=== PATIENT | female | born 1940 | race Caucasian/White ===

== ENCOUNTER → 2016-07-28 | Outpatient (CLI) | payer MEDICARE, OTHER ==
[~2016-07-28] MED LIST: ALPR.25T PO; ASP81TEC PO; ATOR10TA66 PO; CEFP500T4 PO; CEPH500C PO; CHOL500014 PO; CYCL5TAB11 PO; FLT05NA16 NSEACH; FURO20TA4 PO; GABA300T23 PO; GABAPENTIN PO; GBPN600T PO; HYDR-3720 PO; HYDR118S10 PO; IBUP-30 PO; MELO-195 PO; METO25TA2 PO; NEBI20TA2 PO; NFNEB10T PO; NIAC1CAP PO; NIAC250T17 PO; NIACIN; OMG1KC PO; ONDA8TAB2 PO; OXYC-309 PO; RLX60T PO; TRIA16.5 NS; VENTOLIN HFA AER; VITIMIN D; [UNRECOGNIZED DRUG - REMARK]
--- OUTSIDE RECORDS SUMMARY | 2016-07-28 16:01 | XMS REPORT | Continuity of Care Document ---
Author Author [facility] Organization [facility] Address Unknown Phone Unavailable Care Team Providers Care Senior Environmental Scientist Name Role Phone Janie Rodriguez PCP [phone] Source Comments Some departments are not documenting in the electronic medical record. If you do not see the information that you expected, contact Release of Information in the Health Information Management department at [phone] for further assistance in locating additional records.[facility] Active Allergies and Adverse Reactions Allergen Noted Date Severity Reactions Comments Adhesive 12/15/2015 Medium RASH, SEE COMMENTS, EDEMA ekg electrodes Crestor 10/16/2015 High SEE COMMENTS Pain Evista 2015 Low SEE COMMENTS PAIN Feldene 10/16/2015 High RASH Fosamax 10/16/2015 High RASH Lyrica 10/16/2015 High RASH Burst capillary vessels Current Medications Prescription Sig. Disp. Refills Start End Date Status Date carvedilol (COREG) 25 mg Take 25 mg by mouth twice Active tablet daily. oxybutynin (DITROPAN) 5 Take 5 mg by mouth twice Active mg tablet daily. spironolactone Take 50 mg by mouth at Active (ALDACTONE) 50 mg tablet bedtime daily. simvastatin (ZOCOR) 40 mg Take 40 mg by mouth at Active tablet bedtime daily. CYCLOSPORINE (RESTASIS Place 1 Drop into or Active OP) around eye(s) twice daily. aspirin 81 mg chewable Take 81 mg by mouth Active tablet daily. DOCOSAHEXANOIC ACID/EPA Take 3 Tabs by mouth Active (FISH OIL PO) daily. 1200mg each niacin 500 mg tablet Take 1,000 mg by mouth at Active bedtime daily. IBUPROFEN PO Take 800 mg by mouth Active daily. VIT Take 1 Tab by mouth twice Active C/E/ZN/COPPR/LUTEIN/ZEAXA daily. N (PRESERVISION AREDS 2 PO) Cholecalciferol (Vitamin Take 1 Cap by mouth at Active D3) 5,000 unit cap bedtime daily. losartan(+) (COZAAR) 100 Take 50 mg by mouth at Active mg tablet bedtime daily. gabapentin (NEURONTIN) Take 900 mg by mouth Active 600 mg tablet three times daily. calcium carbonate Take 1 Tab by mouth three 90 Tab 3 12/02/19 Active (OS-TAYLOR) 1250 mg tablet times daily. 16 oxyCODONE/acetaminophen Take 1 Tab by mouth every 90 Tab 0 12/02/19 Active (PERCOCET) 10/325 mg 4 hours as needed 16 tablet Active Problems Problem Noted Date Hypercalcemia 11/11/2015 Most Recent Encounters Date Type Specialty Providers Description 07/08/2016 Telephone Oncology Héctor Salomon MD Results 07/06/2016 Orders Only Oncology Héctor Salomon MD Hyperparathyroidism (HCC) (Primary Dx) 07/05/2016 Office Visit Oncology Héctor Salomon MD Hypercalcemia ( Primary Dx) 07/05/2016 Orders Only Oncology Héctor Salomon MD Hypercalcemia ( Primary Dx) 06/20/2016 Telephone Oncology Héctor Salomon MD Appointment Request Social History Tobacco Use Types Packs/Day Years Used Date Never Smoker Smokeless Tobacco: Never Used Alcohol Use Drinks/Week oz/Week Comments No 0 Standard 0.0 drinks or equivalent Last Filed Vital Signs Vital Sign Reading Time Taken Blood Pressure 174/83 07/05/2016 3:27 PM LEGAL TRANSCRIBER Pulse 58 07/05/2016 3:27 PM LEGAL TRANSCRIBER Temperature 36.5 C (97.7 F) 07/05/2016 3:27 PM LEGAL TRANSCRIBER Respiratory Rate 18 07/05/2016 3:27 PM LEGAL TRANSCRIBER Height 1.613 m (5' 3.5") 07/05/2016 3:27 PM LEGAL TRANSCRIBER Weight 98.884 kg (218 lb) 07/05/2016 3:27 PM LEGAL TRANSCRIBER Body Mass Index 38.01 07/05/2016 3:27 PM LEGAL TRANSCRIBER Oxygen Saturation 98% 07/05/2016 3:27 PM LEGAL TRANSCRIBER Plan of Care Health Maintenance Due Date Last Done Comments Physical (Comprehensive) 1945 Exam Pertussis Vaccine 1949 Tetanus Vaccine 10/28/1955 Shingles Vaccine 1998 Osteoporosis Screening 10/28/2003 Prevnar/Pneumovax (#1) 10/28/2003 Influenza Vaccine 01/28/2016 Results from Last 3 Months 25-OH VITAMIN D (D2 + D3) (07/05/2016 2:00 PM) Component Value Range Vitamin D(25-OH)Total 53.9 30-80 NG/ML Specimen Blood PARATHYROID HORMONE (07/05/2016 2:00 PM) Component Value Range PTH Hormone 59.6 10-65 PG/ML Specimen Blood CALCIUM (07/05/2016 2:00 PM) Component Value Range Calcium 9.4 8.5-10.6 MG/DL Specimen Blood
--- NOTE | 2016-07-28 18:46 | Diagnostic Imaging Report ---
EXAMINATION: PA and lateral chest at 421 hours. INDICATION: Shortness of breath, cough. FINDINGS: The heart size is at the upper limits of normal but stable when compared to 01/14/2015. The lungs are clear. There is still no sign of failure, pneumonia or a pleural effusion to suggest an acute abnormality. The mediastinum is not widened. The osseous structures are intact. The orthopedic hardware overlying the upper lumbar spine seen previously is partially visualized on this exam. IMPRESSION: There is no evidence for active disease. Dictated by: Dictated on workstation # [id number]
== END ==
LOC: RAD 15:58
PROVIDERS: ATTEND Nurse Practitioner Family
DX: R05 Cough (principal); R06.02 Shortness of breath
CPT/HCPCS: 71020

== ENCOUNTER → 2017-06-09 | Outpatient (CLI) | payer MEDICARE, OTHER ==
--- NOTE | 2017-06-09 09:44 | Diagnostic Imaging Report ---
Indication: Shortness of breath PA and lateral chest Heart size and pulmonary vascular normal. Lungs are clear. There are no effusions or pneumothoraces. Impression: Negative chest Dictated by: Dictated on workstation # [id number]
== END ==
LOC: RAD 09:05
PROVIDERS: ATTEND Nurse Practitioner Family
DX: R05 Cough (principal)
CPT/HCPCS: 71046

== ENCOUNTER → 2017-07-26 | Outpatient (CLI) | payer MEDICARE, OTHER | LOC: CARD 11:59 | PROVIDERS: ATTEND Physician Assistant | DX: Q21.1 Atrial septal defect (principal); R07.9 Chest pain, unspecified; I51.89 Other ill-defined heart diseases | CPT/HCPCS: 93306 ==

== ENCOUNTER 2017-09-30 21:18 | Emergency (ER) | payer MEDICARE, OTHER ==
[~2017-09-30] VITALS: Ht 160 cm; Wt 95.3 kg
--- NOTE | 2017-09-30 22:10 | ED Upper Extremity ---
General Chief Complaint: Upper Extremity Stated Complaint: L ARM PAIN Nursing Triage Note: PATIENT STATES THAT SHE STRAINED A MUSCLE IN HER UPPER ARM LAST NIGHT WHILE HOLDING ON TO THE RAILING ON THE STAIRS IN HER HOME. Nursing Sepsis Screen: No Definite Risk Source: patient Exam Limitations: no limitations History of Present Illness Date Seen by Provider: September 30, 2017 Time Seen by Provider: 21:50 Initial Comments C/O LEFT UPPER ARM AND SHOULDER PAIN STATES SHE INJURED HER ARM LAST NIGHT AROUND MIDNIGHT--STATES SHE WAS WALKING UP STEPS AND WAS HOLDING ONTO THE WALL AND TWISTED HER ARM C/O PAIN TO LEFT UPPER ARM WITH ANY MOVEMENTS. NO RADIATION OF PAIN NO NECK PAIN NO CHEST PAIN NO PARESTHESIAS OR MOTOR DEFICITS PT HAS HISTORY OF BILATERAL ROTATOR CUFF TEARS AFTER A FALL 8 YEARS AGO, BUT DID NOT HAVE SURGERY PT IS RIGHT HANDED TOOK IBUPROFEN 800 MG AN HOUR AGO AND IT HAS HELPED TOOK HYDROCODONE 7.5 MG LAST PM AND IT HELPED--PT TAKES DAILY FOR CHRONIC GENERALIZED PAIN PT STATES IT FEELS BEST WHEN SHE HOLDS HER LEFT FOREARM AGAINST HER CHEST, WITH HER RIGHT HAND. PCP: DR. BEGUM ORTHOPEDIC SURGEON: DR. PARIS Allergies and Home Medications Allergies Coded Allergies: loratadine (Unverified Allergy, Unknown, 11/07/12) aspirin (Unverified Adverse Reaction, Unknown, 01/22/16) NOSE BLEEDS, CAN TAKE BABY ASA piroxicam (Unverified Adverse Reaction, Unknown, 01/22/16) pregabalin (Unverified Adverse Reaction, Unknown, 01/22/16) MAKES LEGS "BLOOD RED" rosuvastatin calcium (Unverified Adverse Reaction, Unknown, 01/22/16) Home Medications Alprazolam 0.25 Mg Tab, 0.25 MG PO Q6H PRN, (Reported) PRN ANXIETY Aspirin 81 Mg Tabec, 81 MG PO DAILY, (Reported) Atorvastatin Calcium 10 Mg Tablet, 10 MG PO DAILY, (Reported) Cephalexin Monohydrate 500 Mg Capsule, 1 EACH PO QID, (Reported) TAKE ONE BY MOUTH EVERY 6 HRS. USE ALL OF THIS MEDICATION ORDERED ( ANTIBIOTIC) Cholecalciferol 5,000 Unit Capsule, 5,000 UNIT PO DAILY, (Reported) Cyclobenzaprine Hcl 5 Mg Tablet, 5 MG PO TID, (Reported) Furosemide 20 Mg Tablet, 20 MG PO DAILY, (Reported) Gabapentin 600 Mg Tab, 900 MG PO TID, (Reported) TAKE 1 AND 1/2 OF A 600 MG TABLET TID TOTAL OF 900 MG TID Meloxicam 15 Mg Tablet, 15 MG PO DAILY, (Reported) Nebivolol Hcl 20 Mg Tablet, 20 MG PO DAILY, (Reported) Nebivolol Hcl 10 Mg Tablet, 10 MG PO HS PRN, (Reported) PRN FOR BLOOD PRESSURE OVER 150 TOP NUMBER Niacin/Inositol Niacinate 1 Each Capsule, 1,000 MG PO DAILY, (Reported) TAKE 2 (500 MG) TABLETS DAILY [place] 3 Polyunsat Fatty Acids 1,000 Mg Cap, 3,000 MG PO DAILY, (Reported) Ondansetron Hcl 8 Mg Tablet, 8 MG PO Q6H PRN for NAUSEA/VOMITING Prescribed by: CHRISTINA HOLLEY on 05/12/14 1534 Oxycodone Hcl/Acetaminophen 1 Each Tablet, 5-325 MG PO Q4H PRN, (Reported) PRN SEVERE PAIN Prednisone 10 Mg Tab.ds.pk, 10 MG PO UD 6 PILLS A DAY X 3 DAYS, THEN 4 PILLS A DAY X 3 DAYS, THEN 2 PILLS A DAY X 3 DAYS, THEN 1 PILL A DAY X 3 DAYS Prescribed by: LUZ JOY on 09/30/17 2255 Raloxifene Hcl 60 Mg Tablet, 60 MG PO DAILY, (Reported) Patient Home Medication List Home Medication List Reviewed: Yes Constitutional: no symptoms reported Respiratory: no symptoms reported Cardiovascular: no symptoms reported Gastrointestinal: no symptoms reported Genitourinary: no symptoms reported Musculoskeletal: see HPI Skin: no symptoms reported Psychiatric/Neurological: No Symptoms Reported Past Hzwchav-Lmqird-Jfrzwp Hx Patient Social History Alcohol Use: Denies Use Recreational Drug Use: No Smoking Status: Never a Smoker 2nd Hand Smoke Exposure: Yes Recent Foreign Travel: No Contact w/Someone Who Travel: No Recent Infectious Disease Expo: No Physical Abuse: No Sexual Abuse: No Immunizations Up To Date Date of Pneumonia Vaccine: Feb 27, 2008 Seasonal Allergies Seasonal Allergies: Yes Past Medical History Surgeries: Yes (SPLENECTOMY, BACK SURGERY) Appendectomy, Orthopedic Respiratory: No Cardiac: Yes High Cholesterol, Hypertension Neurological: Yes Headaches /Migraines, Neuropathy 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: Menopausal Genitourinary: Yes UTI-Chronic Gastrointestinal: No Musculoskeletal: Yes (LEFT ANKLE FX, BACK SURGERY; CHRONIC GENERALIZED PAIN/ NARCOTIC DEPENDENT; BILATERAL ROTATOR CUFF TEARS--NO SURGERY) Degenerate Disk Disease, Osteoporosis, Arthritis, Chronic Back Pain Endocrine: Yes HEENT: Yes Chronic Ear Infection Cancer: No Psychosocial: Yes Anxiety Nursing Suicide Risk Score: 0 Integumentary: Yes (SHINGLES YRS AGO) Blood Disorders: No Physical Exam Vital Signs Vital Signs - First Documented 09/30/17 21:27 Temp 97.8 Pulse 66 Resp 18 B/P (MAP) 159/85 (109) Pulse Ox 95 Capillary Refill : Less Than 3 Seconds General Appearance: obese, other (PT AND DAUGHTER BOTH EXTREMELY ANXIOUS) Neck: non-tender, full range of motion, supple, normal inspection Cardiovascular: normal peripheral pulses, regular rate, rhythm, no murmur Respiratory: chest non-tender, normal breath sounds, no respiratory distress, no accessory muscle use Gastrointestinal: non tender, soft Back: normal inspection, no CVA tenderness, no vertebral tenderness Shoulder: no evidence of injury; No asymmetry, No bone tenderness, No deformity , No ecchymosis; limited ROM, pain (PAIN WITH ROM OF LEFT SHOULDER AND ARM-- PAIN IS TO UPPER HALF OF UPPER ARM--ANTERIOR, LATERAL AND POSTERIOR, AND APPEARS TO MUSCLE/SOFT TISSUE PAIN, NO BONY PAIN OR TENDERNESS . VERY LIMITED ROM IN ALL DIRECTIONS DUE TO PAIN, NO CREPITANCE/CLICKING/POPPING OR SUBLUXATION. ); No swelling Elbow/Forearm: normal inspection, non-tender, no evidence of injury, normal ROM Wrist: Yes normal inspection, Yes non-tender, Yes no evidence of injury, Yes normal ROM Hand: normal inspection, non-tender, no evidence of injury, normal ROM Neurologic/Tendon: normal sensation, normal motor functions, normal tendon functions Neurologic/Psychiatric: junior programmer analyst II-XII nml as tested, no motor/sensory deficits, alert, normal mood/affect, oriented x 3 Skin: normal color, warm/dry; No rash Procedures/Interventions Splinting and Joint Reduction : Immobilizers: XL Shoulder Progress/Results/Core Measures Results/Orders My Orders Orders - LUZ JOY DO Shoulder, Left, 3 Views (09/30/17 22:02) Humerus, Left, 2 Views (09/30/17 22:02) Shoulder Immoblizer (09/30/17 22:48) Ketorolac Injection (Toradol Injection) (09/30/17 22:48) Orphenadrine Injection (Norflex Injectio (09/30/17 23:00) Medications Given in ED Current Medications Medications Dose Ordered Sig/Micah Route Start Time Stop Time Status Last Admin Dose Admin Orphenadrine Citrate 60 mg ONCE ONCE IM 09/30/17 23:00 09/30/17 23:01 DC 09/30/17 23:05 60 MG Vital Signs/I&O 09/30/17 09/30/17 21:27 23:05 Temp 97.8 97.8 Pulse 66 66 Resp 18 18 B/P (MAP) 159/85 (109) 141/80 (109) Pulse Ox 95 95 Blood Pressure Mean: 109 Progress Progress Note : Progress Note LENGTHY DISCUSSION WITH PT AND DAUGHTER ABOUT POSSIBLE CAUSES, FURTHER TESTING, TREATMENTS AND FOLLOW UP Diagnostic Imaging Comments XRAYS LEFT SHOULDER AND HUMERUS--NO ACUTE PROCESS, CALCIFICATIONS AROUND SHOULDER JOINT--PENDING RADIOLOGIST REVIEW Reviewed: Reviewed by Me Departure Impression Primary Impression: Strain of left upper arm Disposition: HOME, SELF-CARE Condition: Stable Departure-Patient Inst. Referrals: ARJUN BEGUM MD (PCP) Primary Care Physician VIOLETTE PARIS MD Patient Instructions: How to Use a Shoulder Sling, Muscle Strain (DC), Shoulder Sprain (DC) Add. Discharge Instructions: WEAR SHOULDER IMMOBILIZER FOR COMFORT ICE TO AREA AT 20 MINUTE INTERVALS FOR THE FIRST 2 DAYS, THEN ALTERNATE ICE AND HEAT TO AREA AT 20 MINUTE INTERVALS CONTINUE YOUR HYDROCODONE NEEDED FOR PAIN--YOU MAY TAKE UP TO 1 PILL EVERY 4 HOURS IF NEEDED FOLLOW UP WITH DR. PARIS IN 7-10 DAYS FOR FURTHER CARE All discharge instructions reviewed with patient and/or family. Voiced understanding. Scripts Prednisone (Prednisone) 10 Mg Tab.ds.pk 10 MG PO UD, #39 PKG 6 PILLS A DAY X 3 DAYS, THEN 4 PILLS A DAY X 3 DAYS, THEN 2 PILLS A DAY X 3 DAYS, THEN 1 PILL A DAY X 3 DAYS Prov: LUZ JOY DO 09/30/17 Work/School Note: Work Release Form Date Seen in the Emergency Department: September 30, 2017 Restrictions: Need Release from Doctor LUZ JOY DO September 30, 2017 22:10
[2017-09-30] MEDS ORDERED: KETOROLAC 60 MG/2 ML VIAL IM STA (22:48)
[2017-09-30] MEDS ORDERED: PRED10TA22 PO (22:55)
[2017-09-30] MEDS ORDERED: ORPHENADRINE 60 MG/2 ML (NORFLEX) AMP IM ONE (23:00)
[2017-09-30 23:05] VITALS: BP 141/80
--- NOTE | 2017-10-02 10:10 | Diagnostic Imaging Report ---
PATIENT HISTORY: Left arm and shoulder pain, no known injury. TECHNIQUE: 3 views of the left shoulder. 2 views of the left humerus. COMPARISON: None FINDINGS: No acute fracture or dislocation is seen in the left shoulder or left humerus. There are moderate degenerative changes in the left glenohumeral joint with a prominent inferior osteophyte at the humeral head. Numerous calcified joint bodies are seen in the left shoulder joint, the largest measuring a centimeter in diameter. There is mild diffuse osteopenia. There is mild cardiomegaly with central vascular congestion and interstitial opacities. IMPRESSION: 1. Degenerative changes in the left glenohumeral joint with numerous calcified joint bodies. No acute fracture seen in the left shoulder or left humerus. 2. Mild cardiomegaly with central vascular congestion and mild interstitial edema. Dictated by: Dictated on workstation # [id number]
== END 2017-09-30 23:06 | disposition home or self-care (01) ==
LOC: EDUNIT# 21:18 → ER 21:20
DX: S46.912A Strain of unspecified muscle, fascia and tendon at shoulder and upper arm level, left arm, initial encounter (principal); F41.9 Anxiety disorder, unspecified; G43.909 Migraine, unspecified, not intractable, without status migrainosus; E78.00 Pure hypercholesterolemia, unspecified; I10 Essential (primary) hypertension; Z90.49 Acquired absence of other specified parts of digestive tract; Z87.81 Personal history of (healed) traumatic fracture; Z98.890 Other specified postprocedural states; Z77.22 Contact with and (suspected) exposure to environmental tobacco smoke (acute) (chronic); Z79.52 Long term (current) use of systemic steroids; Z79.82 Long term (current) use of aspirin; Z88.8 Allergy status to other drugs, medicaments and biological substances; Z88.6 Allergy status to analgesic agent
CPT/HCPCS: 73030; 73060; 96372

== ENCOUNTER → 2017-10-05 | Outpatient (CLI) | payer MEDICARE, OTHER ==
[~2017-10-05] MED LIST changes: +PRED10TA22 PO
--- NOTE | 2017-10-05 16:06 | Diagnostic Imaging Report ---
PROCEDURE: MRI left upper extremity without contrast. TECHNIQUE: Multiplanar, multisequence non contrast-enhanced MRI of the left upper extremity was accomplished. INDICATION: Arm pain. FINDINGS: There are no previous MRI examinations available for comparison. The plain film examinations of the left shoulder and humerus performed on 09/30/2017 noted degenerative changes involving the shoulder joint as well as numerous calcified loose bodies about the shoulder joint. On the T2 fat-saturated coronal series of this exam, there is evidence of a tear involving the anterior third of the insertion of the rotator cuff. The supraspinatus muscle in this area is somewhat bunched but not retracted. There also appears to be a partial tear of the musculotendinous portion of the supraspinatus muscle. There is hypertrophy of the acromioclavicular joint and this does result in narrowing of the outlet for the supraspinatus muscle. There is also some fluid in the subacromial subdeltoid bursa. This does suggest that there is an element of tendinitis present as well. The labrum is thinned posteriorly and torn on a degenerative basis. There is no abnormal signal arising from the osseous structures to suggest bone edema or fracture. There is a joint effusion present and there is some fluid in the bursa anterior to the shoulder joint. There are also numerous calcific loose bodies within the joint fluid and the fluid in the bursa anterior to the shoulder joint. IMPRESSION: 1. The rotator cuff is torn and there is a partial tear of the musculotendinous portion of the supraspinatus muscle; however, the supraspinatus muscle is not fully retracted. 2. There is hypertrophy of the acromioclavicular joint and this does result in narrowing of the outlet for the supraspinatus muscle. 3. The labrum is torn posteriorly. 4. There is no acute bony abnormality evident. 5. There is a joint effusion and fluid in the bursa anterior to the shoulder joint. There are also numerous calcific bodies amidst the fluid. Dictated by: Dictated on workstation # [id number]
== END ==
LOC: RAD 06:54
PROVIDERS: ATTEND Nurse Practitioner Family
DX: M75.102 Unspecified rotator cuff tear or rupture of left shoulder, not specified as traumatic (principal); M75.112 Incomplete rotator cuff tear or rupture of left shoulder, not specified as traumatic; M89.312 Hypertrophy of bone, left shoulder
CPT/HCPCS: 73221

== ENCOUNTER → 2018-01-10 | Outpatient (CLI) | payer MEDICARE, OTHER ==
--- NOTE | 2018-01-10 16:24 | Diagnostic Imaging Report ---
PATIENT HISTORY: LEFT LEG SWELLING, LEFT ANKLE PAIN. TECHNIQUE: Three views of the left ankle. COMPARISON: 10/31/2012 and 11/07/2012. FINDINGS: Redemonstrated is internal fixation of the remote lateral malleolus fracture with a lateral plate and multiple screws. No evidence of hardware loosening or fracture is seen. No migration of the hardware is seen. No new fracture is seen in the left ankle. There is severe osteoarthritis in the left tibiotalar joint which is new since 2012. Moderate soft tissue edema is seen about the left ankle. There is mild articular surface remodeling at the tibial plafond and talar dome. Plantar calcaneal and Achilles tendon enthesophytes are seen. There is moderate degenerative change in the midfoot. IMPRESSION: 1. 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 2. Stable internal fixation of the distal left fibula with no hardware complication seen. Dictated by: Dictated on workstation # [id number]
--- NOTE | 2018-01-10 16:30 | Diagnostic Imaging Report ---
CLINICAL INDICATION: Patient with left lower extremity swelling. COMPARISON: None. PROCEDURE: Real-time left lower extremity venous Doppler duplex evaluation is performed from the inguinal region through the popliteal fossa. The calf venous structures are also evaluated. FINDINGS: The deep venous system is well visualized and is easily compressible. There is no evidence of deep venous thrombosis, valvular incompetence, or significant collateral circulation. IMPRESSION: There is no ultrasound Doppler evidence of deep venous thrombosis in the left lower extremity. Dictated by: Dictated on workstation # [id number]
== END ==
LOC: RAD 15:25
PROVIDERS: ATTEND Nurse Practitioner Family
DX: M19.072 Primary osteoarthritis, left ankle and foot (principal); R22.42 Localized swelling, mass and lump, left lower limb
CPT/HCPCS: 73610

== ENCOUNTER → 2018-05-11 | Outpatient (CLI) | payer MEDICARE, OTHER ==
--- NOTE | 2018-05-11 11:20 | Diagnostic Imaging Report ---
Indication: Screening. The current study was also evaluated with a Computer Aided Detection (CAD) system. Comparison made with prior examination of 01/05/2016 back through 09/12/2011. Findings: There are scattered fibroglandular densities bilaterally. There are benign-appearing nodular densities in the upper-outer aspect of both breasts which are unchanged. There are a few benign type calcifications. There is no new dominant mass, spiculated lesion or suspicious calcification identified. Impression: Category 2 benign ACR BI-RADS Category 2: Benign findings. Result letter will be mailed to the patient. Note: At least 10% of breast cancer is not imaged by mammography. Dictated by: Dictated on workstation # [id number]
--- NOTE | 2018-05-14 11:53 | HISTORY AND PHYSICAL ---
DATE OF SERVICE: This will be for outpatient surgery on 05/23/2018 for left ankle hardware removal. HISTORY OF PRESENT ILLNESS: The patient is a 77-year-old female who previously underwent open reduction internal fixation of her lateral malleolus fracture several years ago. She reports a hardware prominence which is painful and activity limiting. She denies recent injuries. Due to functional impairment, the patient desired to proceed with surgical intervention. REVIEW OF SYSTEMS: No chest pain, no shortness of breath, no dysuria. PRIMARY CARE PROVIDER: Dr. Lopes. MEDICATIONS: Anacin, carvedilol gabapentin, hydrocodone, niacin, Cozaar, simvastatin, Restasis and meloxicam. ALLERGIES: FELDENE, LYRICA, CRESTOR, FOSAMAX, LIPITOR. SOCIAL HISTORY: She denies alcohol and tobacco use. RADIOGRAPHS: Reveal a well-healed lateral malleolus fracture with no evidence of widening of the mortise or syndesmosis. There are some moderate degenerative changes noted. PAST MEDICAL HISTORY: Significant for hypertension, hypercholesterolemia, arthritis. PHYSICAL EXAMINATION: GENERAL: The patient is well developed, well nourished, no acute distress. HEENT: Normocephalic, atraumatic. Pupils are equal, round and reactive to light. Oropharynx is clear. NECK: Supple. No lymphadenopathy. LUNGS: Clear to auscultation bilaterally. HEART: Regular rate and rhythm. ABDOMEN: Soft, nontender, nondistended. EXTREMITIES: Left ankle demonstrates a well healed incision. There is no erythema or warmth. There is a callus at distal aspect of her plate, which is prominent. Her screw heads are prominent as well, but there is no skin breakdown. IMPRESSION: Symptomatic prominent left lateral malleolus hardware. PLAN: Hardware removal of the left lateral malleolus. The risks, benefits, options, ramifications and recovery were discussed at length with the patient. She understands and wishes to proceed. Job ID: [id number] DocumentID: [id number] Dictated Date: 05/14/2018 11:34:48 Repairer [employer] Date: 05/14/2018 11:53:06 Dictated By: VIOLETTE PARIS MD
== END ==
LOC: RAD 08:18
PROVIDERS: ATTEND Nurse Practitioner Family
DX: Z12.31 Encounter for screening mammogram for malignant neoplasm of breast (principal)
CPT/HCPCS: 77067

== ENCOUNTER 2018-05-17 05:42 | Outpatient (CLI) | payer MEDICARE, OTHER ==
[~2018-05-17] VITALS: Ht 160 cm; Wt 95.3 kg
[2018-05-17] MEDS ORDERED: MELO15TA39 PO (14:02)
[2018-05-17] MEDS ORDERED: OMG1KC PO (14:02)
[2018-05-17] MEDS ORDERED: CARV25TA PO (14:02)
[2018-05-17] MEDS ORDERED: ATOR40TA70 PO (14:02)
[2018-05-17] MEDS ORDERED: OXYC-464 PO (14:02)
[2018-05-17] MEDS ORDERED: MELO7.5T46 PO (14:02)
[2018-05-17] MEDS ORDERED: NIAC500T24 PO (14:02)
[2018-05-17] MEDS ORDERED: ASPI-999 PO (14:02)
[2018-05-17] MEDS ORDERED: VIT1CAPS44 PO (14:02)
[2018-05-17] MEDS ORDERED: GABA600T2 PO (14:02)
[2018-05-17] MEDS ORDERED: CHOL5000 PO (14:02)
[2018-05-17] MEDS ORDERED: SPIR25TA5 PO (14:02)
[2018-05-17] MEDS ORDERED: CYCL1DRO OP (14:02)
[2018-05-17] MEDS ORDERED: LOSA50TA7 PO (14:02)
== END 2018-05-17 15:23 | disposition home or self-care (01) ==
LOC: PREOP 05:42
PROVIDERS: ATTEND Orthopaedic Surgery
DX: Z01.818 Encounter for other preprocedural examination (principal)

== ENCOUNTER 2018-05-21 15:14 | Emergency (ER) | payer MEDICARE, OTHER ==
[~2018-05-21] VITALS: Ht 160 cm; Wt 95.3 kg
[~2018-05-21 15:14] MED LIST changes: +ASPI-999 PO; +ATOR40TA70 PO; +CARV25TA PO; +CHOL5000 PO; +CYCL1DRO OP; +GABA600T2 PO; +LOSA50TA7 PO; +MELO15TA39 PO; +MELO7.5T46 PO; +NIAC500T24 PO; +OXYC-464 PO; +SPIR25TA5 PO; +VIT1CAPS44 PO
--- OUTSIDE RECORDS SUMMARY | 2018-05-21 15:18 | XMS REPORT | Clinical Summary ---
Author Author [facility] Organization [facility] Address Unknown Phone Unavailable Care Team Providers [employer] Name Role Phone Héctor Salomon MD Unavailable Janie Rodriguez MD PCP Samira Ogden CRNA Unavailable Source Comments Some departments are not documenting in the electronic medical record. If you do not see the information that you expected, contact Release of Information in the Health Information Management department at [phone] for further assistance in locating additional records.[facility] Allergies Comments Active Allergy Reactions Severity Noted Date ekg electrodes Adhesive RASH, SEE Medium 12/15/2015 COMMENTS, EDEMA Pain Rosuvastatin SEE COMMENTS High 10/16/2015 PAIN Raloxifene SEE COMMENTS Low 2015 Piroxicam RASH High 10/16/2015 Alendronate RASH High 10/16/2015 Burst capillary vessels Pregabalin RASH High 10/16/2015 Medications End Date Status Medication Sig Dispensed Refills Start Date Active carvedilol (COREG) 25 mg Take 25 mg by 0 tablet mouth twice daily. Active oxybutynin (DITROPAN) 5 Take 5 mg by 0 mg tablet mouth twice daily. Active spironolactone Take 50 mg by 0 (ALDACTONE) 50 mg tablet mouth at bedtime daily. Active simvastatin (ZOCOR) 40 mg Take 40 mg by 0 tablet mouth at bedtime daily. Active CYCLOSPORINE (RESTASIS Place 1 Drop 0 OP) into or around eye(s) twice daily. Active aspirin 81 mg chewable Take 81 mg by 0 tablet mouth daily. Active DOCOSAHEXANOIC ACID/EPA Take 3 Tabs 0 (FISH OIL PO) by mouth daily. 1200mg each Active niacin 500 mg tablet Take 1,000 mg 0 by mouth at bedtime daily. Active IBUPROFEN PO Take 800 mg 0 by mouth daily. Active VIT Take 1 Tab by 0 C/E/ZN/COPPR/LUTEIN/ZEAXA mouth twice N (PRESERVISION AREDS 2 daily. PO) Active Cholecalciferol (Vitamin Take 1 Cap by 0 D3) 5,000 unit cap mouth at bedtime daily. Active losartan(+) (COZAAR) 100 Take 50 mg by 0 mg tablet mouth at bedtime daily. Active gabapentin (NEURONTIN) Take 900 mg 0 600 mg tablet by mouth three times daily. Active calcium carbonate Take 1 Tab by 90 Tab 3 (OS-TAYLOR) 1250 mg tablet mouth three 6 times daily. Active oxyCODONE/acetaminophen Take 1 Tab by 90 Tab 0 (PERCOCET) 10/325 mg mouth every 4 6 tablet hours as needed Active Problems Problem Noted Date Hypercalcemia 11/11/2015 Social History Date Tobacco Use Types Packs/Day Years Used Never Smoker Smokeless Tobacco: Never Used Alcohol Use Drinks/Week oz/Week Comments No 0 Standard 0.0 drinks or equivalent Sex Assigned at Date Recorded Not on file Industry Job Start Date Occupation Not on file Not on file Not on file Travel End Travel History Travel Start No recent travel history available. Last Filed Vital Signs Time Taken Vital Sign Reading 07/05/2016 3:27 PM [employer] Blood Pressure 174/83 07/05/2016 3:27 PM [employer] Pulse 58 07/05/2016 3:27 PM [employer] Temperature 36.5 C (97.7 F) 07/05/2016 3:27 PM [employer] Respiratory Rate 18 07/05/2016 3:27 PM [employer] Oxygen Saturation 98% - Inhaled Oxygen - Concentration 07/05/2016 3:27 PM [employer] Weight 98.9 kg (218 lb) 07/05/2016 3:27 PM [employer] Height 161.3 cm (5' 3.5") 07/05/2016 3:27 PM [employer] Body Mass Index 38.01 Plan of Treatment Health Maintenance Due Date Last Done Comments PHYSICAL (COMPREHENSIVE) 1945 EXAM DTAP/TDAP VACCINES (1 - 1956 Tdap) SHINGLES RECOMBINANT 1988 VACCINE (1 of 2) OSTEOPOROSIS 10/28/2003 SCREENING/MONITORING PNEUMONIA (PCV13/PPSV23) 10/28/2003 VACCINES (1 of 2 - PCV13) INFLUENZA VACCINE 12/27/2017 Results Not on filefrom Last 3 Months Insurance Payer Benefit Subscriber ID Type Phone Address Plan / Group MEDICARE MEDICARE xxxxxxxxxx Medicare PART A AND B CIGNA CIGNA xxxxxxxxxx Medicare MEDICARE SUPPLEMENT Rain Taylor Third Self 1940 [address] (Home) [place] [address] Liability Advance Directives Patient has advance care planning documents on file. For more information, please contact: [facility] [phone] [place] [address]
--- OUTSIDE RECORDS SUMMARY | 2018-05-21 15:20 | XMS REPORT | CCD ---
Author Author Lise Bruce MD, 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 Perl Software Engineer Name Role Phone PP Unavailable CCM Unavailable Summary Purpose Interface Exchange Insurance Providers Payer name Policy type / Coverage type Covered green party ID Effective Begin Date Effective End Date WPS Medicare Part B Medicare Part B [id number] Unknown Lebanese [employer] Life Insurance Medicare Part B [id number] Unknown Family history Mother Diagnosis Age At Onset Hypertension Unknown Anemia Unknown Arthritis Unknown Coronary Artery Disease Unknown Sister Diagnosis Age At Onset bladder cancer Unknown Hypertension Unknown Cancer Unknown Brother Diagnosis Age At Onset Prostate Cancer Unknown Depression Unknown Cancer Unknown Hypertension Unknown Social History Social History Element Codes Description Effective Dates Marital status Unknown 01/12/[address]: 144992725 Never smoker 01/12/[address]: 891774673 Never drinks alcohol 01/12/2016 Allergies, Adverse Reactions, Alerts Substance Reaction Codes Entered Date Inactivated Date Status * OTHER REACTION - SEE ANSWER BOX [employer] Unknown 2015 No Inactive Date Active Past Medical History Illness Codes Condition Status Onset Date Resolved Date Encounter for screening mammogram for malignant neoplasm of breast ICD-9: V76.10 ICD-10: Z12.31 Active 05/11/2018 Unknown Encounter for general adult medical examination with abnormal findings ICD-9: V70.0 ICD-10: Z00.01 Active 05/03/2018 Unknown Other chronic pain ICD -9: 338.29 ICD-10: G89.29 Active 07/18/2016 Unknown Primary generalized (osteo)arthritis ICD-9: 715.09 ICD-10: M15.0 Active 04/02/2018 Unknown Elevated white blood cell count, unspecified ICD-9: 288.60 ICD-10: D72.829 Active 03/05/2018 Unknown Dysuria ICD-9: 788.1 ICD-10: R30.0 Active 07/18/2016 Unknown Hypertension Unknown Active 01/31/2018 Unknown Essential (primary) hypertension ICD-9: 401.9 ICD-10: I10 Active 01/11/2016 Unknown Mixed hyperlipidemia ICD-9: 272.2 ICD-10: E78.2 Active 01/11/2016 Unknown Localized edema ICD-9 : 782.3 ICD-10: R60.0 Active 01/10/2018 Unknown Pain in left leg ICD-9 : 729.5 ICD-10: M79.605 Active 01/10/2018 Unknown Urinary tract infection, site not specified ICD-9: 599.0 ICD-10: N39.0 Active 10/20/2017 Unknown Pain in left arm ICD-9 : 729.5 ICD-10: M79.602 Active 10/04/2017 Unknown Pain in left elbow ICD -9: 719.42 ICD-10: M25.522 Active 10/04/2017 Unknown Cough ICD-9: 786.2 ICD-10: R05 Active 07/27/2016 Unknown Shortness of breath ICD-9: 786.05 ICD-10: R06.02 Active 07/27/2016 Unknown Acute laryngopharyngitis ICD-9: 465.0 ICD-10: J06.0 Active 06/05/2017 Unknown Other acute sinusitis ICD-9: 461.8 ICD-10: J01.80 Active 06/05/2017 Unknown Diverticulitis of large intestine without perforation or abscess without bleeding ICD-9: 562.11 ICD-10: K57.32 Active 01/19/2017 Unknown Left lower quadrant pain ICD-9: 789.04 ICD-10: R10.32 Active 01/19/2017 Unknown Allergic contact dermatitis due to plants, except food ICD-9: 692.6 ICD-10: L23.7 Active 10/05/2016 Unknown Low back pain ICD-9: 724.2 ICD-10: M54.5 Active 01/11/2016 Unknown Cellulitis of right toe ICD-9: 681.10 ICD-10: L03.031 Active 07/27/2016 Unknown Other obesity due to excess calories ICD-9: 278.00 ICD-10: E66.09 Active 07/27/2016 Unknown 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 Active 05/08/2016 Unknown Encounter for screening for malignant neoplasm of colon ICD-9: V76.51 ICD-10: Z12.11 Active 01/17/2016 Unknown Diverticular disease Unknown Active 01/12/2016 Unknown Melena ICD-9: 578.1 ICD-10: K92.1 Active 01/11/2016 Unknown Problems Condition Codes Effective Dates Condition Status Encounter for screening mammogram for malignant neoplasm of breast ICD-9: V76.10 ICD-10: Z12.31 05/11/2018 Active Encounter for general adult medical examination with abnormal findings ICD-9: V70.0 ICD-10: Z00.01 05/03/2018 Active Other chronic pain ICD -9: 338.29 ICD-10: G89.29 07/18/2016 Active Primary generalized (osteo)arthritis ICD-9: 715.09 ICD-10: M15.0 04/02/2018 Active Elevated white blood cell count, unspecified ICD-9: 288.60 ICD-10: D72.829 03/05/2018 Active Dysuria ICD-9: 788.1 ICD-10: R30.0 07/18/2016 Active Hypertension Unknown 01/31/2018 Active Essential (primary) hypertension ICD-9: 401.9 ICD-10: I10 01/11/2016 Active Mixed hyperlipidemia ICD-9: 272.2 ICD-10: E78.2 01/11/2016 Active Localized edema ICD-9 : 782.3 ICD-10: R60.0 01/10/2018 Active Pain in left leg ICD-9 : 729.5 ICD-10: M79.605 01/10/2018 Active Urinary tract infection, site not specified ICD-9: 599.0 ICD-10: N39.0 10/20/2017 Active Pain in left arm ICD-9 : 729.5 ICD-10: M79.602 10/04/2017 Active Pain in left elbow ICD -9: 719.42 ICD-10: M25.522 10/04/2017 Active Cough ICD-9: 786.2 ICD-10: R05 07/27/2016 Active Shortness of breath ICD-9: 786.05 ICD-10: R06.02 07/27/2016 Active Acute laryngopharyngitis ICD-9: 465.0 ICD-10: J06.0 06/05/2017 Active Other acute sinusitis ICD-9: 461.8 ICD-10: J01.80 06/05/2017 Active Diverticulitis of large intestine without perforation or abscess without bleeding ICD-9: 562.11 ICD-10: K57.32 01/19/2017 Active Left lower quadrant pain ICD-9: 789.04 ICD-10: R10.32 01/19/2017 Active Allergic contact dermatitis due to plants, except food ICD-9: 692.6 ICD-10: L23.7 10/05/2016 Active Low back pain ICD-9: 724.2 ICD-10: M54.5 01/11/2016 Active Cellulitis of right toe ICD-9: 681.10 ICD-10: L03.031 07/27/2016 Active Other obesity due to excess calories ICD-9: 278.00 ICD-10: E66.09 07/27/2016 Active 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 05/08/2016 Active Encounter for screening for malignant neoplasm of colon ICD-9: V76.51 ICD-10: Z12.11 01/17/2016 Active Diverticular disease Unknown 01/12/2016 Active Melena ICD-9: 578.1 ICD-10: K92.1 01/11/2016 Active Medications Medication Codes Instructions Start Date Stop Date Status Fill Instructions gabapentin 600 mg tablet RxNorm: 251776 TAKE 1 & 1/2 (ONE & ONE-HALF) TABLETS BY MOUTH THREE TIMES DAILY 04/25/2018 No Stop Date Active Voltaren 1 % topical gel RxNorm: 301636 1 Application TOP BID 04/02/2018 No Stop Date Active prednisone 20 mg tablet RxNorm: 129951 2 Tablet(s) PO daily 09/201704/06/2018 Inactive Coreg 25 mg tablet RxNorm: 622214 TAKE 1 TABLET BY MOUTH TWICE DAILY 03/19/2018 No Stop Date Active meloxicam 7.5 mg tablet RxNorm: 685181 1 Tablet(s) PO daily 08/201705/29/2018 Active Keflex 500 mg capsule RxNorm: 968070 1 Capsule(s) PO TID 201702/18/2018 Inactive Keflex 500 mg capsule RxNorm: 781541 1 Capsule(s) PO TID 201702/25/2018 Inactive Cipro 500 mg tablet RxNorm: 084566 1 Tablet(s) PO BID 201702/12/2018 Inactive Cipro 500 mg tablet RxNorm: 249600 1 Tablet(s) PO BID 201702/16/2018 Inactive gabapentin 600 mg tablet RxNorm: 281783 TAKE 1 & 1/2 (ONE & ONE-HALF) TABLETS BY MOUTH THREE TIMES DAILY 02/05/20182017 Inactive meloxicam 7.5 mg tablet RxNorm: 252616 1 Tablet(s) PO daily 09/201701/30/2018 Inactive meloxicam 7.5 mg tablet RxNorm: 044313 1 Tablet(s) PO daily 09/201702/28/2018 Inactive spironolactone 50 mg tablet RxNorm: 076787 TAKE 1 TABLET BY MOUTH ONCE DAILY 01/22/2018 No Stop Date Active potassium chloride ER 10 mEq tablet,extended release RxNorm: 030308 1 Tablet(s) PO daily 01/10/2018 No Stop Date Active Lasix 20 mg tablet RxNorm: 045408 1 Tablet(s) PO daily 2017 No Stop Date Active spironolactone 50 mg tablet RxNorm: 315217 TAKE ONE TABLET BY MOUTH ONCE DAILY 10/30/2017 01/21/2018 Inactive Bactrim DS 800 mg-160 mg tablet RxNorm: 985871 1 Tablet(s) PO BID 10/20/2017 10/19/2017 Inactive Bactrim DS 800 mg-160 mg tablet RxNorm: 412555 1 Tablet(s) PO BID 10/20/2017 10/19/2017 Inactive Bactrim DS 800 mg-160 mg tablet RxNorm: 681657 1 Tablet(s) PO BID 10/20/2017 10/26/2017 Inactive hydrocodone 7.5 mg-acetaminophen 325 mg tablet RxNorm: 290218 1 Tablet(s) PO Q4- 6H as needed 10/11/2017 No Stop Date Active Coreg 25 mg tablet RxNorm: 458385 TAKE ONE TABLET BY MOUTH TWICE DAILY 09/27/2017 03/18/2018 Inactive gabapentin 300 mg capsule RxNorm: 448411 TAKE ONE & ONE-HALF TABLETS BY MOUTH THREE TIMES DAILY 07/31/2017 No Stop Date Active gabapentin 600 mg tablet RxNorm: 723152 1.5 Tablet(s) PO TID 01/26/2018 Inactive Keflex 500 mg capsule RxNorm: 678959 1 Capsule(s) PO TID 201706/16/2017 Inactive albuterol sulfate 2.5 mg/3 mL (0.083 %) solution for nebulization RxNorm: 512578 3 Milliliter(s) INH QID as needed 06/09/2017 No Stop Date Active prednisone 10 mg tablet RxNorm: 154972 Tablet(s) PO 06/08/2017 No Stop Date Active 6, 5,4,3,2,1 Keflex 500 mg capsule RxNorm: 231470 1 Capsule(s) PO TID 201706/13/2017 Inactive Zithromax Z-Duran 250 mg tablet RxNorm: 650842 1 Tablet(s) PO UD 06/05/2017 11/08/2017 Inactive Tessalon Perles 100 mg capsule RxNorm: 836419 1-2 Capsule(s) PO TID as needed cough 06/05/2017 06/09/2017 Inactive Please check mast before filling for pt, if too expensive pt does not want it Kenalog 40 mg/mL suspension for injection RxNorm: 4233609 1 Milliliter(s) Inj 06/05/2017 06/05/2017 Inactive Coreg 25 mg tablet RxNorm: 513134 TAKE ONE TABLET BY MOUTH TWICE DAILY 05/30/2017 09/26/2017 Inactive gabapentin 300 mg capsule RxNorm: 491989 TAKE ONE & ONE-HALF TABLETS BY MOUTH THREE TIMES DAILY 05/30/2017 07/30/2017 Inactive gabapentin 300 mg capsule RxNorm: 830080 TAKE ONE & ONE-HALF TABLETS BY MOUTH THREE TIMES DAILY 02/01/2017 05/29/2017 Inactive Coreg 25 mg tablet RxNorm: 796349 TAKE ONE TABLET BY MOUTH TWICE DAILY 02/01/2017 05/29/2017 Inactive Cipro 500 mg tablet RxNorm: 702907 1 Tablet(s) PO BID 201601/28/2017 Inactive Flagyl 500 mg tablet RxNorm: 823288 1 Tablet(s) PO TID 201601/28/2017 Inactive Coreg 25 mg tablet RxNorm: 762126 TAKE ONE TABLET BY MOUTH TWICE DAILY 01/02/2017 01/31/2017 Inactive hydrocodone 7.5 mg-acetaminophen 325 mg tablet RxNorm: 509716 1 Tablet(s) PO Q4- 6H as needed 12/08/2016 10/10/2017 Inactive Keflex 500 mg capsule RxNorm: 180784 1 Capsule(s) PO TID 201612/14/2016 Inactive spironolactone 50 mg tablet RxNorm: 969132 TAKE ONE TABLET BY MOUTH ONCE DAILY 11/25/2016 03/24/2017 Inactive gabapentin 300 mg capsule RxNorm: 505703 TAKE ONE & ONE-HALF TABLETS BY MOUTH THREE TIMES DAILY 10/07/2016 01/31/2017 Inactive prednisone 10 mg tablet RxNorm: 683420 Tablet(s) PO 10/05/2016 06/07/2017 Inactive 6, 5,4,3,2,1 hydrocodone 7.5 mg-acetaminophen 325 mg tablet RxNorm: 510594 1 Tablet(s) PO Q4- 6H 09/23/2016 12/07/2016 Inactive Coreg 25 mg tablet RxNorm: 390792 TAKE ONE TABLET BY MOUTH TWICE DAILY 09/08/2016 01/01/2017 Inactive Ventolin HFA 90 mcg/actuation aerosol inhaler RxNorm: 519171 1 Puff(s) INH Q4-6H as needed dyspnea 07/29/2016 No Stop Date Active hydrocodone 10 mg-acetaminophen 325 mg tablet RxNorm: 937962 1/2 Tablet(s) PO TID 07/18/2016 08/16/2016 Inactive Pyridium 100 mg tablet RxNorm: 2563275 1-2 Tablet(s) PO TID as needed 07/18/2016 07/19/2016 Inactive Bactrim DS 800 mg-160 mg tablet RxNorm: 813864 1 Tablet(s) PO BID 07/18/2016 07/27/2016 Inactive Coreg 25 mg tablet RxNorm: 747490 TAKE ONE TABLET BY MOUTH TWICE DAILY 07/07/2016 09/04/2016 Inactive gabapentin 300 mg capsule RxNorm: 486693 TAKE ONE & ONE-HALF TABLETS BY MOUTH THREE TIMES DAILY 06/09/2016 10/06/2016 Inactive hydrocodone 7.5 mg-acetaminophen 325 mg tablet RxNorm: 071596 1 Tablet(s) PO BID 05/17/2016 10/08/2016 Inactive hydrocodone 7.5 mg-acetaminophen 325 mg tablet RxNorm: 659924 1 Tablet(s) PO BID 03/31/2016 05/16/2016 Inactive spironolactone 50 mg tablet RxNorm: 989928 1 Tablet(s) PO daily 03/09/2016 09/04/2016 Inactive Coreg 25 mg tablet RxNorm: 687657 1 Tablet(s) PO BID 201506/20/2016 Inactive gabapentin 600 mg tablet RxNorm: 224955 1.5 Tablet(s) PO TID 06/09/2016 Inactive gabapentin 300 mg capsule RxNorm: 548494 3 Capsule(s) PO TID 02/10/2016 Inactive hydrocodone 7.5 mg-acetaminophen 325 mg tablet RxNorm: 163209 1 Tablet(s) PO BID 01/12/2016 03/30/2016 Inactive prednisone 10 mg tablet RxNorm: 277754 Tablet(s) PO No Start Date Active 6,5,4,3,2 ,1 Fish Oil 360 mg-1,200 mg capsule RxNorm: 713719 3 Capsule(s) PO daily No Start Date Active niacin 500 mg capsule RxNorm: 898770 2 Capsule(s) PO daily No Start Date Active simvastatin 40 mg tablet RxNorm: 536278 1 Tablet(s) PO daily No Start Date Active losartan 50 mg tablet RxNorm: 614675 1 Tablet(s) PO daily No Start Date Active oxybutynin chloride 5 mg tablet RxNorm: 121151 1 Tablet(s) PO BID No Start Date Active PreserVision Lutein oral RxNorm: 948259 oral No Start Date Active aspirin 81 mg tablet RxNorm: 752041 1 Tablet(s) PO daily No Start Date Active spironolactone 50 mg tablet RxNorm: 009036 1 Tablet(s) PO daily No Start Date 03/08/2016 Inactive Coreg 25 mg tablet RxNorm: 303440 1 Tablet(s) PO BID No Start Date 02/21/2016 Inactive Ventolin HFA 90 mcg/actuation aerosol inhaler RxNorm: 756745 1 Puff(s) INH Q4-6H as needed dyspnea No Start Date 2016 Inactive hydrocodone 7.5 mg-acetaminophen 325 mg tablet RxNorm: 714674 1 Tablet(s) PO BID No Start Date 01/11/2016 Inactive albuterol sulfate 2.5 mg/3 mL (0.083 %) solution for nebulization RxNorm: 441465 3 Milliliter(s) INH QID as needed No Start Date 06/08/2017 Inactive gabapentin 300 mg capsule RxNorm: 944241 3 Capsule(s) PO TID No Start Date 02/09/2016 Inactive Vitamin D3 5,000 unit tablet RxNorm: 069753 1 Tablet(s) PO daily No Start Date 08/13/2017 Inactive ibuprofen 200 mg capsule RxNorm: 710104 1 Capsule(s) PO TID No Start Date 01/29/2018 Inactive Medication Administered Medication Codes Instructions Start Date Status Kenalog 40 mg/mL suspension for injection RxNorm: 6544537 1Milliliter 06/05/2017 No longer Active Immunizations No Immunization data Assessments Condition Codes Effective Dates Encounter for screening mammogram for malignant neoplasm of breast ICD-10: Z12.31 ICD-9: V76.10 05/11/2018 Encounter for general adult medical examination with abnormal findings ICD-10: Z00.01 ICD-9: V70.0 05/03/2018 Primary generalized (osteo)arthritis ICD-10: M15.0 ICD-9: 715.09 04/02/2018 Other chronic pain ICD-10: G89.29 ICD-9: 338.29 04/02/2018 Elevated white blood cell count, unspecified ICD-10: D72.829 ICD-9: 288.60 03/05/2018 Dysuria ICD-10: R30.0 ICD-9: 788.1 02/13/2018 Essential (primary) hypertension ICD-10: I10 ICD-9: 401.9 01/31/2018 Mixed hyperlipidemia ICD-10: E78.2 ICD-9: 272.2 01/31/2018 Pain in left leg ICD-10: M79.605 ICD-9: 729.5 01/10/2018 Localized edema ICD-10: R60.0 ICD-9: 782.3 01/10/2018 Urinary tract infection, site not specified ICD-10: N39.0 ICD-9: 599.0 10/20/2017 Pain in left arm ICD-10: M79.602 ICD-9: 729.5 10/04/2017 Pain in left elbow ICD-10: M25.522 ICD-9: 719.42 10/04/2017 Shortness of breath ICD-10: R06.02 ICD-9: 786.05 06/08/2017 Cough ICD-10: R05 ICD-9: 786.2 06/08/2017 Other acute sinusitis ICD-10: J01.80 ICD-9: 461.8 06/05/2017 Acute laryngopharyngitis ICD-10: J06.0 ICD-9: 465.0 06/05/2017 Diverticulitis of large intestine without perforation or abscess without bleeding ICD-10: K57.32 ICD-9: 562.11 01/19/2017 Left lower quadrant pain ICD-10: R10.32 ICD-9: 789.04 01/19/2017 Allergic contact dermatitis due to plants, except food ICD- 10: L23.7 ICD-9: 692.6 10/05/2016 Low back pain ICD-10: M54.5 ICD-9: 724.2 09/23/2016 Cellulitis of right toe ICD-10: L03.031 ICD-9: 681.10 07/27/2016 Other obesity due to excess calories ICD-10: E66.09 ICD-9: 278.00 07/27/2016 Other specified disorders of parathyroid gland ICD-10: 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.4 ICD-9: 252.8 05/09/2016 Encounter for screening for malignant neoplasm of colon ICD- 10: Z12.11 ICD-9: V76.51 01/18/2016 Melena ICD-10: K92.1 ICD-9: 578.1 01/12/2016 Reason For Visit Reason For Visit Effective Dates Notes Annual Medicare Wellness Exam 05/03/2018 shoulder pain 04/02/2018 edema 01/10/2018 Hospital Follow Up 10/04/2017 ER follow up sinus congestion 06/05/2017 abdominal pain 01/19/2017 rash 10/05/2016 low back and leg pain 09/23/2016 foot pain 07/27/2016 urinary urgency 07/18/2016 hypertension 05/09/2016 melena 01/12/2016 Results Observation Observation Code Item Item Code Result Date Cbc With Differential Ord2 WBC 8.73 K/ul 03/08/2018 Cbc With Differential Ord2 RBC 4.27 M/ul 03/08/2018 Cbc With Differential Ord2 HGB 12.9 g/dl 03/08/2018 Cbc With Differential Ord2 Neut% 63.8 % 03/08/2018 Cbc With Differential Ord2 HCT 40.6 % 03/08/2018 Cbc With Differential Ord2 Lymph% 18.8 % 03/08/2018 Cbc With Differential Ord2 MCV 95.1 fl 03/08/2018 Cbc With Differential Ord2 MCH 30.2 pg 03/08/2018 Cbc With Differential Ord2 Harlan% 11.9 % 03/08/2018 Cbc With Differential Ord2 Eos% 4.7 % 03/08/2018 Cbc With Differential Ord2 MCHC 31.8 pg 03/08/2018 Cbc With Differential Ord2 PLT 379 K/ul 03/08/2018 Cbc With Differential Ord2 Baso% 0.8 % 03/08/2018 Cbc With Differential Ord2 RDW 13.9 % 03/08/2018 Cbc With Differential Ord2 Neut ABS# 5.57 K/ul 03/08/2018 Cbc With Differential Ord2 Lymph ABS# 1.64 K/ul 03/08/2018 Cbc With Differential Ord2 Harlan ABS# 1.0 K/ul 03/08/2018 Cbc With Differential Ord2 Eos ABS# 0.4 K/ul 03/08/2018 Cbc With Differential Ord2 Baso ABS# 0.1 K/ul 03/08/2018 Urine Culture Ucult Complete >100,000 col/ml aerobic growth sent to ref lab 02/15/2018 Tsh Ord6 TSH (3rd IS) 0.52 uIU/mL 02/02/2018 Lipid Ord30 CHOL 127 mg/dL 02/02/2018 Lipid Ord30 HDL 46.0 mg/dl 02/02/2018 Lipid Ord30 TRIG 83 mg/dL 02/02/2018 Lipid Ord30 LDL 64 mg/dL 02/02/2018 Lipid Ord30 C/HDL 2.8 Ratio 02/02/2018 Parathyroid Hormone Stk172 PTH 47.40 pg/ml 02/02/2018 Cbc With Differential Ord2 WBC 12.23 K/ul 02/02/2018 Cbc With Differential Ord2 RBC 4.36 M/ul 02/02/2018 Cbc With Differential Ord2 HGB 13.2 g/dl 02/02/2018 Cbc With Differential Ord2 HCT 40.9 % 02/02/2018 Cbc With Differential Ord2 Neut% 71.8 % 02/02/2018 Cbc With Differential Ord2 MCV 93.8 fl 02/02/2018 Cbc With Differential Ord2 Lymph% 14.1 % 02/02/2018 Cbc With Differential Ord2 MCH 30.3 pg 02/02/2018 Cbc With Differential Ord2 Harlan% 10.3 % 02/02/2018 Cbc With Differential Ord2 MCHC 32.3 pg 02/02/2018 Cbc With Differential Ord2 Eos% 3.4 % 02/02/2018 Cbc With Differential Ord2 PLT 344 K/ul 02/02/2018 Cbc With Differential Ord2 Baso% 0.4 % 02/02/2018 Cbc With Differential Ord2 RDW 14.4 % 02/02/2018 Cbc With Differential Ord2 Neut ABS# 8.78 K/ul 02/02/2018 Cbc With Differential Ord2 Lymph ABS# 1.72 K/ul 02/02/2018 Cbc With Differential Ord2 Harlan ABS# 1.3 K/ul 02/02/2018 Cbc With Differential Ord2 Eos ABS# 0.4 K/ul 02/02/2018 Cbc With Differential Ord2 Baso ABS# 0.1 K/ul 02/02/2018 Comp Metabolic Hyi416 NA 139 mEq/L 01/10/2018 Comp Metabolic Koa378 K 5.1 mEq/L 01/10/2018 Comp Metabolic Dve366 CL 106 mEq/L 01/10/2018 Comp Metabolic Nlw983 CO2 28.0 mEq/L 01/10/2018 Comp Metabolic Bqm088 ANION GAP 10 01/10/2018 Comp Metabolic Ghz057 GLUCOSE 101 mg/dL 01/10/2018 Comp Metabolic Saz753 Creat 0.9 mg/dL 01/10/2018 Comp Metabolic Kme808 eGFR 64 ml/min/1.73m2 01/10/2018 Comp Metabolic Wsw106 BUN 25 mg/dL 01/10/2018 Comp Metabolic Blw686 B/C Ratio 27.8 Ratio 01/10/2018 Comp Metabolic Lif300 CALCIUM 9.9 mg/dL 01/10/2018 Comp Metabolic Elg776 ALK PHOS 83 U/L 01/10/2018 Comp Metabolic Gta747 AST(SGOT) 17 U/L 01/10/2018 Comp Metabolic Xth582 ALT(SGPT) 18 U/L 01/10/2018 Comp Metabolic Krg709 BILI T 0.5 mg/dL 01/10/2018 Comp Metabolic Bvv910 ALBUMIN 3.9 g/dL 01/10/2018 Comp Metabolic Xzt282 TPRO 6.6 g/dL 01/10/2018 Comp Metabolic Qec418 GLOB 2.8 g/dL 01/10/2018 Comp Metabolic Dsn282 A/G Ratio 1.4 Ratio 01/10/2018 Comp Metabolic Efp956 Osmo 282 mOsmo 01/10/2018 Urine Culture Ucult Complete >100,000 col/ml aerobic growth sent to ref lab 10/21/2017 Urinalysis Ord28 U-Color Yellow 10/20/2017 Urinalysis Ord28 U-Clarity Cloudy 10/20/2017 Urinalysis Ord28 U-Gluc Negative 10/20/2017 Urinalysis Ord28 U-Bili Negative 10/20/2017 Urinalysis Ord28 U-Ketone Negative 10/20/2017 Urinalysis Ord28 U-SG 1.015 10/20/2017 Urinalysis Ord28 U-Blood Negative 10/20/2017 Urinalysis Ord28 U-pH 5.5 10/20/2017 Urinalysis Ord28 U-Protein Negative 10/20/2017 Urinalysis Ord28 U-Urobilin 2.0 E.U./dL E.U./dL 10/20/2017 Urinalysis Ord28 U-Nitrites Positive 10/20/2017 Urinalysis Ord28 U-Leuk Moderate 10/20/2017 Urinalysis Ord28 U-Bact 4+ 10/20/2017 Urinalysis Ord28 U-Squamous Epi 0-5 per/HPF 10/20/2017 Urinalysis Ord28 U-Crystal None per/HPF 10/20/2017 Urinalysis Ord28 U-Mucus None 10/20/2017 Urinalysis Ord28 U-Renal tubular epi None 10/20/2017 Urinalysis Ord28 U-RBC None per/HPF 10/20/2017 Urinalysis Ord28 U-Transitional epi RARE per/HPF 10/20/2017 Urinalysis Ord28 U-WBC 60-70 per/HPF 10/20/2017 Urinalysis Ord28 U-Cast None per/HPF 10/20/2017 Urinalysis Ord28 U-VOL VOLUME SUFFICIENT (10mL) 10/20/2017 Urinalysis Ord28 U-Com Culture to follow 10/20/2017 Urinalysis Ord28 U-Yeast NEGATIVE 10/20/2017 Comp Metabolic Jvr759 NA 141 mEq/L 07/21/2017 Comp Metabolic Ycd277 K 4.9 mEq/L 07/21/2017 Comp Metabolic Phr950 CL 107 mEq/L 07/21/2017 Comp Metabolic Guo460 CO2 30.0 mEq/L 07/21/2017 Comp Metabolic Nqj527 ANION GAP 9 07/21/2017 Comp Metabolic Zoo173 GLUCOSE 93 mg/dL 07/21/2017 Comp Metabolic Eib170 Creat 0.8 mg/dL 07/21/2017 Comp Metabolic Urq303 eGFR 72 ml/min/1.73m2 07/21/2017 Comp Metabolic Ikm094 BUN 22 mg/dL 07/21/2017 Comp Metabolic Rqk275 B/C Ratio 26.8 Ratio 07/21/2017 Comp Metabolic Xjm516 CALCIUM 10.2 mg/dL 07/21/2017 Comp Metabolic Vug498 ALK PHOS 73 U/L 07/21/2017 Comp Metabolic Xaj368 AST(SGOT) 17 U/L 07/21/2017 Comp Metabolic Twk123 ALT(SGPT) 21 U/L 07/21/2017 Comp Metabolic Mlv263 BILI T 0.7 mg/dL 07/21/2017 Comp Metabolic Kcu522 ALBUMIN 3.9 g/dL 07/21/2017 Comp Metabolic Ayv415 TPRO 7.0 g/dL 07/21/2017 Comp Metabolic Imx889 GLOB 3.1 g/dL 07/21/2017 Comp Metabolic Yjw957 A/G Ratio 1.3 Ratio 07/21/2017 Comp Metabolic Ksq662 Osmo 284 mOsmo 07/21/2017 Vitamin D 25 Oh Fvj1402 VITAMIN D, 25 HYDROXY 37.13 ng/mL Lipid Ord30 CHOL 173 mg/dL 07/21/2017 Lipid Ord30 HDL 69.0 mg/dl 07/21/2017 Lipid Ord30 TRIG 86 mg/dL 07/21/2017 Lipid Ord30 LDL 87 mg/dL 07/21/2017 Lipid Ord30 C/HDL 2.5 Ratio 07/21/2017 Culture Urine [id number] URINE CULTURE SEE NOTES 12/12/2016 Culture Urine [id number] Continued Results 12/12/2016 Urine Culture Ucult Complete >100,000 col/ml aerobic growth sent to ref lab 12/10/2016 Culture Urine [id number] URINE CULTURE SEE NOTES 07/22/2016 Culture Urine [id number] Continued Results 07/22/2016 Urine Culture Ucult Complete >100,000 col/ml aerobic growth sent to ref lab 07/20/2016 Cbc With Differential Ord2 WBC 9.18 K/ul 05/11/2016 Cbc With Differential Ord2 RBC 4.30 M/ul 05/11/2016 Cbc With Differential Ord2 HGB 13.0 g/dl 05/11/2016 Cbc With Differential Ord2 Neut% 66.3 % 05/11/2016 Cbc With Differential Ord2 HCT 40.4 % 05/11/2016 Cbc With Differential Ord2 Lymph% 16.2 % 05/11/2016 Cbc With Differential Ord2 MCV 94.0 fl 05/11/2016 Cbc With Differential Ord2 Harlan% 12.3 % 05/11/2016 Cbc With Differential Ord2 MCH 30.2 pg 05/11/2016 Cbc With Differential Ord2 Eos% 4.8 % 05/11/2016 Cbc With Differential Ord2 MCHC 32.2 pg 05/11/2016 Cbc With Differential Ord2 PLT 359 K/ul 05/11/2016 Cbc With Differential Ord2 Baso% 0.4 % 05/11/2016 Cbc With Differential Ord2 RDW 14.9 % 05/11/2016 Cbc With Differential Ord2 Neut ABS# 6.08 K/ul 05/11/2016 Cbc With Differential Ord2 Lymph ABS# 1.49 K/ul 05/11/2016 Cbc With Differential Ord2 Harlan ABS# 1.1 K/ul 05/11/2016 Cbc With Differential Ord2 Eos ABS# 0.4 K/ul 05/11/2016 Cbc With Differential Ord2 Baso ABS# 0.0 K/ul 05/11/2016 Parathyroid Hormone Dxt651 PTH 37.40 pg/ml 05/11/2016 Comp Metabolic Kwo652 NA 141 mEq/L 05/11/2016 Comp Metabolic Nnw035 K 4.4 mEq/L 05/11/2016 Comp Metabolic Lfb224 CL 110 mEq/L 05/11/2016 Comp Metabolic Exc697 CO2 26.0 mEq/L 05/11/2016 Comp Metabolic Zzw739 ANION GAP 9 05/11/2016 Comp Metabolic Xgl864 GLUCOSE 99 mg/dL 05/11/2016 Comp Metabolic Gsu940 Creat 0.9 mg/dL 05/11/2016 Comp Metabolic Vac368 eGFR 69 ml/min/1.73m2 05/11/2016 Comp Metabolic Mnp836 BUN 24 mg/dL 05/11/2016 Comp Metabolic Tke408 B/C Ratio 28.2 Ratio 05/11/2016 Comp Metabolic Dhh875 CALCIUM 10.2 mg/dL 05/11/2016 Comp Metabolic Ccf613 ALK PHOS 67 U/L 05/11/2016 Comp Metabolic Gmb674 AST(SGOT) 18 U/L 05/11/2016 Comp Metabolic Fqi328 ALT(SGPT) 19 U/L 05/11/2016 Comp Metabolic Qyk480 BILI T 0.8 mg/dL 05/11/2016 Comp Metabolic Hul651 ALBUMIN 4.0 g/dL 05/11/2016 Comp Metabolic Dqf149 TPRO 6.6 g/dL 05/11/2016 Comp Metabolic Njv000 GLOB 2.6 g/dL 05/11/2016 Comp Metabolic Uoz391 A/G Ratio 1.6 Ratio 05/11/2016 Comp Metabolic Sma083 Osmo 285 mOsmo 05/11/2016 Comp Metabolic Brn027 NA 136 mEq/L 01/13/2016 Comp Metabolic Yxa470 K 4.7 mEq/L 01/13/2016 Comp Metabolic Mkc463 CL 106 mEq/L 01/13/2016 Comp Metabolic Eep338 CO2 26.0 mEq/L 01/13/2016 Comp Metabolic Yii760 ANION GAP 9 01/13/2016 Comp Metabolic Tud757 GLUCOSE 95 mg/dL 01/13/2016 Comp Metabolic Yai174 Creat 1.0 mg/dL 01/13/2016 Comp Metabolic Ava618 eGFR 60 ml/min/1.73m2 01/13/2016 Comp Metabolic Wgn213 BUN 21 mg/dL 01/13/2016 Comp Metabolic Wlx518 B/C Ratio 21.9 Ratio 01/13/2016 Comp Metabolic Bcs789 CALCIUM 9.7 mg/dL 01/13/2016 Comp Metabolic Zkg853 ALK PHOS 69 U/L 01/13/2016 Comp Metabolic Wef305 AST(SGOT) 14 U/L 01/13/2016 Comp Metabolic Tem759 ALT(SGPT) 17 U/L 01/13/2016 Comp Metabolic Toy689 BILI T 0.6 mg/dL 01/13/2016 Comp Metabolic Inu566 ALBUMIN 3.6 g/dL 01/13/2016 Comp Metabolic Iab559 TPRO 6.3 g/dL 01/13/2016 Comp Metabolic Ipr763 GLOB 2.7 g/dL 01/13/2016 Comp Metabolic Neb532 A/G Ratio 1.4 Ratio 01/13/2016 Comp Metabolic Ggo243 Osmo 275 mOsmo 01/13/2016 Cbc With Differential Ord2 WBC 9.84 K/ul 01/13/2016 Cbc With Differential Ord2 RBC 4.14 M/ul 01/13/2016 Cbc With Differential Ord2 HGB 12.7 g/dl 01/13/2016 Cbc With Differential Ord2 Neut% 65.0 % 01/13/2016 Cbc With Differential Ord2 HCT 39.4 % 01/13/2016 Cbc With Differential Ord2 MCV 95.2 fl 01/13/2016 Cbc With Differential Ord2 Lymph% 18.5 % 01/13/2016 Cbc With Differential Ord2 MCH 30.7 pg 01/13/2016 Cbc With Differential Ord2 Harlan% 12.2 % 01/13/2016 Cbc With Differential Ord2 Eos% 3.8 % 01/13/2016 Cbc With Differential Ord2 MCHC 32.2 pg 01/13/2016 Cbc With Differential Ord2 Baso% 0.5 % 01/13/2016 Cbc With Differential Ord2 PLT 315 K/ul 01/13/2016 Cbc With Differential Ord2 RDW 14.9 % 01/13/2016 Cbc With Differential Ord2 Neut ABS# 6.40 K/ul 01/13/2016 Cbc With Differential Ord2 Lymph ABS# 1.82 K/ul 01/13/2016 Cbc With Differential Ord2 Harlan ABS# 1.2 K/ul 01/13/2016 Cbc With Differential Ord2 Eos ABS# 0.4 K/ul 01/13/2016 Cbc With Differential Ord2 Baso ABS# 0.1 K/ul 01/13/2016 Review of Systems System Result Effective Dates Constitutional No recent illness 2017 Constitutional No chills 05/03/2018 Constitutional No diaphoresis 05/03/2018 Constitutional No fever 05/03/2018 Eyes No eye erythema 05/03/2018 Ears/Nose/Throat/Neck No nasal discharge 05/03/2018 Cardiovascular No chest pain/pressure 10/2017 Cardiovascular No dyspnea 05/03/2018 Respiratory No cough 05/03/2018 Respiratory No dyspnea 05/03/2018 Neurologic No alteration of consciousness 05/03/2018 Neurologic No mental status change 2017 Constitutional No recent illness 2017 Constitutional No chills 04/02/2018 Constitutional No fever 04/02/2018 Eyes No eye erythema 04/02/2018 Ears/Nose/Throat/Neck No nasal discharge 04/02/2018 Cardiovascular No chest pain/pressure 09/2017 Cardiovascular No dyspnea 04/02/2018 Respiratory No cough 04/02/2018 Respiratory No dyspnea 04/02/2018 Neurologic No alteration of consciousness 04/02/2018 Neurologic No mental status change 2017 Musculoskeletal arthralgia(s) 04/02/2018 Musculoskeletal stiffness 04/02/2018 Constitutional No recent illness 2017 Constitutional No chills 01/10/2018 Constitutional No fever 01/10/2018 Eyes No eye erythema 01/10/2018 Ears/Nose/Throat/Neck No nasal discharge 01/10/2018 Cardiovascular No chest pain/pressure Cardiovascular No dyspnea 01/10/2018 Respiratory No cough 01/10/2018 Respiratory No dyspnea 01/10/2018 Musculoskeletal joint complaint 2017 Neurologic No alteration of consciousness 01/10/2018 Neurologic No mental status change 2017 Cardiovascular edema 01/10/2018 Constitutional No recent illness 2017 Constitutional No chills 10/04/2017 Constitutional No fever 10/04/2017 Eyes No eye erythema 10/04/2017 Ears/Nose/Throat/Neck No nasal discharge 10/04/2017 Cardiovascular No chest pain/pressure 01/2018 Cardiovascular No dyspnea 10/04/2017 Respiratory No cough 10/04/2017 Respiratory No dyspnea 10/04/2017 Musculoskeletal joint complaint 2017 Neurologic No alteration of consciousness 10/04/2017 Neurologic No mental status change 2017 Constitutional recent illness 06/05/2017 Constitutional chills 06/05/2017 Constitutional No diaphoresis 06/05/2017 Constitutional No fever 06/05/2017 Eyes No eye erythema 06/05/2017 Ears/Nose/Throat/Neck nasal allergies 12/2017 Ears/Nose/Throat/Neck nasal discharge 12/2017 Cardiovascular No chest pain/pressure 12/2017 Cardiovascular No dyspnea 06/05/2017 Respiratory No cough 06/05/2017 Respiratory No dyspnea 06/05/2017 Gastrointestinal No abdominal pain 2017 Musculoskeletal back pain 06/05/2017 Musculoskeletal joint complaint 2017 Neurologic No alteration of consciousness 06/05/2017 Neurologic No mental status change 2017 Ears/Nose/Throat/Neck sinus congestion Ears/Nose/Throat/Neck sore throat 2017 Ears/Nose/Throat/Neck postnasal drip 12/2017 Constitutional recent illness 01/19/2017 Constitutional No chills 01/19/2017 Constitutional No diaphoresis 01/19/2017 Constitutional No fever 01/19/2017 Eyes No eye erythema 01/19/2017 Ears/Nose/Throat/Neck No nasal allergies 01/19/2017 Ears/Nose/Throat/Neck No nasal discharge 01/19/2017 Cardiovascular No chest pain/pressure Cardiovascular No dyspnea 01/19/2017 Respiratory No cough 01/19/2017 Respiratory No dyspnea 01/19/2017 Gastrointestinal abdominal pain 2016 Gastrointestinal No diarrhea 01/19/2017 Gastrointestinal No constipation 2016 Gastrointestinal No melena 01/19/2017 Gastrointestinal No nausea 01/19/2017 Gastrointestinal No vomiting 01/19/2017 Genitourinary/Nephrology No dysuria 01/19 Neurologic No alteration of consciousness 01/19/2017 Neurologic No mental status change 2016 Constitutional No recent illness 2016 Constitutional No chills 10/05/2016 Constitutional No diaphoresis 10/05/2016 Constitutional No fever 10/05/2016 Eyes No eye erythema 10/05/2016 Ears/Nose/Throat/Neck No nasal allergies 10/05/2016 Ears/Nose/Throat/Neck No nasal discharge 10/05/2016 Cardiovascular No chest pain/pressure 02/2017 Respiratory No cough 10/05/2016 Respiratory No dyspnea 10/05/2016 Dermatologic rash 10/05/2016 Neurologic No alteration of consciousness 10/05/2016 Neurologic No mental status change 2016 Constitutional No chills 09/23/2016 Constitutional No diaphoresis 09/23/2016 Constitutional No fever 09/23/2016 Eyes No eye erythema 09/23/2016 Ears/Nose/Throat/Neck No nasal allergies 09/23/2016 Ears/Nose/Throat/Neck No nasal discharge 09/23/2016 Cardiovascular No chest pain/pressure Cardiovascular No dyspnea 09/23/2016 Respiratory No cough 09/23/2016 Gastrointestinal No abdominal pain 2016 Musculoskeletal back pain 09/23/2016 Musculoskeletal joint complaint 2016 Neurologic No alteration of consciousness 09/23/2016 Neurologic No mental status change 2016 Constitutional No recent illness 2016 Respiratory No dyspnea 09/23/2016 Constitutional recent illness 07/27/2016 Constitutional No fever 07/27/2016 Eyes No eye erythema 07/27/2016 Ears/Nose/Throat/Neck nasal allergies 05/2016 Ears/Nose/Throat/Neck nasal discharge 05/2016 Ears/Nose/Throat/Neck No sinus congestion 07/27/2016 Ears/Nose/Throat/Neck postnasal drip 05/2016 Cardiovascular No chest pain/pressure 05/2016 Cardiovascular No edema 07/27/2016 Respiratory cough 07/27/2016 Respiratory dyspnea on exertion 2016 Respiratory No dyspnea 07/27/2016 Dermatologic erythema 07/27/2016 Neurologic No alteration of consciousness 07/27/2016 Neurologic No mental status change 2016 Constitutional recent illness 07/18/2016 Constitutional No chills 07/18/2016 Constitutional No diaphoresis 07/18/2016 Constitutional No fever 07/18/2016 Eyes No eye erythema 07/18/2016 Ears/Nose/Throat/Neck No nasal discharge 07/18/2016 Ears/Nose/Throat/Neck No nasal allergies 07/18/2016 Cardiovascular No chest pain/pressure Cardiovascular No dyspnea 07/18/2016 Respiratory No cough 07/18/2016 Respiratory No chest congestion 2016 Gastrointestinal No abdominal pain 2016 Genitourinary/Nephrology dysuria 2016 Genitourinary/Nephrology urinary urgency 07/18/2016 Genitourinary/Nephrology urinary frequency 07/18/2016 Neurologic No alteration of consciousness 07/18/2016 Neurologic No mental status change 2016 Musculoskeletal joint complaint 2016 Musculoskeletal back pain 07/18/2016 Constitutional No recent illness 2015 Constitutional No chills 05/09/2016 Constitutional No diaphoresis 05/09/2016 Constitutional No fever 05/09/2016 Eyes No eye erythema 05/09/2016 Ears/Nose/Throat/Neck No nasal allergies 05/09/2016 Ears/Nose/Throat/Neck No nasal discharge 05/09/2016 Ears/Nose/Throat/Neck No postnasal drip 05/09/2016 Cardiovascular No chest pain/pressure 04/2016 Cardiovascular No dyspnea 05/09/2016 Respiratory No chest congestion 2015 Respiratory No cough 05/09/2016 Respiratory No dyspnea 05/09/2016 Musculoskeletal No joint complaint 2015 Dermatologic No rash 05/09/2016 Neurologic No alteration of consciousness 05/09/2016 Neurologic No mental status change 2015 Gastrointestinal No abdominal pain 2015 Constitutional No recent illness 2015 Constitutional No anorexia 01/12/2016 Constitutional No night sweats 2015 Constitutional No chills 01/12/2016 Constitutional No fatigue 01/12/2016 Constitutional No diaphoresis 01/12/2016 Constitutional No fever 01/12/2016 Constitutional No insomnia 01/12/2016 Constitutional No malaise 01/12/2016 Constitutional No weight loss 01/12/2016 Constitutional No weight gain 01/12/2016 Eyes No eye discharge 01/12/2016 Eyes No eye erythema 01/12/2016 Eyes vision change 01/12/2016 Ears/Nose/Throat/Neck dizziness 2015 Ears/Nose/Throat/Neck No headache 2015 Ears/Nose/Throat/Neck No nasal discharge 01/12/2016 Cardiovascular No chest pain/pressure Respiratory No productive sputum 2015 Respiratory No chest congestion 2015 Respiratory cough 01/12/2016 Gastrointestinal No abdominal pain 2015 Gastrointestinal hemorrhoids 01/12/2016 Gastrointestinal No constipation 2015 Gastrointestinal No diarrhea 01/12/2016 Genitourinary/Nephrology No dysuria 01/11 Musculoskeletal back pain 01/12/2016 Dermatologic No rash 01/12/2016 Neurologic No alteration of consciousness 01/12/2016 Psychiatric anxiety 01/12/2016 Psychiatric depression 01/12/2016 Endocrine No dry or coarse skin 2015 Hematologic/Lymphatic abnormal bleeding and bruising 01/12/2016 Physical Exam Exam Name System Name Item Name Status Result Effective Dates Notes Full Exam - General 1994 Constitutional general appearance Overall: well developed 05/03/2018 None Full Exam - General 1994 Constitutional general appearance Overall: in no acute distress 05/03/2018 None Full Exam - General 1994 Constitutional general appearance Overall: well nourished 05/03/2018 None Full Exam - General 1994 Eyes conjunctiva /eyelids Overall: conjunctiva clear 05/03/2018 None Full Exam - General 1994 Eyes conjunctiva /eyelids Overall: eyelids normal 05/03/2018 None Full Exam - General 1994 Ears/Nose/Throat lips/teeth/gingiva Overall: benign lips 05/03/2018 None Full Exam - General 1994 Respiratory respiratory effort/rhythm Overall: no retractions 05/03/2018 None Full Exam - General 1994 Respiratory respiratory effort/rhythm Overall: normal rate 05/03/2018 None Full Exam - General 1994 Musculoskeletal head and neck Overall: head atraumatic 05/03/2018 None Full Exam - General 1994 Neurologic cranial nerves Overall: crainial nerves 2 - 12 grossly intact 05/03/2018 None Full Exam - General 1994 Psychiatric orientation/consciousness Overall: oriented to person, place and time 05/03/2018 None Full Exam - General 1994 Psychiatric mood and affect Overall: normal mood and affect 05/03/2018 None Full Exam - General 1994 Psychiatric appearance Overall: well-groomed, good eye contact 05/03/2018 None Full Exam - Orthopedics Constitutional general appearance Overall: well nourished 04/02/2018 None Full Exam - Orthopedics Constitutional general appearance Overall: well developed 04/02/2018 None Full Exam - Orthopedics Constitutional general appearance Overall: in no acute distress 04/02/2018 None Full Exam - Orthopedics Eyes conjunctiva/ eyelids Overall: conjunctiva clear 04/02/2018 None Full Exam - Orthopedics Eyes conjunctiva/ eyelids Overall: eyelids normal 04/02/2018 None Full Exam - Orthopedics Ears/Nose/Throat lips/teeth/gingiva Overall: benign lips 04/02/2018 None Full Exam - Orthopedics Ears/Nose/Throat oral cavity/pharynx/larynx Overall: oral mucosa clear 04/02/2018 None Full Exam - Orthopedics Respiratory respiratory effort/rhythm Overall: no retractions 04/02/2018 None Full Exam - Orthopedics Respiratory respiratory effort/rhythm Overall: normal rate 04/02/2018 None Full Exam - Orthopedics Psychiatric orientation/consciousness Overall: oriented to person, place and time 04/02/2018 None Full Exam - Orthopedics Psychiatric mood and affect Overall: normal mood and affect 04/02/2018 None Full Exam - Orthopedics Psychiatric appearance Overall: well-groomed, good eye contact 04/02/2018 None Full Exam - Orthopedics MS: head/neck insp & palp - H/N Overall: head atraumatic 04/02/2018 None Full Exam - Orthopedics MS: left upper extremity range of motion - LUE Shoulder: pain with flexion 04/02/2018 None Full Exam - Orthopedics MS: right upper extremity range of motion - RUE Shoulder: pain with flexion 04/02/2018 None Full Exam - Orthopedics MS: left lower extremity range of motion - LLE Knee: pain with flexion 04/02/2018 None Full Exam - Orthopedics MS: left lower extremity range of motion - LLE Knee: pain with extension 04/02/2018 None Full Exam - Orthopedics MS: left lower extremity range of motion - LLE Ankle: pain with flexion 04/02/2018 None Full Exam - Orthopedics MS: left lower extremity range of motion - LLE Ankle: pain with extension 04/02/2018 None Full Exam - Orthopedics MS: right lower extremity range of motion - RLE Knee: pain with flexion 04/02/2018 None Full Exam - Orthopedics MS: right lower extremity range of motion - RLE Knee: pain with extension 04/02/2018 None Full Exam - Orthopedics MS: right lower extremity range of motion - RLE Ankle: pain with flexion 04/02/2018 None Full Exam - Orthopedics MS: right lower extremity range of motion - RLE Ankle: pain with extension 04/02/2018 None Full Exam - Orthopedics Constitutional general appearance Overall: well nourished 01/10/2018 None Full Exam - Orthopedics Constitutional general appearance Overall: well developed 01/10/2018 None Full Exam - Orthopedics Constitutional general appearance Overall: in no acute distress 01/10/2018 None Full Exam - Orthopedics Eyes conjunctiva/ eyelids Overall: conjunctiva clear 01/10/2018 None Full Exam - Orthopedics Eyes conjunctiva/ eyelids Overall: eyelids normal 01/10/2018 None Full Exam - Orthopedics Ears/Nose/Throat lips/teeth/gingiva Overall: benign lips 01/10/2018 None Full Exam - Orthopedics Ears/Nose/Throat oral cavity/pharynx/larynx Overall: oral mucosa clear 01/10/2018 None Full Exam - Orthopedics Respiratory respiratory effort/rhythm Overall: no retractions 01/10/2018 None Full Exam - Orthopedics Respiratory respiratory effort/rhythm Overall: normal rate 01/10/2018 None Full Exam - Orthopedics Psychiatric orientation/consciousness Overall: oriented to person, place and time 01/10/2018 None Full Exam - Orthopedics Psychiatric mood and affect Overall: normal mood and affect 01/10/2018 None Full Exam - Orthopedics Psychiatric appearance Overall: well-groomed, good eye contact 01/10/2018 None Full Exam - Orthopedics MS: head/neck insp & palp - H/N Overall: head atraumatic 01/10/2018 None Full Exam - Orthopedics MS: left lower extremity insp & palp - LLE Lower leg: swelling 01/10/2018 None Full Exam - Orthopedics MS: left lower extremity insp & palp - LLE Lower leg: tenderness 01/10/2018 None Full Exam - Orthopedics Constitutional general appearance Overall: well nourished 10/04/2017 None Full Exam - Orthopedics Constitutional general appearance Overall: well developed 10/04/2017 None Full Exam - Orthopedics Constitutional general appearance Overall: in no acute distress 10/04/2017 None Full Exam - Orthopedics Eyes conjunctiva/ eyelids Overall: conjunctiva clear 10/04/2017 None Full Exam - Orthopedics Eyes conjunctiva/ eyelids Overall: eyelids normal 10/04/2017 None Full Exam - Orthopedics Ears/Nose/Throat lips/teeth/gingiva Overall: benign lips 10/04/2017 None Full Exam - Orthopedics Ears/Nose/Throat oral cavity/pharynx/larynx Overall: oral mucosa clear 10/04/2017 None Full Exam - Orthopedics Respiratory respiratory effort/rhythm Overall: no retractions 10/04/2017 None Full Exam - Orthopedics Respiratory respiratory effort/rhythm Overall: normal rate 10/04/2017 None Full Exam - Orthopedics Psychiatric orientation/consciousness Overall: oriented to person, place and time 10/04/2017 None Full Exam - Orthopedics Psychiatric mood and affect Overall: normal mood and affect 10/04/2017 None Full Exam - Orthopedics Psychiatric appearance Overall: well-groomed, good eye contact 10/04/2017 None Full Exam - Orthopedics MS: left upper extremity insp & palp - LUE Shoulder: normal appearance 10/04/2017 None Full Exam - Orthopedics MS: left upper extremity insp & palp - LUE Upper arm: normal appearance 10/04/2017 None Full Exam - Orthopedics MS: left upper extremity insp & palp - LUE Upper arm: normal on palpation 10/04/2017 None Full Exam - Orthopedics MS: left upper extremity insp & palp - LUE Elbow: normal appearance 10/04/2017 None Full Exam - Orthopedics MS: left upper extremity insp & palp - LUE Elbow: normal on palpation 10/04/2017 None Full Exam - Orthopedics MS: left upper extremity range of motion - LUE Elbow: pain with flexion 10/04/2017 None Full Exam - Orthopedics MS: left upper extremity range of motion - LUE Elbow: pain with extension 10/04/2017 None Full Exam - Orthopedics MS: left upper extremity range of motion - LUE Shoulder: pain with abduction 10/04/2017 None Full Exam - Orthopedics MS: left upper extremity range of motion - LUE Shoulder: pain with adduction 10/04/2017 None Full Exam - Cardiology Respiratory auscultation Diffuse: diminished 06/08/2017 None Full Exam - Cardiology Respiratory auscultation Right lower lung field: expiratory wheezes 06/08/2017 faint Full Exam - Cardiology Respiratory respiratory effort/rhythm Overall: normal rate 06/08/2017 None Full Exam - Cardiology Respiratory respiratory effort/rhythm Overall: no retractions 06/08/2017 None Full Exam - General 1994 Constitutional general appearance Overall: well developed 06/05/2017 None Full Exam - General 1994 Constitutional general appearance Overall: in no acute distress 06/05/2017 None Full Exam - General 1994 Constitutional general appearance Overall: well nourished 06/05/2017 None Full Exam - General 1994 Eyes conjunctiva /eyelids Overall: conjunctiva clear 06/05/2017 None Full Exam - General 1994 Eyes conjunctiva /eyelids Overall: eyelids normal 06/05/2017 None Full Exam - General 1994 Ears/Nose/Throat lips/teeth/gingiva Overall: benign lips 06/05/2017 None Full Exam - General 1994 Ears/Nose/Throat oral cavity/pharynx/larynx Overall: oral mucosa clear 06/05/2017 None Full Exam - General 1994 Respiratory respiratory effort/rhythm Overall: no retractions 06/05/2017 None Full Exam - General 1994 Respiratory respiratory effort/rhythm Overall: normal rate 06/05/2017 None Full Exam - General 1994 Cardiovascular auscultation of heart Overall: regular rate 06/05/2017 None Full Exam - General 1994 Cardiovascular auscultation of heart Overall: normal heart sounds 06/05/2017 None Full Exam - General 1994 Musculoskeletal spine, ribs and pelvis Spine: tender @ lumbar spine 06/05/2017 None Full Exam - General 1994 Musculoskeletal head and neck Overall: head atraumatic 06/05/2017 None Full Exam - General 1994 Neurologic cranial nerves Overall: crainial nerves 2 - 12 grossly intact 06/05/2017 None Full Exam - General 1994 Psychiatric orientation/consciousness Overall: oriented to person, place and time 06/05/2017 None Full Exam - General 1994 Psychiatric mood and affect Overall: normal mood and affect 06/05/2017 None Full Exam - General 1994 Psychiatric appearance Overall: well-groomed, good eye contact 06/05/2017 None Full Exam - General 1994 Eyes conjunctiva /eyelids Overall: cornea clear 06/05/2017 None Full Exam - General 1994 Ears/Nose/Throat oral cavity/pharynx/larynx Posterior Pharynx: clear post nasal drainage 06/05/2017 None Full Exam - General 1994 Ears/Nose/Throat otoscopic exam Overall: external auditory canals clear 06/05/2017 None Full Exam - General 1994 Ears/Nose/Throat otoscopic exam Tympanic membrane: air- fluid level 06/05/2017 None Full Exam - General 1994 Respiratory auscultation Diffuse: diminished 06/05/2017 None Full Exam - General 1994 Respiratory auscultation Lower lung field: expiratory wheezes 06/05/2017 None Full Exam - General 1994 Lymphatic neck nodes Overall: posterior cervical chain benign 06/05/2017 None Full Exam - General 1994 Lymphatic neck nodes Overall: anterior cervical chain benign 06/05/2017 None Full Exam - General 1994 Constitutional general appearance Overall: well developed 01/19/2017 None Full Exam - General 1994 Constitutional general appearance Overall: in no acute distress 01/19/2017 None Full Exam - General 1994 Constitutional general appearance Overall: well nourished 01/19/2017 None Full Exam - General 1994 Eyes conjunctiva /eyelids Overall: conjunctiva clear 01/19/2017 None Full Exam - General 1994 Eyes conjunctiva /eyelids Overall: eyelids normal 01/19/2017 None Full Exam - General 1994 Ears/Nose/Throat lips/teeth/gingiva Overall: benign lips 01/19/2017 None Full Exam - General 1994 Ears/Nose/Throat oral cavity/pharynx/larynx Overall: oral mucosa clear 01/19/2017 None Full Exam - General 1994 Respiratory auscultation Overall: breath sounds clear bilaterally 01/19/2017 None Full Exam - General 1994 Respiratory respiratory effort/rhythm Overall: no retractions 01/19/2017 None Full Exam - General 1994 Respiratory respiratory effort/rhythm Overall: normal rate 01/19/2017 None Full Exam - General 1994 Cardiovascular auscultation of heart Overall: regular rate 01/19/2017 None Full Exam - General 1994 Cardiovascular auscultation of heart Overall: normal heart sounds 01/19/2017 None Full Exam - General 1994 Abdomen abdominal exam Lower quadrant: tender to palpation 01/19/2017 None Full Exam - General 1994 Abdomen abdominal exam Lower quadrant: sharp pain 01/19/2017 None Full Exam - General 1994 Abdomen abdominal exam Lower quadrant: voluntary guarding 01/19/2017 None Full Exam - General 1994 Abdomen abdominal exam Lower quadrant: no rebound tenderness 01/19/2017 None Full Exam - General 1994 Abdomen abdominal exam Lower quadrant: soft 01/19/2017 None Full Exam - General 1994 Abdomen abdominal exam Lower quadrant: non-tender to palpation 01/19/2017 None Full Exam - General 1994 Abdomen abdominal exam Lower quadrant: no guarding 01/19/2017 None Full Exam - General 1994 Abdomen abdominal exam Upper quadrant: non-tender to palpation 01/19/2017 None Full Exam - General 1994 Abdomen abdominal exam Upper quadrant: no guarding 01/19/2017 None Full Exam - General 1994 Abdomen abdominal exam Upper quadrant: no rebound tenderness 01/19/2017 None Full Exam - General 1994 Abdomen abdominal exam Upper quadrant: soft 01/19/2017 None Full Exam - General 1994 Abdomen abdominal exam Epigastric: non-tender to palpation 01/19/2017 None Full Exam - General 1994 Abdomen abdominal exam Epigastric: no guarding 01/19/2017 None Full Exam - General 1994 Abdomen abdominal exam Epigastric: no rebound tenderness 01/19/2017 None Full Exam - General 1994 Abdomen abdominal exam Epigastric: soft 01/19/2017 None Full Exam - General 1994 Abdomen abdominal exam Suprapubic: tender to palpation 01/19/2017 None Full Exam - General 1994 Abdomen abdominal exam Suprapubic: no guarding 01/19/2017 None Full Exam - General 1994 Abdomen abdominal exam Suprapubic: no rebound tenderness 01/19/2017 None Full Exam - General 1994 Abdomen abdominal exam Suprapubic: soft 01/19/2017 None Full Exam - General 1994 Musculoskeletal head and neck Overall: head atraumatic 01/19/2017 None Full Exam - General 1994 Neurologic cranial nerves Overall: crainial nerves 2 - 12 grossly intact 01/19/2017 None Full Exam - General 1994 Psychiatric orientation/consciousness Overall: oriented to person, place and time 01/19/2017 None Full Exam - General 1994 Psychiatric mood and affect Overall: normal mood and affect 01/19/2017 None Full Exam - General 1994 Psychiatric appearance Overall: well-groomed, good eye contact 01/19/2017 None Full Exam - Dermatology Constitutional general appearance Overall: well nourished 10/05/2016 None Full Exam - Dermatology Constitutional general appearance Overall: well developed 10/05/2016 None Full Exam - Dermatology Constitutional general appearance Overall: in no acute distress 10/05/2016 None Full Exam - Dermatology Eyes conjunctiva/ eyelids Overall: clear conjunctiva bilaterally 10/05/2016 None Full Exam - Dermatology Eyes conjunctiva/ eyelids Overall: normal eyelids 10/05/2016 None Full Exam - Dermatology Ears/Nose/Throat lips/teeth/gingiva Overall: benign lips 10/05/2016 None Full Exam - Dermatology Ears/Nose/Throat oropharynx Overall: clear oral mucosa 10/05/2016 None Full Exam - Dermatology Ears/Nose/Throat oropharynx Overall: oropharyngeal mucosa clear 10/05/2016 None Full Exam - Dermatology Respiratory auscultation Overall: breath sounds clear bilaterally 10/05/2016 None Full Exam - Dermatology Respiratory respiratory effort/rhythm Overall: no retractions 10/05/2016 None Full Exam - Dermatology Respiratory respiratory effort/rhythm Overall: normal rate 10/05/2016 None Full Exam - Dermatology Integument insp & palp - head/face Lesion: vesicle 10/05/2016 None Full Exam - Dermatology Integument insp & palp - head/face Color: erythematous 10/05/2016 None Full Exam - Dermatology Integument insp & palp - head/face Location: on the forehead 10/05/2016 None Full Exam - Dermatology Integument insp & palp - right upper extremity Location: on the hand 10/05/2016 None Full Exam - Dermatology Integument insp & palp - right upper extremity Lesion: vesicle 10/05/2016 None Full Exam - Dermatology Integument insp & palp - right upper extremity Color: erythematous 10/05/2016 None Full Exam - Dermatology Psychiatric orientation Overall: oriented to person, place and time 10/05/2016 None Full Exam - Dermatology Psychiatric mood and affect Overall: normal mood and affect 10/05/2016 None Full Exam - Dermatology Psychiatric mood and affect Mood: irritable 10/05/2016 None Full Exam - General 1994 Constitutional general appearance Overall: well developed 09/23/2016 None Full Exam - General 1994 Constitutional general appearance Overall: in no acute distress 09/23/2016 None Full Exam - General 1994 Constitutional general appearance Overall: well nourished 09/23/2016 None Full Exam - General 1994 Eyes conjunctiva /eyelids Overall: conjunctiva clear 09/23/2016 None Full Exam - General 1994 Eyes conjunctiva /eyelids Overall: eyelids normal 09/23/2016 None Full Exam - General 1994 Ears/Nose/Throat lips/teeth/gingiva Overall: benign lips 09/23/2016 None Full Exam - General 1994 Ears/Nose/Throat oral cavity/pharynx/larynx Overall: oral mucosa clear 09/23/2016 None Full Exam - General 1994 Respiratory auscultation Overall: breath sounds clear bilaterally 09/23/2016 None Full Exam - General 1994 Respiratory respiratory effort/rhythm Overall: no retractions 09/23/2016 None Full Exam - General 1994 Respiratory respiratory effort/rhythm Overall: normal rate 09/23/2016 None Full Exam - General 1994 Cardiovascular auscultation of heart Overall: regular rate 09/23/2016 None Full Exam - General 1994 Cardiovascular auscultation of heart Overall: normal heart sounds 09/23/2016 None Full Exam - General 1994 Neurologic cranial nerves Overall: crainial nerves 2 - 12 grossly intact 09/23/2016 None Full Exam - General 1994 Psychiatric orientation/consciousness Overall: oriented to person, place and time 09/23/2016 None Full Exam - General 1994 Psychiatric mood and affect Overall: normal mood and affect 09/23/2016 None Full Exam - General 1994 Psychiatric appearance Overall: well-groomed, good eye contact 09/23/2016 None Full Exam - General 1994 Musculoskeletal spine, ribs and pelvis Spine: tender @ lumbar spine 09/23/2016 None Full Exam - General 1994 Musculoskeletal head and neck Overall: head atraumatic 09/23/2016 None Full Exam - Dermatology Constitutional general appearance Overall: well nourished 07/27/2016 None Full Exam - Dermatology Constitutional general appearance Overall: well developed 07/27/2016 None Full Exam - Dermatology Constitutional general appearance Overall: in no acute distress 07/27/2016 None Full Exam - Dermatology Constitutional general appearance Overall: well groomed 07/27/2016 None Full Exam - Dermatology Eyes conjunctiva/ eyelids Overall: clear conjunctiva bilaterally 07/27/2016 None Full Exam - Dermatology Eyes conjunctiva/ eyelids Overall: normal eyelids 07/27/2016 None Full Exam - Dermatology Ears/Nose/Throat lips/teeth/gingiva Overall: benign lips 07/27/2016 None Full Exam - Dermatology Respiratory auscultation Overall: breath sounds clear bilaterally 07/27/2016 None Full Exam - Dermatology Respiratory auscultation Left lower lung field: expiratory wheezes 07/27/2016 very mild Full Exam - Dermatology Respiratory respiratory effort/rhythm Overall: no retractions 07/27/2016 None Full Exam - Dermatology Respiratory respiratory effort/rhythm Overall: normal rate 07/27/2016 None Full Exam - Dermatology Integument insp & palp - right lower extremity Location: on the foot 07/27/2016 None Full Exam - Dermatology Integument insp & palp - right lower extremity Color: erythematous 07/27/2016 very faint Full Exam - Dermatology Integument insp & palp - right lower extremity Lesion: patch 07/27/2016 None Full Exam - Dermatology Psychiatric orientation Overall: oriented to person, place and time 07/27/2016 None Full Exam - Dermatology Psychiatric mood and affect Overall: normal mood and affect 07/27/2016 None Full Exam - Dermatology Extremities inspection & palpation Right toenails: on the big toe 07/27/2016 Thickened Full Exam - Dermatology Extremities inspection & palpation Right toenails: on the middle toe 07/27/2016 mild ingrown toenail - pt seeing Dr. Jaramillo for this Full Exam - General 1994 Constitutional general appearance Overall: well developed 07/18/2016 None Full Exam - General 1994 Constitutional general appearance Overall: in no acute distress 07/18/2016 None Full Exam - General 1994 Constitutional general appearance Overall: well nourished 07/18/2016 None Full Exam - General 1994 Eyes conjunctiva /eyelids Overall: conjunctiva clear 07/18/2016 None Full Exam - General 1994 Eyes conjunctiva /eyelids Overall: eyelids normal 07/18/2016 None Full Exam - General 1994 Ears/Nose/Throat lips/teeth/gingiva Overall: benign lips 07/18/2016 None Full Exam - General 1994 Ears/Nose/Throat oral cavity/pharynx/larynx Overall: oral mucosa clear 07/18/2016 None Full Exam - General 1994 Respiratory auscultation Overall: breath sounds clear bilaterally 07/18/2016 None Full Exam - General 1994 Respiratory respiratory effort/rhythm Overall: no retractions 07/18/2016 None Full Exam - General 1994 Respiratory respiratory effort/rhythm Overall: normal rate 07/18/2016 None Full Exam - General 1994 Cardiovascular auscultation of heart Overall: regular rate 07/18/2016 None Full Exam - General 1994 Cardiovascular auscultation of heart Overall: normal heart sounds 07/18/2016 None Full Exam - General 1994 Abdomen abdominal exam Overall: no tenderness 07/18/2016 None Full Exam - General 1994 Abdomen abdominal exam Overall: normal bowel sounds 07/18/2016 None Full Exam - General 1994 Abdomen abdominal exam Suprapubic: tender to palpation 07/18/2016 None Full Exam - General 1994 Abdomen abdominal exam Suprapubic: dull pain 07/18/2016 None Full Exam - General 1994 Abdomen abdominal exam Suprapubic: no guarding 07/18/2016 None Full Exam - General 1994 Abdomen abdominal exam Suprapubic: no rebound tenderness 07/18/2016 None Full Exam - General 1994 Abdomen abdominal exam Suprapubic: no mass lesions 07/18/2016 None Full Exam - General 1994 Abdomen abdominal exam Suprapubic: soft 07/18/2016 None Full Exam - General 1994 Neurologic cranial nerves Overall: crainial nerves 2 - 12 grossly intact 07/18/2016 None Full Exam - General 1994 Psychiatric orientation/consciousness Overall: oriented to person, place and time 07/18/2016 None Full Exam - General 1994 Psychiatric mood and affect Overall: normal mood and affect 07/18/2016 None Full Exam - General 1994 Psychiatric appearance Overall: well-groomed, good eye contact 07/18/2016 None Full Exam - General 1994 Constitutional general appearance Overall: well developed 05/09/2016 None Full Exam - General 1994 Constitutional general appearance Overall: in no acute distress 05/09/2016 None Full Exam - General 1994 Constitutional general appearance Overall: well nourished 05/09/2016 None Full Exam - General 1994 Eyes conjunctiva /eyelids Overall: conjunctiva clear 05/09/2016 None Full Exam - General 1994 Eyes conjunctiva /eyelids Overall: eyelids normal 05/09/2016 None Full Exam - General 1994 Ears/Nose/Throat lips/teeth/gingiva Overall: benign lips 05/09/2016 None Full Exam - General 1994 Ears/Nose/Throat oral cavity/pharynx/larynx Overall: oral mucosa clear 05/09/2016 None Full Exam - General 1994 Respiratory auscultation Overall: breath sounds clear bilaterally 05/09/2016 None Full Exam - General 1994 Respiratory respiratory effort/rhythm Overall: no retractions 05/09/2016 None Full Exam - General 1994 Respiratory respiratory effort/rhythm Overall: normal rate 05/09/2016 None Full Exam - General 1994 Cardiovascular extremities Overall: no clubbing 05/09/2016 None Full Exam - General 1994 Cardiovascular auscultation of heart Overall: regular rate 05/09/2016 None Full Exam - General 1994 Cardiovascular auscultation of heart Overall: normal heart sounds 05/09/2016 None Full Exam - General 1994 Musculoskeletal head and neck Overall: head atraumatic 05/09/2016 None Full Exam - General 1994 Psychiatric orientation/consciousness Overall: oriented to person, place and time 05/09/2016 None Full Exam - General 1994 Psychiatric mood and affect Overall: normal mood and affect 05/09/2016 None Full Exam - General 1994 Psychiatric appearance Overall: well-groomed, good eye contact 05/09/2016 None Full Exam - General 1994 Constitutional general appearance Overall: well developed 01/12/2016 None Full Exam - General 1994 Constitutional general appearance Overall: in no acute distress 01/12/2016 None Full Exam - General 1994 Constitutional general appearance Overall: well nourished 01/12/2016 None Full Exam - General 1994 Psychiatric orientation/consciousness Overall: oriented to person, place and time 01/12/2016 None Full Exam - General 1994 Neurologic cranial nerves Overall: crainial nerves 2 - 12 grossly intact 01/12/2016 None Full Exam - General 1994 Integument inspection of skin Overall: few scattered moles, no gross abnormalities 01/12/2016 None Full Exam - General 1994 Musculoskeletal head and neck Overall: head atraumatic 01/12/2016 None Full Exam - General 1994 Abdomen abdominal exam Overall: no tenderness 01/12/2016 None Full Exam - General 1994 Abdomen abdominal exam Overall: normal bowel sounds 01/12/2016 None Full Exam - General 1994 Cardiovascular auscultation of heart Overall: regular rate 01/12/2016 None Full Exam - General 1994 Cardiovascular auscultation of heart Overall: normal heart sounds 01/12/2016 None Full Exam - General 1994 Respiratory auscultation Overall: breath sounds clear bilaterally 01/12/2016 None Full Exam - General 1994 Respiratory respiratory effort/rhythm Overall: no retractions 01/12/2016 None Full Exam - General 1994 Respiratory respiratory effort/rhythm Overall: normal rate 01/12/2016 None Full Exam - General 1994 Ears/Nose/Throat otoscopic exam Overall: tympanic membranes clear 01/12/2016 None Full Exam - General 1994 Ears/Nose/Throat otoscopic exam Overall: external auditory canals clear 01/12/2016 None Full Exam - General 1994 Ears/Nose/Throat oral cavity/pharynx/larynx Overall: oral mucosa clear 01/12/2016 None Full Exam - General 1994 Eyes conjunctiva /eyelids Overall: conjunctiva clear 01/12/2016 None Full Exam - General 1994 Eyes pupils and irises Overall: pupils equal, round, reactive to light and accomodation 01/12/2016 None Procedures Procedure Codes Date PPPS, SUBSEQ VISIT CPT -4: G0439 05/03/2018 THER/PROPH/DIAG INJ SC/IM CPT-4: 68479 06/05/2017 TRIAMCINOLONE ACET INJ NOS CPT-4: J3301 06/05/2017 URINALYSIS NONAUTO W/O SCOPE CPT-4: 84628 12/08/2016 Vital Signs Date Vital 05/03/2018 BMI: 37.5 Code: 07913-4 Height: 5'3" Weight: 215 lbs 04/02/2018 Blood Pressure 1: 140/76 Code : 8480-6 BMI: 37.5 Code : 31128-5 Heart Rate 1 : 80 bpm Height: 5'3" SpO2: 96% Weight: 215 lbs 01/10/2018 Blood Pressure 1: 144/82 Code : 8480-6 Heart Rate 1: 74 bpm Height: 5'3" SpO2: 94% 10/04/2017 Blood Pressure 1: 142/70 Code : 8480-6 Heart Rate 1: 73 bpm Height: SpO2: 97% Weight: 06/05/2017 Blood Pressure 1: 142/86 Code : 8480-6 BMI: 36.8 Code : 25186-8 Heart Rate 1 : 74 bpm Height: 5'3" SpO2: 96% Weight: 211 lbs 01/19/2017 Blood Pressure 1: 150/88 Code : 8480-6 BMI: 36.1 Code : 54863-3 Heart Rate 1 : 76 bpm Height: 5'3" Weight: 207 lbs 10/05/2016 Blood Pressure 1: 134/80 Code : 8480-6 Heart Rate 1: 60 bpm Height: 5'3" SpO2: 95% Weight: 09/23/2016 Blood Pressure 1: 148/76 Code : 8480-6 BMI: 36.3 Code : 89718-3 Heart Rate 1 : 62 bpm Height: 5'3" SpO2: 98% Weight: 208 lbs 07/27/2016 Blood Pressure 1: 130/66 Code : 8480-6 BMI: 37.8 Code : 72426-5 Heart Rate 1 : 64 bpm Height: 5'3" SpO2: 96% Weight: 217 lbs 07/18/2016 Blood Pressure 1: 134/64 Code : 8480-6 BMI: 37.8 Code : 68044-3 Heart Rate 1 : 66 bpm Height: 5'3" SpO2: 96% Weight: 217 lbs 05/09/2016 Blood Pressure 1: 142/72 Code : 8480-6 BMI: 37.3 Code : 41359-9 Heart Rate 1 : 59 bpm Height: 5'3" SpO2: 96% Weight: 214 lbs 01/12/2016 Blood Pressure 1: 122/64 Code : 8480-6 BMI: 37.3 Code : 75518-2 Heart Rate 1 : 68 bpm Height: 5'3" SpO2: 94% Weight: 214 lbs Functional Status No Functional Status data History of Present Illness Symptom Name Status Result Effective Date Notes Alcohol Use does not drink any alcohol 05/03/2018 None Depression (last 6 months) some of the time 05/03/2018 None Depression or Hopelessness some of the time 05/03/2018 None Describe Your Health good 05/03/2018 None Exercise Habits does not exercise 05/03/2018 None Handling Stress usually john effectively 05/03/2018 None Interaction with Friends yes 05/03/2018 None Interests & Pleasure most of the time 05/03/2018 None Motor Vehicle Safety always fastens seat belt: y 05/03/2018 None Smoking and Tobacco Use non smoker 05/03/2018 None Social & Emotional Support always 05/03/2018 None Stress some of the time 05/03/2018 None Aspirin Use yes 05/03 81mg Blood Glucose (self reported) don't know 05/03/2018 None Blood Pressure (self reported) borderline (120/80 - 139/89) 05/03/2018 None Cholesterol (self reported) borderline high (200-239) 05/03/2018 None Hemaglobin A-1C (self reported) don't know 05/03/2018 None Hours of Sleep 7 10/2017 None Life Satisfaction satisfied 05/03/2018 None Nutrition servings of vegetables / fruit per day: 2 05/03/2018 None Sun Exposure protects skin when outdoors : n 05/03/2018 None shoulder pain Quality chronic 04/02/2018 None shoulder pain Quality worsening 04/02/2018 None back pain Quality chronic 04/02/2018 None back pain Quality worsening 04/02/2018 None arthralgia(s) Quality chronic 04/02/2018 None arthralgia(s) Quality worsening 04/02/2018 None arthralgia(s) Location on both knees 04/02/2018 None arthralgia(s) Location on both shoulders 04/02/2018 None arthralgia(s) Location on both ankles 04/02/2018 None edema Onset and Resolution sudden in onset 01/10/2018 None edema Onset of Symptom 1 weeks ago 01/10/2018 None Hospital Follow Up _ pain 10/04/2017 None Hospital Follow Up Quality acute 10/04/2017 None Hospital Follow Up Location left upper arm 10/04/2017 None Hospital Follow Up Onset of Symptom 4 days ago 10/04/2017 None Hospital Follow Up Severity moderate 10/04/2017 None Hospital Follow Up Pertinent Findings pain 10/04/2017 None Hospital Follow Up Unchanged by these Factors rest 10/04/2017 None Hospital Follow Up Exacerbating Factors activity 10/04/2017 None Hospital Follow Up Exacerbating Factors exertion 10/04/2017 None Hospital Follow Up Mechanism of injury moderate energy 10/04/2017 None Hospital Follow Up Mechanism of injury pulling/twisting 10/04/2017 None arm pain Location right upper arm 10/04/2017 None arm pain Quality sharp pain 10/04/2017 None arm pain Quality throbbing 10/04/2017 None arm pain Quality chronic 10/04/2017 None arm pain Onset of Symptom 4 days ago 10/04/2017 None arm pain Pertinent Findings female 10/04/2017 None arm pain Pertinent Findings right hand dominant 10/04/2017 None arm pain Pertinent Findings Denies left hand dominant 10/04/2017 None arm pain Pertinent Findings Denies sleep disturbances 10/04/2017 None arm pain Pertinent Findings impaired work tolerance 10/04/2017 None arm pain Pertinent Findings pain with movement 10/04/2017 None arm pain Pertinent Findings Denies low back pain 10/04/2017 None arm pain Pertinent Findings Denies midback pain 10/04/2017 None arm pain Pertinent Findings Denies good fitness level 10/04/2017 None arm pain Pertinent Findings poor fitness level 10/04/2017 None arm pain Pertinent Findings Denies gait disturbance 10/04/2017 None arm pain Pertinent Findings Denies incoordination 10/04/2017 None arm pain Severity moderate 10/04/2017 None sinus congestion Location maxillary sinuses 06/05/2017 None sinus congestion Quality acute 06/05/2017 None sinus congestion Pertinent Findings cough 06/05/2017 None sore throat Quality acute 06/05/2017 None sore throat Onset and Resolution sudden in onset 06/05/2017 None sore throat Pertinent Findings cough 06/05/2017 None abdominal pain Location in the LLQ 01/19/2017 None abdominal pain Quality acute 01/19/2017 None abdominal pain Onset and Resolution sudden in onset 01/19/2017 None abdominal pain Onset of Symptom 1 weeks ago 01/19/2017 None abdominal pain Pertinent Findings diverticulosis 01/19/2017 None abdominal pain Pertinent Findings Denies fever 01/19/2017 None abdominal pain Pertinent Findings Denies nausea 01/19/2017 None rash Location-Major on the head 10/05/2016 None rash Location-Major on the fingers 10/05/2016 None rash Location-Major on the hands 10/05/2016 None rash Location-Head/Neck on the forehead 10/05/2016 None rash Location-Head/Neck on the left cheek 10/05/2016 None rash Location-Head/Neck in the periorbital area 10/05/2016 None rash Quality acute 02/2017 None rash Quality worsening 10/05/2016 None rash Quality erythematous 10/05/2016 None rash Quality pruritic 10/05/2016 None rash Color erythematous 10/05/2016 None rash Severity mild 02/2017 None rash Triggers outside 10/05/2016 None rash Pertinent Findings history of exposure 10/05/2016 poison [place] rash Pertinent Findings history of similar rash 10/05/2016 None rash Pertinent Findings itching 10/05/2016 None low back and leg pain Location lumbar spine 09/23/2016 None low back and leg pain Radiating the left groin 09/23/2016 None low back and leg pain Radiating the right groin 09/23/2016 None low back and leg pain Quality constant 09/23/2016 None low back and leg pain Onset and Resolution ongoing 09/23/2016 None foot pain Location on the right 07/27/2016 None foot pain Quality tenderness 07/27/2016 None foot pain Quality constant 07/27/2016 None foot pain Quality worsening 07/27/2016 None foot pain Quality dull pain 07/27/2016 None foot pain Onset and Resolution sudden in onset 07/27/2016 None foot pain Onset of Symptom 2 weeks ago 07/27/2016 None urinary urgency Quality constant 07/18/2016 None urinary urgency Onset and Resolution sudden in onset 07/18/2016 None urinary urgency Onset of Symptom 3 days ago 07/18/2016 None urinary urgency Pertinent Findings bladder pain 07/18/2016 None urinary urgency Pertinent Findings nocturia 07/18/2016 None urinary frequency Quality constant 07/18/2016 None urinary frequency Onset and Resolution sudden in onset 07/18/2016 None urinary frequency Onset of Symptom 3 days ago 07/18/2016 None urinary frequency Pertinent Findings bladder pain 07/18/2016 None urinary frequency Pertinent Findings pelvic pain 07/18/2016 None hypertension Quality chronic 05/09/2016 None hypertension Onset and Resolution ongoing 05/09/2016 None hypertension Quality stable 05/09/2016 None hypertension Pertinent Findings Denies dyspnea 05/09/2016 None melena Quality acute 01/12/2016 None melena Pertinent Findings Denies abdominal distension 01/12/2016 None melena Pertinent Findings Denies nausea 01/12/2016 None melena Pertinent Findings Denies dyspnea 01/12/2016 None melena Onset and Resolution ongoing 01/12/2016 None melena Onset of Symptom _ days ago 01/12/2016 None melena Severity mild 01/12/2016 None melena Frequency of Episodes unchanged 01/12/2016 None melena Triggers no known associated factors 01/12/2016 None Advance Directives No Advance Directive data Encounters Encounter Performer Location Codes Date EST. PATIENT, LEVEL III Diagnosis: Primary generalized (osteo)arthritis[ICD10: M15.0] Diagnosis: Other chronic pain[ICD10: G89.29] [facility] CPT -4: 32717 04/02/2018 [id number] EST. PATIENT, LEVEL III Diagnosis: Localized edema[ICD10: R60.0] Diagnosis: Pain in left leg[ICD10: M79.605] [facility] CPT- 4: 77473 01/10/2018 [id number] EST. PATIENT, LEVEL III Diagnosis: Pain in left arm[ICD10: M79.602] Diagnosis: Pain in left elbow[ICD10: M25.522] Azra Lopes MD, [facility] CPT-4: 99633 10/04/2017 ([id number]) Miscellaneous no charge Diagnosis: Cough[ICD10: R05] Diagnosis: Shortness of breath[ICD10: R06.02] Azra Lopes MD, [facility] CPT-4: 37298 06/08/2017 [id number] EST. PATIENT, LEVEL IV Diagnosis: Acute laryngopharyngitis[ICD10: J06.0] Diagnosis: Other acute sinusitis[ICD10: J01.80] Diagnosis: Cough[ICD10: R05] Diagnosis: Shortness of breath[ICD10: R06.02] Diagnosis: Other chronic pain[ICD10: G89.29] Azra Lopes MD, [facility] CPT -4: 38923 06/05/2017 [id number] EST. PATIENT, LEVEL IV Diagnosis: Diverticulitis of large intestine without perforation or abscess without bleeding[ICD10: K57.32] Diagnosis: Left lower quadrant pain[ICD10: R10.32] Azra Lopes MD, [facility] CPT-4: 07406 01/19/2017 [id number] EST. PATIENT, LEVEL III Diagnosis: Allergic contact dermatitis due to plants, except food[ICD10: L23.7] Azra Lopes MD, [facility] CPT-4: 69978 10/05/2016 [id number] EST. PATIENT, LEVEL III Diagnosis: Low back pain[ICD10: M54.5] Diagnosis: Other chronic pain[ICD10: G89.29] Azra Lopes MD, [facility] CPT -4: 45438 09/23/2016 [id number] EST. PATIENT, LEVEL III Diagnosis: Cough[ICD10: R05] Diagnosis: Shortness of breath[ICD10: R06.02] Diagnosis: Cellulitis of right toe[ICD10: L03.031] Diagnosis: Other obesity due to excess calories[ICD10: E66.09] Azra Lopes MD, [facility] CPT-4: 98802 07/27/2016 [id number] EST. PATIENT, LEVEL III Diagnosis: Dysuria[ICD10: R30.0] Diagnosis: Low back pain[ICD10: M54.5] Diagnosis: Other chronic pain[ICD10: G89.29] Azra Lopes MD, [facility] CPT -4: 28419 07/18/2016 [id number] EST. 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 CPT-4: 36636 01/12/2016 Plan of Care Planned Activity Notes Codes Status Date Referral: Umair Kwok Referral Initiated 05/14/2018 Patient Education: Patient Medication Summary Completed 05/11/2018 Care Plan: SCREENINGMAMMOGRAPHYDIGITAL LOINC : 89550-2 Pending 05/11/2018 Care Plan: Referral Order SNOMED-CT : [id number] Pending 05/08/2018 Visit Plan: Medicare Exam - today we discussed the patients past history, immunizations, preventative exams/evaluations - colonoscopy, fecal occult blood testing, routine labs for renal function, glucose, cholesterol, osteoporosis evaluations, cardiovascular testing and cancer screenings. We have also discussed mental health and the signs/symptoms of depression. The patient was advised of home safety evaluations and the need to make sure that as the aging process continues, we need to be aware of different ways to make the home a safer place to reside. The patient has also been counseled that exercise is necessary - and of utmost importance as we age to help decrease fall risk and to maintain independece in the home. Today we discussed the need for the patient to create paperwork for Advanced directives as well as for the patient to provide this office with a copy of her DOPA paperwork for health care surrogate. 05/03/2018 Visit Plan: Medicare Exam - today we discussed the patients past history, immunizations, preventative exams/evaluations - colonoscopy, fecal occult blood testing, routine labs for renal function, glucose, cholesterol, osteoporosis evaluations, cardiovascular testing and cancer screenings. We have also discussed mental health and the signs/symptoms of depression. The patient was advised of home safety evaluations and the need to make sure that as the aging process continues, we need to be aware of different ways to make the home a safer place to reside. The patient has also been counseled that exercise is necessary - and of utmost importance as we age to help decrease fall risk and to maintain independece in the home. Today we discussed the need for the patient to create paperwork for Advanced directives as well as for the patient to provide this office with a copy of her DOPA paperwork for health care surrogate. 05/03/2018 Appointment: Azra Carter [facility]el[phone] [facility] [facility] - Annual Wellness Visit 05/03/2018 Patient Education: Patient Medication Summary Completed 05/03/2018 Visit Plan: Arthritis - worsening - will send RX - The pt is to use prn antiinflammatories to manage acute pain. The patient is to call the office if the pain is worsening or does not improve. Chronic Pain Syndrome - pt has chronic pain - has been maintained on current medications, has not sought out other medications, only uses PRN pain medications as directed, and understands the consequences of over-medication. Pain contract updated - see scanned document - discussed with pt the need to taper off pain medication or to refer to pain management. 04/02/2018 Visit Plan: Arthritis - worsening - will send RX - The pt is to use prn antiinflammatories to manage acute pain. The patient is to call the office if the pain is worsening or does not improve. Chronic Pain Syndrome - pt has chronic pain - has been maintained on current medications, has not sought out other medications, only uses PRN pain medications as directed, and understands the consequences of over-medication. Pain contract updated - see scanned document - discussed with pt the need to taper off pain medication or to refer to pain management. 04/02/2018 Visit Plan: Arthritis - worsening - will send RX - The pt is to use prn antiinflammatories to manage acute pain. The patient is to call the office if the pain is worsening or does not improve. Chronic Pain Syndrome - pt has chronic pain - has been maintained on current medications, has not sought out other medications, only uses PRN pain medications as directed, and understands the consequences of over-medication. Pain contract updated - see scanned document - discussed with pt the need to taper off pain medication or to refer to pain management. 04/02/2018 Appointment: Azra Carter [facility]el[phone] [facility] (15 min) Moderate 04/02/2018 Patient Education: Patient Medication Summary Completed 04/02/2018 Patient Education: Patient Medication Summary Completed 03/05/2018 Patient Education: Patient Medication Summary Completed 02/13/2018 Patient Education: Patient Medication Summary Completed 01/31/2018 Care Plan: VASCULAR STUDY Pending 01/11/2018 Visit Plan: Leg pain - the patient was instructed in appropriate posture, need for weight loss to alleviate abdominal obesity that is worsening the patient's pain.. The pt is to use prn antiinflammatories to manage acute pain. The patient is to call the office if the pain is worsening or does not improve. Edema - pt has been advised to elevate legs to prevent dependent edema, compression has been recommended to help to naturally decrease peripheral edema. Diuretic use has been discussed and pt has been instructed in appropriate use of such medication as necessary to further attempt to reduce peripheral edema. 01/10/2018 Appointment: Azra Carter [facility]el[phone] [facility] (15 min) Moderate 01/10/2018 Patient Education: Patient Medication Summary Completed 01/10/2018 Patient Education: Patient Medication Summary Completed 10/20/2017 Care Plan: MRI JOINT UPR EXTREM W/O DYE LOINC : 49003-7 Pending 10/05/2017 Visit Plan: Left elbow/arm pain - pt was given prednisone in the ER - will order MRI and refer or treat as indicated. The pt is to use prn antiinflammatories to manage acute pain. The patient is to call the office if the pain is worsening or does not improve. 10/04/2017 Visit Plan: Left elbow/arm pain - pt was given prednisone in the ER - will order MRI and refer or treat as indicated. The pt is to use prn antiinflammatories to manage acute pain. The patient is to call the office if the pain is worsening or does not improve. 10/04/2017 Appointment: Azra Carter [facility]Ptel[phone] [facility] (15 min) Moderate 10/04/2017 Patient Education: Patient Medication Summary Completed 10/04/2017 Appointment: Nurse Visit 06/08/2017 Patient Education: Patient Medication Summary Completed 06/08/2017 Visit Plan: URI - Pt advised to increase fluids, vitamin C. Discussed natural and expected course of this diagnosis and need to alert me if symptoms do not follow expected course, or if any worse. RX sent to patient' s pharmacy. Sinusitis - Pt has acute infection - pain in face, maxillary region , Pt informed to use decongestant, RX given to patient, sinus rinses also recommended. Call if symptoms do not show improvement. Chronic Pain Syndrome - pt has chronic pain - has been maintained on current medications, has not sought out other medications, only uses PRN pain medications as directed, and understands the consequences of over-medication. 06/05/2017 Appointment: Azra Carter WPtel: [facility] (15 min) Moderate 06/05/2017 Patient Education: Patient Medication Summary Completed 06/05/2017 Visit Plan: Diverticulitis - rx for antibiotic sent to pt' s pharmacy - pt advised to avoid seeds, nuts, popcorn, or any other food which has been proven to upset the pt's stomach. 01/19/2017 Appointment: Azra Carter WPtel: [facility] (30 min) Complex 01/19/2017 Patient Education: Patient Medication Summary Completed 01/19/2017 Appointment: Lab Draw 12/08/2016 Patient Education: Patient Medication Summary Completed 12/08/2016 Care Plan: Referral Order SNOMED-CT : [id number] Pending 10/09/2016 Visit Plan: Poison Lorraine - pt is to use topical treatments as directed. Pt is cleanse clothing in hot water with soap, and call if symptoms do not improve or if they worsen. 10/05/2016 Appointment: Azra Carter WPtel: [facility] [place] (10 min) Simple 10/05/2016 Patient Education: Patient Medication Summary Completed 10/05/2016 Visit Plan: Low back pain- the patient was instructed in appropriate posture, need for weight loss to alleviate abdominal obesity that is worsening the patient's back pain.. The pt is to use prn antiinflammatories to manage acute pain. The patient is to call the office if the pain is worsening or does not improve. Chronic Pain Syndrome - pt has chronic pain - has been maintained on current medications, has not sought out other medications , only uses PRN pain medications as directed, and understands the consequences of over-medication. 09/23/2016 Appointment: Azra Carter WPtel: [address] [place], [place] [id number] (15 min) Moderate 09/23/2016 Patient Education: Patient Medication Summary Completed 09/23/2016 Visit Plan: Cellulitis - very mild - Finish Bactrim as previously directed, Follow up with Dr. Jaramillo as previously planned - return to clinic as previously directed, call for acute change in symptoms, worsening redness, warmth, discharge. Cough/shortness of breath - Follow up with Dr. Zeng as previously planned - will order CXR - notify clinic if symptoms of cough or shortness of breath do not improve, or with any concerns. Obesity - chronic issue with this patient. The pt has been counseled about diet changes, calorie restriction, and need to exercise. Pt will RTC for weight check. 07/27/2016 Visit Plan: Cellulitis - very mild - Finish Bactrim as previously directed, Follow up with Dr. Jaramillo as previously planned - return to clinic as previously directed, call for acute change in symptoms, worsening redness, warmth, discharge. Cough/shortness of breath - Follow up with Dr. Zeng as previously planned - will order CXR - notify clinic if symptoms of cough or shortness of breath do not improve, or with any concerns. Obesity - chronic issue with this patient. The pt has been counseled about diet changes, calorie restriction, and need to exercise. Pt will RTC for weight check. 07/27/2016 Appointment: Azra Carter WPtel: [facility] [place] (15 min) Moderate 07/27/2016 Patient Education: Patient Medication Summary Completed 07/27/2016 Patient Education: Obesity Completed 07/27/2016 Care Plan: BMI Above normal followup SELF-MGMT EDUC & TRAIN 1 PT Pending 2016 Care Plan: CHEST X-RAY 2VW FRONTAL&LATL LOINC : 77611-7 Pending 07/27/2016 Visit Plan: UTI - pt with positive urinalysis - culture sent if appropriate. Antibiotic electronically prescribed to pt's pharmacy of choice. Pt to call if symptoms do not improve. Chronic Pain Syndrome - pt has chronic pain - has been maintained on medications, has not sought out other medications, only uses PRN pain medications as directed, and understands the consequences of over-medication. 07/18/2016 Visit Plan: UTI - pt with positive urinalysis - culture sent if appropriate. Antibiotic electronically prescribed to pt's pharmacy of choice. Pt to call if symptoms do not improve. Chronic Pain Syndrome - pt has chronic pain - has been maintained on medications, has not sought out other medications, only uses PRN pain medications as directed, and understands the consequences of over-medication. 07/18/2016 Appointment: Azra Carter WPtel: [facility] (30 min) Complex 07/18/2016 Patient Education: Patient Medication Summary Completed 07/18/2016 Visit Plan: Well Adult - pt was counseled about diet, exercise, and encouraged to follow a heart healthy diet and increase activity level. The patient was instructed to RTC yearly for well adult exams and PRN for acute illnesses. The pt was also instructed to have yearly labs for check of cholesterol, thyroid, chem panel, CBC, and renal functioning. Pt states that she was seeing Dr. Rush and Dr. Salomon for her parathyroid issues - pt is to continue current treatment plan. 05/09/2016 Appointment: Azra Carter WPtel: [facility] (30 min) Complex 05/09/2016 Patient Education: Patient Medication Summary Completed 05/09/2016 Care Plan: Cbc With Differential Ordered 05/09/2016 Care Plan: Parathyroid Hormone Ordered 05/09/2016 Care Plan: Comp Metabolic Ordered 05/09/2016 Appointment: Lab Draw 01/18/2016 Patient Education: Patient Medication Summary Completed 01/18/2016 Visit Plan: Hypertension - well controlled - continue with current medications, continue with no added salt diet. Pt has been encouraged to exercise daily. The pt has been advised to call the office if there are any acute concerns about change in blood pressure readings at home. Hyperlipidemia - pt has been counseled about appropriate diet, exercise, and need for low fat food choices. I have discussed the need for the patient to take medications as prescribed. If the patient has negative side effects from the medication, they are to CALL the office and not abruptly discontinue the medication without discussion with a practitioner in the office. We will check labs in 3-6 months for follow up on the patient's chronic medical problem and to assure normal liver response to medications. Blood in stools-refer to Dr Pruitt if due for colonscopy-check labs, stools for occult blood Low back pain-refill hydrocodone 01/12/2016 Appointment: Lise Bruce WPtel: [address] [place], [place] [id number] New Patient 01/12/2016 Patient Education: Patient Medication Summary Completed 01/12/2016 Patient Education: Obesity Completed 01/12/2016 Care Plan: Referral Order SNOMED-CT : [id number] Pending 01/12/2016 Referral: Rell Pruitt Referral Appointment Requested Referral: External, Ordering Provider Referral Initiated Referral: [facility] WPtel: Referral Initiated Referral: Umair Kwok Referral Relationship Referral: [facility] WPtel: they willcall her with appt Initiated Instructions Comment . Medicare Exam - today we discussed the patients past history, immunizations, preventative exams/evaluations - colonoscopy, fecal occult blood testing, routine labs for renal function, glucose, cholesterol, osteoporosis evaluations, cardiovascular testing and cancer screenings. We have also discussed mental health and the signs/symptoms of depression. The patient was advised of home safety evaluations and the need to make sure that as the aging process continues, we need to be aware of different ways to make the home a safer place to reside. The patient has also been counseled that exercise is necessary - and of utmost importance as we age to help decrease fall risk and to maintain independece in the home. Today we discussed the need for the patient to create paperwork for Advanced directives as well as for the patient to provide this office with a copy of her DOPA paperwork for health care surrogate. . Poison Lorraine - pt is to use topical treatments as directed. Pt is cleanse clothing in hot water with soap, and call if symptoms do not improve or if they worsen. . Diverticulitis - rx for antibiotic sent to pt's pharmacy - pt advised to avoid seeds, nuts, popcorn, or any other food which has been proven to upset the pt's stomach. . Cellulitis - very mild - Finish Bactrim as previously directed, Follow up with Dr. Jaramillo as previously planned - return to clinic as previously directed, call for acute change in symptoms, worsening redness, warmth, discharge. Cough/shortness of breath - Follow up with Dr. Zeng as previously planned - will order CXR - notify clinic if symptoms of cough or shortness of breath do not improve, or with any concerns. Obesity - chronic issue with this patient. The pt has been counseled about diet changes, calorie restriction, and need to exercise. Pt will RTC for weight check. . Arthritis - worsening - will send RX - The pt is to use prn antiinflammatories to manage acute pain. The patient is to call the office if the pain is worsening or does not improve. Chronic Pain Syndrome - pt has chronic pain - has been maintained on current medications, has not sought out other medications, only uses PRN pain medications as directed, and understands the consequences of over-medication. Pain contract updated - see scanned document - discussed with pt the need to taper off pain medication or to refer to pain management. . Arthritis - worsening - will send RX - The pt is to use prn antiinflammatories to manage acute pain. The patient is to call the office if the pain is worsening or does not improve. Chronic Pain Syndrome - pt has chronic pain - has been maintained on current medications, has not sought out other medications, only uses PRN pain medications as directed, and understands the consequences of over-medication. Pain contract updated - see scanned document - discussed with pt the need to taper off pain medication or to refer to pain management. . Arthritis - worsening - will send RX - The pt is to use prn antiinflammatories to manage acute pain. The patient is to call the office if the pain is worsening or does not improve. Chronic Pain Syndrome - pt has chronic pain - has been maintained on current medications, has not sought out other medications, only uses PRN pain medications as directed, and understands the consequences of over-medication. Pain contract updated - see scanned document - discussed with pt the need to taper off pain medication or to refer to pain management. . Left elbow/arm pain - pt was given prednisone in the ER - will order MRI and refer or treat as indicated. The pt is to use prn antiinflammatories to manage acute pain. The patient is to call the office if the pain is worsening or does not improve. . Left elbow/arm pain - pt was given prednisone in the ER - will order MRI and refer or treat as indicated. The pt is to use prn antiinflammatories to manage acute pain. The patient is to call the office if the pain is worsening or does not improve. STOP YOUR SIMVASTATIN - IF IT IS NOT TOO EXPENSIVE THEN GET CO Q 10 (COENZYME Q10) AND TAKE IT DAILY. CALL ME AND LET ME KNOW HOW YOUR PAIN AFTER 2 WEEKS OF BEING OFF OF THE SIMVASTATIN. WE WILL REFER YOU TO [facility] GLUCOSAMINE AND CHONDROITIN FOR JOINT PAIN. Low back pain- the patient was instructed in appropriate posture, need for weight loss to alleviate abdominal obesity that is worsening the patient's back pain.. The pt is to use prn antiinflammatories to manage acute pain. The patient is to call the office if the pain is worsening or does not improve. Chronic Pain Syndrome - pt has chronic pain - has been maintained on current medications, has not sought out other medications, only uses PRN pain medications as directed, and understands the consequences of over-medication. . Well Adult - pt was counseled about diet, exercise, and encouraged to follow a heart healthy diet and increase activity level. The patient was instructed to RTC yearly for well adult exams and PRN for acute illnesses. The pt was also instructed to have yearly labs for check of cholesterol, thyroid, chem panel, CBC, and renal functioning. Pt states that she was seeing Dr. Rush and Dr. Salomon for her parathyroid issues - pt is to continue current treatment plan. . Hypertension - well controlled - continue with current medications, continue with no added salt diet. Pt has been encouraged to exercise daily. The pt has been advised to call the office if there are any acute concerns about change in blood pressure readings at home. Hyperlipidemia - pt has been counseled about appropriate diet, exercise, and need for low fat food choices. I have discussed the need for the patient to take medications as prescribed. If the patient has negative side effects from the medication, they are to CALL the office and not abruptly discontinue the medication without discussion with a practitioner in the office. We will check labs in 3-6 months for follow up on the patient's chronic medical problem and to assure normal liver response to medications. Blood in stools-refer to Dr Pruitt if due for colonscopy-check labs, stools for occult blood Low back pain-refill hydrocodone . Medicare Exam - today we discussed the patients past history, immunizations, preventative exams/evaluations - colonoscopy, fecal occult blood testing, routine labs for renal function, glucose, cholesterol, osteoporosis evaluations, cardiovascular testing and cancer screenings. We have also discussed mental health and the signs/symptoms of depression. The patient was advised of home safety evaluations and the need to make sure that as the aging process continues, we need to be aware of different ways to make the home a safer place to reside. The patient has also been counseled that exercise is necessary - and of utmost importance as we age to help decrease fall risk and to maintain independece in the home. Today we discussed the need for the patient to create paperwork for Advanced directives as well as for the patient to provide this office with a copy of her DOPA paperwork for health care surrogate. . Cellulitis - very mild - Finish Bactrim as previously directed, Follow up with Dr. Jaramillo as previously planned - return to clinic as previously directed, call for acute change in symptoms, worsening redness, warmth, discharge. Cough/shortness of breath - Follow up with Dr. Zeng as previously planned - will order CXR - notify clinic if symptoms of cough or shortness of breath do not improve, or with any concerns. Obesity - chronic issue with this patient. The pt has been counseled about diet changes, calorie restriction, and need to exercise. Pt will RTC for weight check. Will check potassium today Continue compression stockings lasix 20mg daily x 3 days and potassium 10meq daily x 3 days go get x-ray and ultrasound Hydrocodone twice a day x 3 days . Leg pain - the patient was instructed in appropriate posture, need for weight loss to alleviate abdominal obesity that is worsening the patient's pain.. The pt is to use prn antiinflammatories to manage acute pain. The patient is to call the office if the pain is worsening or does not improve. Edema - pt has been advised to elevate legs to prevent dependent edema, compression has been recommended to help to naturally decrease peripheral edema. Diuretic use has been discussed and pt has been instructed in appropriate use of such medication as necessary to further attempt to reduce peripheral edema. . URI - Pt advised to increase fluids, vitamin C. Discussed natural and expected course of this diagnosis and need to alert me if symptoms do not follow expected course, or if any worse. RX sent to patient's pharmacy. Sinusitis - Pt has acute infection - pain in face, maxillary region, Pt informed to use decongestant, RX given to patient, sinus rinses also recommended. Call if symptoms do not show improvement. Chronic Pain Syndrome - pt has chronic pain - has been maintained on current medications, has not sought out other medications, only uses PRN pain medications as directed, and understands the consequences of over-medication. . UTI - pt with positive urinalysis - culture sent if appropriate. Antibiotic electronically prescribed to pt's pharmacy of choice. Pt to call if symptoms do not improve. Chronic Pain Syndrome - pt has chronic pain - has been maintained on medications , has not sought out other medications, only uses PRN pain medications as directed, and understands the consequences of over-medication. . UTI - pt with positive urinalysis - culture sent if appropriate. Antibiotic electronically prescribed to pt's pharmacy of choice. Pt to call if symptoms do not improve. Chronic Pain Syndrome - pt has chronic pain - has been maintained on medications , has not sought out other medications, only uses PRN pain medications as directed, and understands the consequences of over-medication.
--- OUTSIDE RECORDS SUMMARY | 2018-05-21 15:22 | XMS REPORT | CCD ---
Author Author Lise Bruce MD, [facility] Address [address] [place] [address] Phone Care Team Providers Care Electromatic Typist Name Role Phone PP Unavailable CCM Unavailable Summary Purpose Interface Exchange Insurance Providers Payer name Policy type / Coverage type Covered republican ID Effective Begin Date Effective End Date WPS Medicare Part B Medicare Part B [id number] Unknown [place] [employer] Insurance Medicare Part B [id number] Unknown Family history Mother Diagnosis Age At Onset Hypertension Unknown Anemia Unknown Arthritis Unknown Coronary Artery Disease Unknown Sister Diagnosis Age At Onset bladder cancer Unknown Hypertension Unknown Cancer Unknown Brother Diagnosis Age At Onset Prostate Cancer Unknown Depression Unknown Cancer Unknown Hypertension Unknown Social History Social History Element Codes Description Effective Dates Marital status Unknown 01/12/[address]: 641020263 Never smoker 01/12/[address]: 365690052 Never drinks alcohol 01/12/2016 Allergies, Adverse Reactions, Alerts Substance Reaction Codes Entered Date Inactivated Date Status * OTHER REACTION - SEE ANSWER [facility]OX [facility] Unknown 2015 No Inactive Date Active Past Medical History Illness Codes Condition Status Onset Date Resolved Date Encounter for general adult medical examination with [...] Codes Effective Dates Condition Status Encounter for general adult medical examination with [...] Fill Instructions gabapentin 600 mg tablet RxNorm: 394748 TAKE 1 & 1/2 (ONE & ONE-HALF) TABLETS BY MOUTH THREE TIMES DAILY 04/25/2018 No Stop Date Active Voltaren 1 % topical gel RxNorm: 204282 1 Application TOP BID 04/02/2018 No Stop Date Active prednisone 20 mg tablet RxNorm: 168638 2 Tablet(s) PO daily 09/201704/06/2018 Inactive Coreg 25 mg tablet RxNorm: 727144 TAKE 1 TABLET BY MOUTH TWICE DAILY 03/19/2018 No Stop Date Active meloxicam 7.5 mg tablet RxNorm: 896524 1 Tablet(s) PO daily 08/201705/29/2018 Active Keflex 500 mg capsule RxNorm: 514159 1 Capsule(s) PO TID 201702/18/2018 Inactive Keflex 500 mg capsule RxNorm: 627395 1 Capsule(s) PO TID 201702/25/2018 Inactive Cipro 500 mg tablet RxNorm: 907707 1 Tablet(s) PO BID 201702/12/2018 Inactive Cipro 500 mg tablet RxNorm: 805085 1 Tablet(s) PO BID 201702/16/2018 Inactive gabapentin 600 mg tablet RxNorm: 202647 TAKE 1 & 1/2 (ONE & ONE-HALF) TABLETS BY MOUTH THREE TIMES DAILY 02/05/20182017 Inactive meloxicam 7.5 mg tablet RxNorm: 350725 1 Tablet(s) PO daily 09/201701/30/2018 Inactive meloxicam 7.5 mg tablet RxNorm: 426421 1 Tablet(s) PO daily 09/201702/28/2018 Inactive spironolactone 50 mg tablet RxNorm: 484569 TAKE 1 TABLET BY MOUTH ONCE DAILY 01/22/2018 No Stop Date Active potassium chloride ER 10 mEq tablet,extended release RxNorm: 880027 1 Tablet(s) PO daily 01/10/2018 No Stop Date Active Lasix 20 mg tablet RxNorm: 208762 1 Tablet(s) PO daily 2017 No Stop Date Active spironolactone 50 mg tablet RxNorm: 583125 TAKE ONE TABLET BY MOUTH ONCE DAILY 10/30/2017 01/21/2018 Inactive Bactrim DS 800 mg-160 mg tablet RxNorm: 417705 1 Tablet(s) PO BID 10/20/2017 10/19/2017 Inactive Bactrim DS 800 mg-160 mg tablet RxNorm: 349844 1 Tablet(s) PO BID 10/20/2017 10/19/2017 Inactive Bactrim DS 800 mg-160 mg tablet RxNorm: 640989 1 Tablet(s) PO BID 10/20/2017 10/26/2017 Inactive hydrocodone 7.5 mg-acetaminophen 325 mg tablet RxNorm: 137321 1 Tablet(s) PO Q4- 6H as needed 10/11/2017 No Stop Date Active Coreg 25 mg tablet RxNorm: 463164 TAKE ONE TABLET BY MOUTH TWICE DAILY 09/27/2017 03/18/2018 Inactive gabapentin 300 mg capsule RxNorm: 934230 TAKE ONE & ONE-HALF TABLETS BY MOUTH THREE TIMES DAILY 07/31/2017 No Stop Date Active gabapentin 600 mg tablet RxNorm: 262326 1.5 Tablet(s) PO TID 01/26/2018 Inactive Keflex 500 mg capsule RxNorm: 024018 1 Capsule(s) PO TID 201706/16/2017 Inactive albuterol sulfate 2.5 mg/3 mL (0.083 %) solution for nebulization RxNorm: 158442 3 Milliliter(s) INH QID as needed 06/09/2017 No Stop Date Active prednisone 10 mg tablet RxNorm: 211922 Tablet(s) PO 06/08/2017 No Stop Date Active 6, 5,4,3,2,1 Keflex 500 mg capsule RxNorm: 313279 1 Capsule(s) PO TID 201706/13/2017 Inactive Zithromax Z-Duran 250 mg tablet RxNorm: 499508 1 Tablet(s) PO UD 06/05/2017 11/08/2017 Inactive Tessalon Perles 100 mg capsule RxNorm: 688309 1-2 Capsule(s) PO TID as needed cough 06/05/2017 06/09/2017 Inactive Please check mast before filling for pt, if too expensive pt does not want it Kenalog 40 mg/mL suspension for injection RxNorm: 5734084 1 Milliliter(s) Inj 06/05/2017 06/05/2017 Inactive Coreg 25 mg tablet RxNorm: 461740 TAKE ONE TABLET BY MOUTH TWICE DAILY 05/30/2017 09/26/2017 Inactive gabapentin 300 mg capsule RxNorm: 636876 TAKE ONE & ONE-HALF TABLETS BY MOUTH THREE TIMES DAILY 05/30/2017 07/30/2017 Inactive gabapentin 300 mg capsule RxNorm: 984695 TAKE ONE & ONE-HALF TABLETS BY MOUTH THREE TIMES DAILY 02/01/2017 05/29/2017 Inactive Coreg 25 mg tablet RxNorm: 233805 TAKE ONE TABLET BY MOUTH TWICE DAILY 02/01/2017 05/29/2017 Inactive Cipro 500 mg tablet RxNorm: 081131 1 Tablet(s) PO BID 201601/28/2017 Inactive Flagyl 500 mg tablet RxNorm: 758233 1 Tablet(s) PO TID 201601/28/2017 Inactive Coreg 25 mg tablet RxNorm: 357357 TAKE ONE TABLET BY MOUTH TWICE DAILY 01/02/2017 01/31/2017 Inactive hydrocodone 7.5 mg-acetaminophen 325 mg tablet RxNorm: 687017 1 Tablet(s) PO Q4- 6H as needed 12/08/2016 10/10/2017 Inactive Keflex 500 mg capsule RxNorm: 548372 1 Capsule(s) PO TID 201612/14/2016 Inactive spironolactone 50 mg tablet RxNorm: 813670 TAKE ONE TABLET BY MOUTH ONCE DAILY 11/25/2016 03/24/2017 Inactive gabapentin 300 mg capsule RxNorm: 875949 TAKE ONE & ONE-HALF TABLETS BY MOUTH THREE TIMES DAILY 10/07/2016 01/31/2017 Inactive prednisone 10 mg tablet RxNorm: 228378 Tablet(s) PO 10/05/2016 06/07/2017 Inactive 6, 5,4,3,2,1 hydrocodone 7.5 mg-acetaminophen 325 mg tablet RxNorm: 135740 1 Tablet(s) PO Q4- 6H 09/23/2016 12/07/2016 Inactive Coreg 25 mg tablet RxNorm: 609289 TAKE ONE TABLET BY MOUTH TWICE DAILY 09/08/2016 01/01/2017 Inactive Ventolin HFA 90 mcg/actuation aerosol inhaler RxNorm: 693063 1 Puff(s) INH Q4-6H as needed dyspnea 07/29/2016 No Stop Date Active hydrocodone 10 mg-acetaminophen 325 mg tablet RxNorm: 788881 1/2 Tablet(s) PO TID 07/18/2016 08/16/2016 Inactive Pyridium 100 mg tablet RxNorm: 8989291 1-2 Tablet(s) PO TID as needed 07/18/2016 07/19/2016 Inactive Bactrim DS 800 mg-160 mg tablet RxNorm: 394855 1 Tablet(s) PO BID 07/18/2016 07/27/2016 Inactive Coreg 25 mg tablet RxNorm: 816371 TAKE ONE TABLET BY MOUTH TWICE DAILY 07/07/2016 09/04/2016 Inactive gabapentin 300 mg capsule RxNorm: 307098 TAKE ONE & ONE-HALF TABLETS BY MOUTH THREE TIMES DAILY 06/09/2016 10/06/2016 Inactive hydrocodone 7.5 mg-acetaminophen 325 mg tablet RxNorm: 774497 1 Tablet(s) PO BID 05/17/2016 10/08/2016 Inactive hydrocodone 7.5 mg-acetaminophen 325 mg tablet RxNorm: 749184 1 Tablet(s) PO BID 03/31/2016 05/16/2016 Inactive spironolactone 50 mg tablet RxNorm: 964275 1 Tablet(s) PO daily 03/09/2016 09/04/2016 Inactive Coreg 25 mg tablet RxNorm: 947721 1 Tablet(s) PO BID 201506/20/2016 Inactive gabapentin 600 mg tablet RxNorm: 750447 1.5 Tablet(s) PO TID 06/09/2016 Inactive gabapentin 300 mg capsule RxNorm: 122215 3 Capsule(s) PO TID 02/10/2016 Inactive hydrocodone 7.5 mg-acetaminophen 325 mg tablet RxNorm: 049056 1 Tablet(s) PO BID 01/12/2016 03/30/2016 Inactive prednisone 10 mg tablet RxNorm: 292084 Tablet(s) PO No Start Date Active 6,5,4,3,2 ,1 Fish Oil 360 mg-1,200 mg capsule RxNorm: 894831 3 Capsule(s) PO daily No Start Date Active niacin 500 mg capsule RxNorm: 013408 2 Capsule(s) PO daily No Start Date Active simvastatin 40 mg tablet RxNorm: 469603 1 Tablet(s) PO daily No Start Date Active losartan 50 mg tablet RxNorm: 181687 1 Tablet(s) PO daily No Start Date Active oxybutynin chloride 5 mg tablet RxNorm: 118309 1 Tablet(s) PO BID No Start Date Active PreserVision Lutein oral RxNorm: 169095 oral No Start Date Active aspirin 81 mg tablet RxNorm: 779501 1 Tablet(s) PO daily No Start Date Active spironolactone 50 mg tablet RxNorm: 660017 1 Tablet(s) PO daily No Start Date 03/08/2016 Inactive Coreg 25 mg tablet RxNorm: 517562 1 Tablet(s) PO BID No Start Date 02/21/2016 Inactive Ventolin HFA 90 mcg/actuation aerosol inhaler RxNorm: 499067 1 Puff(s) INH Q4-6H as needed dyspnea No Start Date 2016 Inactive hydrocodone 7.5 mg-acetaminophen 325 mg tablet RxNorm: 861583 1 Tablet(s) PO BID No Start Date 01/11/2016 Inactive albuterol sulfate 2.5 mg/3 mL (0.083 %) solution for nebulization RxNorm: 176527 3 Milliliter(s) INH QID as needed No Start Date 06/08/2017 Inactive gabapentin 300 mg capsule RxNorm: 149145 3 Capsule(s) PO TID No Start Date 02/09/2016 Inactive Vitamin D3 5,000 unit tablet RxNorm: 977334 1 Tablet(s) PO daily No Start Date 08/13/2017 Inactive ibuprofen 200 mg capsule RxNorm: 110424 1 Capsule(s) PO TID No Start Date 01/29/2018 Inactive Medication Administered Medication Codes Instructions Start Date Status Kenalog 40 mg/mL suspension for injection RxNorm: 6899832 1Milliliter 06/05/2017 No longer Active Immunizations No Immunization data Assessments Condition Codes Effective Dates Encounter for general adult medical examination with [...] 12.9 g/dl 03/08/2018 Cbc With Differential Ord2 HCT 40.6 % 03/08/2018 Cbc With Differential Ord2 Neut% 63.8 % 03/08/2018 Cbc With Differential Ord2 Lymph% 18.8 % 03/08/2018 Cbc With Differential Ord2 MCV 95.1 fl 03/08/2018 Cbc With Differential Ord2 MCH 30.2 pg 03/08/2018 Cbc With Differential Ord2 [place]% 11.9 % 03/08/2018 Cbc With Differential Ord2 MCHC 31.8 pg 03/08/2018 Cbc With Differential Ord2 Eos% 4.7 % 03/08/2018 Cbc With Differential Ord2 Baso% 0.8 % 03/08/2018 Cbc With Differential Ord2 PLT 379 K/ul 03/08/2018 Cbc With Differential Ord2 RDW 13.9 % 03/08/2018 Cbc With Differential Ord2 Neut ABS# 5.57 K/ul 03/08/2018 Cbc With Differential Ord2 Lymph ABS# 1.64 K/ul 03/08/2018 Cbc With Differential Ord2 [place] ABS# 1.0 K/ul 03/08/2018 Cbc With Differential Ord2 Eos ABS# 0.4 K/ul 03/08/2018 Cbc With Differential Ord2 Baso ABS# 0.1 K/ul 03/08/2018 Urine Culture Ucult Complete >100,000 col/ml aerobic growth sent to ref lab 02/15/2018 Tsh Ord6 TSH (3rd IS) 0.52 uIU/mL 02/02/2018 Cbc With Differential Ord2 WBC 12.23 K/ul 02/02/2018 Cbc With Differential Ord2 RBC 4.36 M/ul 02/02/2018 Cbc With Differential Ord2 HGB 13.2 g/dl 02/02/2018 Cbc With Differential Ord2 HCT 40.9 % 02/02/2018 Cbc With Differential Ord2 Neut% 71.8 % 02/02/2018 Cbc With Differential Ord2 Lymph% 14.1 % 02/02/2018 Cbc With Differential Ord2 MCV 93.8 fl 02/02/2018 Cbc With Differential Ord2 MCH 30.3 pg 02/02/2018 Cbc With Differential Ord2 [place]% 10.3 % 02/02/2018 Cbc With Differential Ord2 MCHC 32.3 pg 02/02/2018 Cbc With Differential Ord2 Eos% 3.4 % 02/02/2018 Cbc With Differential Ord2 Baso% 0.4 % 02/02/2018 Cbc With Differential Ord2 PLT 344 K/ul 02/02/2018 Cbc With Differential Ord2 RDW 14.4 % 02/02/2018 Cbc With Differential Ord2 Neut ABS# 8.78 K/ul 02/02/2018 Cbc With Differential Ord2 Lymph ABS# 1.72 K/ul 02/02/2018 Cbc With Differential Ord2 [place] ABS# 1.3 K/ul 02/02/2018 Cbc With Differential Ord2 Eos ABS# 0.4 K/ul 02/02/2018 Cbc With Differential Ord2 Baso ABS# 0.1 K/ul 02/02/2018 Parathyroid Hormone Fyj869 PTH 47.40 pg/ml 02/02/2018 Lipid Ord30 CHOL 127 mg/dL 02/02/2018 Lipid Ord30 HDL 46.0 mg/dl 02/02/2018 Lipid Ord30 TRIG 83 mg/dL 02/02/2018 Lipid Ord30 LDL 64 mg/dL 02/02/2018 Lipid Ord30 C/HDL 2.8 Ratio 02/02/2018 Comp Metabolic Bbq003 NA 139 mEq/L 01/10/2018 Comp Metabolic Pro582 K 5.1 mEq/L 01/10/2018 Comp Metabolic Avf751 CL 106 mEq/L 01/10/2018 Comp Metabolic Bfe186 CO2 28.0 mEq/L 01/10/2018 Comp Metabolic Zpw863 ANION GAP 10 01/10/2018 Comp Metabolic Rqv740 GLUCOSE 101 mg/dL 01/10/2018 Comp Metabolic Unf872 Creat 0.9 mg/dL 01/10/2018 Comp Metabolic Jre502 eGFR 64 ml/min/1.73m2 01/10/2018 Comp Metabolic Ukc448 BUN 25 mg/dL 01/10/2018 Comp Metabolic Oqi082 B/C Ratio 27.8 Ratio 01/10/2018 Comp Metabolic Gor391 CALCIUM 9.9 mg/dL 01/10/2018 Comp Metabolic Lri535 ALK PHOS 83 U/L 01/10/2018 Comp Metabolic Bmv895 AST(SGOT) 17 U/L 01/10/2018 Comp Metabolic Dvh709 ALT(SGPT) 18 U/L 01/10/2018 Comp Metabolic Abr564 BILI T 0.5 mg/dL 01/10/2018 Comp Metabolic Xsx068 ALBUMIN 3.9 g/dL 01/10/2018 Comp Metabolic Gzq550 TPRO 6.6 g/dL 01/10/2018 Comp Metabolic Ykd097 GLOB 2.8 g/dL 01/10/2018 Comp Metabolic Ktk841 A/G Ratio 1.4 Ratio 01/10/2018 Comp Metabolic Gul598 Osmo 282 mOsmo 01/10/2018 Urine Culture Ucult [...] follow 10/20/2017 Urinalysis Ord28 U-Yeast NEGATIVE 10/20/2017 Lipid Ord30 CHOL 173 mg/dL 07/21/2017 Lipid Ord30 HDL 69.0 mg/dl 07/21/2017 Lipid Ord30 TRIG 86 mg/dL 07/21/2017 Lipid Ord30 LDL 87 mg/dL 07/21/2017 Lipid Ord30 C/HDL 2.5 Ratio 07/21/2017 Vitamin D 25 Oh Fat8627 VITAMIN D, 25 HYDROXY 37.13 ng/mL Comp Metabolic Skn909 NA 141 mEq/L 07/21/2017 Comp Metabolic Akc627 K 4.9 mEq/L 07/21/2017 Comp Metabolic Jgp382 CL 107 mEq/L 07/21/2017 Comp Metabolic Dpn135 CO2 30.0 mEq/L 07/21/2017 Comp Metabolic Ezk177 ANION GAP 9 07/21/2017 Comp Metabolic Uqm143 GLUCOSE 93 mg/dL 07/21/2017 Comp Metabolic Vpl952 Creat 0.8 mg/dL 07/21/2017 Comp Metabolic Giu304 eGFR 72 ml/min/1.73m2 07/21/2017 Comp Metabolic Rig280 BUN 22 mg/dL 07/21/2017 Comp Metabolic Bci140 B/C Ratio 26.8 Ratio 07/21/2017 Comp Metabolic Yue414 CALCIUM 10.2 mg/dL 07/21/2017 Comp Metabolic Gta702 ALK PHOS 73 U/L 07/21/2017 Comp Metabolic Isp679 AST(SGOT) 17 U/L 07/21/2017 Comp Metabolic Gfb520 ALT(SGPT) 21 U/L 07/21/2017 Comp Metabolic Ooq740 BILI T 0.7 mg/dL 07/21/2017 Comp Metabolic Mqa915 ALBUMIN 3.9 g/dL 07/21/2017 Comp Metabolic Vqr321 TPRO 7.0 g/dL 07/21/2017 Comp Metabolic Xga776 GLOB 3.1 g/dL 07/21/2017 Comp Metabolic Elv409 A/G Ratio 1.3 Ratio 07/21/2017 Comp Metabolic Xvl123 Osmo 284 mOsmo 07/21/2017 Culture Urine [id number] URINE CULTURE SEE NOTES 12/12/2016 Culture Urine [id number] Continued Results 12/12/2016 Urine Culture Ucult Complete >100,000 col/ml aerobic growth sent to ref lab 12/10/2016 Culture Urine [id number] URINE CULTURE SEE NOTES 07/22/2016 Culture Urine [id number] Continued Results 07/22/2016 Urine Culture Ucult Complete >100,000 col/ml aerobic growth sent to ref lab 07/20/2016 Comp Metabolic Hnt242 NA 141 mEq/L 05/11/2016 Comp Metabolic Eqx102 K 4.4 mEq/L 05/11/2016 Comp Metabolic Nqy435 CL 110 mEq/L 05/11/2016 Comp Metabolic Bjh505 CO2 26.0 mEq/L 05/11/2016 Comp Metabolic Yrx602 ANION GAP 9 05/11/2016 Comp Metabolic Hrf574 GLUCOSE 99 mg/dL 05/11/2016 Comp Metabolic Egb161 Creat 0.9 mg/dL 05/11/2016 Comp Metabolic Nic126 eGFR 69 ml/min/1.73m2 05/11/2016 Comp Metabolic Khe608 BUN 24 mg/dL 05/11/2016 Comp Metabolic Mwg126 B/C Ratio 28.2 Ratio 05/11/2016 Comp Metabolic Ybg453 CALCIUM 10.2 mg/dL 05/11/2016 Comp Metabolic Xxk861 ALK PHOS 67 U/L 05/11/2016 Comp Metabolic Xic540 AST(SGOT) 18 U/L 05/11/2016 Comp Metabolic Rrp004 ALT(SGPT) 19 U/L 05/11/2016 Comp Metabolic Lec845 BILI T 0.8 mg/dL 05/11/2016 Comp Metabolic Xjn004 ALBUMIN 4.0 g/dL 05/11/2016 Comp Metabolic Dlm462 TPRO 6.6 g/dL 05/11/2016 Comp Metabolic Etc827 GLOB 2.6 g/dL 05/11/2016 Comp Metabolic Dos554 A/G Ratio 1.6 Ratio 05/11/2016 Comp Metabolic Imm963 Osmo 285 mOsmo 05/11/2016 Parathyroid Hormone Buh910 PTH 37.40 pg/ml 05/11/2016 Cbc With Differential Ord2 WBC 9.18 K/ul 05/11/2016 Cbc With Differential Ord2 RBC 4.30 M/ul 05/11/2016 Cbc With Differential Ord2 HGB 13.0 g/dl 05/11/2016 Cbc With Differential Ord2 HCT 40.4 % 05/11/2016 Cbc With Differential Ord2 Neut% 66.3 % 05/11/2016 Cbc With Differential Ord2 MCV 94.0 fl 05/11/2016 Cbc With Differential Ord2 Lymph% 16.2 % 05/11/2016 Cbc With Differential Ord2 MCH 30.2 pg 05/11/2016 Cbc With Differential Ord2 [place]% 12.3 % 05/11/2016 Cbc With Differential Ord2 MCHC 32.2 pg 05/11/2016 Cbc With Differential Ord2 Eos% 4.8 % 05/11/2016 Cbc With Differential Ord2 PLT 359 K/ul 05/11/2016 Cbc With Differential Ord2 Baso% 0.4 % 05/11/2016 Cbc With Differential Ord2 Neut ABS# 6.08 K/ul 05/11/2016 Cbc With Differential Ord2 RDW 14.9 % 05/11/2016 Cbc With Differential Ord2 Lymph ABS# 1.49 K/ul 05/11/2016 Cbc With Differential Ord2 [place] ABS# 1.1 K/ul 05/11/2016 Cbc With Differential Ord2 Eos ABS# 0.4 K/ul 05/11/2016 Cbc With Differential Ord2 Baso ABS# 0.0 K/ul 05/11/2016 Comp Metabolic Ihf101 NA 136 mEq/L 01/13/2016 Comp Metabolic Thh481 K 4.7 mEq/L 01/13/2016 Comp Metabolic Mor227 CL 106 mEq/L 01/13/2016 Comp Metabolic Wtg809 CO2 26.0 mEq/L 01/13/2016 Comp Metabolic Laa422 ANION GAP 9 01/13/2016 Comp Metabolic Skt730 GLUCOSE 95 mg/dL 01/13/2016 Comp Metabolic Uxn322 Creat 1.0 mg/dL 01/13/2016 Comp Metabolic Net754 eGFR 60 ml/min/1.73m2 01/13/2016 Comp Metabolic Qyq957 BUN 21 mg/dL 01/13/2016 Comp Metabolic Hmj213 B/C Ratio 21.9 Ratio 01/13/2016 Comp Metabolic Xwz452 CALCIUM 9.7 mg/dL 01/13/2016 Comp Metabolic Jzz380 ALK PHOS 69 U/L 01/13/2016 Comp Metabolic Cir606 AST(SGOT) 14 U/L 01/13/2016 Comp Metabolic Qgm625 ALT(SGPT) 17 U/L 01/13/2016 Comp Metabolic Pyl091 BILI T 0.6 mg/dL 01/13/2016 Comp Metabolic Uka096 ALBUMIN 3.6 g/dL 01/13/2016 Comp Metabolic Kmp327 TPRO 6.3 g/dL 01/13/2016 Comp Metabolic Sil973 GLOB 2.7 g/dL 01/13/2016 Comp Metabolic Lvk492 A/G Ratio 1.4 Ratio 01/13/2016 Comp Metabolic Djs218 Osmo 275 mOsmo 01/13/2016 Cbc With Differential Ord2 WBC 9.84 K/ul 01/13/2016 Cbc With Differential Ord2 RBC 4.14 M/ul 01/13/2016 Cbc With Differential Ord2 HGB 12.7 g/dl 01/13/2016 Cbc With Differential Ord2 Neut% 65.0 % 01/13/2016 Cbc With Differential Ord2 HCT 39.4 % 01/13/2016 Cbc With Differential Ord2 Lymph% 18.5 % 01/13/2016 Cbc With Differential Ord2 MCV 95.2 fl 01/13/2016 Cbc With Differential Ord2 MCH 30.7 pg 01/13/2016 Cbc With Differential Ord2 [place]% 12.2 % 01/13/2016 Cbc With Differential Ord2 MCHC 32.2 pg 01/13/2016 Cbc With Differential Ord2 Eos% 3.8 % 01/13/2016 Cbc With Differential Ord2 Baso% 0.5 % 01/13/2016 Cbc With Differential Ord2 PLT 315 K/ul 01/13/2016 Cbc With Differential Ord2 RDW 14.9 % 01/13/2016 Cbc With Differential Ord2 Neut ABS# 6.40 K/ul 01/13/2016 Cbc With Differential Ord2 Lymph ABS# 1.82 K/ul 01/13/2016 Cbc With Differential Ord2 [place] ABS# 1.2 K/ul 01/13/2016 Cbc With Differential [...] retractions 06/08/2017 None Full Exam - General 1995 Constitutional general appearance Overall: well developed 06/05/2017 None Full Exam - General 1995 Constitutional general appearance Overall: in no acute distress 06/05/2017 None Full Exam - General 1995 Constitutional general appearance Overall: well nourished 06/05/2017 [...] -4: G0439 05/03/2018 THER/PROPH/DIAG INJ SC/IM CPT-4: 37157 06/05/2017 TRIAMCINOLONE ACET INJ NOS CPT-4: J3301 06/05/2017 URINALYSIS NONAUTO W/O SCOPE CPT-4: 64496 12/08/2016 Vital Signs Date Vital 05/03/2018 BMI: 37.5 Code: 73590-4 Height: 5'3" Weight: 215 lbs 04/02/2018 Blood Pressure 1: 140/76 Code : 8480-6 BMI: 37.5 Code : 15365-8 Heart Rate 1 : 80 bpm Height: 5'3" SpO2: 96% Weight: 215 lbs 01/10/2018 Blood Pressure 1: 144/82 Code : 8480-6 Heart Rate 1: 74 bpm Height: 5'3" SpO2: 94% 10/04/2017 Blood Pressure 1: 142/70 Code : 8480-6 Heart Rate 1: 73 bpm Height: SpO2: 97% Weight: 06/05/2017 Blood Pressure 1: 142/86 Code : 8480-6 BMI: 36.8 Code : 32978-0 Heart Rate 1 : 74 bpm Height: 5'3" SpO2: 96% Weight: 211 lbs 01/19/2017 Blood Pressure 1: 150/88 Code : 8480-6 BMI: 36.1 Code : 14271-0 Heart Rate 1 : 76 bpm Height: 5'3" Weight: 207 lbs 10/05/2016 Blood Pressure 1: 134/80 Code : 8480-6 Heart Rate 1: 60 bpm Height: 5'3" SpO2: 95% Weight: 09/23/2016 Blood Pressure 1: 148/76 Code : 8480-6 BMI: 36.3 Code : 09747-6 Heart Rate 1 : 62 bpm Height: 5'3" SpO2: 98% Weight: 208 lbs 07/27/2016 Blood Pressure 1: 130/66 Code : 8480-6 BMI: 37.8 Code : 81824-4 Heart Rate 1 : 64 bpm Height: 5'3" SpO2: 96% Weight: 217 lbs 07/18/2016 Blood Pressure 1: 134/64 Code : 8480-6 BMI: 37.8 Code : 84443-3 Heart Rate 1 : 66 bpm Height: 5'3" SpO2: 96% Weight: 217 lbs 05/09/2016 Blood Pressure 1: 142/72 Code : 8480-6 BMI: 37.3 Code : 07447-4 Heart Rate 1 : 59 bpm Height: 5'3" SpO2: 96% Weight: 214 lbs 01/12/2016 Blood Pressure 1: 122/64 Code : 8480-6 BMI: 37.3 Code : 88255-6 Heart Rate 1 : 68 bpm Height: [...] Other chronic pain[ICD10: G89.29] Azra Lopes MD, [facility] CPT -4: 97574 04/02/2018 87015 EST. PATIENT, LEVEL III Diagnosis: Localized edema[ICD10: R60.0] Diagnosis: Pain in left leg[ICD10: M79.605] Azra Lopes MD, [facility] CPT- 4: 32094 01/10/2018 85855 EST. PATIENT, LEVEL III Diagnosis: Pain in left arm[ICD10: M79.602] Diagnosis: Pain in left elbow[ICD10: M25.522] [facility] CPT-4: 88277 10/04/2017 ([id number]) Miscellaneous no charge Diagnosis: Cough[ICD10: R05] Diagnosis: Shortness of breath[ICD10: R06.02] Azra Lopes MD, [facility] CPT-4: 47612 06/08/2017 07328 EST. PATIENT, LEVEL IV Diagnosis: Acute laryngopharyngitis[ICD10: J06.0] Diagnosis: Other acute sinusitis[ICD10: J01.80] Diagnosis: Cough[ICD10: R05] Diagnosis: Shortness of breath[ICD10: R06.02] Diagnosis: Other chronic pain[ICD10: G89.29] Azra Lopes MD, [facility] CPT -4: 28886 06/05/2017 61940 EST. PATIENT, LEVEL IV Diagnosis: Diverticulitis of large intestine without perforation or abscess without bleeding[ICD10: K57.32] Diagnosis: Left lower quadrant pain[ICD10: R10.32] Azra Lopes MD, [facility] CPT-4: 04022 01/19/2017 84167 EST. PATIENT, LEVEL III Diagnosis: Allergic contact dermatitis due to plants, except food[ICD10: L23.7] Azra Lopes MD, [facility] CPT-4: 70065 10/05/2016 84746 EST. PATIENT, LEVEL III Diagnosis: Low back pain[ICD10: M54.5] Diagnosis: Other chronic pain[ICD10: G89.29] Azra Lopes MD, [facility] CPT -4: 20918 09/23/2016 52585 EST. PATIENT, LEVEL III Diagnosis: Cough[ICD10: R05] Diagnosis: Shortness of breath[ICD10: R06.02] Diagnosis: Cellulitis of right toe[ICD10: L03.031] Diagnosis: Other obesity due to excess calories[ICD10: E66.09] Azra Lopes MD, [facility] CPT-4: 89709 07/27/2016 50614 EST. PATIENT, LEVEL III Diagnosis: Dysuria[ICD10: R30.0] Diagnosis: Low back pain[ICD10: M54.5] Diagnosis: Other chronic pain[ICD10: G89.29] Azra Lopes MD, [facility] CPT -4: 34057 07/18/2016 27631 EST. 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 05/03/2018 Appointment: Azra Carter WPtel: [phone] [id number] [facility] - Annual Wellness Visit 05/03/2018 Patient [...] pain management. 04/02/2018 Appointment: Azra Carter WPtel: [facility] [id number] (15 min) Moderate 04/02/2018 Patient Education: Patient [...] edema. 01/10/2018 Appointment: Azra Carter WPtel: [phone] [id number] (15 min) Moderate 01/10/2018 Patient Education: Patient Medication Summary Completed 01/10/2018 Patient Education: Patient Medication Summary Completed 10/20/2017 Care Plan: MRI JOINT UPR EXTREM W/O DYE LOINC : 61684-0 Pending 10/05/2017 Visit Plan: Left elbow/arm pain [...] not improve. 10/04/2017 Appointment: Azra Carter WPtel: [address] [place], [place] [id number] (15 min) Moderate 10/04/2017 Patient Education: Patient [...] of over-medication. 06/05/2017 Appointment: Azra Carter WPtel: [facility] [place] [id number] [place] (15 min) Moderate 06/05/2017 Patient Education: Patient Medication Summary Completed 06/05/2017 Visit Plan: Diverticulitis - rx for antibiotic sent to pt' s pharmacy - pt advised to avoid seeds, nuts, popcorn, or any other food which has been proven to upset the pt's stomach. 01/19/2017 Appointment: Azra Carter WPtel: [facility] [id number] [place] (30 min) Complex 01/19/2017 Patient Education: Patient Medication Summary Completed 01/19/2017 Appointment: Lab Draw 12/08/2016 Patient Education: Patient Medication Summary Completed 12/08/2016 Care Plan: Referral Order SNOMED-CT : [id number] Pending 10/09/2016 Visit Plan: Poison [place] - pt is to use topical treatments as directed. Pt is cleanse clothing in hot water with soap, and call if symptoms do not improve or if they worsen. 10/05/2016 Appointment: Azra Carter WPtel: [id number] [place] (10 min) Simple 10/05/2016 Patient Education: [...] of over-medication. 09/23/2016 Appointment: Azra Carter WPtel: [facility] [id number] [place] (15 min) Moderate 09/23/2016 Patient Education: Patient [...] weight check. 07/27/2016 Appointment: Azra Carter WPtel: [phone] [id number] (15 min) Moderate 07/27/2016 Patient Education: Patient Medication Summary Completed 07/27/2016 Patient Education: Obesity Completed 07/27/2016 Care Plan: BMI Above normal followup SELF-MGMT EDUC & TRAIN 1 PT Pending 2016 Care Plan: CHEST X-RAY 2VW FRONTAL&LATL LOINC : 54213-8 Pending 07/27/2016 Visit Plan: UTI - pt [...] of over-medication. 07/18/2016 Appointment: Azra Carter WPtel: [facility] [id number] (30 min) Complex 07/18/2016 Patient Education: Patient [...] treatment plan. 05/09/2016 Appointment: Azra Carter WPtel: [id number] (30 min) Complex 05/09/2016 Patient Education: Patient [...] pain-refill hydrocodone 01/12/2016 Appointment: Lise Bruce WPtel: [email or web address] New Patient 01/12/2016 Patient Education: Patient Medication Summary Completed 01/12/2016 Patient Education: Obesity Completed 01/12/2016 Care Plan: Referral Order SNOMED-CT : [id number] Pending 01/12/2016 Referral: Rell Pruitt Referral Appointment Requested Referral: External, Ordering Provider Referral Initiated Referral: [facility] W[facility]: Referral Initiated Referral: [facility] WPtel: they willcall her with appt Initiated Instructions Comment . Hypertension - well controlled - continue [...] occult blood Low back pain-refill hydrocodone . UTI - pt with positive urinalysis [...] and understands the consequences of over-medication. . URI - Pt advised to increase [...] pt is to continue current treatment plan. STOP YOUR SIMVASTATIN - IF IT IS NOT TOO EXPENSIVE THEN GET CO Q 10 (COENZYME Q10) AND TAKE IT DAILY. CALL ME AND LET ME KNOW HOW YOUR PAIN AFTER 2 WEEKS OF BEING OFF OF THE SIMVASTATIN. WE WILL REFER YOU TO [facility] GLUCOSAMINE AND CHONDROITIN FOR JOINT [...] and understands the consequences of over-medication. . Left elbow/arm pain - pt was [...] pain is worsening or does not improve. Will check potassium today Continue compression stockings [...] further attempt to reduce peripheral edema. . Arthritis - worsening - will send [...] or to refer to pain management. . Cellulitis - very mild - Finish [...] Pt will RTC for weight check. . Cellulitis - very mild - Finish [...] Pt will RTC for weight check. . Diverticulitis - rx for antibiotic sent to pt's pharmacy - pt advised to avoid seeds, nuts, popcorn, or any other food which has been proven to upset the pt's stomach. . Poison [place] - pt is to use topical treatments as directed. Pt is cleanse clothing in hot water with soap, and call if symptoms do not improve or if they worsen. . Medicare Exam - today we discussed [...]
--- OUTSIDE RECORDS SUMMARY | 2018-05-21 15:23 | XMS REPORT | CCD ---
Author Author Lise Bruce MD, [facility] Address [address] [place] [address] Phone Care Team Providers Care Rehabilitation Psychologist Name Role Phone PP Unavailable CCM Unavailable Summary Purpose Interface Exchange Insurance Providers Payer name Policy type / Coverage type Covered constitution party ID Effective Begin Date Effective End Date WPS Medicare Part B Medicare Part B [id number] Unknown [employer] Life Insurance Medicare Part B [id number] Unknown Family history Mother Diagnosis Age At Onset Hypertension Unknown Anemia Unknown Arthritis Unknown Coronary Artery Disease Unknown Sister Diagnosis Age At Onset bladder cancer Unknown Hypertension Unknown Cancer Unknown Brother Diagnosis Age At Onset Prostate Cancer Unknown Depression Unknown Cancer Unknown Hypertension Unknown Social History Social History Element Codes Description Effective Dates Marital status Unknown 01/12/[address]: 668749905 Never smoker 01/12/[address]: 977966698 Never drinks alcohol 01/12/2016 Allergies, Adverse Reactions, [...] Fill Instructions gabapentin 600 mg tablet RxNorm: 432127 TAKE 1 & 1/2 (ONE & ONE-HALF) TABLETS BY MOUTH THREE TIMES DAILY 04/25/2018 No Stop Date Active Voltaren 1 % topical gel RxNorm: 258822 1 Application TOP BID 04/02/2018 No Stop Date Active prednisone 20 mg tablet RxNorm: 844249 2 Tablet(s) PO daily 09/201704/06/2018 Inactive Coreg 25 mg tablet RxNorm: 447087 TAKE 1 TABLET BY MOUTH TWICE DAILY 03/19/2018 No Stop Date Active meloxicam 7.5 mg tablet RxNorm: 527364 1 Tablet(s) PO daily 08/201705/29/2018 Active Keflex 500 mg capsule RxNorm: 722041 1 Capsule(s) PO TID 201702/18/2018 Inactive Keflex 500 mg capsule RxNorm: 270817 1 Capsule(s) PO TID 201702/25/2018 Inactive Cipro 500 mg tablet RxNorm: 987930 1 Tablet(s) PO BID 201702/12/2018 Inactive Cipro 500 mg tablet RxNorm: 670973 1 Tablet(s) PO BID 201702/16/2018 Inactive gabapentin 600 mg tablet RxNorm: 895214 TAKE 1 & 1/2 (ONE & ONE-HALF) TABLETS BY MOUTH THREE TIMES DAILY 02/05/20182017 Inactive meloxicam 7.5 mg tablet RxNorm: 416205 1 Tablet(s) PO daily 09/201701/30/2018 Inactive meloxicam 7.5 mg tablet RxNorm: 905600 1 Tablet(s) PO daily 09/201702/28/2018 Inactive spironolactone 50 mg tablet RxNorm: 362280 TAKE 1 TABLET BY MOUTH ONCE DAILY 01/22/2018 No Stop Date Active potassium chloride ER 10 mEq tablet,extended release RxNorm: 017694 1 Tablet(s) PO daily 01/10/2018 No Stop Date Active Lasix 20 mg tablet RxNorm: 439318 1 Tablet(s) PO daily 2017 No Stop Date Active spironolactone 50 mg tablet RxNorm: 917021 TAKE ONE TABLET BY MOUTH ONCE DAILY 10/30/2017 01/21/2018 Inactive Bactrim DS 800 mg-160 mg tablet RxNorm: 236771 1 Tablet(s) PO BID 10/20/2017 10/19/2017 Inactive Bactrim DS 800 mg-160 mg tablet RxNorm: 842211 1 Tablet(s) PO BID 10/20/2017 10/19/2017 Inactive Bactrim DS 800 mg-160 mg tablet RxNorm: 762537 1 Tablet(s) PO BID 10/20/2017 10/26/2017 Inactive hydrocodone 7.5 mg-acetaminophen 325 mg tablet RxNorm: 841019 1 Tablet(s) PO Q4- 6H as needed 10/11/2017 No Stop Date Active Coreg 25 mg tablet RxNorm: 728085 TAKE ONE TABLET BY MOUTH TWICE DAILY 09/27/2017 03/18/2018 Inactive gabapentin 300 mg capsule RxNorm: 707172 TAKE ONE & ONE-HALF TABLETS BY MOUTH THREE TIMES DAILY 07/31/2017 No Stop Date Active gabapentin 600 mg tablet RxNorm: 138792 1.5 Tablet(s) PO TID 01/26/2018 Inactive Keflex 500 mg capsule RxNorm: 539814 1 Capsule(s) PO TID 201706/16/2017 Inactive albuterol sulfate 2.5 mg/3 mL (0.083 %) solution for nebulization RxNorm: 801228 3 Milliliter(s) INH QID as needed 06/09/2017 No Stop Date Active prednisone 10 mg tablet RxNorm: 811633 Tablet(s) PO 06/08/2017 No Stop Date Active 6, 5,4,3,2,1 Keflex 500 mg capsule RxNorm: 282742 1 Capsule(s) PO TID 201706/13/2017 Inactive Zithromax Z-Duran 250 mg tablet RxNorm: 713461 1 Tablet(s) PO UD 06/05/2017 11/08/2017 Inactive Tessalon Perles 100 mg capsule RxNorm: 735633 1-2 Capsule(s) PO TID as needed cough 06/05/2017 06/09/2017 Inactive Please check mast before filling for pt, if too expensive pt does not want it Kenalog 40 mg/mL suspension for injection RxNorm: 4518286 1 Milliliter(s) Inj 06/05/2017 06/05/2017 Inactive Coreg 25 mg tablet RxNorm: 604226 TAKE ONE TABLET BY MOUTH TWICE DAILY 05/30/2017 09/26/2017 Inactive gabapentin 300 mg capsule RxNorm: 728348 TAKE ONE & ONE-HALF TABLETS BY MOUTH THREE TIMES DAILY 05/30/2017 07/30/2017 Inactive gabapentin 300 mg capsule RxNorm: 480615 TAKE ONE & ONE-HALF TABLETS BY MOUTH THREE TIMES DAILY 02/01/2017 05/29/2017 Inactive Coreg 25 mg tablet RxNorm: 311211 TAKE ONE TABLET BY MOUTH TWICE DAILY 02/01/2017 05/29/2017 Inactive Cipro 500 mg tablet RxNorm: 831576 1 Tablet(s) PO BID 201601/28/2017 Inactive Flagyl 500 mg tablet RxNorm: 773429 1 Tablet(s) PO TID 201601/28/2017 Inactive Coreg 25 mg tablet RxNorm: 173366 TAKE ONE TABLET BY MOUTH TWICE DAILY 01/02/2017 01/31/2017 Inactive hydrocodone 7.5 mg-acetaminophen 325 mg tablet RxNorm: 336385 1 Tablet(s) PO Q4- 6H as needed 12/08/2016 10/10/2017 Inactive Keflex 500 mg capsule RxNorm: 749306 1 Capsule(s) PO TID 201612/14/2016 Inactive spironolactone 50 mg tablet RxNorm: 409009 TAKE ONE TABLET BY MOUTH ONCE DAILY 11/25/2016 03/24/2017 Inactive gabapentin 300 mg capsule RxNorm: 550286 TAKE ONE & ONE-HALF TABLETS BY MOUTH THREE TIMES DAILY 10/07/2016 01/31/2017 Inactive prednisone 10 mg tablet RxNorm: 691558 Tablet(s) PO 10/05/2016 06/07/2017 Inactive 6, 5,4,3,2,1 hydrocodone 7.5 mg-acetaminophen 325 mg tablet RxNorm: 561574 1 Tablet(s) PO Q4- 6H 09/23/2016 12/07/2016 Inactive Coreg 25 mg tablet RxNorm: 927146 TAKE ONE TABLET BY MOUTH TWICE DAILY 09/08/2016 01/01/2017 Inactive Ventolin HFA 90 mcg/actuation aerosol inhaler RxNorm: 035907 1 Puff(s) INH Q4-6H as needed dyspnea 07/29/2016 No Stop Date Active hydrocodone 10 mg-acetaminophen 325 mg tablet RxNorm: 886688 1/2 Tablet(s) PO TID 07/18/2016 08/16/2016 Inactive Pyridium 100 mg tablet RxNorm: 4771708 1-2 Tablet(s) PO TID as needed 07/18/2016 07/19/2016 Inactive Bactrim DS 800 mg-160 mg tablet RxNorm: 138304 1 Tablet(s) PO BID 07/18/2016 07/27/2016 Inactive Coreg 25 mg tablet RxNorm: 116287 TAKE ONE TABLET BY MOUTH TWICE DAILY 07/07/2016 09/04/2016 Inactive gabapentin 300 mg capsule RxNorm: 787671 TAKE ONE & ONE-HALF TABLETS BY MOUTH THREE TIMES DAILY 06/09/2016 10/06/2016 Inactive hydrocodone 7.5 mg-acetaminophen 325 mg tablet RxNorm: 542399 1 Tablet(s) PO BID 05/17/2016 10/08/2016 Inactive hydrocodone 7.5 mg-acetaminophen 325 mg tablet RxNorm: 219765 1 Tablet(s) PO BID 03/31/2016 05/16/2016 Inactive spironolactone 50 mg tablet RxNorm: 808803 1 Tablet(s) PO daily 03/09/2016 09/04/2016 Inactive Coreg 25 mg tablet RxNorm: 065989 1 Tablet(s) PO BID 201506/20/2016 Inactive gabapentin 600 mg tablet RxNorm: 226838 1.5 Tablet(s) PO TID 06/09/2016 Inactive gabapentin 300 mg capsule RxNorm: 960505 3 Capsule(s) PO TID 02/10/2016 Inactive hydrocodone 7.5 mg-acetaminophen 325 mg tablet RxNorm: 681326 1 Tablet(s) PO BID 01/12/2016 03/30/2016 Inactive prednisone 10 mg tablet RxNorm: 140269 Tablet(s) PO No Start Date Active 6,5,4,3,2 ,1 Fish Oil 360 mg-1,200 mg capsule RxNorm: 023750 3 Capsule(s) PO daily No Start Date Active niacin 500 mg capsule RxNorm: 585003 2 Capsule(s) PO daily No Start Date Active simvastatin 40 mg tablet RxNorm: 989858 1 Tablet(s) PO daily No Start Date Active losartan 50 mg tablet RxNorm: 707400 1 Tablet(s) PO daily No Start Date Active oxybutynin chloride 5 mg tablet RxNorm: 228946 1 Tablet(s) PO BID No Start Date Active PreserVision Lutein oral RxNorm: 720890 oral No Start Date Active aspirin 81 mg tablet RxNorm: 862398 1 Tablet(s) PO daily No Start Date Active spironolactone 50 mg tablet RxNorm: 852039 1 Tablet(s) PO daily No Start Date 03/08/2016 Inactive Coreg 25 mg tablet RxNorm: 718327 1 Tablet(s) PO BID No Start Date 02/21/2016 Inactive Ventolin HFA 90 mcg/actuation aerosol inhaler RxNorm: 744354 1 Puff(s) INH Q4-6H as needed dyspnea No Start Date 2016 Inactive hydrocodone 7.5 mg-acetaminophen 325 mg tablet RxNorm: 506803 1 Tablet(s) PO BID No Start Date 01/11/2016 Inactive albuterol sulfate 2.5 mg/3 mL (0.083 %) solution for nebulization RxNorm: 576138 3 Milliliter(s) INH QID as needed No Start Date 06/08/2017 Inactive gabapentin 300 mg capsule RxNorm: 460543 3 Capsule(s) PO TID No Start Date 02/09/2016 Inactive Vitamin D3 5,000 unit tablet RxNorm: 987546 1 Tablet(s) PO daily No Start Date 08/13/2017 Inactive ibuprofen 200 mg capsule RxNorm: 284937 1 Capsule(s) PO TID No Start Date 01/29/2018 Inactive Medication Administered Medication Codes Instructions Start Date Status Kenalog 40 mg/mL suspension for injection RxNorm: 6630301 1Milliliter 06/05/2017 No longer Active Immunizations No [...] 63.8 % 03/08/2018 Cbc With Differential Ord2 MCV 95.1 fl 03/08/2018 Cbc With Differential Ord2 Lymph% 18.8 % 03/08/2018 Cbc With Differential Ord2 MCH 30.2 pg 03/08/2018 Cbc With Differential Ord2 Angelina% 11.9 % 03/08/2018 Cbc With Differential Ord2 MCHC 31.8 pg 03/08/2018 Cbc With Differential Ord2 Eos% 4.7 % 03/08/2018 Cbc With Differential Ord2 PLT 379 K/ul 03/08/2018 Cbc With Differential Ord2 Baso% 0.8 % 03/08/2018 Cbc With Differential Ord2 RDW 13.9 % 03/08/2018 Cbc With Differential Ord2 Neut ABS# 5.57 K/ul 03/08/2018 Cbc With Differential Ord2 Lymph ABS# 1.64 K/ul 03/08/2018 Cbc With Differential Ord2 Angelina ABS# 1.0 K/ul 03/08/2018 Cbc With Differential [...] Ord30 C/HDL 2.8 Ratio 02/02/2018 Parathyroid Hormone Vri286 PTH 47.40 pg/ml 02/02/2018 Cbc With Differential [...] 30.3 pg 02/02/2018 Cbc With Differential Ord2 Angelina% 10.3 % 02/02/2018 Cbc With Differential Ord2 [...] 1.72 K/ul 02/02/2018 Cbc With Differential Ord2 Angelina ABS# 1.3 K/ul 02/02/2018 Cbc With Differential Ord2 Eos ABS# 0.4 K/ul 02/02/2018 Cbc With Differential Ord2 Baso ABS# 0.1 K/ul 02/02/2018 Comp Metabolic Jno766 NA 139 mEq/L 01/10/2018 Comp Metabolic Tkb362 K 5.1 mEq/L 01/10/2018 Comp Metabolic Vhd517 CL 106 mEq/L 01/10/2018 Comp Metabolic Nfd533 CO2 28.0 mEq/L 01/10/2018 Comp Metabolic Soa505 ANION GAP 10 01/10/2018 Comp Metabolic Qmb413 GLUCOSE 101 mg/dL 01/10/2018 Comp Metabolic Hko051 Creat 0.9 mg/dL 01/10/2018 Comp Metabolic Euy294 eGFR 64 ml/min/1.73m2 01/10/2018 Comp Metabolic Cep557 BUN 25 mg/dL 01/10/2018 Comp Metabolic Tpy709 B/C Ratio 27.8 Ratio 01/10/2018 Comp Metabolic Van160 CALCIUM 9.9 mg/dL 01/10/2018 Comp Metabolic Ash518 ALK PHOS 83 U/L 01/10/2018 Comp Metabolic Pii391 AST(SGOT) 17 U/L 01/10/2018 Comp Metabolic Qnk508 ALT(SGPT) 18 U/L 01/10/2018 Comp Metabolic Ima780 BILI T 0.5 mg/dL 01/10/2018 Comp Metabolic Ftw253 ALBUMIN 3.9 g/dL 01/10/2018 Comp Metabolic Ext535 TPRO 6.6 g/dL 01/10/2018 Comp Metabolic Cyh199 GLOB 2.8 g/dL 01/10/2018 Comp Metabolic Qlt475 A/G Ratio 1.4 Ratio 01/10/2018 Comp Metabolic Hky099 Osmo 282 mOsmo 01/10/2018 Urine Culture Ucult [...] U-VOL VOLUME SUFFICIENT (10mL) 10/20/2017 Urinalysis Ord28 U-Yeast NEGATIVE 10/20/2017 Urinalysis Ord28 U-Com Culture to follow 10/20/2017 Comp Metabolic Por446 NA 141 mEq/L 07/21/2017 Comp Metabolic Zro435 K 4.9 mEq/L 07/21/2017 Comp Metabolic Nbk797 CL 107 mEq/L 07/21/2017 Comp Metabolic Kgh074 CO2 30.0 mEq/L 07/21/2017 Comp Metabolic Iul890 ANION GAP 9 07/21/2017 Comp Metabolic Wcj487 GLUCOSE 93 mg/dL 07/21/2017 Comp Metabolic Nto159 Creat 0.8 mg/dL 07/21/2017 Comp Metabolic Obn960 eGFR 72 ml/min/1.73m2 07/21/2017 Comp Metabolic Lwy242 BUN 22 mg/dL 07/21/2017 Comp Metabolic Rhn952 B/C Ratio 26.8 Ratio 07/21/2017 Comp Metabolic Guu802 CALCIUM 10.2 mg/dL 07/21/2017 Comp Metabolic Lwd000 ALK PHOS 73 U/L 07/21/2017 Comp Metabolic Amm350 AST(SGOT) 17 U/L 07/21/2017 Comp Metabolic Eal827 ALT(SGPT) 21 U/L 07/21/2017 Comp Metabolic Ops839 BILI T 0.7 mg/dL 07/21/2017 Comp Metabolic Qzg173 ALBUMIN 3.9 g/dL 07/21/2017 Comp Metabolic Flv023 TPRO 7.0 g/dL 07/21/2017 Comp Metabolic Wxi370 GLOB 3.1 g/dL 07/21/2017 Comp Metabolic Uow630 A/G Ratio 1.3 Ratio 07/21/2017 Comp Metabolic Clr746 Osmo 284 mOsmo 07/21/2017 Vitamin D 25 Oh Krm4119 VITAMIN D, 25 HYDROXY 37.13 ng/mL Lipid Ord30 CHOL 173 mg/dL 07/21/2017 Lipid Ord30 HDL 69.0 mg/dl 07/21/2017 Lipid Ord30 TRIG 86 mg/dL 07/21/2017 Lipid Ord30 LDL 87 mg/dL 07/21/2017 Lipid Ord30 C/HDL 2.5 Ratio 07/21/2017 Culture Urine [id number] URINE CULTURE SEE NOTES 12/12/2016 Culture Urine [id number] Continued Results 12/12/2016 Urine Culture Ucult Complete >100,000 col/ml aerobic growth sent to ref lab 12/10/2016 Culture Urine [id number] URINE CULTURE SEE NOTES 07/22/2016 Culture Urine [id number] Continued Results 07/22/2016 Urine Culture Ucult Complete [...] 30.2 pg 05/11/2016 Cbc With Differential Ord2 Angelina% 12.3 % 05/11/2016 Cbc With Differential Ord2 [...] 1.49 K/ul 05/11/2016 Cbc With Differential Ord2 Angelina ABS# 1.1 K/ul 05/11/2016 Cbc With Differential Ord2 Eos ABS# 0.4 K/ul 05/11/2016 Cbc With Differential Ord2 Baso ABS# 0.0 K/ul 05/11/2016 Parathyroid Hormone Jhs085 PTH 37.40 pg/ml 05/11/2016 Comp Metabolic Fgy031 NA 141 mEq/L 05/11/2016 Comp Metabolic Rzt981 K 4.4 mEq/L 05/11/2016 Comp Metabolic Vjn322 CL 110 mEq/L 05/11/2016 Comp Metabolic Xgc331 CO2 26.0 mEq/L 05/11/2016 Comp Metabolic Ntr878 ANION GAP 9 05/11/2016 Comp Metabolic Lnn008 GLUCOSE 99 mg/dL 05/11/2016 Comp Metabolic Srm400 Creat 0.9 mg/dL 05/11/2016 Comp Metabolic Ekz580 eGFR 69 ml/min/1.73m2 05/11/2016 Comp Metabolic Kcs932 BUN 24 mg/dL 05/11/2016 Comp Metabolic Huh791 B/C Ratio 28.2 Ratio 05/11/2016 Comp Metabolic Xfj532 CALCIUM 10.2 mg/dL 05/11/2016 Comp Metabolic Bgx417 ALK PHOS 67 U/L 05/11/2016 Comp Metabolic Wpq997 AST(SGOT) 18 U/L 05/11/2016 Comp Metabolic Cyc079 ALT(SGPT) 19 U/L 05/11/2016 Comp Metabolic Svr391 BILI T 0.8 mg/dL 05/11/2016 Comp Metabolic Nrm840 ALBUMIN 4.0 g/dL 05/11/2016 Comp Metabolic Bng549 TPRO 6.6 g/dL 05/11/2016 Comp Metabolic Paa141 GLOB 2.6 g/dL 05/11/2016 Comp Metabolic Van621 A/G Ratio 1.6 Ratio 05/11/2016 Comp Metabolic Uif557 Osmo 285 mOsmo 05/11/2016 Comp Metabolic Eqv495 NA 136 mEq/L 01/13/2016 Comp Metabolic Qzn757 K 4.7 mEq/L 01/13/2016 Comp Metabolic Cgw707 CL 106 mEq/L 01/13/2016 Comp Metabolic Ezj599 CO2 26.0 mEq/L 01/13/2016 Comp Metabolic Btu604 ANION GAP 9 01/13/2016 Comp Metabolic Qrx616 GLUCOSE 95 mg/dL 01/13/2016 Comp Metabolic Kzj260 Creat 1.0 mg/dL 01/13/2016 Comp Metabolic Oml218 eGFR 60 ml/min/1.73m2 01/13/2016 Comp Metabolic Dzu981 BUN 21 mg/dL 01/13/2016 Comp Metabolic Ntp389 B/C Ratio 21.9 Ratio 01/13/2016 Comp Metabolic Vjf563 CALCIUM 9.7 mg/dL 01/13/2016 Comp Metabolic Nos346 ALK PHOS 69 U/L 01/13/2016 Comp Metabolic Gdj617 AST(SGOT) 14 U/L 01/13/2016 Comp Metabolic Srb604 ALT(SGPT) 17 U/L 01/13/2016 Comp Metabolic Khd457 BILI T 0.6 mg/dL 01/13/2016 Comp Metabolic Tnq917 ALBUMIN 3.6 g/dL 01/13/2016 Comp Metabolic Jhy110 TPRO 6.3 g/dL 01/13/2016 Comp Metabolic Omu147 GLOB 2.7 g/dL 01/13/2016 Comp Metabolic Leb823 A/G Ratio 1.4 Ratio 01/13/2016 Comp Metabolic Ver257 Osmo 275 mOsmo 01/13/2016 Cbc With Differential Ord2 WBC 9.84 K/ul 01/13/2016 Cbc With Differential Ord2 RBC 4.14 M/ul 01/13/2016 Cbc With Differential Ord2 HGB 12.7 g/dl 01/13/2016 Cbc With Differential Ord2 HCT 39.4 % 01/13/2016 Cbc With Differential Ord2 Neut% 65.0 % 01/13/2016 Cbc With Differential Ord2 MCV 95.2 fl 01/13/2016 Cbc With Differential Ord2 Lymph% 18.5 % 01/13/2016 Cbc With Differential Ord2 MCH 30.7 pg 01/13/2016 Cbc With Differential Ord2 Angelina% 12.2 % 01/13/2016 Cbc With Differential Ord2 MCHC 32.2 pg 01/13/2016 Cbc With Differential Ord2 Eos% 3.8 % 01/13/2016 Cbc With Differential Ord2 PLT 315 K/ul 01/13/2016 Cbc With Differential Ord2 Baso% 0.5 % 01/13/2016 Cbc With Differential Ord2 RDW 14.9 % 01/13/2016 Cbc With Differential Ord2 Neut ABS# 6.40 K/ul 01/13/2016 Cbc With Differential Ord2 Lymph ABS# 1.82 K/ul 01/13/2016 Cbc With Differential Ord2 Angelina ABS# 1.2 K/ul 01/13/2016 Cbc With Differential [...] -4: G0439 05/03/2018 THER/PROPH/DIAG INJ SC/IM CPT-4: 16841 06/05/2017 TRIAMCINOLONE ACET INJ NOS CPT-4: J3301 06/05/2017 URINALYSIS NONAUTO W/O SCOPE CPT-4: 25938 12/08/2016 Vital Signs Date Vital 05/03/2018 BMI: 37.5 Code: 15181-8 Height: 5'3" Weight: 215 lbs 04/02/2018 Blood Pressure 1: 140/76 Code : 8480-6 BMI: 37.5 Code : 43400-5 Heart Rate 1 : 80 bpm Height: 5'3" SpO2: 96% Weight: 215 lbs 01/10/2018 Blood Pressure 1: 144/82 Code : 8480-6 Heart Rate 1: 74 bpm Height: 5'3" SpO2: 94% 10/04/2017 Blood Pressure 1: 142/70 Code : 8480-6 Heart Rate 1: 73 bpm Height: SpO2: 97% Weight: 06/05/2017 Blood Pressure 1: 142/86 Code : 8480-6 BMI: 36.8 Code : 62736-0 Heart Rate 1 : 74 bpm Height: 5'3" SpO2: 96% Weight: 211 lbs 01/19/2017 Blood Pressure 1: 150/88 Code : 8480-6 BMI: 36.1 Code : 69088-1 Heart Rate 1 : 76 bpm Height: 5'3" Weight: 207 lbs 10/05/2016 Blood Pressure 1: 134/80 Code : 8480-6 Heart Rate 1: 60 bpm Height: 5'3" SpO2: 95% Weight: 09/23/2016 Blood Pressure 1: 148/76 Code : 8480-6 BMI: 36.3 Code : 59619-8 Heart Rate 1 : 62 bpm Height: 5'3" SpO2: 98% Weight: 208 lbs 07/27/2016 Blood Pressure 1: 130/66 Code : 8480-6 BMI: 37.8 Code : 44567-5 Heart Rate 1 : 64 bpm Height: 5'3" SpO2: 96% Weight: 217 lbs 07/18/2016 Blood Pressure 1: 134/64 Code : 8480-6 BMI: 37.8 Code : 88061-9 Heart Rate 1 : 66 bpm Height: 5'3" SpO2: 96% Weight: 217 lbs 05/09/2016 Blood Pressure 1: 142/72 Code : 8480-6 BMI: 37.3 Code : 42054-2 Heart Rate 1 : 59 bpm Height: 5'3" SpO2: 96% Weight: 214 lbs 01/12/2016 Blood Pressure 1: 122/64 Code : 8480-6 BMI: 37.3 Code : 73112-1 Heart Rate 1 : 68 bpm Height: [...] Other chronic pain[ICD10: G89.29] Azra Lopes MD, [facility] CPT -4: 34611 04/02/2018 [id number] EST. PATIENT, LEVEL III Diagnosis: Localized edema[ICD10: R60.0] Diagnosis: Pain in left leg[ICD10: M79.605] Azra Lopes MD, [facility] CPT- 4: 13764 01/10/2018 46576 EST. PATIENT, LEVEL III Diagnosis: Pain in left arm[ICD10: M79.602] Diagnosis: Pain in left elbow[ICD10: M25.522] [facility] CPT-4: 63595 10/04/2017 ([id number]) Miscellaneous no charge Diagnosis: Cough[ICD10: R05] Diagnosis: Shortness of breath[ICD10: R06.02] Azra Lopes MD, [facility] CPT-4: 00859 06/08/2017 61209 EST. PATIENT, LEVEL IV Diagnosis: Acute laryngopharyngitis[ICD10: J06.0] Diagnosis: Other acute sinusitis[ICD10: J01.80] Diagnosis: Cough[ICD10: R05] Diagnosis: Shortness of breath[ICD10: R06.02] Diagnosis: Other chronic pain[ICD10: G89.29] Azra Lopes MD, [facility] CPT -4: 14102 06/05/2017 10006 EST. PATIENT, LEVEL IV Diagnosis: Diverticulitis of large intestine without perforation or abscess without bleeding[ICD10: K57.32] Diagnosis: Left lower quadrant pain[ICD10: R10.32] Azra Lopes MD, [facility] CPT-4: 33600 01/19/2017 61195 EST. PATIENT, LEVEL III Diagnosis: Allergic contact dermatitis due to plants, except food[ICD10: L23.7] Azra Lopes MD, [facility] CPT-4: 82014 10/05/2016 59623 EST. PATIENT, LEVEL III Diagnosis: Low back pain[ICD10: M54.5] Diagnosis: Other chronic pain[ICD10: G89.29] Azra Lopes MD, [facility] CPT -4: 10839 09/23/2016 24461 EST. PATIENT, LEVEL III Diagnosis: Cough[ICD10: R05] Diagnosis: Shortness of breath[ICD10: R06.02] Diagnosis: Cellulitis of right toe[ICD10: L03.031] Diagnosis: Other obesity due to excess calories[ICD10: E66.09] Azra Lopes MD, [facility] CPT-4: 92085 07/27/2016 72009 EST. PATIENT, LEVEL III Diagnosis: Dysuria[ICD10: R30.0] Diagnosis: Low back pain[ICD10: M54.5] Diagnosis: Other chronic pain[ICD10: G89.29] Azra Lopes MD, [facility] CPT -4: 89702 07/18/2016 87251 EST. 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 05/03/2018 Patient Education: Patient Medication Summary Completed [...] pain management. 04/02/2018 Appointment: [facility] (15 min) Moderate 04/02/2018 Patient [...] peripheral edema. 01/10/2018 Appointment: Azra Carter WPtel: [facility] [place] (15 min) Moderate 01/10/2018 Patient Education: Patient Medication Summary Completed 01/10/2018 Patient Education: Patient Medication Summary Completed 10/20/2017 Care Plan: MRI JOINT UPR EXTREM W/O DYE LOINC : 12275-9 Pending 10/05/2017 Visit Plan: Left elbow/arm pain [...] not improve. 10/04/2017 Appointment: Azra Carter [facility] [phone] [facility] [place] (15 min) Moderate 10/04/2017 Patient Education: Patient [...] of over-medication. 06/05/2017 Appointment: Azra Carter [facility]Ptel[facility] [place] (15 min) Moderate 06/05/2017 Patient Education: Patient Medication Summary Completed 06/05/2017 Visit Plan: Diverticulitis - rx for antibiotic sent to pt' s pharmacy - pt advised to avoid seeds, nuts, popcorn, or any other food which has been proven to upset the pt's stomach. 01/19/2017 Appointment: Azra [facility] [phone] [facility] [place] (30 min) Complex 01/19/2017 Patient Education: Patient Medication Summary Completed 01/19/2017 Appointment: Lab Draw 12/08/2016 Patient Education: Patient Medication Summary Completed 12/08/2016 Care Plan: Referral Order SNOMED-CT : [id number] Pending 10/09/2016 Visit Plan: Poison [place] - pt is to use topical treatments as directed. Pt is cleanse clothing in hot water with soap, and call if symptoms do not improve or if they worsen. 10/05/2016 Appointment: Azra Carter [facility]Ptel: [facility] [place] (10 min) Simple 10/05/2016 [...] of over-medication. 09/23/2016 Appointment: [facility] [phone] [facility] [place] (15 min) Moderate 09/23/2016 Patient Education: [...] weight check. 07/27/2016 Appointment: Azra Carter WPtel: [phone] [facility] (15 min) Moderate 07/27/2016 Patient Education: Patient Medication Summary Completed 07/27/2016 Patient Education: Obesity Completed 07/27/2016 Care Plan: BMI Above normal followup SELF-MGMT EDUC & TRAIN 1 PT Pending 2016 Care Plan: CHEST X-RAY 2VW FRONTAL&LATL LOINC : 01379-2 Pending 07/27/2016 Visit Plan: UTI - pt [...] of over-medication. 07/18/2016 Appointment: Azra Carter WPtel: [phone] [facility] (30 min) Complex 07/18/2016 Patient Education: [...] to continue current treatment plan. 05/09/2016 Appointment: Raul Azra [facility] [phone] [facility] (30 min) Complex 05/09/2016 Patient Education: Patient [...] to medications. Blood in stools-refer to Dr rPuitt if due for colonscopy-check labs, stools for occult blood Low back pain-refill hydrocodone 01/12/2016 Appointment: Lise Bruce [facility] [phone] [phone] New Patient 01/12/2016 Patient Education: Patient Medication Summary Completed 01/12/2016 Patient Education: Obesity Completed 01/12/2016 Care Plan: Referral Order SNOMED-CT : [id number] Pending 01/12/2016 Referral: Rell Pruitt Referral Appointment [...] SIMVASTATIN. WE WILL REFER YOU TO [facility] PHYSICAL THERAPY GLUCOSAMINE AND CHONDROITIN FOR JOINT [...]
--- OUTSIDE RECORDS SUMMARY | 2018-05-21 15:25 | XMS REPORT | CCD ---
Author Author [facility] Address [address] [place] [address] Phone Care Team Providers Care Enrollment Services Dean Name Role Phone PP Unavailable CCM Unavailable Summary Purpose Interface Exchange Insurance Providers Payer name Policy type / Coverage type Covered republican ID Effective Begin Date Effective End Date WPS Medicare Part B Medicare Part B [id number] Unknown [facility] Life Insurance Medicare Part B [id number] Unknown Family history Mother Diagnosis Age At Onset Hypertension Unknown Anemia Unknown Arthritis Unknown Coronary Artery Disease Unknown Sister Diagnosis Age At Onset Hypertension Unknown Cancer Unknown Brother Diagnosis Age At Onset Depression Unknown Cancer Unknown Hypertension Unknown Social History Social History Element Codes Description Effective Dates Marital status Unknown 01/12/[address]: 428880214 Never smoker 01/12/[address]: 940300474 Never drinks alcohol 01/12/2016 Allergies, Adverse Reactions, Alerts Substance Reaction Codes Entered Date Inactivated Date Status * OTHER REACTION - SEE ANSWER [facility]OX [employer] Unknown 2015 No Inactive Date Active Past Medical History Illness Codes Condition Status Onset Date Resolved Date Other chronic pain ICD -9: 338.29 ICD-10: [...] Problems Condition Codes Effective Dates Condition Status Other chronic pain ICD -9: 338.29 ICD-10: [...] Fill Instructions gabapentin 600 mg tablet RxNorm: 743593 TAKE 1 & 1/2 (ONE & ONE-HALF) TABLETS BY MOUTH THREE TIMES DAILY 04/25/2018 No Stop Date Active Voltaren 1 % topical gel RxNorm: 252163 1 Application TOP BID 04/02/2018 No Stop Date Active prednisone 20 mg tablet RxNorm: 278069 2 Tablet(s) PO daily 09/201704/06/2018 Inactive Coreg 25 mg tablet RxNorm: 669702 TAKE 1 TABLET BY MOUTH TWICE DAILY 03/19/2018 No Stop Date Active meloxicam 7.5 mg tablet RxNorm: 479897 1 Tablet(s) PO daily 08/201705/29/2018 Active Keflex 500 mg capsule RxNorm: 348084 1 Capsule(s) PO TID 201702/18/2018 Inactive Keflex 500 mg capsule RxNorm: 412614 1 Capsule(s) PO TID 201702/25/2018 Inactive Cipro 500 mg tablet RxNorm: 018130 1 Tablet(s) PO BID 201702/12/2018 Inactive Cipro 500 mg tablet RxNorm: 779215 1 Tablet(s) PO BID 201702/16/2018 Inactive gabapentin 600 mg tablet RxNorm: 134238 TAKE 1 & 1/2 (ONE & ONE-HALF) TABLETS BY MOUTH THREE TIMES DAILY 02/05/20182017 Inactive meloxicam 7.5 mg tablet RxNorm: 697437 1 Tablet(s) PO daily 09/201701/30/2018 Inactive meloxicam 7.5 mg tablet RxNorm: 845099 1 Tablet(s) PO daily 09/201702/28/2018 Inactive spironolactone 50 mg tablet RxNorm: 849207 TAKE 1 TABLET BY MOUTH ONCE DAILY 01/22/2018 No Stop Date Active potassium chloride ER 10 mEq tablet,extended release RxNorm: 294449 1 Tablet(s) PO daily 01/10/2018 No Stop Date Active Lasix 20 mg tablet RxNorm: 169990 1 Tablet(s) PO daily 2017 No Stop Date Active spironolactone 50 mg tablet RxNorm: 594934 TAKE ONE TABLET BY MOUTH ONCE DAILY 10/30/2017 01/21/2018 Inactive Bactrim DS 800 mg-160 mg tablet RxNorm: 887974 1 Tablet(s) PO BID 10/20/2017 10/19/2017 Inactive Bactrim DS 800 mg-160 mg tablet RxNorm: 678421 1 Tablet(s) PO BID 10/20/2017 10/19/2017 Inactive Bactrim DS 800 mg-160 mg tablet RxNorm: 712167 1 Tablet(s) PO BID 10/20/2017 10/26/2017 Inactive hydrocodone 7.5 mg-acetaminophen 325 mg tablet RxNorm: 649953 1 Tablet(s) PO Q4- 6H as needed 10/11/2017 No Stop Date Active Coreg 25 mg tablet RxNorm: 420882 TAKE ONE TABLET BY MOUTH TWICE DAILY 09/27/2017 03/18/2018 Inactive gabapentin 300 mg capsule RxNorm: 778072 TAKE ONE & ONE-HALF TABLETS BY MOUTH THREE TIMES DAILY 07/31/2017 No Stop Date Active gabapentin 600 mg tablet RxNorm: 573437 1.5 Tablet(s) PO TID 01/26/2018 Inactive Keflex 500 mg capsule RxNorm: 762228 1 Capsule(s) PO TID 201706/16/2017 Inactive albuterol sulfate 2.5 mg/3 mL (0.083 %) solution for nebulization RxNorm: 886419 3 Milliliter(s) INH QID as needed 06/09/2017 No Stop Date Active prednisone 10 mg tablet RxNorm: 269797 Tablet(s) PO 06/08/2017 No Stop Date Active 6, 5,4,3,2,1 Keflex 500 mg capsule RxNorm: 783628 1 Capsule(s) PO TID 201706/13/2017 Inactive Zithromax Z-Duran 250 mg tablet RxNorm: 186142 1 Tablet(s) PO UD 06/05/2017 11/08/2017 Inactive Tessalon Perles 100 mg capsule RxNorm: 638430 1-2 Capsule(s) PO TID as needed cough 06/05/2017 06/09/2017 Inactive Please check mast before filling for pt, if too expensive pt does not want it Kenalog 40 mg/mL suspension for injection RxNorm: 4677711 1 Milliliter(s) Inj 06/05/2017 06/05/2017 Inactive Coreg 25 mg tablet RxNorm: 060911 TAKE ONE TABLET BY MOUTH TWICE DAILY 05/30/2017 09/26/2017 Inactive gabapentin 300 mg capsule RxNorm: 238574 TAKE ONE & ONE-HALF TABLETS BY MOUTH THREE TIMES DAILY 05/30/2017 07/30/2017 Inactive gabapentin 300 mg capsule RxNorm: 109557 TAKE ONE & ONE-HALF TABLETS BY MOUTH THREE TIMES DAILY 02/01/2017 05/29/2017 Inactive Coreg 25 mg tablet RxNorm: 478615 TAKE ONE TABLET BY MOUTH TWICE DAILY 02/01/2017 05/29/2017 Inactive Cipro 500 mg tablet RxNorm: 506648 1 Tablet(s) PO BID 201601/28/2017 Inactive Flagyl 500 mg tablet RxNorm: 549046 1 Tablet(s) PO TID 201601/28/2017 Inactive Coreg 25 mg tablet RxNorm: 037287 TAKE ONE TABLET BY MOUTH TWICE DAILY 01/02/2017 01/31/2017 Inactive hydrocodone 7.5 mg-acetaminophen 325 mg tablet RxNorm: 776154 1 Tablet(s) PO Q4- 6H as needed 12/08/2016 10/10/2017 Inactive Keflex 500 mg capsule RxNorm: 030114 1 Capsule(s) PO TID 201612/14/2016 Inactive spironolactone 50 mg tablet RxNorm: 225260 TAKE ONE TABLET BY MOUTH ONCE DAILY 11/25/2016 03/24/2017 Inactive gabapentin 300 mg capsule RxNorm: 497764 TAKE ONE & ONE-HALF TABLETS BY MOUTH THREE TIMES DAILY 10/07/2016 01/31/2017 Inactive prednisone 10 mg tablet RxNorm: 819914 Tablet(s) PO 10/05/2016 06/07/2017 Inactive 6, 5,4,3,2,1 hydrocodone 7.5 mg-acetaminophen 325 mg tablet RxNorm: 011256 1 Tablet(s) PO Q4- 6H 09/23/2016 12/07/2016 Inactive Coreg 25 mg tablet RxNorm: 988028 TAKE ONE TABLET BY MOUTH TWICE DAILY 09/08/2016 01/01/2017 Inactive Ventolin HFA 90 mcg/actuation aerosol inhaler RxNorm: 470946 1 Puff(s) INH Q4-6H as needed dyspnea 07/29/2016 No Stop Date Active hydrocodone 10 mg-acetaminophen 325 mg tablet RxNorm: 037451 1/2 Tablet(s) PO TID 07/18/2016 08/16/2016 Inactive Pyridium 100 mg tablet RxNorm: 9049531 1-2 Tablet(s) PO TID as needed 07/18/2016 07/19/2016 Inactive Bactrim DS 800 mg-160 mg tablet RxNorm: 306016 1 Tablet(s) PO BID 07/18/2016 07/27/2016 Inactive Coreg 25 mg tablet RxNorm: 578431 TAKE ONE TABLET BY MOUTH TWICE DAILY 07/07/2016 09/04/2016 Inactive gabapentin 300 mg capsule RxNorm: 738562 TAKE ONE & ONE-HALF TABLETS BY MOUTH THREE TIMES DAILY 06/09/2016 10/06/2016 Inactive hydrocodone 7.5 mg-acetaminophen 325 mg tablet RxNorm: 608132 1 Tablet(s) PO BID 05/17/2016 10/08/2016 Inactive hydrocodone 7.5 mg-acetaminophen 325 mg tablet RxNorm: 864909 1 Tablet(s) PO BID 03/31/2016 05/16/2016 Inactive spironolactone 50 mg tablet RxNorm: 789655 1 Tablet(s) PO daily 03/09/2016 09/04/2016 Inactive Coreg 25 mg tablet RxNorm: 938035 1 Tablet(s) PO BID 201506/20/2016 Inactive gabapentin 600 mg tablet RxNorm: 263539 1.5 Tablet(s) PO TID 06/09/2016 Inactive gabapentin 300 mg capsule RxNorm: 363106 3 Capsule(s) PO TID 02/10/2016 Inactive hydrocodone 7.5 mg-acetaminophen 325 mg tablet RxNorm: 525976 1 Tablet(s) PO BID 01/12/2016 03/30/2016 Inactive prednisone 10 mg tablet RxNorm: 247080 Tablet(s) PO No Start Date Active 6,5,4,3,2 ,1 Fish Oil 360 mg-1,200 mg capsule RxNorm: 152370 3 Capsule(s) PO daily No Start Date Active niacin 500 mg capsule RxNorm: 834448 2 Capsule(s) PO daily No Start Date Active simvastatin 40 mg tablet RxNorm: 077773 1 Tablet(s) PO daily No Start Date Active losartan 50 mg tablet RxNorm: 640211 1 Tablet(s) PO daily No Start Date Active oxybutynin chloride 5 mg tablet RxNorm: 256142 1 Tablet(s) PO BID No Start Date Active PreserVision Lutein oral RxNorm: 766529 oral No Start Date Active aspirin 81 mg tablet RxNorm: 847525 1 Tablet(s) PO daily No Start Date Active spironolactone 50 mg tablet RxNorm: 897307 1 Tablet(s) PO daily No Start Date 03/08/2016 Inactive Coreg 25 mg tablet RxNorm: 115387 1 Tablet(s) PO BID No Start Date 02/21/2016 Inactive Ventolin HFA 90 mcg/actuation aerosol inhaler RxNorm: 481068 1 Puff(s) INH Q4-6H as needed dyspnea No Start Date 2016 Inactive hydrocodone 7.5 mg-acetaminophen 325 mg tablet RxNorm: 127978 1 Tablet(s) PO BID No Start Date 01/11/2016 Inactive albuterol sulfate 2.5 mg/3 mL (0.083 %) solution for nebulization RxNorm: 044923 3 Milliliter(s) INH QID as needed No Start Date 06/08/2017 Inactive gabapentin 300 mg capsule RxNorm: 270135 3 Capsule(s) PO TID No Start Date 02/09/2016 Inactive Vitamin D3 5,000 unit tablet RxNorm: 404061 1 Tablet(s) PO daily No Start Date 08/13/2017 Inactive ibuprofen 200 mg capsule RxNorm: 012516 1 Capsule(s) PO TID No Start Date 01/29/2018 Inactive Medication Administered Medication Codes Instructions Start Date Status Kenalog 40 mg/mL suspension for injection RxNorm: 7207778 1Milliliter 06/05/2017 No longer Active Immunizations No Immunization data Assessments Condition Codes Effective Dates Other chronic pain ICD-10: G89.29 ICD-9: 338.29 04/02/2018 Primary generalized (osteo)arthritis ICD-10: M15.0 ICD-9: 715.09 04/02/2018 Elevated white blood cell count, unspecified ICD-10: D72.829 ICD-9: 288.60 03/05/2018 Dysuria ICD-10: R30.0 ICD-9: 788.1 02/13/2018 Mixed hyperlipidemia ICD-10: E78.2 ICD-9: 272.2 01/31/2018 Essential (primary) hypertension ICD-10: I10 ICD-9: 401.9 01/31/2018 Localized edema ICD-10: R60.0 ICD-9: 782.3 01/10/2018 Pain in left leg ICD-10: M79.605 ICD-9: 729.5 01/10/2018 Urinary tract infection, site not specified ICD-10: N39.0 ICD-9: 599.0 10/20/2017 Pain in left elbow ICD-10: M25.522 ICD-9: 719.42 10/04/2017 Pain in left arm ICD-10: M79.602 ICD-9: 729.5 10/04/2017 Cough ICD-10: R05 ICD-9: 786.2 06/08/2017 Shortness of breath ICD-10: R06.02 ICD-9: 786.05 06/08/2017 Acute laryngopharyngitis ICD-10: J06.0 ICD-9: 465.0 06/05/2017 Other acute sinusitis ICD-10: J01.80 ICD-9: 461.8 06/05/2017 Diverticulitis of large intestine without perforation [...] Visit Reason For Visit Effective Dates Notes shoulder pain 04/02/2018 edema 01/10/2018 Hospital Follow [...] 40.6 % 03/08/2018 Cbc With Differential Ord2 MCV 95.1 fl 03/08/2018 Cbc With Differential Ord2 Lymph% 18.8 % 03/08/2018 Cbc With Differential Ord2 MCH 30.2 pg 03/08/2018 Cbc With Differential Ord2 Darke% 11.9 % 03/08/2018 Cbc With Differential Ord2 [...] 1.64 K/ul 03/08/2018 Cbc With Differential Ord2 Darke ABS# 1.0 K/ul 03/08/2018 Cbc With Differential Ord2 Eos ABS# 0.4 K/ul 03/08/2018 Cbc With Differential Ord2 Baso ABS# 0.1 K/ul 03/08/2018 Urine Culture Ucult Complete >100,000 col/ml aerobic growth sent to ref lab 02/15/2018 Cbc With Differential Ord2 WBC 12.23 K/ul 02/02/2018 Cbc With Differential Ord2 RBC 4.36 M/ul 02/02/2018 Cbc With Differential Ord2 HGB 13.2 g/dl 02/02/2018 Cbc With Differential Ord2 Neut% 71.8 % 02/02/2018 Cbc With Differential Ord2 HCT 40.9 % 02/02/2018 Cbc With Differential Ord2 Lymph% 14.1 % 02/02/2018 Cbc With Differential Ord2 MCV 93.8 fl 02/02/2018 Cbc With Differential Ord2 Darke% 10.3 % 02/02/2018 Cbc With Differential Ord2 MCH 30.3 pg 02/02/2018 Cbc With Differential Ord2 Eos% 3.4 % 02/02/2018 Cbc With Differential Ord2 MCHC 32.3 pg 02/02/2018 Cbc With Differential Ord2 PLT 344 K/ul 02/02/2018 Cbc With Differential Ord2 Baso% 0.4 % 02/02/2018 Cbc With Differential Ord2 RDW 14.4 % 02/02/2018 Cbc With Differential Ord2 Neut ABS# 8.78 K/ul 02/02/2018 Cbc With Differential Ord2 Lymph ABS# 1.72 K/ul 02/02/2018 Cbc With Differential Ord2 Darke ABS# 1.3 K/ul 02/02/2018 Cbc With Differential Ord2 Eos ABS# 0.4 K/ul 02/02/2018 Cbc With Differential Ord2 Baso ABS# 0.1 K/ul 02/02/2018 Parathyroid Hormone Pqv567 PTH 47.40 pg/ml 02/02/2018 Lipid Ord30 CHOL 127 mg/dL 02/02/2018 Lipid Ord30 HDL 46.0 mg/dl 02/02/2018 Lipid Ord30 TRIG 83 mg/dL 02/02/2018 Lipid Ord30 LDL 64 mg/dL 02/02/2018 Lipid Ord30 C/HDL 2.8 Ratio 02/02/2018 Tsh Ord6 TSH (3rd IS) 0.52 uIU/mL 02/02/2018 Comp Metabolic Wjz160 NA 139 mEq/L 01/10/2018 Comp Metabolic Jel719 K 5.1 mEq/L 01/10/2018 Comp Metabolic Qum479 CL 106 mEq/L 01/10/2018 Comp Metabolic Kvh517 CO2 28.0 mEq/L 01/10/2018 Comp Metabolic Jjc725 ANION GAP 10 01/10/2018 Comp Metabolic Grb428 GLUCOSE 101 mg/dL 01/10/2018 Comp Metabolic Nkr616 Creat 0.9 mg/dL 01/10/2018 Comp Metabolic Cih288 eGFR 64 ml/min/1.73m2 01/10/2018 Comp Metabolic Avh831 BUN 25 mg/dL 01/10/2018 Comp Metabolic Mcl444 B/C Ratio 27.8 Ratio 01/10/2018 Comp Metabolic Dng339 CALCIUM 9.9 mg/dL 01/10/2018 Comp Metabolic Wvi444 ALK PHOS 83 U/L 01/10/2018 Comp Metabolic Dei048 AST(SGOT) 17 U/L 01/10/2018 Comp Metabolic Brd826 ALT(SGPT) 18 U/L 01/10/2018 Comp Metabolic Zpo451 BILI T 0.5 mg/dL 01/10/2018 Comp Metabolic Afl153 ALBUMIN 3.9 g/dL 01/10/2018 Comp Metabolic Gdi203 TPRO 6.6 g/dL 01/10/2018 Comp Metabolic Qzs659 GLOB 2.8 g/dL 01/10/2018 Comp Metabolic Yyt637 A/G Ratio 1.4 Ratio 01/10/2018 Comp Metabolic Nce465 Osmo 282 mOsmo 01/10/2018 Urine Culture Ucult [...] U-Com Culture to follow 10/20/2017 Comp Metabolic Lwq828 NA 141 mEq/L 07/21/2017 Comp Metabolic Blm803 K 4.9 mEq/L 07/21/2017 Comp Metabolic Qoj749 CL 107 mEq/L 07/21/2017 Comp Metabolic Uzt502 CO2 30.0 mEq/L 07/21/2017 Comp Metabolic Rhr779 ANION GAP 9 07/21/2017 Comp Metabolic Sje664 GLUCOSE 93 mg/dL 07/21/2017 Comp Metabolic Vzp714 Creat 0.8 mg/dL 07/21/2017 Comp Metabolic Yox029 eGFR 72 ml/min/1.73m2 07/21/2017 Comp Metabolic Chp885 BUN 22 mg/dL 07/21/2017 Comp Metabolic Bhm341 B/C Ratio 26.8 Ratio 07/21/2017 Comp Metabolic Fdm248 CALCIUM 10.2 mg/dL 07/21/2017 Comp Metabolic Zhl952 ALK PHOS 73 U/L 07/21/2017 Comp Metabolic Tay341 AST(SGOT) 17 U/L 07/21/2017 Comp Metabolic Sbo279 ALT(SGPT) 21 U/L 07/21/2017 Comp Metabolic Bjf484 BILI T 0.7 mg/dL 07/21/2017 Comp Metabolic Quc565 ALBUMIN 3.9 g/dL 07/21/2017 Comp Metabolic Mxj217 TPRO 7.0 g/dL 07/21/2017 Comp Metabolic Pnf096 GLOB 3.1 g/dL 07/21/2017 Comp Metabolic Cco717 A/G Ratio 1.3 Ratio 07/21/2017 Comp Metabolic Avk296 Osmo 284 mOsmo 07/21/2017 Vitamin D 25 Oh Igh6524 VITAMIN D, 25 HYDROXY 37.13 ng/mL Lipid Ord30 CHOL 173 mg/dL 07/21/2017 Lipid Ord30 HDL 69.0 mg/dl 07/21/2017 Lipid Ord30 TRIG 86 mg/dL 07/21/2017 Lipid Ord30 LDL 87 mg/dL 07/21/2017 Lipid Ord30 C/HDL 2.5 Ratio 07/21/2017 Culture Urine [id number] URINE CULTURE SEE NOTES 12/12/2016 Culture Urine [id number] Continued Results 12/12/2016 Urine Culture Ucult Complete >100,000 col/ml aerobic growth sent to ref lab 12/10/2016 Culture Urine [id number] URINE CULTURE SEE NOTES 07/22/2016 Culture Urine [id number] Continued Results 07/22/2016 Urine Culture Ucult Complete >100,000 col/ml aerobic growth sent to ref lab 07/20/2016 Comp Metabolic Htz521 NA 141 mEq/L 05/11/2016 Comp Metabolic Fem239 K 4.4 mEq/L 05/11/2016 Comp Metabolic Rhq373 CL 110 mEq/L 05/11/2016 Comp Metabolic Mtc636 CO2 26.0 mEq/L 05/11/2016 Comp Metabolic Fsx277 ANION GAP 9 05/11/2016 Comp Metabolic Yux110 GLUCOSE 99 mg/dL 05/11/2016 Comp Metabolic Tze825 Creat 0.9 mg/dL 05/11/2016 Comp Metabolic Uyy196 eGFR 69 ml/min/1.73m2 05/11/2016 Comp Metabolic Zmy356 BUN 24 mg/dL 05/11/2016 Comp Metabolic Qri337 B/C Ratio 28.2 Ratio 05/11/2016 Comp Metabolic Rwr364 CALCIUM 10.2 mg/dL 05/11/2016 Comp Metabolic Pzy100 ALK PHOS 67 U/L 05/11/2016 Comp Metabolic Sch416 AST(SGOT) 18 U/L 05/11/2016 Comp Metabolic Vdx651 ALT(SGPT) 19 U/L 05/11/2016 Comp Metabolic Bty609 BILI T 0.8 mg/dL 05/11/2016 Comp Metabolic Deu437 ALBUMIN 4.0 g/dL 05/11/2016 Comp Metabolic Zqz511 TPRO 6.6 g/dL 05/11/2016 Comp Metabolic Drv929 GLOB 2.6 g/dL 05/11/2016 Comp Metabolic Bsp372 A/G Ratio 1.6 Ratio 05/11/2016 Comp Metabolic Pbi934 Osmo 285 mOsmo 05/11/2016 Parathyroid Hormone Olh048 PTH 37.40 pg/ml 05/11/2016 Cbc With Differential Ord2 WBC 9.18 K/ul 05/11/2016 Cbc With Differential Ord2 RBC 4.30 M/ul 05/11/2016 Cbc With Differential Ord2 HGB 13.0 g/dl 05/11/2016 Cbc With Differential Ord2 HCT 40.4 % 05/11/2016 Cbc With Differential Ord2 Neut% 66.3 % 05/11/2016 Cbc With Differential Ord2 Lymph% 16.2 % 05/11/2016 Cbc With Differential Ord2 MCV 94.0 fl 05/11/2016 Cbc With Differential Ord2 MCH 30.2 pg 05/11/2016 Cbc With Differential Ord2 Darke% 12.3 % 05/11/2016 Cbc With Differential Ord2 Eos% 4.8 % 05/11/2016 Cbc With Differential Ord2 MCHC 32.2 pg 05/11/2016 Cbc With Differential Ord2 PLT 359 K/ul 05/11/2016 Cbc With Differential Ord2 Baso% 0.4 % 05/11/2016 Cbc With Differential Ord2 Neut ABS# 6.08 K/ul 05/11/2016 Cbc With Differential Ord2 RDW 14.9 % 05/11/2016 Cbc With Differential Ord2 Lymph ABS# 1.49 K/ul 05/11/2016 Cbc With Differential Ord2 Darke ABS# 1.1 K/ul 05/11/2016 Cbc With Differential Ord2 Eos ABS# 0.4 K/ul 05/11/2016 Cbc With Differential Ord2 Baso ABS# 0.0 K/ul 05/11/2016 Cbc With Differential Ord2 WBC 9.84 K/ul [...] 30.7 pg 01/13/2016 Cbc With Differential Ord2 Darke% 12.2 % 01/13/2016 Cbc With Differential Ord2 Eos% 3.8 % 01/13/2016 Cbc With Differential Ord2 MCHC 32.2 pg 01/13/2016 Cbc With Differential Ord2 PLT 315 K/ul 01/13/2016 Cbc With Differential Ord2 Baso% 0.5 % 01/13/2016 Cbc With Differential Ord2 RDW 14.9 % 01/13/2016 Cbc With Differential Ord2 Neut ABS# 6.40 K/ul 01/13/2016 Cbc With Differential Ord2 Lymph ABS# 1.82 K/ul 01/13/2016 Cbc With Differential Ord2 Darke ABS# 1.2 K/ul 01/13/2016 Cbc With Differential Ord2 Eos ABS# 0.4 K/ul 01/13/2016 Cbc With Differential Ord2 Baso ABS# 0.1 K/ul 01/13/2016 Comp Metabolic Stm183 NA 136 mEq/L 01/13/2016 Comp Metabolic Axn543 K 4.7 mEq/L 01/13/2016 Comp Metabolic Bpu961 CL 106 mEq/L 01/13/2016 Comp Metabolic Kvk393 CO2 26.0 mEq/L 01/13/2016 Comp Metabolic Wez402 ANION GAP 9 01/13/2016 Comp Metabolic Tiz194 GLUCOSE 95 mg/dL 01/13/2016 Comp Metabolic Kbf993 Creat 1.0 mg/dL 01/13/2016 Comp Metabolic Pxh026 eGFR 60 ml/min/1.73m2 01/13/2016 Comp Metabolic Tuo167 BUN 21 mg/dL 01/13/2016 Comp Metabolic Zjj178 B/C Ratio 21.9 Ratio 01/13/2016 Comp Metabolic Bmj180 CALCIUM 9.7 mg/dL 01/13/2016 Comp Metabolic Jld176 ALK PHOS 69 U/L 01/13/2016 Comp Metabolic Kmj050 AST(SGOT) 14 U/L 01/13/2016 Comp Metabolic Qts500 ALT(SGPT) 17 U/L 01/13/2016 Comp Metabolic Qsv364 BILI T 0.6 mg/dL 01/13/2016 Comp Metabolic Jkv467 ALBUMIN 3.6 g/dL 01/13/2016 Comp Metabolic Lbf352 TPRO 6.3 g/dL 01/13/2016 Comp Metabolic Rth438 GLOB 2.7 g/dL 01/13/2016 Comp Metabolic Zer841 A/G Ratio 1.4 Ratio 01/13/2016 Comp Metabolic Hmx566 Osmo 275 mOsmo 01/13/2016 Review of Systems System Result Effective [...] Result Effective Dates Notes Full Exam - Orthopedics Constitutional general appearance [...] accomodation 01/12/2016 None Procedures Procedure Codes Date THER/PROPH/DIAG INJ SC/IM CPT-4: 05653 06/05/2017 TRIAMCINOLONE ACET INJ NOS CPT-4: J3301 06/05/2017 URINALYSIS NONAUTO W/O SCOPE CPT-4: 22588 12/08/2016 Vital Signs Date Vital 04/02/2018 Blood Pressure 1: 140/76 Code : 8480-6 BMI: 37.5 Code : 72108-7 Heart Rate 1 : 80 bpm Height: 5'3" SpO2: 96% Weight: 215 lbs 01/10/2018 Blood Pressure 1: 144/82 Code : 8480-6 Heart Rate 1: 74 bpm Height: 5'3" SpO2: 94% 10/04/2017 Blood Pressure 1: 142/70 Code : 8480-6 Heart Rate 1: 73 bpm Height: SpO2: 97% Weight: 06/05/2017 Blood Pressure 1: 142/86 Code : 8480-6 BMI: 36.8 Code : 67416-4 Heart Rate 1 : 74 bpm Height: 5'3" SpO2: 96% Weight: 211 lbs 01/19/2017 Blood Pressure 1: 150/88 Code : 8480-6 BMI: 36.1 Code : 49578-8 Heart Rate 1 : 76 bpm Height: 5'3" Weight: 207 lbs 10/05/2016 Blood Pressure 1: 134/80 Code : 8480-6 Heart Rate 1: 60 bpm Height: 5'3" SpO2: 95% Weight: 09/23/2016 Blood Pressure 1: 148/76 Code : 8480-6 BMI: 36.3 Code : 56438-7 Heart Rate 1 : 62 bpm Height: 5'3" SpO2: 98% Weight: 208 lbs 07/27/2016 Blood Pressure 1: 130/66 Code : 8480-6 BMI: 37.8 Code : 56323-4 Heart Rate 1 : 64 bpm Height: 5'3" SpO2: 96% Weight: 217 lbs 07/18/2016 Blood Pressure 1: 134/64 Code : 8480-6 BMI: 37.8 Code : 39660-6 Heart Rate 1 : 66 bpm Height: 5'3" SpO2: 96% Weight: 217 lbs 05/09/2016 Blood Pressure 1: 142/72 Code : 8480-6 BMI: 37.3 Code : 50322-2 Heart Rate 1 : 59 bpm Height: 5'3" SpO2: 96% Weight: 214 lbs 01/12/2016 Blood Pressure 1: 122/64 Code : 8480-6 BMI: 37.3 Code : 56481-2 Heart Rate 1 : 68 bpm Height: 5'3" SpO2: 94% Weight: 214 lbs Functional Status No Functional Status data History of Present Illness Symptom Name Status Result Effective Date Notes shoulder pain Quality chronic 04/02/2018 None shoulder [...] Other chronic pain[ICD10: G89.29] Azra Lopes MD, [facility] CPT -4: 18129 04/02/2018 75515 EST. PATIENT, LEVEL III Diagnosis: Localized edema[ICD10: R60.0] Diagnosis: Pain in left leg[ICD10: M79.605] Azra Lopes MD, [facility] CPT- 4: 10710 01/10/2018 [id number] EST. PATIENT, LEVEL III Diagnosis: Pain in left arm[ICD10: M79.602] Diagnosis: Pain in left elbow[ICD10: M25.522] Azra Lopes MD, [facility] CPT-4: 40881 10/04/2017 ([id number]) Miscellaneous no charge Diagnosis: Cough[ICD10: R05] Diagnosis: Shortness of breath[ICD10: R06.02] Azra Lopes MD, [facility] CPT-4: 58230 06/08/2017 [id number] EST. PATIENT, LEVEL IV Diagnosis: Acute laryngopharyngitis[ICD10: J06.0] Diagnosis: Other acute sinusitis[ICD10: J01.80] Diagnosis: Cough[ICD10: R05] Diagnosis: Shortness of breath[ICD10: R06.02] Diagnosis: Other chronic pain[ICD10: G89.29] Azra Lopes MD, [facility] CPT -4: 70146 06/05/2017 [id number] EST. PATIENT, LEVEL IV Diagnosis: Diverticulitis of large intestine without perforation or abscess without bleeding[ICD10: K57.32] Diagnosis: Left lower quadrant pain[ICD10: R10.32] Azra Lopes MD, [facility] CPT-4: 54178 01/19/2017 48882 EST. PATIENT, LEVEL III Diagnosis: Allergic contact dermatitis due to plants, except food[ICD10: L23.7] Azra Lopes MD, [facility] CPT-4: 90340 10/05/2016 01626 EST. PATIENT, LEVEL III Diagnosis: Low back pain[ICD10: M54.5] Diagnosis: Other chronic pain[ICD10: G89.29] Azra Lopes MD, [facility] CPT -4: 72010 09/23/2016 [id number] EST. PATIENT, LEVEL III Diagnosis: Cough[ICD10: R05] Diagnosis: Shortness of breath[ICD10: R06.02] Diagnosis: Cellulitis of right toe[ICD10: L03.031] Diagnosis: Other obesity due to excess calories[ICD10: E66.09] Azra Lopes MD, [facility] CPT-4: 82893 07/27/2016 77044 EST. PATIENT, LEVEL III Diagnosis: Dysuria[ICD10: R30.0] Diagnosis: Low back pain[ICD10: M54.5] Diagnosis: Other chronic pain[ICD10: G89.29] [facility] CPT -4: 18859 07/18/2016 94062 EST. 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] Azra Lopes MD , [facility] CPT-4: 65626 05/09/2016 ([id number]) I Fecal Occult Blood Diagnosis: Encounter for screening for malignant neoplasm of colon[ICD10: Z12.11 ] Nicolle Lopes MD, [facility] CPT-4: [id number] 2015 ([id number]) OFFICE VISIT, NEW - LEVEL 4 Diagnosis: Essential (primary) hypertension[ICD10: I10] Diagnosis: Mixed hyperlipidemia[ICD10: E78.2] Diagnosis: Melena[ICD10: K92.1] Diagnosis: Low back pain[ICD10: M54.5] Lise Lopes MD, [facility] CPT-4: 01657 01/12/2016 Plan of Care Planned Activity Notes Codes Status Date Visit Plan: Arthritis - worsening - will [...] pain management. 04/02/2018 [id number] ([facility] min) Moderate 04/02/2018 Patient Education: [...] peripheral edema. 01/10/2018 [id number] [place] (15 min) Moderate 01/10/2018 Patient Education: Patient Medication Summary Completed 01/10/2018 Patient Education: Patient Medication Summary Completed 10/20/2017 Care Plan: MRI JOINT UPR EXTREM W/O DYE LOINC : [id number] Pending 10/05/2017 Visit Plan: Left elbow/arm pain [...] not improve. 10/04/2017 Appointment: Azra Carter WPtel: [id number] [place] (15 min) Moderate 10/04/2017 Patient Education: [...] of over-medication. 06/05/2017 App[facility]ment: [id number] ([facility] min) Moderate 06/05/2017 Patient Education: Patient Medication Summary Completed 06/05/2017 Visit Plan: Diverticulitis - rx for antibiotic sent to pt' s pharmacy - pt advised to avoid seeds, nuts, popcorn, or any other food which has been proven to upset the pt's stomach. 01/19/2017 Appointment: Azra Carter WPtel: [id number] [place] (30 min) Complex 01/19/2017 Patient Education: Patient Medication Summary Completed 01/19/2017 Appointment: Lab Draw 12/08/2016 Patient Education: Patient Medication Summary Completed 12/08/2016 Care Plan: Referral Order SNOMED-CT : [id number] Pending 10/09/2016 Visit Plan: Poison [place] - pt is to use topical treatments as directed. Pt is cleanse clothing in hot water with soap, and call if symptoms do not improve or if they worsen. 10/05/2016 Appointment: Azra Cartertel: [phone] [facility] (10 min) Simple 10/05/2016 Patient Education: Patient [...] the consequences of over-medication. 09/23/2016 Appointment: Azra Cartertel: [phone] [facility] (15 min) Moderate 09/23/2016 Patient Education: Patient [...] weight check. 07/27/2016 Appointment: Azra Carter WPtel: [id number] (15 min) Moderate 07/27/2016 Patient Education: Patient Medication Summary Completed 07/27/2016 Patient Education: Obesity Completed 07/27/2016 Care Plan: BMI Above normal followup SELF-MGMT EDUC & TRAIN 1 PT Pending 2016 Care Plan: CHEST X-RAY 2VW FRONTAL&LATL LOINC : 91863-7 Pending 07/27/2016 Visit Plan: UTI - pt [...] of over-medication. 07/18/2016 Appointment: Azra Carter WPtel: [facility] (30 min) Complex 07/18/2016 Patient Education: Patient [...] treatment plan. 05/09/2016 Appointment: Azra Carter WPtel: [facility] (30 min) Complex 05/09/2016 Patient Education: Patient Medication Summary Completed 05/09/2016 Care Plan: Comp Metabolic Ordered 05/09/2016 Care Plan: Cbc With Differential Ordered 05/09/2016 Care Plan: Parathyroid Hormone Ordered 05/09/2016 Appointment: Lab Draw 01/18/2016 Patient [...] pain-refill hydrocodone 01/12/2016 [phone] [facility] Patient 01/12/2016 Patient Education: Patient Medication Summary Completed 01/12/2016 Patient Education: Obesity Completed 01/12/2016 Care Plan: Referral Order SNOMED-CT : [id number] Pending 01/12/2016 Referral: Rell Pruitt Referral Appointment [...] SIMVASTATIN. WE WILL REFER YOU TO [facility] GLUCOSAMINE AND CHONDROITIN FOR JOINT [...]
[2018-05-21] MEDS ORDERED: PROM5SYR PO (15:26)
--- NOTE | 2018-05-21 15:26 | ED Cough/URI ---
General Stated Complaint: CHEST COLD Source: patient Exam Limitations: no limitations History of Present Illness Date Seen by Provider: May 21, 2018 Time Seen by Provider: 15:23 Initial Comments To ER with request to be seen "right away" because she has an appointment in [place] at 5 PM today. She complains of a chest cold that is not getting any better despite her amoxicillin that was prescribed at the onset of this illness on Monday05/16/18.. Some of her friends told her she might need a different antibiotic. No fevers. She does have some rhinorrhea. Timing/Duration: constant Severity/Quality: productive cough Associated Symptoms: cough Allergies and Home Medications Allergies Coded Allergies: loratadine (Unverified Allergy, Unknown, 05/17/18) piroxicam (Unverified Adverse Reaction, Unknown, 05/17/18) pregabalin (Unverified Adverse Reaction, Unknown, 05/17/18) MAKES LEGS "BLOOD RED" rosuvastatin calcium (Unverified Adverse Reaction, Unknown, 05/17/18) Home Medications Aspirin 81 Mg Tab.chew, 81 MG PO BIDPC, (Reported) Atorvastatin Calcium 40 Mg Tablet, 40 MG PO HS, (Reported) Carvedilol 25 Mg Tablet, 25 MG PO BID, (Reported) Cholecalciferol (Vitamin D3) 5,000 Unit Capsule, 5,000 UNIT PO DAILY, (Reported) Cyclosporine 1 Each Droperette, 1 EACH OP BID, (Reported) Gabapentin 600 Mg Tablet, 900 MG PO TID, (Reported) Losartan Potassium 50 Mg Tablet, 50 MG PO DAILY, (Reported) Meloxicam 15 Mg Tablet, 15 MG PO DAILY, (Reported) Meloxicam 7.5 Mg Tablet, 7.5 MG PO DAILY, (Reported) Niacinamide 500 Mg Tablet, 500 MG PO BID, (Reported) [place] 3 Polyunsat Fatty Acids 1,000 Mg Cap, 1,000 MG PO TID, (Reported) Oxycodone HCl/Acetaminophen 1 Each Tablet, 1 EACH PO BID, (Reported) Promethazine HCl/Codeine 5 Ml Syrup, 5 ML PO Q6H PRN for COUGH Prescribed by: LADI ROBERTO on 05/21/18 1526 Spironolactone 25 Mg Tablet, 25 MG PO DAILY PRN for SWELLING, (Reported) Vit C/E/Zn/Coppr/Lutein/Zeaxan 1 Each Capsule, 1 EACH PO BID, (Reported) Patient Home Medication List Home Medication List Reviewed: Yes Review of Systems Review of Systems Constitutional: see HPI EENTM: see HPI Respiratory: see HPI, cough Cardiovascular: no symptoms reported Genitourinary: no symptoms reported Musculoskeletal: no symptoms reported Skin: no symptoms reported Psychiatric/Neurological: No Symptoms Reported Past Dilcnnl-Ncdshu-Lvbcla Hx Patient Social History 2nd Hand Smoke Exposure: Yes Recent Foreign Travel: No Contact w/Someone Who Travel: No Recent Hopitalizations: No Immunizations Up To Date Date of Pneumonia Vaccine: Feb 27, 2008 Seasonal Allergies Seasonal Allergies: No Past Medical History Surgeries: Yes (SPLENECTOMY, BACK SURGERY) Appendectomy, Orthopedic Respiratory: No Cardiac: Yes High Cholesterol, Hypertension Neurological: Yes Headaches /Migraines, Neuropathy Reproductive Disorders: No 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 History: Menopausal Sexually Transmitted Disease: No HIV/AIDS: No Genitourinary: Yes UTI-Chronic Gastrointestinal: No Musculoskeletal: Yes Degenerate Disk Disease, Osteoporosis, Arthritis, Chronic Back Pain Endocrine: Yes HEENT: Yes Chronic Ear Infection Loss of Vision: Denies Hearing Impairment: Denies Cancer: No Psychosocial: Yes Anxiety Integumentary: Yes (SHINGLES YRS AGO) Blood Disorders: No Adverse Reaction/Blood Tranf: No (N/A) Physical Exam Vital Signs - First Documented 05/21/18 15:20 Temp 97.1 Pulse 62 Resp 12 B/P (MAP) 188/85 (119) Pulse Ox 94 Capillary Refill : Height: 5'3.00" Weight: 210lbs. 0.0oz. 95.519716ft; 37.2 BMI Method:Stated General Appearance: WD/WN, no apparent distress Eyes: Bilateral Eye Normal Inspection, Bilateral Eye PERRL, Bilateral Eye EOMI HEENT: PERRL/EOMI, normal ENT inspection Neck: non-tender, full range of motion Respiratory: normal breath sounds, no respiratory distress, no accessory muscle use Cardiovascular: regular rate, rhythm Gastrointestinal: normal bowel sounds, non tender, soft Neurologic/Psychiatric: alert, normal mood/affect, oriented x 3 Skin: normal color, warm/dry Progress/Results/Core Measures Suspected Sepsis SIRS Temperature: Pulse: Respiratory Rate: Blood Pressure / Mean: Results/Orders My Orders Orders - LADI ROBERTO APRN Dexamethasone Injection (Decadron Inject (05/21/18 15:30) Chest Pa/Lat (2 View) (05/21/18 15:22) Medications Given in ED Current Medications Medications Dose Ordered Sig/Micah Route Start Time Stop Time Status Last Admin Dose Admin Dexamethasone Sodium Phosphate 10 mg ONCE ONCE IM 05/21/18 15:30 05/21/18 15:31 DC 05/21/18 15:30 10 MG Vital Signs/I&O 05/21/18 05/21/18 15:20 15:46 Temp 97.1 97.1 Pulse 62 62 Resp 12 12 B/P (MAP) 188/85 (119) 188/85 (119) Pulse Ox 94 94 Capillary Refill : Departure Communication (Admissions) She would like a different antibiotic because the amoxicillin is not working and the sputum is colored. I discussed with her that there have been several studies that suggest that the color of sputum has no relevance on determining bacterial from viral etiology. She does not believe this to be true. Impression Primary Impression: Bronchitis Disposition: 01 HOME, SELF-CARE Condition: Stable Departure-Patient Inst. Decision time for Depature: 15:24 Referrals: ARJUN BEGUM MD (PCP/Family) Primary Care Physician Patient Instructions: Acute Bronchitis in Adults Add. Discharge Instructions: 1. upwards of 90% of cases of bronchitis are from viruses. Your case is due to a virus which is why the amoxicillin antibiotic is not helping. You may stop taking it. Take the cough medication as directed. Follow-up with your doctor next week. Symptoms will last for 7-10 days from onset Scripts Promethazine HCl/Codeine (Prometh-Codein 6.25-10 mg/5 ml) 5 Ml Syrup 5 ML PO Q6H PRN for COUGH, #60 ML Prov: LADI ROBERTO APRN 05/21/18 LADI ROBERTO APRN May 21, 2018 15:26
--- OUTSIDE RECORDS SUMMARY | 2018-05-21 15:27 | XMS REPORT | CCD ---
Author Author [facility] Address [address] [place] [address] Phone Care Team Providers Care Director Of Science Name Role Phone PP Unavailable CCM Unavailable Summary Purpose Interface Exchange Insurance Providers Payer name Policy type / Coverage type Covered constitution party ID Effective Begin Date Effective End Date WPS Medicare Part B Medicare Part B [id number] Unknown [place] [employer] Medicare Part B [id number] Unknown Family history Mother Diagnosis Age At Onset Hypertension Unknown Anemia Unknown Arthritis Unknown Coronary Artery Disease Unknown Sister Diagnosis Age At Onset Hypertension Unknown Cancer Unknown Brother Diagnosis Age At Onset Depression Unknown Cancer Unknown Hypertension Unknown Social History Social History Element Codes Description Effective Dates Marital status Unknown 01/12/[address]: 277457673 Never smoker 01/12/[address]: 829466840 Never drinks alcohol 01/12/2016 Allergies, Adverse Reactions, [...] Start Date Stop Date Status Fill Instructions Voltaren 1 % topical gel RxNorm: 402604 1 Application TOP BID 04/02/2018 No Stop Date Active prednisone 20 mg tablet RxNorm: 032248 2 Tablet(s) PO daily 09/201704/06/2018 Inactive Coreg 25 mg tablet RxNorm: 497531 TAKE 1 TABLET BY MOUTH TWICE DAILY 03/19/2018 No Stop Date Active meloxicam 7.5 mg tablet RxNorm: 983101 1 Tablet(s) PO daily 08/201705/29/2018 Active Keflex 500 mg capsule RxNorm: 459735 1 Capsule(s) PO TID 201702/18/2018 Inactive Keflex 500 mg capsule RxNorm: 978471 1 Capsule(s) PO TID 201702/25/2018 Inactive Cipro 500 mg tablet RxNorm: 266297 1 Tablet(s) PO BID 201702/12/2018 Inactive Cipro 500 mg tablet RxNorm: 807774 1 Tablet(s) PO BID 201702/16/2018 Inactive gabapentin 600 mg tablet RxNorm: 138543 TAKE 1 & 1/2 (ONE & ONE-HALF) TABLETS BY MOUTH THREE TIMES DAILY 02/05/2018 No Stop Date Active meloxicam 7.5 mg tablet RxNorm: 983181 1 Tablet(s) PO daily 09/201701/30/2018 Inactive meloxicam 7.5 mg tablet RxNorm: 414060 1 Tablet(s) PO daily 09/201702/28/2018 Inactive spironolactone 50 mg tablet RxNorm: 100028 TAKE 1 TABLET BY MOUTH ONCE DAILY 01/22/2018 No Stop Date Active potassium chloride ER 10 mEq tablet,extended release RxNorm: 738575 1 Tablet(s) PO daily 01/10/2018 No Stop Date Active Lasix 20 mg tablet RxNorm: 592811 1 Tablet(s) PO daily 2017 No Stop Date Active spironolactone 50 mg tablet RxNorm: 506518 TAKE ONE TABLET BY MOUTH ONCE DAILY 10/30/2017 01/21/2018 Inactive Bactrim DS 800 mg-160 mg tablet RxNorm: 125402 1 Tablet(s) PO BID 10/20/2017 10/19/2017 Inactive Bactrim DS 800 mg-160 mg tablet RxNorm: 218866 1 Tablet(s) PO BID 10/20/2017 10/19/2017 Inactive Bactrim DS 800 mg-160 mg tablet RxNorm: 832743 1 Tablet(s) PO BID 10/20/2017 10/26/2017 Inactive hydrocodone 7.5 mg-acetaminophen 325 mg tablet RxNorm: 925712 1 Tablet(s) PO Q4- 6H as needed 10/11/2017 No Stop Date Active Coreg 25 mg tablet RxNorm: 815490 TAKE ONE TABLET BY MOUTH TWICE DAILY 09/27/2017 03/18/2018 Inactive gabapentin 300 mg capsule RxNorm: 248407 TAKE ONE & ONE-HALF TABLETS BY MOUTH THREE TIMES DAILY 07/31/2017 No Stop Date Active gabapentin 600 mg tablet RxNorm: 785658 1.5 Tablet(s) PO TID 01/26/2018 Inactive Keflex 500 mg capsule RxNorm: 671255 1 Capsule(s) PO TID 201706/16/2017 Inactive albuterol sulfate 2.5 mg/3 mL (0.083 %) solution for nebulization RxNorm: 327574 3 Milliliter(s) INH QID as needed 06/09/2017 No Stop Date Active prednisone 10 mg tablet RxNorm: 298872 Tablet(s) PO 06/08/2017 No Stop Date Active 6, 5,4,3,2,1 Keflex 500 mg capsule RxNorm: 069767 1 Capsule(s) PO TID 201706/13/2017 Inactive Zithromax Z-Duran 250 mg tablet RxNorm: 060679 1 Tablet(s) PO UD 06/05/2017 11/08/2017 Inactive Tessalon Perles 100 mg capsule RxNorm: 968306 1-2 Capsule(s) PO TID as needed cough 06/05/2017 06/09/2017 Inactive Please check mast before filling for pt, if too expensive pt does not want it Kenalog 40 mg/mL suspension for injection RxNorm: 4759510 1 Milliliter(s) Inj 06/05/2017 06/05/2017 Inactive Coreg 25 mg tablet RxNorm: 803050 TAKE ONE TABLET BY MOUTH TWICE DAILY 05/30/2017 09/26/2017 Inactive gabapentin 300 mg capsule RxNorm: 904068 TAKE ONE & ONE-HALF TABLETS BY MOUTH THREE TIMES DAILY 05/30/2017 07/30/2017 Inactive gabapentin 300 mg capsule RxNorm: 329829 TAKE ONE & ONE-HALF TABLETS BY MOUTH THREE TIMES DAILY 02/01/2017 05/29/2017 Inactive Coreg 25 mg tablet RxNorm: 347285 TAKE ONE TABLET BY MOUTH TWICE DAILY 02/01/2017 05/29/2017 Inactive Cipro 500 mg tablet RxNorm: 663218 1 Tablet(s) PO BID 201601/28/2017 Inactive Flagyl 500 mg tablet RxNorm: 621076 1 Tablet(s) PO TID 201601/28/2017 Inactive Coreg 25 mg tablet RxNorm: 412410 TAKE ONE TABLET BY MOUTH TWICE DAILY 01/02/2017 01/31/2017 Inactive hydrocodone 7.5 mg-acetaminophen 325 mg tablet RxNorm: 361329 1 Tablet(s) PO Q4- 6H as needed 12/08/2016 10/10/2017 Inactive Keflex 500 mg capsule RxNorm: 698259 1 Capsule(s) PO TID 201612/14/2016 Inactive spironolactone 50 mg tablet RxNorm: 868450 TAKE ONE TABLET BY MOUTH ONCE DAILY 11/25/2016 03/24/2017 Inactive gabapentin 300 mg capsule RxNorm: 417204 TAKE ONE & ONE-HALF TABLETS BY MOUTH THREE TIMES DAILY 10/07/2016 01/31/2017 Inactive prednisone 10 mg tablet RxNorm: 022929 Tablet(s) PO 10/05/2016 06/07/2017 Inactive 6, 5,4,3,2,1 hydrocodone 7.5 mg-acetaminophen 325 mg tablet RxNorm: 135247 1 Tablet(s) PO Q4- 6H 09/23/2016 12/07/2016 Inactive Coreg 25 mg tablet RxNorm: 191977 TAKE ONE TABLET BY MOUTH TWICE DAILY 09/08/2016 01/01/2017 Inactive Ventolin HFA 90 mcg/actuation aerosol inhaler RxNorm: 852835 1 Puff(s) INH Q4-6H as needed dyspnea 07/29/2016 No Stop Date Active hydrocodone 10 mg-acetaminophen 325 mg tablet RxNorm: 912882 1/2 Tablet(s) PO TID 07/18/2016 08/16/2016 Inactive Pyridium 100 mg tablet RxNorm: 1845090 1-2 Tablet(s) PO TID as needed 07/18/2016 07/19/2016 Inactive Bactrim DS 800 mg-160 mg tablet RxNorm: 739037 1 Tablet(s) PO BID 07/18/2016 07/27/2016 Inactive Coreg 25 mg tablet RxNorm: 277028 TAKE ONE TABLET BY MOUTH TWICE DAILY 07/07/2016 09/04/2016 Inactive gabapentin 300 mg capsule RxNorm: 286347 TAKE ONE & ONE-HALF TABLETS BY MOUTH THREE TIMES DAILY 06/09/2016 10/06/2016 Inactive hydrocodone 7.5 mg-acetaminophen 325 mg tablet RxNorm: 396602 1 Tablet(s) PO BID 05/17/2016 10/08/2016 Inactive hydrocodone 7.5 mg-acetaminophen 325 mg tablet RxNorm: 899761 1 Tablet(s) PO BID 03/31/2016 05/16/2016 Inactive spironolactone 50 mg tablet RxNorm: 044535 1 Tablet(s) PO daily 03/09/2016 09/04/2016 Inactive Coreg 25 mg tablet RxNorm: 343702 1 Tablet(s) PO BID 201506/20/2016 Inactive gabapentin 600 mg tablet RxNorm: 915147 1.5 Tablet(s) PO TID 06/09/2016 Inactive gabapentin 300 mg capsule RxNorm: 235906 3 Capsule(s) PO TID 02/10/2016 Inactive hydrocodone 7.5 mg-acetaminophen 325 mg tablet RxNorm: 376657 1 Tablet(s) PO BID 01/12/2016 03/30/2016 Inactive prednisone 10 mg tablet RxNorm: 973018 Tablet(s) PO No Start Date Active 6,5,4,3,2 ,1 Fish Oil 360 mg-1,200 mg capsule RxNorm: 096543 3 Capsule(s) PO daily No Start Date Active niacin 500 mg capsule RxNorm: 064111 2 Capsule(s) PO daily No Start Date Active simvastatin 40 mg tablet RxNorm: 356852 1 Tablet(s) PO daily No Start Date Active losartan 50 mg tablet RxNorm: 369843 1 Tablet(s) PO daily No Start Date Active oxybutynin chloride 5 mg tablet RxNorm: 514070 1 Tablet(s) PO BID No Start Date Active PreserVision Lutein oral RxNorm: 954615 oral No Start Date Active aspirin 81 mg tablet RxNorm: 552678 1 Tablet(s) PO daily No Start Date Active spironolactone 50 mg tablet RxNorm: 020536 1 Tablet(s) PO daily No Start Date 03/08/2016 Inactive Coreg 25 mg tablet RxNorm: 072387 1 Tablet(s) PO BID No Start Date 02/21/2016 Inactive Ventolin HFA 90 mcg/actuation aerosol inhaler RxNorm: 740158 1 Puff(s) INH Q4-6H as needed dyspnea No Start Date 2016 Inactive hydrocodone 7.5 mg-acetaminophen 325 mg tablet RxNorm: 513705 1 Tablet(s) PO BID No Start Date 01/11/2016 Inactive albuterol sulfate 2.5 mg/3 mL (0.083 %) solution for nebulization RxNorm: 734034 3 Milliliter(s) INH QID as needed No Start Date 06/08/2017 Inactive gabapentin 300 mg capsule RxNorm: 751877 3 Capsule(s) PO TID No Start Date 02/09/2016 Inactive Vitamin D3 5,000 unit tablet RxNorm: 270492 1 Tablet(s) PO daily No Start Date 08/13/2017 Inactive ibuprofen 200 mg capsule RxNorm: 305118 1 Capsule(s) PO TID No Start Date 01/29/2018 Inactive Medication Administered Medication Codes Instructions Start Date Status Kenalog 40 mg/mL suspension for injection RxNorm: 3407272 1Milliliter 06/05/2017 No longer Active Immunizations No Immunization data Assessments Condition Codes Effective Dates Primary generalized (osteo)arthritis ICD-10: M15.0 ICD-9: 715.09 [...] 30.2 pg 03/08/2018 Cbc With Differential Ord2 Summers% 11.9 % 03/08/2018 Cbc With Differential Ord2 [...] 1.64 K/ul 03/08/2018 Cbc With Differential Ord2 Summers ABS# 1.0 K/ul 03/08/2018 Cbc With Differential [...] Ord30 C/HDL 2.8 Ratio 02/02/2018 Parathyroid Hormone Wmf925 PTH 47.40 pg/ml 02/02/2018 Cbc With Differential Ord2 WBC 12.23 K/ul 02/02/2018 Cbc With Differential Ord2 RBC 4.36 M/ul 02/02/2018 Cbc With Differential Ord2 HGB 13.2 g/dl 02/02/2018 Cbc With Differential Ord2 Neut% 71.8 % 02/02/2018 Cbc With Differential Ord2 HCT 40.9 % 02/02/2018 Cbc With Differential Ord2 MCV 93.8 fl 02/02/2018 Cbc With Differential Ord2 Lymph% 14.1 % 02/02/2018 Cbc With Differential Ord2 MCH 30.3 pg 02/02/2018 Cbc With Differential Ord2 Summers% 10.3 % 02/02/2018 Cbc With Differential Ord2 [...] 1.72 K/ul 02/02/2018 Cbc With Differential Ord2 Summers ABS# 1.3 K/ul 02/02/2018 Cbc With Differential Ord2 Eos ABS# 0.4 K/ul 02/02/2018 Cbc With Differential Ord2 Baso ABS# 0.1 K/ul 02/02/2018 Comp Metabolic Ngw584 NA 139 mEq/L 01/10/2018 Comp Metabolic Gmu686 K 5.1 mEq/L 01/10/2018 Comp Metabolic Vjj716 CL 106 mEq/L 01/10/2018 Comp Metabolic Ufc452 CO2 28.0 mEq/L 01/10/2018 Comp Metabolic Kgy848 ANION GAP 10 01/10/2018 Comp Metabolic Ruk282 GLUCOSE 101 mg/dL 01/10/2018 Comp Metabolic Xql091 Creat 0.9 mg/dL 01/10/2018 Comp Metabolic Nph629 eGFR 64 ml/min/1.73m2 01/10/2018 Comp Metabolic Fln752 BUN 25 mg/dL 01/10/2018 Comp Metabolic Uec307 B/C Ratio 27.8 Ratio 01/10/2018 Comp Metabolic Qki554 CALCIUM 9.9 mg/dL 01/10/2018 Comp Metabolic Ykd960 ALK PHOS 83 U/L 01/10/2018 Comp Metabolic Bny633 AST(SGOT) 17 U/L 01/10/2018 Comp Metabolic Apy000 ALT(SGPT) 18 U/L 01/10/2018 Comp Metabolic Vuz420 BILI T 0.5 mg/dL 01/10/2018 Comp Metabolic Seu442 ALBUMIN 3.9 g/dL 01/10/2018 Comp Metabolic Ein554 TPRO 6.6 g/dL 01/10/2018 Comp Metabolic Nel629 GLOB 2.8 g/dL 01/10/2018 Comp Metabolic Aoq849 A/G Ratio 1.4 Ratio 01/10/2018 Comp Metabolic Aht676 Osmo 282 mOsmo 01/10/2018 Urine Culture Ucult [...] Urinalysis Ord28 U-Yeast NEGATIVE 10/20/2017 Comp Metabolic Iac123 NA 141 mEq/L 07/21/2017 Comp Metabolic Sxq133 K 4.9 mEq/L 07/21/2017 Comp Metabolic Qki082 CL 107 mEq/L 07/21/2017 Comp Metabolic Nhk415 CO2 30.0 mEq/L 07/21/2017 Comp Metabolic Xzx382 ANION GAP 9 07/21/2017 Comp Metabolic Oiz473 GLUCOSE 93 mg/dL 07/21/2017 Comp Metabolic Mmi277 Creat 0.8 mg/dL 07/21/2017 Comp Metabolic Onb682 eGFR 72 ml/min/1.73m2 07/21/2017 Comp Metabolic Ynh915 BUN 22 mg/dL 07/21/2017 Comp Metabolic Vsv431 B/C Ratio 26.8 Ratio 07/21/2017 Comp Metabolic Apl321 CALCIUM 10.2 mg/dL 07/21/2017 Comp Metabolic Qkp929 ALK PHOS 73 U/L 07/21/2017 Comp Metabolic Gwz509 AST(SGOT) 17 U/L 07/21/2017 Comp Metabolic Ngh688 ALT(SGPT) 21 U/L 07/21/2017 Comp Metabolic Egy109 BILI T 0.7 mg/dL 07/21/2017 Comp Metabolic Qod883 ALBUMIN 3.9 g/dL 07/21/2017 Comp Metabolic Pll401 TPRO 7.0 g/dL 07/21/2017 Comp Metabolic Lbg936 GLOB 3.1 g/dL 07/21/2017 Comp Metabolic Oxa090 A/G Ratio 1.3 Ratio 07/21/2017 Comp Metabolic Nzq098 Osmo 284 mOsmo 07/21/2017 Vitamin D 25 Oh Fta6151 VITAMIN D, 25 HYDROXY 37.13 ng/mL Lipid Ord30 CHOL 173 mg/dL 07/21/2017 Lipid Ord30 HDL 69.0 mg/dl 07/21/2017 Lipid Ord30 TRIG 86 mg/dL 07/21/2017 Lipid Ord30 LDL 87 mg/dL 07/21/2017 Lipid Ord30 C/HDL 2.5 Ratio 07/21/2017 Culture Urine [id number] URINE CULTURE SEE NOTES 12/12/2016 Culture Urine [id number] Continued Results 12/12/2016 Urine Culture Ucult Complete >100,000 col/ml aerobic growth sent to ref lab 12/10/2016 Culture Urine [id number] URINE CULTURE SEE NOTES 07/22/2016 Culture Urine [id number] Continued Results 07/22/2016 Urine Culture Ucult Complete [...] 30.2 pg 05/11/2016 Cbc With Differential Ord2 Summers% 12.3 % 05/11/2016 Cbc With Differential Ord2 Eos% 4.8 % 05/11/2016 Cbc With Differential Ord2 MCHC 32.2 pg 05/11/2016 Cbc With Differential Ord2 Baso% 0.4 % 05/11/2016 Cbc With Differential Ord2 PLT 359 K/ul 05/11/2016 Cbc With Differential Ord2 Neut ABS# 6.08 K/ul 05/11/2016 Cbc With Differential Ord2 RDW 14.9 % 05/11/2016 Cbc With Differential Ord2 Lymph ABS# 1.49 K/ul 05/11/2016 Cbc With Differential Ord2 Summers ABS# 1.1 K/ul 05/11/2016 Cbc With Differential Ord2 Eos ABS# 0.4 K/ul 05/11/2016 Cbc With Differential Ord2 Baso ABS# 0.0 K/ul 05/11/2016 Parathyroid Hormone Ppa537 PTH 37.40 pg/ml 05/11/2016 Comp Metabolic Nzi123 NA 141 mEq/L 05/11/2016 Comp Metabolic Ous144 K 4.4 mEq/L 05/11/2016 Comp Metabolic Yru052 CL 110 mEq/L 05/11/2016 Comp Metabolic Hzm291 CO2 26.0 mEq/L 05/11/2016 Comp Metabolic Juz554 ANION GAP 9 05/11/2016 Comp Metabolic Esy529 GLUCOSE 99 mg/dL 05/11/2016 Comp Metabolic Rnz427 Creat 0.9 mg/dL 05/11/2016 Comp Metabolic Lap880 eGFR 69 ml/min/1.73m2 05/11/2016 Comp Metabolic Jbd538 BUN 24 mg/dL 05/11/2016 Comp Metabolic Bwn424 B/C Ratio 28.2 Ratio 05/11/2016 Comp Metabolic Jya020 CALCIUM 10.2 mg/dL 05/11/2016 Comp Metabolic Sdp831 ALK PHOS 67 U/L 05/11/2016 Comp Metabolic Too000 AST(SGOT) 18 U/L 05/11/2016 Comp Metabolic Gou587 ALT(SGPT) 19 U/L 05/11/2016 Comp Metabolic Soj759 BILI T 0.8 mg/dL 05/11/2016 Comp Metabolic Ecn833 ALBUMIN 4.0 g/dL 05/11/2016 Comp Metabolic Rqg903 TPRO 6.6 g/dL 05/11/2016 Comp Metabolic Yhi969 GLOB 2.6 g/dL 05/11/2016 Comp Metabolic Vxk273 A/G Ratio 1.6 Ratio 05/11/2016 Comp Metabolic Wks305 Osmo 285 mOsmo 05/11/2016 Comp Metabolic Qif847 NA 136 mEq/L 01/13/2016 Comp Metabolic Ghx982 K 4.7 mEq/L 01/13/2016 Comp Metabolic Jxe731 CL 106 mEq/L 01/13/2016 Comp Metabolic Pns785 CO2 26.0 mEq/L 01/13/2016 Comp Metabolic Mkg885 ANION GAP 9 01/13/2016 Comp Metabolic Ssn047 GLUCOSE 95 mg/dL 01/13/2016 Comp Metabolic Wwi318 Creat 1.0 mg/dL 01/13/2016 Comp Metabolic Trh107 eGFR 60 ml/min/1.73m2 01/13/2016 Comp Metabolic Juz234 BUN 21 mg/dL 01/13/2016 Comp Metabolic Mai334 B/C Ratio 21.9 Ratio 01/13/2016 Comp Metabolic Zuh510 CALCIUM 9.7 mg/dL 01/13/2016 Comp Metabolic Emn686 ALK PHOS 69 U/L 01/13/2016 Comp Metabolic Fmv445 AST(SGOT) 14 U/L 01/13/2016 Comp Metabolic Afk963 ALT(SGPT) 17 U/L 01/13/2016 Comp Metabolic Xaq616 BILI T 0.6 mg/dL 01/13/2016 Comp Metabolic Vsf352 ALBUMIN 3.6 g/dL 01/13/2016 Comp Metabolic Lyo163 TPRO 6.3 g/dL 01/13/2016 Comp Metabolic Ikj018 GLOB 2.7 g/dL 01/13/2016 Comp Metabolic Hzs956 A/G Ratio 1.4 Ratio 01/13/2016 Comp Metabolic Wbe670 Osmo 275 mOsmo 01/13/2016 Cbc With Differential [...] 95.2 fl 01/13/2016 Cbc With Differential Ord2 Summers% 12.2 % 01/13/2016 Cbc With Differential Ord2 MCH 30.7 pg 01/13/2016 Cbc With Differential Ord2 Eos% 3.8 % 01/13/2016 Cbc With Differential Ord2 MCHC 32.2 pg 01/13/2016 Cbc With Differential Ord2 PLT 315 K/ul 01/13/2016 Cbc With Differential Ord2 Baso% 0.5 % 01/13/2016 Cbc With Differential Ord2 Neut ABS# 6.40 K/ul 01/13/2016 Cbc With Differential Ord2 RDW 14.9 % 01/13/2016 Cbc With Differential Ord2 Lymph ABS# 1.82 K/ul 01/13/2016 Cbc With Differential Ord2 Summers ABS# 1.2 K/ul 01/13/2016 Cbc With Differential [...] Procedure Codes Date THER/PROPH/DIAG INJ SC/IM CPT-4: 06929 06/05/2017 TRIAMCINOLONE ACET INJ NOS CPT-4: J3301 06/05/2017 URINALYSIS NONAUTO W/O SCOPE CPT-4: 56948 12/08/2016 Vital Signs Date Vital 04/02/2018 Blood Pressure 1: 140/76 Code : 8480-6 BMI: 37.5 Code : 18747-5 Heart Rate 1 : 80 bpm Height: 5'3" SpO2: 96% Weight: 215 lbs 01/10/2018 Blood Pressure 1: 144/82 Code : 8480-6 Heart Rate 1: 74 bpm Height: 5'3" SpO2: 94% 10/04/2017 Blood Pressure 1: 142/70 Code : 8480-6 Heart Rate 1: 73 bpm Height: SpO2: 97% Weight: 06/05/2017 Blood Pressure 1: 142/86 Code : 8480-6 BMI: 36.8 Code : 29913-3 Heart Rate 1 : 74 bpm Height: 5'3" SpO2: 96% Weight: 211 lbs 01/19/2017 Blood Pressure 1: 150/88 Code : 8480-6 BMI: 36.1 Code : 29724-3 Heart Rate 1 : 76 bpm Height: 5'3" Weight: 207 lbs 10/05/2016 Blood Pressure 1: 134/80 Code : 8480-6 Heart Rate 1: 60 bpm Height: 5'3" SpO2: 95% Weight: 09/23/2016 Blood Pressure 1: 148/76 Code : 8480-6 BMI: 36.3 Code : 64130-5 Heart Rate 1 : 62 bpm Height: 5'3" SpO2: 98% Weight: 208 lbs 07/27/2016 Blood Pressure 1: 130/66 Code : 8480-6 BMI: 37.8 Code : 97362-7 Heart Rate 1 : 64 bpm Height: 5'3" SpO2: 96% Weight: 217 lbs 07/18/2016 Blood Pressure 1: 134/64 Code : 8480-6 BMI: 37.8 Code : 24790-2 Heart Rate 1 : 66 bpm Height: 5'3" SpO2: 96% Weight: 217 lbs 05/09/2016 Blood Pressure 1: 142/72 Code : 8480-6 BMI: 37.3 Code : 33105-2 Heart Rate 1 : 59 bpm Height: 5'3" SpO2: 96% Weight: 214 lbs 01/12/2016 Blood Pressure 1: 122/64 Code : 8480-6 BMI: 37.3 Code : 39244-4 Heart Rate 1 : 68 bpm Height: [...] data Encounters Encounter Performer Location Codes Date 14106 EST. PATIENT, LEVEL III Diagnosis: Primary generalized (osteo)arthritis[ICD10: M15.0] Diagnosis: Other chronic pain[ICD10: G89.29] [facility] CPT -4: 91626 04/02/2018 04442 EST. PATIENT, LEVEL III Diagnosis: Localized edema[ICD10: R60.0] Diagnosis: Pain in left leg[ICD10: M79.605] [facility] CPT- 4: 55059 01/10/2018 94746 EST. PATIENT, LEVEL III Diagnosis: Pain in left arm[ICD10: M79.602] Diagnosis: Pain in left elbow[ICD10: M25.522] Azra Lopes MD, [facility] CPT-4: 72083 10/04/2017 ([id number]) Miscellaneous no charge Diagnosis: Cough[ICD10: R05] Diagnosis: Shortness of breath[ICD10: R06.02] Azra Lopes MD, [facility] CPT-4: 92892 06/08/2017 35792 EST. PATIENT, LEVEL IV Diagnosis: Acute laryngopharyngitis[ICD10: J06.0] Diagnosis: Other acute sinusitis[ICD10: J01.80] Diagnosis: Cough[ICD10: R05] Diagnosis: Shortness of breath[ICD10: R06.02] Diagnosis: Other chronic pain[ICD10: G89.29] Azra Lopes MD, [facility] CPT -4: 10379 06/05/2017 56079 EST. PATIENT, LEVEL IV Diagnosis: Diverticulitis of large intestine without perforation or abscess without bleeding[ICD10: K57.32] Diagnosis: Left lower quadrant pain[ICD10: R10.32] Azra Lopes MD, [facility] CPT-4: 27199 01/19/2017 00807 EST. PATIENT, LEVEL III Diagnosis: Allergic contact dermatitis due to plants, except food[ICD10: L23.7] Azra Lopes MD, [facility] CPT-4: 45611 10/05/2016 50882 EST. PATIENT, LEVEL III Diagnosis: Low back pain[ICD10: M54.5] Diagnosis: Other chronic pain[ICD10: G89.29] Azra Lopes MD, [facility] CPT -4: 43458 09/23/2016 57361 EST. PATIENT, LEVEL III Diagnosis: Cough[ICD10: R05] Diagnosis: Shortness of breath[ICD10: R06.02] Diagnosis: Cellulitis of right toe[ICD10: L03.031] Diagnosis: Other obesity due to excess calories[ICD10: E66.09] Azra Lopes MD, [facility] CPT-4: 20644 07/27/2016 23682 EST. PATIENT, LEVEL III Diagnosis: Dysuria[ICD10: R30.0] Diagnosis: Low back pain[ICD10: M54.5] Diagnosis: Other chronic pain[ICD10: G89.29] [facility] CPT -4: 86620 07/18/2016 47168 EST. 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 04/02/2018 [phone] [id number] ([facility]) Moderate 04/02/2018 Patient Education: [...] edema. 01/10/2018 [phone] [facility] ([facility]) Moderate 01/10/2018 Patient Education: Patient Medication Summary Completed 01/10/2018 Patient Education: Patient Medication Summary Completed 10/20/2017 Care Plan: MRI JOINT UPR EXTREM W/O DYE LOINC : 24183-7 Pending 10/05/2017 Visit Plan: Left elbow/arm pain [...] improve. 10/04/2017 [phone] [facility] ([facility] min) Moderate 10/04/2017 Patient Education: [...] of over-medication. 06/05/2017 Appointment: [facility] [place] ([facility] min) Moderate 06/05/2017 Patient Education: Patient Medication Summary Completed 06/05/2017 Visit Plan: Diverticulitis - rx for antibiotic sent to pt' s pharmacy - pt advised to avoid seeds, nuts, popcorn, or any other food which has been proven to upset the pt's stomach. 01/19/2017 [facility] [phone] [facility] ([facility] min) Complex 01/19/2017 Patient Education: Patient Medication Summary Completed 01/19/2017 Appointment: Lab Draw 12/08/2016 Patient Education: Patient Medication Summary Completed 12/08/2016 Care Plan: Referral Order SNOMED-CT : [id number] Pending 10/09/2016 Visit Plan: Poison Lorraine - pt is to use topical treatments as directed. Pt is cleanse clothing in hot water with soap, and call if symptoms do not improve or if they worsen. 10/05/2016 [facility]ment: [facility] [phone] [id number] [place] (10 min) Simple 10/05/2016 Patient [...] of over-medication. 09/23/2016 [facility] [phone] [facility] ([facility] min) Moderate 09/23/2016 Patient Education: Patient [...] weight check. 07/27/2016 [facility] [phone] [facility] ([facility] min) Moderate 07/27/2016 Patient Education: Patient Medication Summary Completed 07/27/2016 Patient Education: Obesity Completed 07/27/2016 Care Plan: BMI Above normal followup SELF-MGMT EDUC & TRAIN 1 PT Pending 2016 Care Plan: CHEST X-RAY 2VW FRONTAL&LATL LOINC : 47590-1 Pending 07/27/2016 Visit Plan: UTI - pt [...] of over-medication. 07/18/2016 Appointment: Az[facility] Carter [facility]Ptel[facility] [place] ([facility] Complex 07/18/2016 Patient Education: Patient [...] treatment plan. 05/09/2016 App[facility]ment[facility] [phone] [facility] ([facility] min) Complex 05/09/2016 Patient Education: [...] pain-refill hydrocodone 01/12/2016 Appointment: Lise Bruce WPtel: [address] [place], [place] [phone] New Patient 01/12/2016 Patient Education: Patient Medication Summary Completed 01/12/2016 Patient Education: Obesity Completed 01/12/2016 Care Plan: Referral Order SNOMED-CT : [id number] Pending 01/12/2016 Referral: Rell Pruitt Referral Appointment [...] SIMVASTATIN. WE WILL REFER YOU TO VIA [facility] [place] [facility] GLUCOSAMINE AND CHONDROITIN FOR JOINT [...]
--- OUTSIDE RECORDS SUMMARY | 2018-05-21 15:29 | XMS REPORT | CCD ---
Author Author [facility] Address [address] [place] [address] Phone Care Team Providers Care Cellophane Wrapping Examiner Name Role Phone PP Unavailable CCM Unavailable Summary Purpose Interface Exchange Insurance Providers Payer name Policy type / Coverage type Covered constitution party ID Effective Begin Date Effective End Date WPS Medicare Part B Medicare Part B [id number] Unknown [employer] Medicare Part B [id number] Unknown Family history Mother Diagnosis Age At Onset Hypertension Unknown Anemia Unknown Arthritis Unknown Coronary Artery Disease Unknown Sister Diagnosis Age At Onset Hypertension Unknown Cancer Unknown Brother Diagnosis Age At Onset Depression Unknown Cancer Unknown Hypertension Unknown Social History Social History Element Codes Description Effective Dates Marital status Unknown 01/12/[address]: 909037445 Never smoker 01/12/[address]: 502634358 Never drinks alcohol 01/12/2016 Allergies, Adverse Reactions, [...] Instructions Voltaren 1 % topical gel RxNorm: 637700 1 Application TOP BID 04/02/2018 No Stop Date Active prednisone 20 mg tablet RxNorm: 857575 2 Tablet(s) PO daily 09/201704/06/2018 Active Coreg 25 mg tablet RxNorm: 388027 TAKE 1 TABLET BY MOUTH TWICE DAILY 03/19/2018 No Stop Date Active meloxicam 7.5 mg tablet RxNorm: 111720 1 Tablet(s) PO daily 08/201705/29/2018 Active Keflex 500 mg capsule RxNorm: 920482 1 Capsule(s) PO TID 201702/18/2018 Inactive Keflex 500 mg capsule RxNorm: 594880 1 Capsule(s) PO TID 201702/25/2018 Inactive Cipro 500 mg tablet RxNorm: 212140 1 Tablet(s) PO BID 201702/12/2018 Inactive Cipro 500 mg tablet RxNorm: 750317 1 Tablet(s) PO BID 201702/16/2018 Inactive gabapentin 600 mg tablet RxNorm: 253954 TAKE 1 & 1/2 (ONE & ONE-HALF) TABLETS BY MOUTH THREE TIMES DAILY 02/05/2018 No Stop Date Active meloxicam 7.5 mg tablet RxNorm: 644692 1 Tablet(s) PO daily 09/201701/30/2018 Inactive meloxicam 7.5 mg tablet RxNorm: 613211 1 Tablet(s) PO daily 09/201702/28/2018 Inactive spironolactone 50 mg tablet RxNorm: 282528 TAKE 1 TABLET BY MOUTH ONCE DAILY 01/22/2018 No Stop Date Active potassium chloride ER 10 mEq tablet,extended release RxNorm: 245973 1 Tablet(s) PO daily 01/10/2018 No Stop Date Active Lasix 20 mg tablet RxNorm: 013975 1 Tablet(s) PO daily 2017 No Stop Date Active spironolactone 50 mg tablet RxNorm: 834772 TAKE ONE TABLET BY MOUTH ONCE DAILY 10/30/2017 01/21/2018 Inactive Bactrim DS 800 mg-160 mg tablet RxNorm: 420769 1 Tablet(s) PO BID 10/20/2017 10/19/2017 Inactive Bactrim DS 800 mg-160 mg tablet RxNorm: 147790 1 Tablet(s) PO BID 10/20/2017 10/19/2017 Inactive Bactrim DS 800 mg-160 mg tablet RxNorm: 160964 1 Tablet(s) PO BID 10/20/2017 10/26/2017 Inactive hydrocodone 7.5 mg-acetaminophen 325 mg tablet RxNorm: 387709 1 Tablet(s) PO Q4- 6H as needed 10/11/2017 No Stop Date Active Coreg 25 mg tablet RxNorm: 356767 TAKE ONE TABLET BY MOUTH TWICE DAILY 09/27/2017 03/18/2018 Inactive gabapentin 300 mg capsule RxNorm: 750871 TAKE ONE & ONE-HALF TABLETS BY MOUTH THREE TIMES DAILY 07/31/2017 No Stop Date Active gabapentin 600 mg tablet RxNorm: 428332 1.5 Tablet(s) PO TID 01/26/2018 Inactive Keflex 500 mg capsule RxNorm: 831118 1 Capsule(s) PO TID 201706/16/2017 Inactive albuterol sulfate 2.5 mg/3 mL (0.083 %) solution for nebulization RxNorm: 277084 3 Milliliter(s) INH QID as needed 06/09/2017 No Stop Date Active prednisone 10 mg tablet RxNorm: 962971 Tablet(s) PO 06/08/2017 No Stop Date Active 6, 5,4,3,2,1 Keflex 500 mg capsule RxNorm: 822684 1 Capsule(s) PO TID 201706/13/2017 Inactive Zithromax Z-Duran 250 mg tablet RxNorm: 385909 1 Tablet(s) PO UD 06/05/2017 11/08/2017 Inactive Tessalon Perles 100 mg capsule RxNorm: 818975 1-2 Capsule(s) PO TID as needed cough 06/05/2017 06/09/2017 Inactive Please check mast before filling for pt, if too expensive pt does not want it Kenalog 40 mg/mL suspension for injection RxNorm: 4714282 1 Milliliter(s) Inj 06/05/2017 06/05/2017 Inactive Coreg 25 mg tablet RxNorm: 834418 TAKE ONE TABLET BY MOUTH TWICE DAILY 05/30/2017 09/26/2017 Inactive gabapentin 300 mg capsule RxNorm: 112565 TAKE ONE & ONE-HALF TABLETS BY MOUTH THREE TIMES DAILY 05/30/2017 07/30/2017 Inactive gabapentin 300 mg capsule RxNorm: 900486 TAKE ONE & ONE-HALF TABLETS BY MOUTH THREE TIMES DAILY 02/01/2017 05/29/2017 Inactive Coreg 25 mg tablet RxNorm: 999575 TAKE ONE TABLET BY MOUTH TWICE DAILY 02/01/2017 05/29/2017 Inactive Cipro 500 mg tablet RxNorm: 002469 1 Tablet(s) PO BID 201601/28/2017 Inactive Flagyl 500 mg tablet RxNorm: 964199 1 Tablet(s) PO TID 201601/28/2017 Inactive Coreg 25 mg tablet RxNorm: 523413 TAKE ONE TABLET BY MOUTH TWICE DAILY 01/02/2017 01/31/2017 Inactive hydrocodone 7.5 mg-acetaminophen 325 mg tablet RxNorm: 552857 1 Tablet(s) PO Q4- 6H as needed 12/08/2016 10/10/2017 Inactive Keflex 500 mg capsule RxNorm: 126506 1 Capsule(s) PO TID 201612/14/2016 Inactive spironolactone 50 mg tablet RxNorm: 054853 TAKE ONE TABLET BY MOUTH ONCE DAILY 11/25/2016 03/24/2017 Inactive gabapentin 300 mg capsule RxNorm: 990984 TAKE ONE & ONE-HALF TABLETS BY MOUTH THREE TIMES DAILY 10/07/2016 01/31/2017 Inactive prednisone 10 mg tablet RxNorm: 559319 Tablet(s) PO 10/05/2016 06/07/2017 Inactive 6, 5,4,3,2,1 hydrocodone 7.5 mg-acetaminophen 325 mg tablet RxNorm: 517963 1 Tablet(s) PO Q4- 6H 09/23/2016 12/07/2016 Inactive Coreg 25 mg tablet RxNorm: 233297 TAKE ONE TABLET BY MOUTH TWICE DAILY 09/08/2016 01/01/2017 Inactive Ventolin HFA 90 mcg/actuation aerosol inhaler RxNorm: 455165 1 Puff(s) INH Q4-6H as needed dyspnea 07/29/2016 No Stop Date Active hydrocodone 10 mg-acetaminophen 325 mg tablet RxNorm: 310015 1/2 Tablet(s) PO TID 07/18/2016 08/16/2016 Inactive Pyridium 100 mg tablet RxNorm: 4575601 1-2 Tablet(s) PO TID as needed 07/18/2016 07/19/2016 Inactive Bactrim DS 800 mg-160 mg tablet RxNorm: 713648 1 Tablet(s) PO BID 07/18/2016 07/27/2016 Inactive Coreg 25 mg tablet RxNorm: 684144 TAKE ONE TABLET BY MOUTH TWICE DAILY 07/07/2016 09/04/2016 Inactive gabapentin 300 mg capsule RxNorm: 370197 TAKE ONE & ONE-HALF TABLETS BY MOUTH THREE TIMES DAILY 06/09/2016 10/06/2016 Inactive hydrocodone 7.5 mg-acetaminophen 325 mg tablet RxNorm: 523894 1 Tablet(s) PO BID 05/17/2016 10/08/2016 Inactive hydrocodone 7.5 mg-acetaminophen 325 mg tablet RxNorm: 093422 1 Tablet(s) PO BID 03/31/2016 05/16/2016 Inactive spironolactone 50 mg tablet RxNorm: 995602 1 Tablet(s) PO daily 03/09/2016 09/04/2016 Inactive Coreg 25 mg tablet RxNorm: 909860 1 Tablet(s) PO BID 201506/20/2016 Inactive gabapentin 600 mg tablet RxNorm: 080839 1.5 Tablet(s) PO TID 06/09/2016 Inactive gabapentin 300 mg capsule RxNorm: 424698 3 Capsule(s) PO TID 02/10/2016 Inactive hydrocodone 7.5 mg-acetaminophen 325 mg tablet RxNorm: 906077 1 Tablet(s) PO BID 01/12/2016 03/30/2016 Inactive prednisone 10 mg tablet RxNorm: 380118 Tablet(s) PO No Start Date Active 6,5,4,3,2 ,1 Fish Oil 360 mg-1,200 mg capsule RxNorm: 369617 3 Capsule(s) PO daily No Start Date Active niacin 500 mg capsule RxNorm: 040432 2 Capsule(s) PO daily No Start Date Active simvastatin 40 mg tablet RxNorm: 978057 1 Tablet(s) PO daily No Start Date Active losartan 50 mg tablet RxNorm: 655089 1 Tablet(s) PO daily No Start Date Active oxybutynin chloride 5 mg tablet RxNorm: 299644 1 Tablet(s) PO BID No Start Date Active PreserVision Lutein oral RxNorm: 233510 oral No Start Date Active aspirin 81 mg tablet RxNorm: 359690 1 Tablet(s) PO daily No Start Date Active spironolactone 50 mg tablet RxNorm: 254243 1 Tablet(s) PO daily No Start Date 03/08/2016 Inactive Coreg 25 mg tablet RxNorm: 485676 1 Tablet(s) PO BID No Start Date 02/21/2016 Inactive Ventolin HFA 90 mcg/actuation aerosol inhaler RxNorm: 980665 1 Puff(s) INH Q4-6H as needed dyspnea No Start Date 2016 Inactive hydrocodone 7.5 mg-acetaminophen 325 mg tablet RxNorm: 599939 1 Tablet(s) PO BID No Start Date 01/11/2016 Inactive albuterol sulfate 2.5 mg/3 mL (0.083 %) solution for nebulization RxNorm: 569007 3 Milliliter(s) INH QID as needed No Start Date 06/08/2017 Inactive gabapentin 300 mg capsule RxNorm: 452334 3 Capsule(s) PO TID No Start Date 02/09/2016 Inactive Vitamin D3 5,000 unit tablet RxNorm: 092931 1 Tablet(s) PO daily No Start Date 08/13/2017 Inactive ibuprofen 200 mg capsule RxNorm: 363491 1 Capsule(s) PO TID No Start Date 01/29/2018 Inactive Medication Administered Medication Codes Instructions Start Date Status Kenalog 40 mg/mL suspension for injection RxNorm: 4484556 1Milliliter 06/05/2017 No longer Active Immunizations No [...] 30.2 pg 03/08/2018 Cbc With Differential Ord2 Anderson% 11.9 % 03/08/2018 Cbc With Differential Ord2 [...] 1.64 K/ul 03/08/2018 Cbc With Differential Ord2 Anderson ABS# 1.0 K/ul 03/08/2018 Cbc With Differential [...] Ord30 C/HDL 2.8 Ratio 02/02/2018 Parathyroid Hormone Vdq774 PTH 47.40 pg/ml 02/02/2018 Cbc With Differential [...] 30.3 pg 02/02/2018 Cbc With Differential Ord2 Anderson% 10.3 % 02/02/2018 Cbc With Differential Ord2 [...] 1.72 K/ul 02/02/2018 Cbc With Differential Ord2 Anderson ABS# 1.3 K/ul 02/02/2018 Cbc With Differential Ord2 Eos ABS# 0.4 K/ul 02/02/2018 Cbc With Differential Ord2 Baso ABS# 0.1 K/ul 02/02/2018 Comp Metabolic Jee537 NA 139 mEq/L 01/10/2018 Comp Metabolic Jql030 K 5.1 mEq/L 01/10/2018 Comp Metabolic Qjh485 CL 106 mEq/L 01/10/2018 Comp Metabolic Vgb846 CO2 28.0 mEq/L 01/10/2018 Comp Metabolic Sgr966 ANION GAP 10 01/10/2018 Comp Metabolic Txt712 GLUCOSE 101 mg/dL 01/10/2018 Comp Metabolic Vde381 Creat 0.9 mg/dL 01/10/2018 Comp Metabolic Wet803 eGFR 64 ml/min/1.73m2 01/10/2018 Comp Metabolic Gyz740 BUN 25 mg/dL 01/10/2018 Comp Metabolic Dee530 B/C Ratio 27.8 Ratio 01/10/2018 Comp Metabolic Nel869 CALCIUM 9.9 mg/dL 01/10/2018 Comp Metabolic Hte367 ALK PHOS 83 U/L 01/10/2018 Comp Metabolic Jhl550 AST(SGOT) 17 U/L 01/10/2018 Comp Metabolic Uuz380 ALT(SGPT) 18 U/L 01/10/2018 Comp Metabolic Cpi761 BILI T 0.5 mg/dL 01/10/2018 Comp Metabolic Uaf208 ALBUMIN 3.9 g/dL 01/10/2018 Comp Metabolic Ktl017 TPRO 6.6 g/dL 01/10/2018 Comp Metabolic Asu330 GLOB 2.8 g/dL 01/10/2018 Comp Metabolic Gid530 A/G Ratio 1.4 Ratio 01/10/2018 Comp Metabolic Pvr681 Osmo 282 mOsmo 01/10/2018 Urine Culture Ucult [...] Urinalysis Ord28 U-Yeast NEGATIVE 10/20/2017 Comp Metabolic Pzy462 NA 141 mEq/L 07/21/2017 Comp Metabolic Akc236 K 4.9 mEq/L 07/21/2017 Comp Metabolic Wia412 CL 107 mEq/L 07/21/2017 Comp Metabolic Fxt327 CO2 30.0 mEq/L 07/21/2017 Comp Metabolic Lht515 ANION GAP 9 07/21/2017 Comp Metabolic Gzw099 GLUCOSE 93 mg/dL 07/21/2017 Comp Metabolic Edz751 Creat 0.8 mg/dL 07/21/2017 Comp Metabolic Ryv369 eGFR 72 ml/min/1.73m2 07/21/2017 Comp Metabolic Jfb921 BUN 22 mg/dL 07/21/2017 Comp Metabolic Bes272 B/C Ratio 26.8 Ratio 07/21/2017 Comp Metabolic Tso589 CALCIUM 10.2 mg/dL 07/21/2017 Comp Metabolic Chj867 ALK PHOS 73 U/L 07/21/2017 Comp Metabolic Xzq969 AST(SGOT) 17 U/L 07/21/2017 Comp Metabolic Sfh252 ALT(SGPT) 21 U/L 07/21/2017 Comp Metabolic Xuo167 BILI T 0.7 mg/dL 07/21/2017 Comp Metabolic Xko874 ALBUMIN 3.9 g/dL 07/21/2017 Comp Metabolic Amn682 TPRO 7.0 g/dL 07/21/2017 Comp Metabolic Dkg593 GLOB 3.1 g/dL 07/21/2017 Comp Metabolic Kvl807 A/G Ratio 1.3 Ratio 07/21/2017 Comp Metabolic Ufu282 Osmo 284 mOsmo 07/21/2017 Vitamin D 25 Oh Bly0821 VITAMIN D, 25 HYDROXY 37.13 ng/mL Lipid Ord30 CHOL 173 mg/dL 07/21/2017 Lipid Ord30 HDL 69.0 mg/dl 07/21/2017 Lipid Ord30 TRIG 86 mg/dL 07/21/2017 Lipid Ord30 LDL 87 mg/dL 07/21/2017 Lipid Ord30 C/HDL 2.5 Ratio 07/21/2017 Culture Urine [id number] URINE CULTURE SEE NOTES 12/12/2016 Culture Urine [id number] Continued Results 12/12/2016 Urine Culture Ucult Complete >100,000 col/ml aerobic growth sent to ref lab 12/10/2016 Culture Urine [id number] URINE CULTURE SEE NOTES 07/22/2016 Culture Urine [id number] Continued Results 07/22/2016 Urine Culture Ucult Complete [...] 30.2 pg 05/11/2016 Cbc With Differential Ord2 Anderson% 12.3 % 05/11/2016 Cbc With Differential Ord2 [...] 1.49 K/ul 05/11/2016 Cbc With Differential Ord2 Anderson ABS# 1.1 K/ul 05/11/2016 Cbc With Differential Ord2 Eos ABS# 0.4 K/ul 05/11/2016 Cbc With Differential Ord2 Baso ABS# 0.0 K/ul 05/11/2016 Parathyroid Hormone Ulx165 PTH 37.40 pg/ml 05/11/2016 Comp Metabolic Mej759 NA 141 mEq/L 05/11/2016 Comp Metabolic Zkz628 K 4.4 mEq/L 05/11/2016 Comp Metabolic Mfn606 CL 110 mEq/L 05/11/2016 Comp Metabolic Nxr009 CO2 26.0 mEq/L 05/11/2016 Comp Metabolic Hin218 ANION GAP 9 05/11/2016 Comp Metabolic Pvs403 GLUCOSE 99 mg/dL 05/11/2016 Comp Metabolic Rog908 Creat 0.9 mg/dL 05/11/2016 Comp Metabolic Fsk387 eGFR 69 ml/min/1.73m2 05/11/2016 Comp Metabolic Egh054 BUN 24 mg/dL 05/11/2016 Comp Metabolic Sli800 B/C Ratio 28.2 Ratio 05/11/2016 Comp Metabolic Coy537 CALCIUM 10.2 mg/dL 05/11/2016 Comp Metabolic Wcf101 ALK PHOS 67 U/L 05/11/2016 Comp Metabolic Wos177 AST(SGOT) 18 U/L 05/11/2016 Comp Metabolic Rdr809 ALT(SGPT) 19 U/L 05/11/2016 Comp Metabolic Jar957 BILI T 0.8 mg/dL 05/11/2016 Comp Metabolic Nnc442 ALBUMIN 4.0 g/dL 05/11/2016 Comp Metabolic Vwg798 TPRO 6.6 g/dL 05/11/2016 Comp Metabolic Tal278 GLOB 2.6 g/dL 05/11/2016 Comp Metabolic Anw417 A/G Ratio 1.6 Ratio 05/11/2016 Comp Metabolic Ltq365 Osmo 285 mOsmo 05/11/2016 Comp Metabolic Vwt796 NA 136 mEq/L 01/13/2016 Comp Metabolic Frm255 K 4.7 mEq/L 01/13/2016 Comp Metabolic Eyb471 CL 106 mEq/L 01/13/2016 Comp Metabolic Gbj055 CO2 26.0 mEq/L 01/13/2016 Comp Metabolic Elc308 ANION GAP 9 01/13/2016 Comp Metabolic Dnx030 GLUCOSE 95 mg/dL 01/13/2016 Comp Metabolic Nph038 Creat 1.0 mg/dL 01/13/2016 Comp Metabolic Ujp661 eGFR 60 ml/min/1.73m2 01/13/2016 Comp Metabolic Ore157 BUN 21 mg/dL 01/13/2016 Comp Metabolic Egg275 B/C Ratio 21.9 Ratio 01/13/2016 Comp Metabolic Jjt445 CALCIUM 9.7 mg/dL 01/13/2016 Comp Metabolic Bdz553 ALK PHOS 69 U/L 01/13/2016 Comp Metabolic Llw178 AST(SGOT) 14 U/L 01/13/2016 Comp Metabolic Tdz685 ALT(SGPT) 17 U/L 01/13/2016 Comp Metabolic Kuk977 BILI T 0.6 mg/dL 01/13/2016 Comp Metabolic Ohb477 ALBUMIN 3.6 g/dL 01/13/2016 Comp Metabolic Ktq175 TPRO 6.3 g/dL 01/13/2016 Comp Metabolic Wtg048 GLOB 2.7 g/dL 01/13/2016 Comp Metabolic Fbl466 A/G Ratio 1.4 Ratio 01/13/2016 Comp Metabolic Vms568 Osmo 275 mOsmo 01/13/2016 Cbc With Differential [...] 95.2 fl 01/13/2016 Cbc With Differential Ord2 Anderson% 12.2 % 01/13/2016 Cbc With Differential Ord2 [...] 1.82 K/ul 01/13/2016 Cbc With Differential Ord2 Anderson ABS# 1.2 K/ul 01/13/2016 Cbc With Differential [...] Procedure Codes Date THER/PROPH/DIAG INJ SC/IM CPT-4: 57420 06/05/2017 TRIAMCINOLONE ACET INJ NOS CPT-4: J3301 06/05/2017 URINALYSIS NONAUTO W/O SCOPE CPT-4: 35006 12/08/2016 Vital Signs Date Vital 04/02/2018 Blood Pressure 1: 140/76 Code : 8480-6 BMI: 37.5 Code : 21923-7 Heart Rate 1 : 80 bpm Height: 5'3" SpO2: 96% Weight: 215 lbs 01/10/2018 Blood Pressure 1: 144/82 Code : 8480-6 Heart Rate 1: 74 bpm Height: 5'3" SpO2: 94% 10/04/2017 Blood Pressure 1: 142/70 Code : 8480-6 Heart Rate 1: 73 bpm Height: SpO2: 97% Weight: 06/05/2017 Blood Pressure 1: 142/86 Code : 8480-6 BMI: 36.8 Code : 24593-3 Heart Rate 1 : 74 bpm Height: 5'3" SpO2: 96% Weight: 211 lbs 01/19/2017 Blood Pressure 1: 150/88 Code : 8480-6 BMI: 36.1 Code : 76181-3 Heart Rate 1 : 76 bpm Height: 5'3" Weight: 207 lbs 10/05/2016 Blood Pressure 1: 134/80 Code : 8480-6 Heart Rate 1: 60 bpm Height: 5'3" SpO2: 95% Weight: 09/23/2016 Blood Pressure 1: 148/76 Code : 8480-6 BMI: 36.3 Code : 11015-1 Heart Rate 1 : 62 bpm Height: 5'3" SpO2: 98% Weight: 208 lbs 07/27/2016 Blood Pressure 1: 130/66 Code : 8480-6 BMI: 37.8 Code : 89459-0 Heart Rate 1 : 64 bpm Height: 5'3" SpO2: 96% Weight: 217 lbs 07/18/2016 Blood Pressure 1: 134/64 Code : 8480-6 BMI: 37.8 Code : 96250-2 Heart Rate 1 : 66 bpm Height: 5'3" SpO2: 96% Weight: 217 lbs 05/09/2016 Blood Pressure 1: 142/72 Code : 8480-6 BMI: 37.3 Code : 60619-7 Heart Rate 1 : 59 bpm Height: 5'3" SpO2: 96% Weight: 214 lbs 01/12/2016 Blood Pressure 1: 122/64 Code : 8480-6 BMI: 37.3 Code : 25504-8 Heart Rate 1 : 68 bpm Height: [...] data Encounters Encounter Performer Location Codes Date 01739 EST. PATIENT, LEVEL III Diagnosis: Primary generalized (osteo)arthritis[ICD10: M15.0] Diagnosis: Other chronic pain[ICD10: G89.29] [facility] CPT -4: 07774 04/02/2018 30280 EST. PATIENT, LEVEL III Diagnosis: Localized edema[ICD10: R60.0] Diagnosis: Pain in left leg[ICD10: M79.605] [facility] CPT- 4: 47705 01/10/2018 17709 EST. PATIENT, LEVEL III Diagnosis: Pain in left arm[ICD10: M79.602] Diagnosis: Pain in left elbow[ICD10: M25.522] Azra Lopse MD, [facility] CPT-4: 48925 10/04/2017 ([id number]) Miscellaneous no charge Diagnosis: Cough[ICD10: R05] Diagnosis: Shortness of breath[ICD10: R06.02] Azra Lopes MD, [facility] CPT-4: 21799 06/08/2017 86415 EST. PATIENT, LEVEL IV Diagnosis: Acute laryngopharyngitis[ICD10: J06.0] Diagnosis: Other acute sinusitis[ICD10: J01.80] Diagnosis: Cough[ICD10: R05] Diagnosis: Shortness of breath[ICD10: R06.02] Diagnosis: Other chronic pain[ICD10: G89.29] Azra Lopes MD, [facility] CPT -4: 94277 06/05/2017 84277 EST. PATIENT, LEVEL IV Diagnosis: Diverticulitis of large intestine without perforation or abscess without bleeding[ICD10: K57.32] Diagnosis: Left lower quadrant pain[ICD10: R10.32] Azra Lopes MD, [facility] CPT-4: 22885 01/19/2017 38232 EST. PATIENT, LEVEL III Diagnosis: Allergic contact dermatitis due to plants, except food[ICD10: L23.7] Azra Lopes MD, [facility] CPT-4: 79682 10/05/2016 22701 EST. PATIENT, LEVEL III Diagnosis: Low back pain[ICD10: M54.5] Diagnosis: Other chronic pain[ICD10: G89.29] Azra Lopes MD, [facility] CPT -4: 07410 09/23/2016 84803 EST. PATIENT, LEVEL III Diagnosis: Cough[ICD10: R05] Diagnosis: Shortness of breath[ICD10: R06.02] Diagnosis: Cellulitis of right toe[ICD10: L03.031] Diagnosis: Other obesity due to excess calories[ICD10: E66.09] Azra Lopes MD, [facility] CPT-4: 97202 07/27/2016 16350 EST. PATIENT, LEVEL III Diagnosis: Dysuria[ICD10: R30.0] Diagnosis: Low back pain[ICD10: M54.5] Diagnosis: Other chronic pain[ICD10: G89.29] [facility] CPT -4: 53086 07/18/2016 47383 EST. 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] [facility] CPT-4: 29544 05/09/2016 ([id number]) I Fecal Occult Blood Diagnosis: Encounter for screening for malignant neoplasm of colon[ICD10: Z12.11 ] [facility] CPT-4: [id number] 2015 ([id number]) OFFICE VISIT, NEW - LEVEL 4 Diagnosis: Essential (primary) hypertension[ICD10: I10] Diagnosis: Mixed hyperlipidemia[ICD10: E78.2] Diagnosis: Melena[ICD10: K92.1] Diagnosis: Low back pain[ICD10: M54.5] [facility] CPT-4: 72701 01/12/2016 Plan of Care Planned Activity Notes Codes Status Date Care Plan: Referral Order SNOMED-CT : 443997731 Pending 04/03/2018 Visit Plan: Arthritis - worsening - will [...] management. 04/02/2018 [facility]ment[phone] [facility] [place] (15 min) Moderate 04/02/2018 Patient Education: Patient [...] edema. 01/10/2018 Appointment: [phone] [facility] [place] (15 min) Moderate 01/10/2018 Patient Education: Patient Medication Summary Completed 01/10/2018 Patient Education: Patient Medication Summary Completed 10/20/2017 Care Plan: MRI JOINT UPR EXTREM W/O DYE LOINC : 47548-0 Pending 10/05/2017 Visit Plan: Left elbow/arm pain [...] not improve. 10/04/2017 Appointment: [phone] [facility] [place] (15 min) Moderate 10/04/2017 Patient [...] of over-medication. 06/05/2017 Appointment: [facility] [phone] [facility] (15 min) Moderate 06/05/2017 Patient Education: Patient Medication Summary Completed 06/05/2017 Visit Plan: Diverticulitis - rx for antibiotic sent to pt' s pharmacy - pt advised to avoid seeds, nuts, popcorn, or any other food which has been proven to upset the pt's stomach. 01/19/2017 Appointment: Azra Carter WPtel: [facility] (30 min) Complex 01/19/2017 Patient Education: Patient Medication Summary Completed 01/19/2017 Appointment: Lab Draw 12/08/2016 Patient Education: Patient Medication Summary Completed 12/08/2016 Care Plan: Referral Order SNOMED-CT : [id number] Pending 10/09/2016 Visit Plan: Poison Lorraine - pt is to use topical treatments as directed. Pt is cleanse clothing in hot water with soap, and call if symptoms do not improve or if they worsen. 10/05/2016 Appointment: [facility]el[facility] [phone] [facility] [place] (10 min) Simple 10/05/2016 Patient [...] of over-medication. 09/23/2016 Appointment: [facility] [phone] [facility] (15 min) Moderate 09/23/2016 Patient Education: [...] weight check. 07/27/2016 Appointment: [facility] [phone] [facility] (15 min) Moderate 07/27/2016 Patient Education: Patient Medication Summary Completed 07/27/2016 Patient Education: Obesity Completed 07/27/2016 Care Plan: BMI Above normal followup SELF-MGMT EDUC & TRAIN 1 PT Pending 2016 Care Plan: CHEST X-RAY 2VW FRONTAL&LATL LOINC : 38215-4 Pending 07/27/2016 Visit Plan: UTI - pt [...] of over-medication. 07/18/2016 Appointment: Azra Carter WPtel: [facility] (30 min) Complex 07/18/2016 Patient Education: Patient [...] treatment plan. 05/09/2016 Appointment: Azra Carter WPtel: [facility] (30 min) Complex 05/09/2016 Patient Education: [...] pain-refill hydrocodone 01/12/2016 Appointment: Lise Bruce WPtel[facility] New Patient 01/12/2016 Patient Education: Patient Medication Summary Completed 01/12/2016 Patient Education: Obesity Completed 01/12/2016 Care Plan: Referral Order SNOMED-CT : [id number] Pending 01/12/2016 Referral: Rell Pruitt Referral Appointment [...] SIMVASTATIN. WE WILL REFER YOU TO [facility] PHYSICAL THERAPY GLUCOSAMINE AND CHONDROITIN FOR JOINT [...]
[2018-05-21] MEDS ORDERED: DEXAMETHASONE 10 MG/ML (DECADRON) 1 ML VIAL IM ONE (15:30)
--- OUTSIDE RECORDS SUMMARY | 2018-05-21 15:31 | XMS REPORT | CCD ---
Author Author [facility] Address [address] [place] [address] Phone Care Team Providers Care Dressmaker Or Tailor Name Role Phone PP Unavailable CCM Unavailable Summary Purpose Interface Exchange Insurance Providers Payer name Policy type / Coverage type Covered constitution party ID Effective Begin Date Effective End Date WPS Medicare Part B Medicare Part B [id number] Unknown [place] [employer] Life Insurance Medicare Part B [id number] Unknown Family history Mother Diagnosis Age At Onset Hypertension Unknown Anemia Unknown Arthritis Unknown Coronary Artery Disease Unknown Sister Diagnosis Age At Onset Hypertension Unknown Cancer Unknown Brother Diagnosis Age At Onset Depression Unknown Cancer Unknown Hypertension Unknown Social History Social History Element Codes Description Effective Dates Marital status Unknown 01/12/[address]: 406610537 Never smoker 01/12/[address]: 635239991 Never drinks alcohol 01/12/2016 Allergies, Adverse Reactions, [...] Instructions Voltaren 1 % topical gel RxNorm: 125319 1 Application TOP BID 04/02/2018 No Stop Date Active prednisone 20 mg tablet RxNorm: 461795 2 Tablet(s) PO daily 09/201704/06/2018 Active Coreg 25 mg tablet RxNorm: 844262 TAKE 1 TABLET BY MOUTH TWICE DAILY 03/19/2018 No Stop Date Active meloxicam 7.5 mg tablet RxNorm: 690627 1 Tablet(s) PO daily 08/201705/29/2018 Active Keflex 500 mg capsule RxNorm: 584887 1 Capsule(s) PO TID 201702/18/2018 Inactive Keflex 500 mg capsule RxNorm: 506924 1 Capsule(s) PO TID 201702/25/2018 Inactive Cipro 500 mg tablet RxNorm: 920588 1 Tablet(s) PO BID 201702/12/2018 Inactive Cipro 500 mg tablet RxNorm: 802291 1 Tablet(s) PO BID 201702/16/2018 Inactive gabapentin 600 mg tablet RxNorm: 614377 TAKE 1 & 1/2 (ONE & ONE-HALF) TABLETS BY MOUTH THREE TIMES DAILY 02/05/2018 No Stop Date Active meloxicam 7.5 mg tablet RxNorm: 790141 1 Tablet(s) PO daily 09/201701/30/2018 Inactive meloxicam 7.5 mg tablet RxNorm: 313817 1 Tablet(s) PO daily 09/201702/28/2018 Inactive spironolactone 50 mg tablet RxNorm: 461824 TAKE 1 TABLET BY MOUTH ONCE DAILY 01/22/2018 No Stop Date Active potassium chloride ER 10 mEq tablet,extended release RxNorm: 755635 1 Tablet(s) PO daily 01/10/2018 No Stop Date Active Lasix 20 mg tablet RxNorm: 841727 1 Tablet(s) PO daily 2017 No Stop Date Active spironolactone 50 mg tablet RxNorm: 501783 TAKE ONE TABLET BY MOUTH ONCE DAILY 10/30/2017 01/21/2018 Inactive Bactrim DS 800 mg-160 mg tablet RxNorm: 741743 1 Tablet(s) PO BID 10/20/2017 10/19/2017 Inactive Bactrim DS 800 mg-160 mg tablet RxNorm: 481345 1 Tablet(s) PO BID 10/20/2017 10/19/2017 Inactive Bactrim DS 800 mg-160 mg tablet RxNorm: 573065 1 Tablet(s) PO BID 10/20/2017 10/26/2017 Inactive hydrocodone 7.5 mg-acetaminophen 325 mg tablet RxNorm: 446344 1 Tablet(s) PO Q4- 6H as needed 10/11/2017 No Stop Date Active Coreg 25 mg tablet RxNorm: 421370 TAKE ONE TABLET BY MOUTH TWICE DAILY 09/27/2017 03/18/2018 Inactive gabapentin 300 mg capsule RxNorm: 050727 TAKE ONE & ONE-HALF TABLETS BY MOUTH THREE TIMES DAILY 07/31/2017 No Stop Date Active gabapentin 600 mg tablet RxNorm: 017606 1.5 Tablet(s) PO TID 01/26/2018 Inactive Keflex 500 mg capsule RxNorm: 706405 1 Capsule(s) PO TID 201706/16/2017 Inactive albuterol sulfate 2.5 mg/3 mL (0.083 %) solution for nebulization RxNorm: 903656 3 Milliliter(s) INH QID as needed 06/09/2017 No Stop Date Active prednisone 10 mg tablet RxNorm: 095120 Tablet(s) PO 06/08/2017 No Stop Date Active 6, 5,4,3,2,1 Keflex 500 mg capsule RxNorm: 529427 1 Capsule(s) PO TID 201706/13/2017 Inactive Zithromax Z-Duran 250 mg tablet RxNorm: 861088 1 Tablet(s) PO UD 06/05/2017 11/08/2017 Inactive Tessalon Perles 100 mg capsule RxNorm: 018949 1-2 Capsule(s) PO TID as needed cough 06/05/2017 06/09/2017 Inactive Please check mast before filling for pt, if too expensive pt does not want it Kenalog 40 mg/mL suspension for injection RxNorm: 3425347 1 Milliliter(s) Inj 06/05/2017 06/05/2017 Inactive Coreg 25 mg tablet RxNorm: 060731 TAKE ONE TABLET BY MOUTH TWICE DAILY 05/30/2017 09/26/2017 Inactive gabapentin 300 mg capsule RxNorm: 277026 TAKE ONE & ONE-HALF TABLETS BY MOUTH THREE TIMES DAILY 05/30/2017 07/30/2017 Inactive gabapentin 300 mg capsule RxNorm: 355965 TAKE ONE & ONE-HALF TABLETS BY MOUTH THREE TIMES DAILY 02/01/2017 05/29/2017 Inactive Coreg 25 mg tablet RxNorm: 392144 TAKE ONE TABLET BY MOUTH TWICE DAILY 02/01/2017 05/29/2017 Inactive Cipro 500 mg tablet RxNorm: 864136 1 Tablet(s) PO BID 201601/28/2017 Inactive Flagyl 500 mg tablet RxNorm: 393427 1 Tablet(s) PO TID 201601/28/2017 Inactive Coreg 25 mg tablet RxNorm: 427911 TAKE ONE TABLET BY MOUTH TWICE DAILY 01/02/2017 01/31/2017 Inactive hydrocodone 7.5 mg-acetaminophen 325 mg tablet RxNorm: 129820 1 Tablet(s) PO Q4- 6H as needed 12/08/2016 10/10/2017 Inactive Keflex 500 mg capsule RxNorm: 421369 1 Capsule(s) PO TID 201612/14/2016 Inactive spironolactone 50 mg tablet RxNorm: 864037 TAKE ONE TABLET BY MOUTH ONCE DAILY 11/25/2016 03/24/2017 Inactive gabapentin 300 mg capsule RxNorm: 351890 TAKE ONE & ONE-HALF TABLETS BY MOUTH THREE TIMES DAILY 10/07/2016 01/31/2017 Inactive prednisone 10 mg tablet RxNorm: 062265 Tablet(s) PO 10/05/2016 06/07/2017 Inactive 6, 5,4,3,2,1 hydrocodone 7.5 mg-acetaminophen 325 mg tablet RxNorm: 602727 1 Tablet(s) PO Q4- 6H 09/23/2016 12/07/2016 Inactive Coreg 25 mg tablet RxNorm: 246552 TAKE ONE TABLET BY MOUTH TWICE DAILY 09/08/2016 01/01/2017 Inactive Ventolin HFA 90 mcg/actuation aerosol inhaler RxNorm: 060780 1 Puff(s) INH Q4-6H as needed dyspnea 07/29/2016 No Stop Date Active hydrocodone 10 mg-acetaminophen 325 mg tablet RxNorm: 700349 1/2 Tablet(s) PO TID 07/18/2016 08/16/2016 Inactive Pyridium 100 mg tablet RxNorm: 5554875 1-2 Tablet(s) PO TID as needed 07/18/2016 07/19/2016 Inactive Bactrim DS 800 mg-160 mg tablet RxNorm: 012753 1 Tablet(s) PO BID 07/18/2016 07/27/2016 Inactive Coreg 25 mg tablet RxNorm: 405895 TAKE ONE TABLET BY MOUTH TWICE DAILY 07/07/2016 09/04/2016 Inactive gabapentin 300 mg capsule RxNorm: 583829 TAKE ONE & ONE-HALF TABLETS BY MOUTH THREE TIMES DAILY 06/09/2016 10/06/2016 Inactive hydrocodone 7.5 mg-acetaminophen 325 mg tablet RxNorm: 540945 1 Tablet(s) PO BID 05/17/2016 10/08/2016 Inactive hydrocodone 7.5 mg-acetaminophen 325 mg tablet RxNorm: 345488 1 Tablet(s) PO BID 03/31/2016 05/16/2016 Inactive spironolactone 50 mg tablet RxNorm: 019280 1 Tablet(s) PO daily 03/09/2016 09/04/2016 Inactive Coreg 25 mg tablet RxNorm: 081713 1 Tablet(s) PO BID 201506/20/2016 Inactive gabapentin 600 mg tablet RxNorm: 357436 1.5 Tablet(s) PO TID 06/09/2016 Inactive gabapentin 300 mg capsule RxNorm: 281059 3 Capsule(s) PO TID 02/10/2016 Inactive hydrocodone 7.5 mg-acetaminophen 325 mg tablet RxNorm: 878950 1 Tablet(s) PO BID 01/12/2016 03/30/2016 Inactive prednisone 10 mg tablet RxNorm: 779064 Tablet(s) PO No Start Date Active 6,5,4,3,2 ,1 Fish Oil 360 mg-1,200 mg capsule RxNorm: 011746 3 Capsule(s) PO daily No Start Date Active niacin 500 mg capsule RxNorm: 814627 2 Capsule(s) PO daily No Start Date Active simvastatin 40 mg tablet RxNorm: 369862 1 Tablet(s) PO daily No Start Date Active losartan 50 mg tablet RxNorm: 454863 1 Tablet(s) PO daily No Start Date Active oxybutynin chloride 5 mg tablet RxNorm: 823866 1 Tablet(s) PO BID No Start Date Active PreserVision Lutein oral RxNorm: 489411 oral No Start Date Active aspirin 81 mg tablet RxNorm: 738151 1 Tablet(s) PO daily No Start Date Active spironolactone 50 mg tablet RxNorm: 932155 1 Tablet(s) PO daily No Start Date 03/08/2016 Inactive Coreg 25 mg tablet RxNorm: 195387 1 Tablet(s) PO BID No Start Date 02/21/2016 Inactive Ventolin HFA 90 mcg/actuation aerosol inhaler RxNorm: 890351 1 Puff(s) INH Q4-6H as needed dyspnea No Start Date 2016 Inactive hydrocodone 7.5 mg-acetaminophen 325 mg tablet RxNorm: 369295 1 Tablet(s) PO BID No Start Date 01/11/2016 Inactive albuterol sulfate 2.5 mg/3 mL (0.083 %) solution for nebulization RxNorm: 001817 3 Milliliter(s) INH QID as needed No Start Date 06/08/2017 Inactive gabapentin 300 mg capsule RxNorm: 162167 3 Capsule(s) PO TID No Start Date 02/09/2016 Inactive Vitamin D3 5,000 unit tablet RxNorm: 689523 1 Tablet(s) PO daily No Start Date 08/13/2017 Inactive ibuprofen 200 mg capsule RxNorm: 952188 1 Capsule(s) PO TID No Start Date 01/29/2018 Inactive Medication Administered Medication Codes Instructions Start Date Status Kenalog 40 mg/mL suspension for injection RxNorm: 9668489 1Milliliter 06/05/2017 No longer Active Immunizations No [...] 30.2 pg 03/08/2018 Cbc With Differential Ord2 [facility]% 11.9 % 03/08/2018 Cbc With Differential Ord2 [...] 1.64 K/ul 03/08/2018 Cbc With Differential Ord2 [facility] ABS# 1.0 K/ul 03/08/2018 Cbc With Differential [...] Ord30 C/HDL 2.8 Ratio 02/02/2018 Parathyroid Hormone Phd372 PTH 47.40 pg/ml 02/02/2018 Cbc With Differential [...] 14.1 % 02/02/2018 Cbc With Differential Ord2 [facility]% 10.3 % 02/02/2018 Cbc With Differential Ord2 MCH 30.3 pg 02/02/2018 Cbc With Differential Ord2 Eos% 3.4 % 02/02/2018 Cbc With Differential Ord2 MCHC 32.3 pg 02/02/2018 Cbc With Differential Ord2 Baso% 0.4 % 02/02/2018 Cbc With Differential Ord2 PLT 344 K/ul 02/02/2018 Cbc With Differential Ord2 Neut ABS# 8.78 K/ul 02/02/2018 Cbc With Differential Ord2 RDW 14.4 % 02/02/2018 Cbc With Differential Ord2 Lymph ABS# 1.72 K/ul 02/02/2018 Cbc With Differential Ord2 [facility] ABS# 1.3 K/ul 02/02/2018 Cbc With Differential Ord2 Eos ABS# 0.4 K/ul 02/02/2018 Cbc With Differential Ord2 Baso ABS# 0.1 K/ul 02/02/2018 Comp Metabolic Kqk236 NA 139 mEq/L 01/10/2018 Comp Metabolic Ruz327 K 5.1 mEq/L 01/10/2018 Comp Metabolic Eji764 CL 106 mEq/L 01/10/2018 Comp Metabolic Gab119 CO2 28.0 mEq/L 01/10/2018 Comp Metabolic Kji776 ANION GAP 10 01/10/2018 Comp Metabolic Jzm660 GLUCOSE 101 mg/dL 01/10/2018 Comp Metabolic Rza424 Creat 0.9 mg/dL 01/10/2018 Comp Metabolic Tdj868 eGFR 64 ml/min/1.73m2 01/10/2018 Comp Metabolic Sqx295 BUN 25 mg/dL 01/10/2018 Comp Metabolic Jov285 B/C Ratio 27.8 Ratio 01/10/2018 Comp Metabolic Gnv841 CALCIUM 9.9 mg/dL 01/10/2018 Comp Metabolic Mln854 ALK PHOS 83 U/L 01/10/2018 Comp Metabolic Gnm664 AST(SGOT) 17 U/L 01/10/2018 Comp Metabolic Une880 ALT(SGPT) 18 U/L 01/10/2018 Comp Metabolic Vzz614 BILI T 0.5 mg/dL 01/10/2018 Comp Metabolic Kth255 ALBUMIN 3.9 g/dL 01/10/2018 Comp Metabolic Pbj934 TPRO 6.6 g/dL 01/10/2018 Comp Metabolic Xpu800 GLOB 2.8 g/dL 01/10/2018 Comp Metabolic Bqa752 A/G Ratio 1.4 Ratio 01/10/2018 Comp Metabolic Lqe059 Osmo 282 mOsmo 01/10/2018 Urine Culture Ucult [...] Urinalysis Ord28 U-Yeast NEGATIVE 10/20/2017 Comp Metabolic Ego837 NA 141 mEq/L 07/21/2017 Comp Metabolic Vmb851 K 4.9 mEq/L 07/21/2017 Comp Metabolic Hou259 CL 107 mEq/L 07/21/2017 Comp Metabolic Kkp119 CO2 30.0 mEq/L 07/21/2017 Comp Metabolic Gmy936 ANION GAP 9 07/21/2017 Comp Metabolic Jgq067 GLUCOSE 93 mg/dL 07/21/2017 Comp Metabolic Xoe968 Creat 0.8 mg/dL 07/21/2017 Comp Metabolic Kaj379 eGFR 72 ml/min/1.73m2 07/21/2017 Comp Metabolic Gyn038 BUN 22 mg/dL 07/21/2017 Comp Metabolic Mlv536 B/C Ratio 26.8 Ratio 07/21/2017 Comp Metabolic Lpc434 CALCIUM 10.2 mg/dL 07/21/2017 Comp Metabolic Few882 ALK PHOS 73 U/L 07/21/2017 Comp Metabolic Djz589 AST(SGOT) 17 U/L 07/21/2017 Comp Metabolic Vsw343 ALT(SGPT) 21 U/L 07/21/2017 Comp Metabolic Deq577 BILI T 0.7 mg/dL 07/21/2017 Comp Metabolic Irh840 ALBUMIN 3.9 g/dL 07/21/2017 Comp Metabolic Rgr275 TPRO 7.0 g/dL 07/21/2017 Comp Metabolic Wez590 GLOB 3.1 g/dL 07/21/2017 Comp Metabolic Fdm827 A/G Ratio 1.3 Ratio 07/21/2017 Comp Metabolic Aqn032 Osmo 284 mOsmo 07/21/2017 Vitamin D 25 Oh Mkm1827 VITAMIN D, 25 HYDROXY 37.13 ng/mL Lipid Ord30 CHOL 173 mg/dL 07/21/2017 Lipid Ord30 HDL 69.0 mg/dl 07/21/2017 Lipid Ord30 TRIG 86 mg/dL 07/21/2017 Lipid Ord30 LDL 87 mg/dL 07/21/2017 Lipid Ord30 C/HDL 2.5 Ratio 07/21/2017 Culture Urine [id number] URINE CULTURE SEE NOTES 12/12/2016 Culture Urine [id number] Continued Results 12/12/2016 Urine Culture Ucult Complete >100,000 col/ml aerobic growth sent to ref lab 12/10/2016 Culture Urine [id number] URINE CULTURE SEE NOTES 07/22/2016 Culture Urine [id number] Continued Results 07/22/2016 Urine Culture Ucult Complete [...] 94.0 fl 05/11/2016 Cbc With Differential Ord2 [facility]% 12.3 % 05/11/2016 Cbc With Differential Ord2 MCH 30.2 pg 05/11/2016 Cbc With Differential Ord2 MCHC 32.2 pg 05/11/2016 Cbc With Differential Ord2 Eos% 4.8 % 05/11/2016 Cbc With Differential Ord2 Baso% 0.4 % 05/11/2016 Cbc With Differential Ord2 PLT 359 K/ul 05/11/2016 Cbc With Differential Ord2 RDW 14.9 % 05/11/2016 Cbc With Differential Ord2 Neut ABS# 6.08 K/ul 05/11/2016 Cbc With Differential Ord2 Lymph ABS# 1.49 K/ul 05/11/2016 Cbc With Differential Ord2 [facility] ABS# 1.1 K/ul 05/11/2016 Cbc With Differential Ord2 Eos ABS# 0.4 K/ul 05/11/2016 Cbc With Differential Ord2 Baso ABS# 0.0 K/ul 05/11/2016 Parathyroid Hormone Slt320 PTH 37.40 pg/ml 05/11/2016 Comp Metabolic Ouj937 NA 141 mEq/L 05/11/2016 Comp Metabolic Aox375 K 4.4 mEq/L 05/11/2016 Comp Metabolic Ams275 CL 110 mEq/L 05/11/2016 Comp Metabolic Ags367 CO2 26.0 mEq/L 05/11/2016 Comp Metabolic Enz862 ANION GAP 9 05/11/2016 Comp Metabolic Vfi871 GLUCOSE 99 mg/dL 05/11/2016 Comp Metabolic Sof694 Creat 0.9 mg/dL 05/11/2016 Comp Metabolic Qta781 eGFR 69 ml/min/1.73m2 05/11/2016 Comp Metabolic Ohd252 BUN 24 mg/dL 05/11/2016 Comp Metabolic Clo049 B/C Ratio 28.2 Ratio 05/11/2016 Comp Metabolic Ugg037 CALCIUM 10.2 mg/dL 05/11/2016 Comp Metabolic Jgs257 ALK PHOS 67 U/L 05/11/2016 Comp Metabolic Kxh163 AST(SGOT) 18 U/L 05/11/2016 Comp Metabolic Okl858 ALT(SGPT) 19 U/L 05/11/2016 Comp Metabolic Vij666 BILI T 0.8 mg/dL 05/11/2016 Comp Metabolic Avc956 ALBUMIN 4.0 g/dL 05/11/2016 Comp Metabolic Fek235 TPRO 6.6 g/dL 05/11/2016 Comp Metabolic Yri015 GLOB 2.6 g/dL 05/11/2016 Comp Metabolic Xki703 A/G Ratio 1.6 Ratio 05/11/2016 Comp Metabolic Uzd492 Osmo 285 mOsmo 05/11/2016 Comp Metabolic Ple003 NA 136 mEq/L 01/13/2016 Comp Metabolic Wff727 K 4.7 mEq/L 01/13/2016 Comp Metabolic Dpt989 CL 106 mEq/L 01/13/2016 Comp Metabolic Dhn555 CO2 26.0 mEq/L 01/13/2016 Comp Metabolic Frz239 ANION GAP 9 01/13/2016 Comp Metabolic Saj108 GLUCOSE 95 mg/dL 01/13/2016 Comp Metabolic Lal808 Creat 1.0 mg/dL 01/13/2016 Comp Metabolic Yzc910 eGFR 60 ml/min/1.73m2 01/13/2016 Comp Metabolic Aqv777 BUN 21 mg/dL 01/13/2016 Comp Metabolic Hed674 B/C Ratio 21.9 Ratio 01/13/2016 Comp Metabolic Dly079 CALCIUM 9.7 mg/dL 01/13/2016 Comp Metabolic Lnc080 ALK PHOS 69 U/L 01/13/2016 Comp Metabolic Lof780 AST(SGOT) 14 U/L 01/13/2016 Comp Metabolic Rov965 ALT(SGPT) 17 U/L 01/13/2016 Comp Metabolic Stv639 BILI T 0.6 mg/dL 01/13/2016 Comp Metabolic Zng277 ALBUMIN 3.6 g/dL 01/13/2016 Comp Metabolic Kyo544 TPRO 6.3 g/dL 01/13/2016 Comp Metabolic Avt122 GLOB 2.7 g/dL 01/13/2016 Comp Metabolic Txe917 A/G Ratio 1.4 Ratio 01/13/2016 Comp Metabolic Quz632 Osmo 275 mOsmo 01/13/2016 Cbc With Differential [...] 30.7 pg 01/13/2016 Cbc With Differential Ord2 [facility]% 12.2 % 01/13/2016 Cbc With Differential Ord2 [...] 1.82 K/ul 01/13/2016 Cbc With Differential Ord2 [facility] ABS# 1.2 K/ul 01/13/2016 Cbc With Differential [...] Procedure Codes Date THER/PROPH/DIAG INJ SC/IM CPT-4: 68124 06/05/2017 TRIAMCINOLONE ACET INJ NOS CPT-4: J3301 06/05/2017 URINALYSIS NONAUTO W/O SCOPE CPT-4: 69978 12/08/2016 Vital Signs Date Vital 04/02/2018 Blood Pressure 1: 140/76 Code : 8480-6 BMI: 37.5 Code : 24142-8 Heart Rate 1 : 80 bpm Height: 5'3" SpO2: 96% Weight: 215 lbs 01/10/2018 Blood Pressure 1: 144/82 Code : 8480-6 Heart Rate 1: 74 bpm Height: 5'3" SpO2: 94% 10/04/2017 Blood Pressure 1: 142/70 Code : 8480-6 Heart Rate 1: 73 bpm Height: SpO2: 97% Weight: 06/05/2017 Blood Pressure 1: 142/86 Code : 8480-6 BMI: 36.8 Code : 76772-2 Heart Rate 1 : 74 bpm Height: 5'3" SpO2: 96% Weight: 211 lbs 01/19/2017 Blood Pressure 1: 150/88 Code : 8480-6 BMI: 36.1 Code : 69157-4 Heart Rate 1 : 76 bpm Height: 5'3" Weight: 207 lbs 10/05/2016 Blood Pressure 1: 134/80 Code : 8480-6 Heart Rate 1: 60 bpm Height: 5'3" SpO2: 95% Weight: 09/23/2016 Blood Pressure 1: 148/76 Code : 8480-6 BMI: 36.3 Code : 22238-6 Heart Rate 1 : 62 bpm Height: 5'3" SpO2: 98% Weight: 208 lbs 07/27/2016 Blood Pressure 1: 130/66 Code : 8480-6 BMI: 37.8 Code : 50841-6 Heart Rate 1 : 64 bpm Height: 5'3" SpO2: 96% Weight: 217 lbs 07/18/2016 Blood Pressure 1: 134/64 Code : 8480-6 BMI: 37.8 Code : 90449-9 Heart Rate 1 : 66 bpm Height: 5'3" SpO2: 96% Weight: 217 lbs 05/09/2016 Blood Pressure 1: 142/72 Code : 8480-6 BMI: 37.3 Code : 11121-4 Heart Rate 1 : 59 bpm Height: 5'3" SpO2: 96% Weight: 214 lbs 01/12/2016 Blood Pressure 1: 122/64 Code : 8480-6 BMI: 37.3 Code : 66692-3 Heart Rate 1 : 68 bpm Height: [...] data Encounters Encounter Performer Location Codes Date 38537 EST. PATIENT, LEVEL III Diagnosis: Primary generalized (osteo)arthritis[ICD10: M15.0] Diagnosis: Other chronic pain[ICD10: G89.29] [facility] CPT -4: 05902 04/02/2018 40167 EST. PATIENT, LEVEL III Diagnosis: Localized edema[ICD10: R60.0] Diagnosis: Pain in left leg[ICD10: M79.605] [facility] CPT- 4: 62568 01/10/2018 45998 EST. PATIENT, LEVEL III Diagnosis: Pain in left arm[ICD10: M79.602] Diagnosis: Pain in left elbow[ICD10: M25.522] Azra Lopes MD, [facility] CPT-4: 51059 10/04/2017 ([id number]) Miscellaneous no charge Diagnosis: Cough[ICD10: R05] Diagnosis: Shortness of breath[ICD10: R06.02] Azra Lopes MD, [facility] CPT-4: 09250 06/08/2017 02413 EST. PATIENT, LEVEL IV Diagnosis: Acute laryngopharyngitis[ICD10: J06.0] Diagnosis: Other acute sinusitis[ICD10: J01.80] Diagnosis: Cough[ICD10: R05] Diagnosis: Shortness of breath[ICD10: R06.02] Diagnosis: Other chronic pain[ICD10: G89.29] Azra Lopes MD, [facility] CPT -4: 84715 06/05/2017 00604 EST. PATIENT, LEVEL IV Diagnosis: Diverticulitis of large intestine without perforation or abscess without bleeding[ICD10: K57.32] Diagnosis: Left lower quadrant pain[ICD10: R10.32] Azra Lopes MD, [facility] CPT-4: 67485 01/19/2017 59346 EST. PATIENT, LEVEL III Diagnosis: Allergic contact dermatitis due to plants, except food[ICD10: L23.7] Azra Lopes MD, [facility] CPT-4: 82734 10/05/2016 73158 EST. PATIENT, LEVEL III Diagnosis: Low back pain[ICD10: M54.5] Diagnosis: Other chronic pain[ICD10: G89.29] Azra Lopes MD, [facility] CPT -4: 30279 09/23/2016 33766 EST. PATIENT, LEVEL III Diagnosis: Cough[ICD10: R05] Diagnosis: Shortness of breath[ICD10: R06.02] Diagnosis: Cellulitis of right toe[ICD10: L03.031] Diagnosis: Other obesity due to excess calories[ICD10: E66.09] Azra Lopes MD, [facility] CPT-4: 60458 07/27/2016 55637 EST. PATIENT, LEVEL III Diagnosis: Dysuria[ICD10: R30.0] Diagnosis: Low back pain[ICD10: M54.5] Diagnosis: Other chronic pain[ICD10: G89.29] Azra Lopes MD, [facility] CPT -4: 01474 07/18/2016 30462 EST. 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 04/02/2018 Appointment: Azra Carter [place]Ptel[place] [facility] [place] [facility] [facility] (15 min) Moderate 04/02/2018 Patient Education: Patient [...] peripheral edema. 01/10/2018 Appointment: Azra Carter WPtel: [address] [place], [place] [id number] (15 min) Moderate 01/10/2018 Patient Education: Patient Medication Summary Completed 01/10/2018 Patient Education: Patient Medication Summary Completed 10/20/2017 Care Plan: [facility] Pending 10/05/2017 Visit Plan: Left elbow/arm pain [...] not improve. 10/04/2017 Appointment: Azra Carter WPtel: [facility] [place] [facility] [facility] (15 min) Moderate 10/04/2017 Patient Education: Patient [...] of over-medication. 06/05/2017 Appointment: Azra Carter WPtel: [facility] [place] [facility] [facility] (15 min) Moderate 06/05/2017 Patient Education: Patient Medication Summary Completed 06/05/2017 Visit Plan: Diverticulitis - rx for antibiotic sent to pt' s pharmacy - pt advised to avoid seeds, nuts, popcorn, or any other food which has been proven to upset the pt's stomach. 01/19/2017 Appointment: Azra Carter WPtel: [facility] [place] [facility] [facility] [place] (30 min) Complex 01/19/2017 Patient Education: Patient Medication Summary Completed 01/19/2017 Appointment: Lab Draw 12/08/2016 Patient Education: Patient Medication Summary Completed 12/08/2016 Care Plan: Referral Order SNOMED-CT : [id number] Pending 10/09/2016 Visit Plan: Poison [place] - pt is to use topical treatments as directed. Pt is cleanse clothing in hot water with soap, and call if symptoms do not improve or if they worsen. 10/05/2016 Appointment: Azra Carter WPtel: [facility] [place] [facility] [facility] [place] (10 min) Simple 10/05/2016 Patient Education: [...] over-medication. 09/23/2016 Appointment: Azra Carter WPtel: [phone] [facility] [place] (15 min) Moderate 09/23/2016 Patient Education: [...] weight check. 07/27/2016 Appointment: Azra Carter WPtel: [address] [place], [place] [phone] (15 min) Moderate 07/27/2016 Patient Education: Patient Medication Summary Completed 07/27/2016 Patient Education: Obesity Completed 07/27/2016 Care Plan: BMI Above normal followup SELF-MGMT EDUC & TRAIN 1 PT Pending 2016 Care Plan: CHEST X-RAY 2VW FRONTAL&LATL LOINC : 06229-1 Pending 07/27/2016 Visit Plan: UTI - pt [...] of over-medication. 07/18/2016 Appointment: Az[facility] Carter [facility]el: [phone] [facility] (30 min) Complex 07/18/2016 Patient Education: Patient [...] plan. 05/09/2016 Appointment: Az[facility] Carter [facility]Ptel: [phone] [facility] (30 min) Complex 05/09/2016 Patient Education: Patient [...] Low back pain-refill hydrocodone 01/12/2016 Appointment: Lise [facility]etel: [phone] [phone] New Patient 01/12/2016 Patient Education: Patient Medication Summary Completed 01/12/2016 Patient Education: Obesity Completed 01/12/2016 Care Plan: Referral Order SNOMED-CT : [id number] Pending 01/12/2016 Referral: Rell Pruitt Referral Appointment Requested Referral: [facility] WPtel: Referral [...]
--- OUTSIDE RECORDS SUMMARY | 2018-05-21 15:32 | XMS REPORT | CCD ---
Author Author Lise Bruce MD, [facility] Address [address] [place] [address] Phone Care Team Providers Care Skidder Name Role Phone PP Unavailable CCM Unavailable Summary Purpose Interface Exchange Insurance Providers Payer name Policy type / Coverage type Covered republican ID Effective Begin Date Effective End Date WPS Medicare Part B Medicare Part B [id number] Unknown [place] Detention Life Insurance Medicare Part B [id number] Unknown Family history Mother Diagnosis Age At Onset Hypertension Unknown Anemia Unknown Arthritis Unknown Coronary Artery Disease Unknown Sister Diagnosis Age At Onset Hypertension Unknown Cancer Unknown Brother Diagnosis Age At Onset Depression Unknown Cancer Unknown Hypertension Unknown Social History Social History Element Codes Description Effective Dates Marital status Unknown 01/12/[address]: 735105017 Never smoker 01/12/[address]: 773758256 Never drinks alcohol 01/12/2016 Allergies, Adverse Reactions, Alerts Substance Reaction Codes Entered Date Inactivated Date Status * OTHER REACTION - SEE ANSWER [facility] [employer] Unknown 2015 No Inactive Date Active Past Medical History Illness Codes Condition Status Onset Date Resolved Date Localized edema ICD-9 : 782.3 ICD-10: R60.0 [...] ICD-9: 461.8 ICD-10: J01.80 Active 06/05/2017 Unknown Other chronic pain ICD -9: 338.29 ICD-10: G89.29 Active 07/18/2016 Unknown Diverticulitis of large intestine without perforation or abscess without bleeding ICD-9: 562.11 ICD-10: K57.32 Active 01/19/2017 Unknown Left lower quadrant pain ICD-9: 789.04 ICD-10: R10.32 Active 01/19/2017 Unknown Dysuria ICD-9: 788.1 ICD-10: R30.0 Active 07/18/2016 Unknown Allergic contact dermatitis due to plants, [...] Unknown Diverticular disease Unknown Active 01/12/2016 Unknown Essential (primary) hypertension ICD-9: 401.9 ICD-10: I10 Active 01/11/2016 Unknown Melena ICD-9: 578.1 ICD-10: K92.1 Active 01/11/2016 Unknown Mixed hyperlipidemia ICD-9: 272.2 ICD-10: E78.2 Active 01/11/2016 Unknown Problems Condition Codes Effective Dates Condition Status Localized edema ICD-9 : 782.3 ICD-10: R60.0 [...] sinusitis ICD-9: 461.8 ICD-10: J01.80 06/05/2017 Active Other chronic pain ICD -9: 338.29 ICD-10: G89.29 07/18/2016 Active Diverticulitis of large intestine without perforation or abscess without bleeding ICD-9: 562.11 ICD-10: K57.32 01/19/2017 Active Left lower quadrant pain ICD-9: 789.04 ICD-10: R10.32 01/19/2017 Active Dysuria ICD-9: 788.1 ICD-10: R30.0 07/18/2016 Active Allergic contact dermatitis due to plants, [...] 01/17/2016 Active Diverticular disease Unknown 01/12/2016 Active Essential (primary) hypertension ICD-9: 401.9 ICD-10: I10 01/11/2016 Active Melena ICD-9: 578.1 ICD-10: K92.1 01/11/2016 Active Mixed hyperlipidemia ICD-9: 272.2 ICD-10: E78.2 01/11/2016 Active Medications Medication Codes Instructions Start Date Stop Date Status Fill Instructions potassium chloride ER 10 mEq tablet,extended release RxNorm: 113873 1 Tablet(s) PO daily 01/10/2018 No Stop Date Active Lasix 20 mg tablet RxNorm: 644125 1 Tablet(s) PO daily 2017 No Stop Date Active spironolactone 50 mg tablet RxNorm: 020616 TAKE ONE TABLET BY MOUTH ONCE DAILY 10/30/2017 No Stop Date Active Bactrim DS 800 mg-160 mg tablet RxNorm: 992158 1 Tablet(s) PO BID 10/20/2017 10/19/2017 Inactive Bactrim DS 800 mg-160 mg tablet RxNorm: 505768 1 Tablet(s) PO BID 10/20/2017 10/19/2017 Inactive Bactrim DS 800 mg-160 mg tablet RxNorm: 967248 1 Tablet(s) PO BID 10/20/2017 10/26/2017 Inactive hydrocodone 7.5 mg-acetaminophen 325 mg tablet RxNorm: 235975 1 Tablet(s) PO Q4- 6H as needed 10/11/2017 No Stop Date Active Coreg 25 mg tablet RxNorm: 930113 TAKE ONE TABLET BY MOUTH TWICE DAILY 09/27/2017 No Stop Date Active gabapentin 600 mg tablet RxNorm: 449366 1.5 Tablet(s) PO TID 01/26/2018 Active gabapentin 300 mg capsule RxNorm: 085962 TAKE ONE & ONE-HALF TABLETS BY MOUTH THREE TIMES DAILY 07/31/2017 No Stop Date Active Keflex 500 mg capsule RxNorm: 393016 1 Capsule(s) PO TID 201706/16/2017 Inactive albuterol sulfate 2.5 mg/3 mL (0.083 %) solution for nebulization RxNorm: 438107 3 Milliliter(s) INH QID as needed 06/09/2017 No Stop Date Active prednisone 10 mg tablet RxNorm: 310047 Tablet(s) PO 06/08/2017 No Stop Date Active 6, 5,4,3,2,1 Keflex 500 mg capsule RxNorm: 248641 1 Capsule(s) PO TID 201706/13/2017 Inactive Zithromax Z-Duran 250 mg tablet RxNorm: 298218 1 Tablet(s) PO UD 06/05/2017 11/08/2017 Inactive Tessalon Perles 100 mg capsule RxNorm: 895101 1-2 Capsule(s) PO TID as needed cough 06/05/2017 06/09/2017 Inactive Please check mast before filling for pt, if too expensive pt does not want it Kenalog 40 mg/mL suspension for injection RxNorm: 6832905 1 Milliliter(s) Inj 06/05/2017 06/05/2017 Inactive Coreg 25 mg tablet RxNorm: 888214 TAKE ONE TABLET BY MOUTH TWICE DAILY 05/30/2017 09/26/2017 Inactive gabapentin 300 mg capsule RxNorm: 683745 TAKE ONE & ONE-HALF TABLETS BY MOUTH THREE TIMES DAILY 05/30/2017 07/30/2017 Inactive gabapentin 300 mg capsule RxNorm: 978216 TAKE ONE & ONE-HALF TABLETS BY MOUTH THREE TIMES DAILY 02/01/2017 05/29/2017 Inactive Coreg 25 mg tablet RxNorm: 083956 TAKE ONE TABLET BY MOUTH TWICE DAILY 02/01/2017 05/29/2017 Inactive Cipro 500 mg tablet RxNorm: 816119 1 Tablet(s) PO BID 201601/28/2017 Inactive Flagyl 500 mg tablet RxNorm: 897364 1 Tablet(s) PO TID 201601/28/2017 Inactive Coreg 25 mg tablet RxNorm: 148392 TAKE ONE TABLET BY MOUTH TWICE DAILY 01/02/2017 01/31/2017 Inactive hydrocodone 7.5 mg-acetaminophen 325 mg tablet RxNorm: 824124 1 Tablet(s) PO Q4- 6H as needed 12/08/2016 10/10/2017 Inactive Keflex 500 mg capsule RxNorm: 155951 1 Capsule(s) PO TID 201612/14/2016 Inactive spironolactone 50 mg tablet RxNorm: 382561 TAKE ONE TABLET BY MOUTH ONCE DAILY 11/25/2016 03/24/2017 Inactive gabapentin 300 mg capsule RxNorm: 587746 TAKE ONE & ONE-HALF TABLETS BY MOUTH THREE TIMES DAILY 10/07/2016 01/31/2017 Inactive prednisone 10 mg tablet RxNorm: 235264 Tablet(s) PO 10/05/2016 06/07/2017 Inactive 6, 5,4,3,2,1 hydrocodone 7.5 mg-acetaminophen 325 mg tablet RxNorm: 805706 1 Tablet(s) PO Q4- 6H 09/23/2016 12/07/2016 Inactive Coreg 25 mg tablet RxNorm: 216231 TAKE ONE TABLET BY MOUTH TWICE DAILY 09/08/2016 01/01/2017 Inactive Ventolin HFA 90 mcg/actuation aerosol inhaler RxNorm: 855964 1 Puff(s) INH Q4-6H as needed dyspnea 07/29/2016 No Stop Date Active hydrocodone 10 mg-acetaminophen 325 mg tablet RxNorm: 272733 1/2 Tablet(s) PO TID 07/18/2016 08/16/2016 Inactive Pyridium 100 mg tablet RxNorm: 1221729 1-2 Tablet(s) PO TID as needed 07/18/2016 07/19/2016 Inactive Bactrim DS 800 mg-160 mg tablet RxNorm: 420053 1 Tablet(s) PO BID 07/18/2016 07/27/2016 Inactive Coreg 25 mg tablet RxNorm: 919814 TAKE ONE TABLET BY MOUTH TWICE DAILY 07/07/2016 09/04/2016 Inactive gabapentin 300 mg capsule RxNorm: 496044 TAKE ONE & ONE-HALF TABLETS BY MOUTH THREE TIMES DAILY 06/09/2016 10/06/2016 Inactive hydrocodone 7.5 mg-acetaminophen 325 mg tablet RxNorm: 032602 1 Tablet(s) PO BID 05/17/2016 10/08/2016 Inactive hydrocodone 7.5 mg-acetaminophen 325 mg tablet RxNorm: 479283 1 Tablet(s) PO BID 03/31/2016 05/16/2016 Inactive spironolactone 50 mg tablet RxNorm: 957062 1 Tablet(s) PO daily 03/09/2016 09/04/2016 Inactive Coreg 25 mg tablet RxNorm: 799341 1 Tablet(s) PO BID 201506/20/2016 Inactive gabapentin 600 mg tablet RxNorm: 993221 1.5 Tablet(s) PO TID 06/09/2016 Inactive gabapentin 300 mg capsule RxNorm: 526130 3 Capsule(s) PO TID 02/10/2016 Inactive hydrocodone 7.5 mg-acetaminophen 325 mg tablet RxNorm: 820485 1 Tablet(s) PO BID 01/12/2016 03/30/2016 Inactive prednisone 10 mg tablet RxNorm: 227681 Tablet(s) PO No Start Date Active 6,5,4,3,2 ,1 Fish Oil 360 mg-1,200 mg capsule RxNorm: 256279 3 Capsule(s) PO daily No Start Date Active niacin 500 mg capsule RxNorm: 838507 2 Capsule(s) PO daily No Start Date Active simvastatin 40 mg tablet RxNorm: 241649 1 Tablet(s) PO daily No Start Date Active losartan 50 mg tablet RxNorm: 115617 1 Tablet(s) PO daily No Start Date Active ibuprofen 200 mg capsule RxNorm: 477608 1 Capsule(s) PO TID No Start Date Active oxybutynin chloride 5 mg tablet RxNorm: 467386 1 Tablet(s) PO BID No Start Date Active PreserVision Lutein oral RxNorm: 611569 oral No Start Date Active aspirin 81 mg tablet RxNorm: 388694 1 Tablet(s) PO daily No Start Date Active spironolactone 50 mg tablet RxNorm: 138551 1 Tablet(s) PO daily No Start Date 03/08/2016 Inactive Coreg 25 mg tablet RxNorm: 708325 1 Tablet(s) PO BID No Start Date 02/21/2016 Inactive Ventolin HFA 90 mcg/actuation aerosol inhaler RxNorm: 370028 1 Puff(s) INH Q4-6H as needed dyspnea No Start Date 2016 Inactive hydrocodone 7.5 mg-acetaminophen 325 mg tablet RxNorm: 927689 1 Tablet(s) PO BID No Start Date 01/11/2016 Inactive albuterol sulfate 2.5 mg/3 mL (0.083 %) solution for nebulization RxNorm: 191077 3 Milliliter(s) INH QID as needed No Start Date 06/08/2017 Inactive gabapentin 300 mg capsule RxNorm: 267178 3 Capsule(s) PO TID No Start Date 02/09/2016 Inactive Vitamin D3 5,000 unit tablet RxNorm: 558488 1 Tablet(s) PO daily No Start Date 08/13/2017 Inactive Medication Administered Medication Codes Instructions Start Date Status Kenalog 40 mg/mL suspension for injection RxNorm: 3211423 1Milliliter 06/05/2017 No longer Active Immunizations No Immunization data Assessments Condition Codes Effective Dates Pain in left leg ICD-10: M79.605 ICD-9: 729.5 01/10/2018 Localized edema ICD-10: R60.0 ICD-9: 782.3 01/10/2018 Urinary tract infection, site not specified ICD-10: N39.0 ICD-9: 599.0 10/20/2017 Pain in left arm ICD-10: M79.602 ICD-9: 729.5 10/04/2017 Pain in left elbow ICD-10: M25.522 ICD-9: 719.42 10/04/2017 Shortness of breath ICD-10: R06.02 ICD-9: 786.05 06/08/2017 Cough ICD-10: R05 ICD-9: 786.2 06/08/2017 Other chronic pain ICD-10: G89.29 ICD-9: 338.29 06/05/2017 Other acute sinusitis ICD-10: J01.80 ICD-9: 461.8 06/05/2017 Acute laryngopharyngitis ICD-10: J06.0 ICD-9: 465.0 06/05/2017 Diverticulitis of large intestine without perforation or abscess without bleeding ICD-10: K57.32 ICD-9: 562.11 01/19/2017 Left lower quadrant pain ICD-10: R10.32 ICD-9: 789.04 01/19/2017 Dysuria ICD-10: R30.0 ICD-9: 788.1 12/08/2016 Allergic contact dermatitis due to plants, except [...] 01/18/2016 Melena ICD-10: K92.1 ICD-9: 578.1 01/12/2016 Essential (primary) hypertension ICD-10: I10 ICD-9: 401.9 01/12/2016 Mixed hyperlipidemia ICD-10: E78.2 ICD-9: 272.2 01/12/2016 Reason For Visit Reason For Visit Effective Dates Notes edema 01/10/2018 Hospital Follow Up 10/04/2017 ER follow up sinus congestion 06/05/2017 abdominal pain 01/19/2017 rash 10/05/2016 low back and leg pain 09/23/2016 foot pain 07/27/2016 urinary urgency 07/18/2016 hypertension 05/09/2016 melena 01/12/2016 Results Observation Observation Code Item Item Code Result Date Comp Metabolic Xit054 NA 139 mEq/L 01/10/2018 Comp Metabolic Aio749 K 5.1 mEq/L 01/10/2018 Comp Metabolic Ozw235 CL 106 mEq/L 01/10/2018 Comp Metabolic Mxh740 CO2 28.0 mEq/L 01/10/2018 Comp Metabolic Nso544 ANION GAP 10 01/10/2018 Comp Metabolic Age043 GLUCOSE 101 mg/dL 01/10/2018 Comp Metabolic Acq140 Creat 0.9 mg/dL 01/10/2018 Comp Metabolic Pas652 eGFR 64 ml/min/1.73m2 01/10/2018 Comp Metabolic Ucc246 BUN 25 mg/dL 01/10/2018 Comp Metabolic Rxx737 B/C Ratio 27.8 Ratio 01/10/2018 Comp Metabolic Mld517 CALCIUM 9.9 mg/dL 01/10/2018 Comp Metabolic Ruk108 ALK PHOS 83 U/L 01/10/2018 Comp Metabolic Pbl373 AST(SGOT) 17 U/L 01/10/2018 Comp Metabolic Plr388 ALT(SGPT) 18 U/L 01/10/2018 Comp Metabolic Dxk217 BILI T 0.5 mg/dL 01/10/2018 Comp Metabolic Ekq708 ALBUMIN 3.9 g/dL 01/10/2018 Comp Metabolic Vck399 TPRO 6.6 g/dL 01/10/2018 Comp Metabolic Bip766 GLOB 2.8 g/dL 01/10/2018 Comp Metabolic Pef206 A/G Ratio 1.4 Ratio 01/10/2018 Comp Metabolic Ltl490 Osmo 282 mOsmo 01/10/2018 Urine Culture Ucult [...] Urinalysis Ord28 U-Yeast NEGATIVE 10/20/2017 Comp Metabolic Ojt816 NA 141 mEq/L 07/21/2017 Comp Metabolic Jbr019 K 4.9 mEq/L 07/21/2017 Comp Metabolic Cnq161 CL 107 mEq/L 07/21/2017 Comp Metabolic Bxb525 CO2 30.0 mEq/L 07/21/2017 Comp Metabolic Snq554 ANION GAP 9 07/21/2017 Comp Metabolic Oof414 GLUCOSE 93 mg/dL 07/21/2017 Comp Metabolic Aaj073 Creat 0.8 mg/dL 07/21/2017 Comp Metabolic Ubd430 eGFR 72 ml/min/1.73m2 07/21/2017 Comp Metabolic Wjz595 BUN 22 mg/dL 07/21/2017 Comp Metabolic Dqv778 B/C Ratio 26.8 Ratio 07/21/2017 Comp Metabolic Klf446 CALCIUM 10.2 mg/dL 07/21/2017 Comp Metabolic Lfw565 ALK PHOS 73 U/L 07/21/2017 Comp Metabolic Oqq319 AST(SGOT) 17 U/L 07/21/2017 Comp Metabolic Blp536 ALT(SGPT) 21 U/L 07/21/2017 Comp Metabolic Hlm598 BILI T 0.7 mg/dL 07/21/2017 Comp Metabolic Dqs227 ALBUMIN 3.9 g/dL 07/21/2017 Comp Metabolic Zzi317 TPRO 7.0 g/dL 07/21/2017 Comp Metabolic Bgp636 GLOB 3.1 g/dL 07/21/2017 Comp Metabolic Qok126 A/G Ratio 1.3 Ratio 07/21/2017 Comp Metabolic Zpu871 Osmo 284 mOsmo 07/21/2017 Vitamin D 25 Oh Upw8220 VITAMIN D, 25 HYDROXY 37.13 ng/mL Lipid Ord30 CHOL 173 mg/dL 07/21/2017 Lipid Ord30 HDL 69.0 mg/dl 07/21/2017 Lipid Ord30 TRIG 86 mg/dL 07/21/2017 Lipid Ord30 LDL 87 mg/dL 07/21/2017 Lipid Ord30 C/HDL 2.5 Ratio 07/21/2017 Culture Urine [id number] URINE CULTURE SEE NOTES 12/12/2016 Culture Urine [id number] Continued Results 12/12/2016 Urine Culture Ucult Complete >100,000 col/ml aerobic growth sent to ref lab 12/10/2016 Culture Urine [id number] URINE CULTURE SEE NOTES 07/22/2016 Culture Urine [id number] Continued Results 07/22/2016 Urine Culture Ucult Complete [...] 30.2 pg 05/11/2016 Cbc With Differential Ord2 [place]% 12.3 % 05/11/2016 Cbc With Differential Ord2 [...] 1.49 K/ul 05/11/2016 Cbc With Differential Ord2 [place] ABS# 1.1 K/ul 05/11/2016 Cbc With Differential Ord2 Eos ABS# 0.4 K/ul 05/11/2016 Cbc With Differential Ord2 Baso ABS# 0.0 K/ul 05/11/2016 Parathyroid Hormone Vnj445 PTH 37.40 pg/ml 05/11/2016 Comp Metabolic Czx051 NA 141 mEq/L 05/11/2016 Comp Metabolic Hvg275 K 4.4 mEq/L 05/11/2016 Comp Metabolic Csn767 CL 110 mEq/L 05/11/2016 Comp Metabolic Eni515 CO2 26.0 mEq/L 05/11/2016 Comp Metabolic Okx532 ANION GAP 9 05/11/2016 Comp Metabolic Pcn020 GLUCOSE 99 mg/dL 05/11/2016 Comp Metabolic Qxe232 Creat 0.9 mg/dL 05/11/2016 Comp Metabolic Lre215 eGFR 69 ml/min/1.73m2 05/11/2016 Comp Metabolic Ztw291 BUN 24 mg/dL 05/11/2016 Comp Metabolic Tmt346 B/C Ratio 28.2 Ratio 05/11/2016 Comp Metabolic Qro969 CALCIUM 10.2 mg/dL 05/11/2016 Comp Metabolic Jze889 ALK PHOS 67 U/L 05/11/2016 Comp Metabolic Nyf682 AST(SGOT) 18 U/L 05/11/2016 Comp Metabolic Tvj672 ALT(SGPT) 19 U/L 05/11/2016 Comp Metabolic Bwm398 BILI T 0.8 mg/dL 05/11/2016 Comp Metabolic Bgv189 ALBUMIN 4.0 g/dL 05/11/2016 Comp Metabolic Llq969 TPRO 6.6 g/dL 05/11/2016 Comp Metabolic Mub278 GLOB 2.6 g/dL 05/11/2016 Comp Metabolic Duv310 A/G Ratio 1.6 Ratio 05/11/2016 Comp Metabolic Uht622 Osmo 285 mOsmo 05/11/2016 Comp Metabolic Wwg652 NA 136 mEq/L 01/13/2016 Comp Metabolic Nep929 K 4.7 mEq/L 01/13/2016 Comp Metabolic Iny636 CL 106 mEq/L 01/13/2016 Comp Metabolic Nbj249 CO2 26.0 mEq/L 01/13/2016 Comp Metabolic Afx016 ANION GAP 9 01/13/2016 Comp Metabolic Iwr895 GLUCOSE 95 mg/dL 01/13/2016 Comp Metabolic Tpi175 Creat 1.0 mg/dL 01/13/2016 Comp Metabolic Tnh722 eGFR 60 ml/min/1.73m2 01/13/2016 Comp Metabolic Rlv416 BUN 21 mg/dL 01/13/2016 Comp Metabolic Qjz614 B/C Ratio 21.9 Ratio 01/13/2016 Comp Metabolic Uxk405 CALCIUM 9.7 mg/dL 01/13/2016 Comp Metabolic Akg814 ALK PHOS 69 U/L 01/13/2016 Comp Metabolic Pob593 AST(SGOT) 14 U/L 01/13/2016 Comp Metabolic Xjr839 ALT(SGPT) 17 U/L 01/13/2016 Comp Metabolic Kda128 BILI T 0.6 mg/dL 01/13/2016 Comp Metabolic Whl838 ALBUMIN 3.6 g/dL 01/13/2016 Comp Metabolic Zwy040 TPRO 6.3 g/dL 01/13/2016 Comp Metabolic Gwu280 GLOB 2.7 g/dL 01/13/2016 Comp Metabolic Eao461 A/G Ratio 1.4 Ratio 01/13/2016 Comp Metabolic Vhs648 Osmo 275 mOsmo 01/13/2016 Cbc With Differential [...] 95.2 fl 01/13/2016 Cbc With Differential Ord2 [place]% 12.2 % 01/13/2016 Cbc With Differential Ord2 [...] 1.82 K/ul 01/13/2016 Cbc With Differential Ord2 [place] ABS# 1.2 K/ul 01/13/2016 Cbc With Differential [...] lips 06/05/2017 None Full Exam - General 1995 Ears/Nose/Throat oral cavity/pharynx/larynx Overall: oral mucosa clear [...] Procedure Codes Date THER/PROPH/DIAG INJ SC/IM CPT-4: 81689 06/05/2017 TRIAMCINOLONE ACET INJ NOS CPT-4: J3301 06/05/2017 URINALYSIS NONAUTO W/O SCOPE CPT-4: 54093 12/08/2016 Vital Signs Date Vital 01/10/2018 Blood Pressure 1: 144/82 Code : 8480-6 Heart Rate 1: 74 bpm Height: 5'3" SpO2: 94% 10/04/2017 Blood Pressure 1: 142/70 Code : 8480-6 Heart Rate 1: 73 bpm Height: SpO2: 97% Weight: 06/05/2017 Blood Pressure 1: 142/86 Code : 8480-6 BMI: 36.8 Code : 18763-9 Heart Rate 1 : 74 bpm Height: 5'3" SpO2: 96% Weight: 211 lbs 01/19/2017 Blood Pressure 1: 150/88 Code : 8480-6 BMI: 36.1 Code : 72524-9 Heart Rate 1 : 76 bpm Height: 5'3" Weight: 207 lbs 10/05/2016 Blood Pressure 1: 134/80 Code : 8480-6 Heart Rate 1: 60 bpm Height: 5'3" SpO2: 95% Weight: 09/23/2016 Blood Pressure 1: 148/76 Code : 8480-6 BMI: 36.3 Code : 84421-1 Heart Rate 1 : 62 bpm Height: 5'3" SpO2: 98% Weight: 208 lbs 07/27/2016 Blood Pressure 1: 130/66 Code : 8480-6 BMI: 37.8 Code : 95334-4 Heart Rate 1 : 64 bpm Height: 5'3" SpO2: 96% Weight: 217 lbs 07/18/2016 Blood Pressure 1: 134/64 Code : 8480-6 BMI: 37.8 Code : 22458-1 Heart Rate 1 : 66 bpm Height: 5'3" SpO2: 96% Weight: 217 lbs 05/09/2016 Blood Pressure 1: 142/72 Code : 8480-6 BMI: 37.3 Code : 27869-2 Heart Rate 1 : 59 bpm Height: 5'3" SpO2: 96% Weight: 214 lbs 01/12/2016 Blood Pressure 1: 122/64 Code : 8480-6 BMI: 37.3 Code : 11318-8 Heart Rate 1 : 68 bpm Height: 5'3" SpO2: 94% Weight: 214 lbs Functional Status No Functional Status data History of Present Illness Symptom Name Status Result Effective Date Notes edema Onset and Resolution sudden in onset [...] Codes Date EST. PATIENT, LEVEL III Diagnosis: Localized edema[ICD10: R60.0] Diagnosis: Pain in left leg[ICD10: M79.605] Azra Lopes MD, [facility] CPT- 4: 88179 01/10/2018 [id number] EST. PATIENT, LEVEL III Diagnosis: Pain in left arm[ICD10: M79.602] Diagnosis: Pain in left elbow[ICD10: M25.522] Azra Lopes MD, [facility] CPT-4: 85665 10/04/2017 ([id number]) Miscellaneous no charge Diagnosis: Cough[ICD10: R05] Diagnosis: Shortness of breath[ICD10: R06.02] Azra Lopes MD, [facility] CPT-4: 85687 06/08/2017 [id number] EST. PATIENT, LEVEL IV Diagnosis: Acute laryngopharyngitis[ICD10: J06.0] Diagnosis: Other acute sinusitis[ICD10: J01.80] Diagnosis: Cough[ICD10: R05] Diagnosis: Shortness of breath[ICD10: R06.02] Diagnosis: Other chronic pain[ICD10: G89.29] Azra Lopes MD, [facility] CPT -4: 45219 06/05/2017 [id number] EST. PATIENT, LEVEL IV Diagnosis: Diverticulitis of large intestine without perforation or abscess without bleeding[ICD10: K57.32] Diagnosis: Left lower quadrant pain[ICD10: R10.32] Azra Lopes MD, [facility] CPT-4: 09963 01/19/2017 [id number] EST. PATIENT, LEVEL III Diagnosis: Allergic contact dermatitis due to plants, except food[ICD10: L23.7] Azra Lopes MD, [facility] CPT-4: 28852 10/05/2016 79619 EST. PATIENT, LEVEL III Diagnosis: Low back pain[ICD10: M54.5] Diagnosis: Other chronic pain[ICD10: G89.29] Azra Lopes MD, [facility] CPT -4: 61828 09/23/2016 57201 EST. PATIENT, LEVEL III Diagnosis: Cough[ICD10: R05] Diagnosis: Shortness of breath[ICD10: R06.02] Diagnosis: Cellulitis of right toe[ICD10: L03.031] Diagnosis: Other obesity due to excess calories[ICD10: E66.09] Azra Lopes MD, [facility] CPT-4: 16768 07/27/2016 34061 EST. PATIENT, LEVEL III Diagnosis: Dysuria[ICD10: R30.0] Diagnosis: Low back pain[ICD10: M54.5] Diagnosis: Other chronic pain[ICD10: G89.29] Azra Lopes MD, [facility] CPT -4: 31689 07/18/2016 93865 EST. 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] Azra Lopes MD , [facility] CPT-4: 77289 05/09/2016 ([id number]) I Fecal Occult Blood Diagnosis: Encounter for screening for malignant neoplasm of colon[ICD10: Z12.11 ] Nicolle Lopes MD, [facility] CPT-4: Pph0837 2015 ([id number]) OFFICE VISIT, NEW - LEVEL 4 Diagnosis: Essential (primary) hypertension[ICD10: I10] Diagnosis: Mixed hyperlipidemia[ICD10: E78.2] Diagnosis: Melena[ICD10: K92.1] Diagnosis: Low back pain[ICD10: M54.5] Lise Lopes MD, [facility] CPT-4: 15591 01/12/2016 Plan of Care Planned Activity Notes Codes Status Date Care Plan: VASCULAR STUDY Pending 01/11/2018 Visit [...] edema. 01/10/2018 Appointment: Azra Carter WPtel: [phone] [facility] (15 min) Moderate 01/10/2018 Patient Education: Patient Medication Summary Completed 01/10/2018 Patient Education: Patient Medication Summary Completed 10/20/2017 Care Plan: MRI JOINT UPR EXTREM W/O DYE LOINC : 24339-9 Pending 10/05/2017 Visit Plan: Left elbow/arm pain [...] improve. 10/04/2017 Appointment: Azra Carter WPtel: [phone] [facility] (15 min) Moderate 10/04/2017 Patient Education: Patient [...] over-medication. 06/05/2017 [phone] ([facility] Moderate 06/05/2017 Patient Education: Patient Medication Summary Completed 06/05/2017 Visit Plan: Diverticulitis - rx for antibiotic sent to pt' s pharmacy - pt advised to avoid seeds, nuts, popcorn, or any other food which has been proven to upset the pt's stomach. 01/19/2017 Appointment: Azra Carter WPtel: [facility] (30 min) Complex 01/19/2017 Patient Education: Patient Medication Summary Completed 01/19/2017 Appointment: Lab Draw 12/08/2016 Patient Education: Patient Medication Summary Completed 12/08/2016 Care Plan: Referral Order SNOMED-CT : [id number] Pending 10/09/2016 Visit Plan: Poison [place] - pt is to use topical treatments as directed. Pt is cleanse clothing in hot water with soap, and call if symptoms do not improve or if they worsen. 10/05/2016 Appointment: Azra Carter [facility]Ptel[facility] (10 min) Simple 10/05/2016 Patient Education: Patient [...] of over-medication. 09/23/2016 Appointment: [phone] (15 min) Moderate 09/23/2016 Patient Education: Patient [...] weight check. 07/27/2016 Appointment: Azra Carter WPtel: [address] [place], [place] [phone] (15 min) Moderate 07/27/2016 Patient Education: Patient Medication Summary Completed 07/27/2016 Patient Education: Obesity Completed 07/27/2016 Care Plan: BMI Above normal followup SELF-MGMT EDUC & TRAIN 1 PT Pending 2016 Care Plan: CHEST X-RAY 2VW FRONTAL&LATL LOINC : 40999-8 Pending 07/27/2016 Visit Plan: UTI - pt [...] over-medication. 07/18/2016 [facility]ment: [phone] ([facility] min) Complex 07/18/2016 Patient Education: Patient [...] plan. 05/09/2016 App[facility]ment: [phone] ([facility] min) Complex 05/09/2016 Patient Education: Patient [...] hydrocodone 01/12/2016 App[facility]ment: [phone] New Patient 01/12/2016 Patient Education: Patient Medication Summary Completed 01/12/2016 Patient Education: Obesity Completed 01/12/2016 Care Plan: Referral Order SNOMED-CT : [id number] Pending 01/12/2016 Referral: Rell Pruitt Referral Appointment [...] SIMVASTATIN. WE WILL REFER YOU TO [facility] PHYSICAL THERAPY GLUCOSAMINE AND CHONDROITIN [...] further attempt to reduce peripheral edema. . Cellulitis - very mild - Finish [...]
--- OUTSIDE RECORDS SUMMARY | 2018-05-21 15:34 | XMS REPORT | CCD ---
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 Name Role Phone PP Unavailable CCM Unavailable Summary Purpose Interface Exchange Insurance Providers Payer name Policy type / Coverage type Covered constitution party ID Effective Begin Date Effective End Date WPS Medicare Part B Medicare Part B [id number] Unknown [place] [employer] Life Insurance Medicare Part B [id number] Unknown Family history Mother Diagnosis Age At Onset Hypertension Unknown Anemia Unknown Arthritis Unknown Coronary Artery Disease Unknown Sister Diagnosis Age At Onset Hypertension Unknown Cancer Unknown Brother Diagnosis Age At Onset Depression Unknown Cancer Unknown Hypertension Unknown Social History Social History Element Codes Description Effective Dates Marital status Unknown 01/12/[address]: 946445709 Never smoker 01/12/[address]: 292542143 Never drinks alcohol 01/12/2016 Allergies, Adverse Reactions, [...] chloride ER 10 mEq tablet,extended release RxNorm: 753640 1 Tablet(s) PO daily 01/10/2018 No Stop Date Active Lasix 20 mg tablet RxNorm: 218477 1 Tablet(s) PO daily 2017 No Stop Date Active spironolactone 50 mg tablet RxNorm: 264470 TAKE ONE TABLET BY MOUTH ONCE DAILY 10/30/2017 No Stop Date Active Bactrim DS 800 mg-160 mg tablet RxNorm: 202985 1 Tablet(s) PO BID 10/20/2017 10/19/2017 Inactive Bactrim DS 800 mg-160 mg tablet RxNorm: 708463 1 Tablet(s) PO BID 10/20/2017 10/19/2017 Inactive Bactrim DS 800 mg-160 mg tablet RxNorm: 133109 1 Tablet(s) PO BID 10/20/2017 10/26/2017 Inactive hydrocodone 7.5 mg-acetaminophen 325 mg tablet RxNorm: 024732 1 Tablet(s) PO Q4- 6H as needed 10/11/2017 No Stop Date Active Coreg 25 mg tablet RxNorm: 709893 TAKE ONE TABLET BY MOUTH TWICE DAILY 09/27/2017 No Stop Date Active gabapentin 600 mg tablet RxNorm: 901662 1.5 Tablet(s) PO TID 01/26/2018 Active gabapentin 300 mg capsule RxNorm: 045789 TAKE ONE & ONE-HALF TABLETS BY MOUTH THREE TIMES DAILY 07/31/2017 No Stop Date Active Keflex 500 mg capsule RxNorm: 097298 1 Capsule(s) PO TID 201706/16/2017 Inactive albuterol sulfate 2.5 mg/3 mL (0.083 %) solution for nebulization RxNorm: 097258 3 Milliliter(s) INH QID as needed 06/09/2017 No Stop Date Active prednisone 10 mg tablet RxNorm: 489513 Tablet(s) PO 06/08/2017 No Stop Date Active 6, 5,4,3,2,1 Keflex 500 mg capsule RxNorm: 322312 1 Capsule(s) PO TID 201706/13/2017 Inactive Zithromax Z-Duran 250 mg tablet RxNorm: 613438 1 Tablet(s) PO UD 06/05/2017 11/08/2017 Inactive Tessalon Perles 100 mg capsule RxNorm: 818558 1-2 Capsule(s) PO TID as needed cough 06/05/2017 06/09/2017 Inactive Please check mast before filling for pt, if too expensive pt does not want it Kenalog 40 mg/mL suspension for injection RxNorm: 6249576 1 Milliliter(s) Inj 06/05/2017 06/05/2017 Inactive Coreg 25 mg tablet RxNorm: 656457 TAKE ONE TABLET BY MOUTH TWICE DAILY 05/30/2017 09/26/2017 Inactive gabapentin 300 mg capsule RxNorm: 833161 TAKE ONE & ONE-HALF TABLETS BY MOUTH THREE TIMES DAILY 05/30/2017 07/30/2017 Inactive gabapentin 300 mg capsule RxNorm: 925594 TAKE ONE & ONE-HALF TABLETS BY MOUTH THREE TIMES DAILY 02/01/2017 05/29/2017 Inactive Coreg 25 mg tablet RxNorm: 350244 TAKE ONE TABLET BY MOUTH TWICE DAILY 02/01/2017 05/29/2017 Inactive Cipro 500 mg tablet RxNorm: 070770 1 Tablet(s) PO BID 201601/28/2017 Inactive Flagyl 500 mg tablet RxNorm: 127842 1 Tablet(s) PO TID 201601/28/2017 Inactive Coreg 25 mg tablet RxNorm: 048887 TAKE ONE TABLET BY MOUTH TWICE DAILY 01/02/2017 01/31/2017 Inactive hydrocodone 7.5 mg-acetaminophen 325 mg tablet RxNorm: 244588 1 Tablet(s) PO Q4- 6H as needed 12/08/2016 10/10/2017 Inactive Keflex 500 mg capsule RxNorm: 971082 1 Capsule(s) PO TID 201612/14/2016 Inactive spironolactone 50 mg tablet RxNorm: 722194 TAKE ONE TABLET BY MOUTH ONCE DAILY 11/25/2016 03/24/2017 Inactive gabapentin 300 mg capsule RxNorm: 087904 TAKE ONE & ONE-HALF TABLETS BY MOUTH THREE TIMES DAILY 10/07/2016 01/31/2017 Inactive prednisone 10 mg tablet RxNorm: 538997 Tablet(s) PO 10/05/2016 06/07/2017 Inactive 6, 5,4,3,2,1 hydrocodone 7.5 mg-acetaminophen 325 mg tablet RxNorm: 438110 1 Tablet(s) PO Q4- 6H 09/23/2016 12/07/2016 Inactive Coreg 25 mg tablet RxNorm: 137997 TAKE ONE TABLET BY MOUTH TWICE DAILY 09/08/2016 01/01/2017 Inactive Ventolin HFA 90 mcg/actuation aerosol inhaler RxNorm: 712515 1 Puff(s) INH Q4-6H as needed dyspnea 07/29/2016 No Stop Date Active hydrocodone 10 mg-acetaminophen 325 mg tablet RxNorm: 229108 1/2 Tablet(s) PO TID 07/18/2016 08/16/2016 Inactive Pyridium 100 mg tablet RxNorm: 0620192 1-2 Tablet(s) PO TID as needed 07/18/2016 07/19/2016 Inactive Bactrim DS 800 mg-160 mg tablet RxNorm: 566642 1 Tablet(s) PO BID 07/18/2016 07/27/2016 Inactive Coreg 25 mg tablet RxNorm: 333497 TAKE ONE TABLET BY MOUTH TWICE DAILY 07/07/2016 09/04/2016 Inactive gabapentin 300 mg capsule RxNorm: 470870 TAKE ONE & ONE-HALF TABLETS BY MOUTH THREE TIMES DAILY 06/09/2016 10/06/2016 Inactive hydrocodone 7.5 mg-acetaminophen 325 mg tablet RxNorm: 553217 1 Tablet(s) PO BID 05/17/2016 10/08/2016 Inactive hydrocodone 7.5 mg-acetaminophen 325 mg tablet RxNorm: 808076 1 Tablet(s) PO BID 03/31/2016 05/16/2016 Inactive spironolactone 50 mg tablet RxNorm: 108137 1 Tablet(s) PO daily 03/09/2016 09/04/2016 Inactive Coreg 25 mg tablet RxNorm: 298189 1 Tablet(s) PO BID 201506/20/2016 Inactive gabapentin 600 mg tablet RxNorm: 840701 1.5 Tablet(s) PO TID 06/09/2016 Inactive gabapentin 300 mg capsule RxNorm: 401356 3 Capsule(s) PO TID 02/10/2016 Inactive hydrocodone 7.5 mg-acetaminophen 325 mg tablet RxNorm: 804556 1 Tablet(s) PO BID 01/12/2016 03/30/2016 Inactive prednisone 10 mg tablet RxNorm: 783454 Tablet(s) PO No Start Date Active 6,5,4,3,2 ,1 Fish Oil 360 mg-1,200 mg capsule RxNorm: 913497 3 Capsule(s) PO daily No Start Date Active niacin 500 mg capsule RxNorm: 163161 2 Capsule(s) PO daily No Start Date Active simvastatin 40 mg tablet RxNorm: 047622 1 Tablet(s) PO daily No Start Date Active losartan 50 mg tablet RxNorm: 738988 1 Tablet(s) PO daily No Start Date Active ibuprofen 200 mg capsule RxNorm: 561677 1 Capsule(s) PO TID No Start Date Active oxybutynin chloride 5 mg tablet RxNorm: 752476 1 Tablet(s) PO BID No Start Date Active PreserVision Lutein oral RxNorm: 094455 oral No Start Date Active aspirin 81 mg tablet RxNorm: 110216 1 Tablet(s) PO daily No Start Date Active spironolactone 50 mg tablet RxNorm: 617295 1 Tablet(s) PO daily No Start Date 03/08/2016 Inactive Coreg 25 mg tablet RxNorm: 599005 1 Tablet(s) PO BID No Start Date 02/21/2016 Inactive Ventolin HFA 90 mcg/actuation aerosol inhaler RxNorm: 756886 1 Puff(s) INH Q4-6H as needed dyspnea No Start Date 2016 Inactive hydrocodone 7.5 mg-acetaminophen 325 mg tablet RxNorm: 026137 1 Tablet(s) PO BID No Start Date 01/11/2016 Inactive albuterol sulfate 2.5 mg/3 mL (0.083 %) solution for nebulization RxNorm: 771011 3 Milliliter(s) INH QID as needed No Start Date 06/08/2017 Inactive gabapentin 300 mg capsule RxNorm: 373546 3 Capsule(s) PO TID No Start Date 02/09/2016 Inactive Vitamin D3 5,000 unit tablet RxNorm: 793384 1 Tablet(s) PO daily No Start Date 08/13/2017 Inactive Medication Administered Medication Codes Instructions Start Date Status Kenalog 40 mg/mL suspension for injection RxNorm: 0172849 1Milliliter 06/05/2017 No longer Active Immunizations No [...] Item Item Code Result Date Comp Metabolic Imx874 NA 139 mEq/L 01/10/2018 Comp Metabolic Sti950 K 5.1 mEq/L 01/10/2018 Comp Metabolic Nft771 CL 106 mEq/L 01/10/2018 Comp Metabolic Ndq257 CO2 28.0 mEq/L 01/10/2018 Comp Metabolic Cze971 ANION GAP 10 01/10/2018 Comp Metabolic Xct883 GLUCOSE 101 mg/dL 01/10/2018 Comp Metabolic Yvh865 Creat 0.9 mg/dL 01/10/2018 Comp Metabolic Rsp414 eGFR 64 ml/min/1.73m2 01/10/2018 Comp Metabolic Lwi494 BUN 25 mg/dL 01/10/2018 Comp Metabolic Nks343 B/C Ratio 27.8 Ratio 01/10/2018 Comp Metabolic Jpl566 CALCIUM 9.9 mg/dL 01/10/2018 Comp Metabolic Ztc737 ALK PHOS 83 U/L 01/10/2018 Comp Metabolic Aoj553 AST(SGOT) 17 U/L 01/10/2018 Comp Metabolic Gfm127 ALT(SGPT) 18 U/L 01/10/2018 Comp Metabolic Dep650 BILI T 0.5 mg/dL 01/10/2018 Comp Metabolic Lay174 ALBUMIN 3.9 g/dL 01/10/2018 Comp Metabolic Fra283 TPRO 6.6 g/dL 01/10/2018 Comp Metabolic Dml084 GLOB 2.8 g/dL 01/10/2018 Comp Metabolic Tkn466 A/G Ratio 1.4 Ratio 01/10/2018 Comp Metabolic Byk133 Osmo 282 mOsmo 01/10/2018 Urine Culture Ucult [...] Urinalysis Ord28 U-Yeast NEGATIVE 10/20/2017 Comp Metabolic Jjm956 NA 141 mEq/L 07/21/2017 Comp Metabolic Pho997 K 4.9 mEq/L 07/21/2017 Comp Metabolic Vkp615 CL 107 mEq/L 07/21/2017 Comp Metabolic Eum141 CO2 30.0 mEq/L 07/21/2017 Comp Metabolic Tgq139 ANION GAP 9 07/21/2017 Comp Metabolic Dde845 GLUCOSE 93 mg/dL 07/21/2017 Comp Metabolic Jhu474 Creat 0.8 mg/dL 07/21/2017 Comp Metabolic Xad803 eGFR 72 ml/min/1.73m2 07/21/2017 Comp Metabolic Lbz148 BUN 22 mg/dL 07/21/2017 Comp Metabolic Wcv276 B/C Ratio 26.8 Ratio 07/21/2017 Comp Metabolic Hum192 CALCIUM 10.2 mg/dL 07/21/2017 Comp Metabolic Msy638 ALK PHOS 73 U/L 07/21/2017 Comp Metabolic Pem968 AST(SGOT) 17 U/L 07/21/2017 Comp Metabolic Uqu745 ALT(SGPT) 21 U/L 07/21/2017 Comp Metabolic Zht697 BILI T 0.7 mg/dL 07/21/2017 Comp Metabolic Hhi943 ALBUMIN 3.9 g/dL 07/21/2017 Comp Metabolic Oti386 TPRO 7.0 g/dL 07/21/2017 Comp Metabolic Hcp004 GLOB 3.1 g/dL 07/21/2017 Comp Metabolic Adk478 A/G Ratio 1.3 Ratio 07/21/2017 Comp Metabolic Vpm052 Osmo 284 mOsmo 07/21/2017 Vitamin D 25 Oh Efi8938 VITAMIN D, 25 HYDROXY 37.13 ng/mL Lipid Ord30 CHOL 173 mg/dL 07/21/2017 Lipid Ord30 HDL 69.0 mg/dl 07/21/2017 Lipid Ord30 TRIG 86 mg/dL 07/21/2017 Lipid Ord30 LDL 87 mg/dL 07/21/2017 Lipid Ord30 C/HDL 2.5 Ratio 07/21/2017 Culture Urine [id number] URINE CULTURE SEE NOTES 12/12/2016 Culture Urine [id number] Continued Results 12/12/2016 Urine Culture Ucult Complete >100,000 col/ml aerobic growth sent to ref lab 12/10/2016 Culture Urine [id number] URINE CULTURE SEE NOTES 07/22/2016 Culture Urine [id number] Continued Results 07/22/2016 Urine Culture Ucult Complete [...] 30.2 pg 05/11/2016 Cbc With Differential Ord2 [place]% 12.3 % 05/11/2016 Cbc With Differential Ord2 [...] 1.49 K/ul 05/11/2016 Cbc With Differential Ord2 [place] ABS# 1.1 K/ul 05/11/2016 Cbc With Differential Ord2 Eos ABS# 0.4 K/ul 05/11/2016 Cbc With Differential Ord2 Baso ABS# 0.0 K/ul 05/11/2016 Parathyroid Hormone Vsx564 PTH 37.40 pg/ml 05/11/2016 Comp Metabolic Wtu698 NA 141 mEq/L 05/11/2016 Comp Metabolic Mcq274 K 4.4 mEq/L 05/11/2016 Comp Metabolic Mxc788 CL 110 mEq/L 05/11/2016 Comp Metabolic Aqf756 CO2 26.0 mEq/L 05/11/2016 Comp Metabolic Dru665 ANION GAP 9 05/11/2016 Comp Metabolic Zod333 GLUCOSE 99 mg/dL 05/11/2016 Comp Metabolic Yan665 Creat 0.9 mg/dL 05/11/2016 Comp Metabolic Dbm259 eGFR 69 ml/min/1.73m2 05/11/2016 Comp Metabolic Lzz190 BUN 24 mg/dL 05/11/2016 Comp Metabolic Oww294 B/C Ratio 28.2 Ratio 05/11/2016 Comp Metabolic Ihh648 CALCIUM 10.2 mg/dL 05/11/2016 Comp Metabolic Zlg416 ALK PHOS 67 U/L 05/11/2016 Comp Metabolic Vcb857 AST(SGOT) 18 U/L 05/11/2016 Comp Metabolic Whw392 ALT(SGPT) 19 U/L 05/11/2016 Comp Metabolic Zuh587 BILI T 0.8 mg/dL 05/11/2016 Comp Metabolic Bya808 ALBUMIN 4.0 g/dL 05/11/2016 Comp Metabolic Wor805 TPRO 6.6 g/dL 05/11/2016 Comp Metabolic Tev532 GLOB 2.6 g/dL 05/11/2016 Comp Metabolic Roi321 A/G Ratio 1.6 Ratio 05/11/2016 Comp Metabolic Wfj758 Osmo 285 mOsmo 05/11/2016 Comp Metabolic Isk579 NA 136 mEq/L 01/13/2016 Comp Metabolic Pqr474 K 4.7 mEq/L 01/13/2016 Comp Metabolic Zjv712 CL 106 mEq/L 01/13/2016 Comp Metabolic Igl434 CO2 26.0 mEq/L 01/13/2016 Comp Metabolic Iqk482 ANION GAP 9 01/13/2016 Comp Metabolic Szz397 GLUCOSE 95 mg/dL 01/13/2016 Comp Metabolic Zdn744 Creat 1.0 mg/dL 01/13/2016 Comp Metabolic Lcx289 eGFR 60 ml/min/1.73m2 01/13/2016 Comp Metabolic Mii670 BUN 21 mg/dL 01/13/2016 Comp Metabolic Dux289 B/C Ratio 21.9 Ratio 01/13/2016 Comp Metabolic Kxq538 CALCIUM 9.7 mg/dL 01/13/2016 Comp Metabolic Nso241 ALK PHOS 69 U/L 01/13/2016 Comp Metabolic Qbg633 AST(SGOT) 14 U/L 01/13/2016 Comp Metabolic Ljz966 ALT(SGPT) 17 U/L 01/13/2016 Comp Metabolic Eye247 BILI T 0.6 mg/dL 01/13/2016 Comp Metabolic Daf108 ALBUMIN 3.6 g/dL 01/13/2016 Comp Metabolic Pmm083 TPRO 6.3 g/dL 01/13/2016 Comp Metabolic Uri478 GLOB 2.7 g/dL 01/13/2016 Comp Metabolic Ikg384 A/G Ratio 1.4 Ratio 01/13/2016 Comp Metabolic Ypm231 Osmo 275 mOsmo 01/13/2016 Cbc With Differential [...] 95.2 fl 01/13/2016 Cbc With Differential Ord2 [place]% 12.2 % 01/13/2016 Cbc With Differential Ord2 [...] 1.82 K/ul 01/13/2016 Cbc With Differential Ord2 [place] ABS# 1.2 K/ul 01/13/2016 Cbc With Differential [...] Procedure Codes Date THER/PROPH/DIAG INJ SC/IM CPT-4: 39245 06/05/2017 TRIAMCINOLONE ACET INJ NOS CPT-4: J3301 06/05/2017 URINALYSIS NONAUTO W/O SCOPE CPT-4: 23466 12/08/2016 Vital Signs Date Vital 01/10/2018 Blood Pressure 1: 144/82 Code : 8480-6 Heart Rate 1: 74 bpm Height: 5'3" SpO2: 94% 10/04/2017 Blood Pressure 1: 142/70 Code : 8480-6 Heart Rate 1: 73 bpm Height: SpO2: 97% Weight: 06/05/2017 Blood Pressure 1: 142/86 Code : 8480-6 BMI: 36.8 Code : 66005-5 Heart Rate 1 : 74 bpm Height: 5'3" SpO2: 96% Weight: 211 lbs 01/19/2017 Blood Pressure 1: 150/88 Code : 8480-6 BMI: 36.1 Code : 99388-8 Heart Rate 1 : 76 bpm Height: 5'3" Weight: 207 lbs 10/05/2016 Blood Pressure 1: 134/80 Code : 8480-6 Heart Rate 1: 60 bpm Height: 5'3" SpO2: 95% Weight: 09/23/2016 Blood Pressure 1: 148/76 Code : 8480-6 BMI: 36.3 Code : 70988-7 Heart Rate 1 : 62 bpm Height: 5'3" SpO2: 98% Weight: 208 lbs 07/27/2016 Blood Pressure 1: 130/66 Code : 8480-6 BMI: 37.8 Code : 95121-6 Heart Rate 1 : 64 bpm Height: 5'3" SpO2: 96% Weight: 217 lbs 07/18/2016 Blood Pressure 1: 134/64 Code : 8480-6 BMI: 37.8 Code : 07962-3 Heart Rate 1 : 66 bpm Height: 5'3" SpO2: 96% Weight: 217 lbs 05/09/2016 Blood Pressure 1: 142/72 Code : 8480-6 BMI: 37.3 Code : 42794-2 Heart Rate 1 : 59 bpm Height: 5'3" SpO2: 96% Weight: 214 lbs 01/12/2016 Blood Pressure 1: 122/64 Code : 8480-6 BMI: 37.3 Code : 67759-4 Heart Rate 1 : 68 bpm Height: [...] in left leg[ICD10: M79.605] Azra Lopes MD, [facility] CPT- 4: 44022 01/10/2018 [id number] EST. PATIENT, LEVEL III Diagnosis: Pain in left arm[ICD10: M79.602] Diagnosis: Pain in left elbow[ICD10: M25.522] Azra Lopes MD, [facility] CPT-4: 00613 10/04/2017 ([id number]) Miscellaneous no charge Diagnosis: Cough[ICD10: R05] Diagnosis: Shortness of breath[ICD10: R06.02] Azra Lopes MD, [facility] CPT-4: 18024 06/08/2017 27602 EST. PATIENT, LEVEL IV Diagnosis: Acute laryngopharyngitis[ICD10: J06.0] Diagnosis: Other acute sinusitis[ICD10: J01.80] Diagnosis: Cough[ICD10: R05] Diagnosis: Shortness of breath[ICD10: R06.02] Diagnosis: Other chronic pain[ICD10: G89.29] Azra Lopes MD, [facility] CPT -4: 34564 06/05/2017 06874 EST. PATIENT, LEVEL IV Diagnosis: Diverticulitis of large intestine without perforation or abscess without bleeding[ICD10: K57.32] Diagnosis: Left lower quadrant pain[ICD10: R10.32] Azra Lopes MD, [facility] CPT-4: 24535 01/19/2017 92993 EST. PATIENT, LEVEL III Diagnosis: Allergic contact dermatitis due to plants, except food[ICD10: L23.7] Azra Lopes MD, [facility] CPT-4: 27149 10/05/2016 59214 EST. PATIENT, LEVEL III Diagnosis: Low back pain[ICD10: M54.5] Diagnosis: Other chronic pain[ICD10: G89.29] Azra Lopes MD, [facility] CPT -4: 37420 09/23/2016 76455 EST. PATIENT, LEVEL III Diagnosis: Cough[ICD10: R05] Diagnosis: Shortness of breath[ICD10: R06.02] Diagnosis: Cellulitis of right toe[ICD10: L03.031] Diagnosis: Other obesity due to excess calories[ICD10: E66.09] Azra Lopes MD, [facility] CPT-4: 92636 07/27/2016 18827 EST. PATIENT, LEVEL III Diagnosis: Dysuria[ICD10: R30.0] Diagnosis: Low back pain[ICD10: M54.5] Diagnosis: Other chronic pain[ICD10: G89.29] Azra Lopes MD, [facility] CPT -4: 41247 07/18/2016 91112 EST. 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 01/10/2018 Appointment: Azra Carter WPtel: [phone] [facility] (15 min) Moderate 01/10/2018 Patient Education: Patient Medication Summary Completed 01/10/2018 Patient Education: Patient Medication Summary Completed 10/20/2017 Care Plan: MRI JOINT UPR EXTREM W/O DYE LOINC : 49054-5 Pending 10/05/2017 Visit Plan: Left elbow/arm pain [...] improve. 10/04/2017 Appointment: Azra Carter WPtel: [phone] [facility] (15 min) Moderate 10/04/2017 Patient Education: [...] over-medication. 06/05/2017 [facility]ment[phone] ([facility] min) Moderate 06/05/2017 Patient Education: Patient Medication Summary Completed 06/05/2017 Visit Plan: Diverticulitis - rx for antibiotic sent to pt' s pharmacy - pt advised to avoid seeds, nuts, popcorn, or any other food which has been proven to upset the pt's stomach. 01/19/2017 Appointment: Azra Carter WPtel: [facility] (30 min) Complex 01/19/2017 Patient Education: Patient Medication Summary Completed 01/19/2017 Appointment: Lab Draw 12/08/2016 Patient Education: Patient Medication Summary Completed 12/08/2016 Care Plan: Referral Order SNOMED-CT : [id number] Pending 10/09/2016 Visit Plan: Poison [place] - pt is to use topical treatments as directed. Pt is cleanse clothing in hot water with soap, and call if symptoms do not improve or if they worsen. 10/05/2016 Appointment: Azra Carter WPtel: [facility] (10 min) Simple 10/05/2016 Patient Education: Patient [...] of over-medication. 09/23/2016 Appointment: [facility]el[phone] [facility] (15 min) Moderate 09/23/2016 Patient Education: [...] weight check. 07/27/2016 Appointment: Azra Carter WPtel: [address] [place], [place] [phone] (15 min) Moderate 07/27/2016 Patient Education: Patient Medication Summary Completed 07/27/2016 Patient Education: Obesity Completed 07/27/2016 Care Plan: BMI Above normal followup SELF-MGMT EDUC & TRAIN 1 PT Pending 2016 Care Plan: CHEST X-RAY 2VW FRONTAL&LATL LOINC : 83051-0 Pending 07/27/2016 Visit Plan: UTI - pt [...] over-medication. 07/18/2016 Appointment: [phone] (30 min) Complex 07/18/2016 Patient Education: [...] plan. 05/09/2016 App[facility]ment: [phone] (30 min) Complex 05/09/2016 Patient Education: [...] hydrocodone 01/12/2016 Appointment: [phone] [phone] New Patient 01/12/2016 Patient Education: Patient Medication Summary Completed 01/12/2016 Patient Education: Obesity Completed 01/12/2016 Care Plan: Referral Order SNOMED-CT : [id number] Pending 01/12/2016 Referral: Rell Pruitt Referral Appointment [...] WE WILL REFER YOU TO [facility] PHYSICAL THERAPY GLUCOSAMINE AND CHONDROITIN FOR [...]
--- OUTSIDE RECORDS SUMMARY | 2018-05-21 15:35 | XMS REPORT | CCD ---
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 Name Role Phone PP Unavailable CCM Unavailable Summary Purpose Interface Exchange Insurance Providers Payer name Policy type / Coverage type Covered republican ID Effective Begin Date Effective End Date WPS Medicare Part B Medicare Part B [id number] Unknown [facility] [employer] Medicare Part B [id number] Unknown Family history Mother Diagnosis Age At Onset Hypertension Unknown Anemia Unknown Arthritis Unknown Coronary Artery Disease Unknown Sister Diagnosis Age At Onset Hypertension Unknown Cancer Unknown Brother Diagnosis Age At Onset Depression Unknown Cancer Unknown Hypertension Unknown Social History Social History Element Codes Description Effective Dates Marital status Unknown 01/12/[address]: 091208760 Never smoker 01/12/[address]: 549601785 Never drinks alcohol 01/12/2016 Allergies, Adverse Reactions, Alerts Allergies, Adverse Reactions, Alerts data not found Past Medical History Illness Codes Condition Status Onset Date Resolved Date Cough ICD-9: 786.2 ICD-10: R05 Active 07/27/2016 Unknown Shortness of breath ICD-9: 786.05 ICD-10: R06.02 Active 07/27/2016 Unknown Diverticulitis of large intestine without perforation or abscess without bleeding ICD-9: 562.11 ICD-10: K57.32 Active 01/19/2017 Unknown Left lower quadrant pain ICD-9: 789.04 ICD-10: R10.32 Active 01/19/2017 Unknown Dysuria ICD-9: 788.1 ICD-10: R30.0 Active 07/18/2016 Unknown Allergic contact dermatitis due to plants, except food ICD-9: 692.6 ICD-10: L23.7 Active 10/05/2016 Unknown Low back pain ICD-9: 724.2 ICD-10: M54.5 Active 01/11/2016 Unknown Other chronic pain ICD -9: 338.29 ICD-10: G89.29 Active 07/18/2016 Unknown Cellulitis of right toe ICD-9: 681.10 [...] Problems Condition Codes Effective Dates Condition Status Cough ICD-9: 786.2 ICD-10: R05 07/27/2016 Active Shortness of breath ICD-9: 786.05 ICD-10: R06.02 07/27/2016 Active Diverticulitis of large intestine without perforation or abscess without bleeding ICD-9: 562.11 ICD-10: K57.32 01/19/2017 Active Left lower quadrant pain ICD-9: 789.04 ICD-10: R10.32 01/19/2017 Active Dysuria ICD-9: 788.1 ICD-10: R30.0 07/18/2016 Active Allergic contact dermatitis due to plants, except food ICD-9: 692.6 ICD-10: L23.7 10/05/2016 Active Low back pain ICD-9: 724.2 ICD-10: M54.5 01/11/2016 Active Other chronic pain ICD -9: 338.29 ICD-10: G89.29 07/18/2016 Active Cellulitis of right toe ICD-9: 681.10 [...] Start Date Stop Date Status Fill Instructions Keflex 500 mg capsule RxNorm: 763013 1 Capsule(s) PO TID 201706/16/2017 Active albuterol sulfate 2.5 mg/3 mL (0.083 %) solution for nebulization RxNorm: 774197 3 Milliliter(s) INH QID as needed 06/09/2017 No Stop Date Active prednisone 10 mg tablet RxNorm: 949558 Tablet(s) PO 06/08/2017 No Stop Date Active 6, 5,4,3,2,1 Keflex 500 mg capsule RxNorm: 194251 1 Capsule(s) PO TID 201706/13/2017 Inactive Zithromax Z-Duran 250 mg tablet RxNorm: 603594 1 Tablet(s) PO UD 06/05/2017 No Stop Date Active Tessalon Perles 100 mg capsule RxNorm: 456883 1-2 Capsule(s) PO TID as needed cough 06/05/2017 06/09/2017 Inactive Please check mast before filling for pt, if too expensive pt does not want it Coreg 25 mg tablet RxNorm: 993811 TAKE ONE TABLET BY MOUTH TWICE DAILY 05/30/2017 No Stop Date Active gabapentin 300 mg capsule RxNorm: 603069 TAKE ONE & ONE-HALF TABLETS BY MOUTH THREE TIMES DAILY 05/30/2017 No Stop Date Active gabapentin 300 mg capsule RxNorm: 201151 TAKE ONE & ONE-HALF TABLETS BY MOUTH THREE TIMES DAILY 02/01/2017 05/29/2017 Inactive Coreg 25 mg tablet RxNorm: 641083 TAKE ONE TABLET BY MOUTH TWICE DAILY 02/01/2017 05/29/2017 Inactive Cipro 500 mg tablet RxNorm: 759028 1 Tablet(s) PO BID 201601/28/2017 Inactive Flagyl 500 mg tablet RxNorm: 492766 1 Tablet(s) PO TID 201601/28/2017 Inactive Coreg 25 mg tablet RxNorm: 026599 TAKE ONE TABLET BY MOUTH TWICE DAILY 01/02/2017 01/31/2017 Inactive hydrocodone 7.5 mg-acetaminophen 325 mg tablet RxNorm: 916226 1 Tablet(s) PO Q4- 6H as needed 12/08/2016 No Stop Date Active Keflex 500 mg capsule RxNorm: 837570 1 Capsule(s) PO TID 201612/14/2016 Inactive spironolactone 50 mg tablet RxNorm: 463614 TAKE ONE TABLET BY MOUTH ONCE DAILY 11/25/2016 03/24/2017 Inactive gabapentin 300 mg capsule RxNorm: 402651 TAKE ONE & ONE-HALF TABLETS BY MOUTH THREE TIMES DAILY 10/07/2016 01/31/2017 Inactive prednisone 10 mg tablet RxNorm: 662579 Tablet(s) PO 10/05/2016 06/07/2017 Inactive 6, 5,4,3,2,1 hydrocodone 7.5 mg-acetaminophen 325 mg tablet RxNorm: 807863 1 Tablet(s) PO Q4- 6H 09/23/2016 12/07/2016 Inactive Coreg 25 mg tablet RxNorm: 982867 TAKE ONE TABLET BY MOUTH TWICE DAILY 09/08/2016 01/01/2017 Inactive Ventolin HFA 90 mcg/actuation aerosol inhaler RxNorm: 478484 1 Puff(s) INH Q4-6H as needed dyspnea 07/29/2016 No Stop Date Active hydrocodone 10 mg-acetaminophen 325 mg tablet RxNorm: 409842 1/2 Tablet(s) PO TID 07/18/2016 08/16/2016 Inactive Pyridium 100 mg tablet RxNorm: 6338114 1-2 Tablet(s) PO TID as needed 07/18/2016 07/19/2016 Inactive Bactrim DS 800 mg-160 mg tablet RxNorm: 805157 1 Tablet(s) PO BID 07/18/2016 07/27/2016 Inactive Coreg 25 mg tablet RxNorm: 592868 TAKE ONE TABLET BY MOUTH TWICE DAILY 07/07/2016 09/04/2016 Inactive gabapentin 300 mg capsule RxNorm: 521397 TAKE ONE & ONE-HALF TABLETS BY MOUTH THREE TIMES DAILY 06/09/2016 10/06/2016 Inactive hydrocodone 7.5 mg-acetaminophen 325 mg tablet RxNorm: 047264 1 Tablet(s) PO BID 05/17/2016 10/08/2016 Inactive hydrocodone 7.5 mg-acetaminophen 325 mg tablet RxNorm: 426951 1 Tablet(s) PO BID 03/31/2016 05/16/2016 Inactive spironolactone 50 mg tablet RxNorm: 192652 1 Tablet(s) PO daily 03/09/2016 09/04/2016 Inactive Coreg 25 mg tablet RxNorm: 526270 1 Tablet(s) PO BID 201506/20/2016 Inactive gabapentin 600 mg tablet RxNorm: 337611 1.5 Tablet(s) PO TID 06/09/2016 Inactive gabapentin 300 mg capsule RxNorm: 018479 3 Capsule(s) PO TID 02/10/2016 Inactive hydrocodone 7.5 mg-acetaminophen 325 mg tablet RxNorm: 537547 1 Tablet(s) PO BID 01/12/2016 03/30/2016 Inactive prednisone 10 mg tablet RxNorm: 201825 Tablet(s) PO No Start Date Active 6,5,4,3,2 ,1 Fish Oil 360 mg-1,200 mg capsule RxNorm: 838706 3 Capsule(s) PO daily No Start Date Active niacin 500 mg capsule RxNorm: 839660 2 Capsule(s) PO daily No Start Date Active simvastatin 40 mg tablet RxNorm: 866863 1 Tablet(s) PO daily No Start Date Active Vitamin D3 5,000 unit tablet RxNorm: 016781 1 Tablet(s) PO daily No Start Date Active losartan 50 mg tablet RxNorm: 936638 1 Tablet(s) PO daily No Start Date Active ibuprofen 200 mg capsule RxNorm: 208023 1 Capsule(s) PO TID No Start Date Active oxybutynin chloride 5 mg tablet RxNorm: 511981 1 Tablet(s) PO BID No Start Date Active PreserVision Lutein oral RxNorm: 886330 oral No Start Date Active aspirin 81 mg tablet RxNorm: 672135 1 Tablet(s) PO daily No Start Date Active spironolactone 50 mg tablet RxNorm: 789438 1 Tablet(s) PO daily No Start Date 03/08/2016 Inactive Coreg 25 mg tablet RxNorm: 888043 1 Tablet(s) PO BID No Start Date 02/21/2016 Inactive Ventolin HFA 90 mcg/actuation aerosol inhaler RxNorm: 362835 1 Puff(s) INH Q4-6H as needed dyspnea No Start Date 2016 Inactive hydrocodone 7.5 mg-acetaminophen 325 mg tablet RxNorm: 942787 1 Tablet(s) PO BID No Start Date 01/11/2016 Inactive albuterol sulfate 2.5 mg/3 mL (0.083 %) solution for nebulization RxNorm: 612796 3 Milliliter(s) INH QID as needed No Start Date 06/08/2017 Inactive gabapentin 300 mg capsule RxNorm: 419200 3 Capsule(s) PO TID No Start Date 02/09/2016 Inactive Medication Administered No Medication Administered data Immunizations No Immunization data Assessments Condition Codes Effective Dates Shortness of breath ICD-10: R06.02 ICD-9: 786.05 06/08/2017 Cough ICD-10: R05 ICD-9: 786.2 06/08/2017 Diverticulitis of large intestine without perforation or abscess without bleeding ICD-10: K57.32 ICD-9: 562.11 01/19/2017 Left lower quadrant pain ICD-10: R10.32 ICD-9: 789.04 01/19/2017 Dysuria ICD-10: R30.0 ICD-9: 788.1 12/08/2016 Allergic contact dermatitis due to plants, except food ICD- 10: L23.7 ICD-9: 692.6 10/05/2016 Other chronic pain ICD-10: G89.29 ICD-9: 338.29 09/23/2016 Low back pain ICD-10: M54.5 ICD-9: 724.2 [...] Visit Reason For Visit Effective Dates Notes abdominal pain 01/19/2017 rash 10/05/2016 low back and leg pain 09/23/2016 foot pain 07/27/2016 urinary urgency 07/18/2016 hypertension 05/09/2016 melena 01/12/2016 Results Observation Observation Code Item Item Code Result Date Culture Urine [id number] URINE CULTURE SEE NOTES 12/12/2016 Culture Urine [id number] Continued Results 12/12/2016 Urine Culture Ucult Complete >100,000 col/ml aerobic growth sent to ref lab 12/10/2016 Culture Urine [id number] URINE CULTURE SEE NOTES 07/22/2016 Culture Urine [id number] Continued Results 07/22/2016 Urine Culture Ucult Complete >100,000 col/ml aerobic growth sent to ref lab 07/20/2016 Cbc With Differential Ord2 WBC 9.18 K/ul 05/11/2016 Cbc With Differential Ord2 RBC 4.30 M/ul 05/11/2016 Cbc With Differential Ord2 HGB 13.0 g/dl 05/11/2016 Cbc With Differential Ord2 Neut% 66.3 % 05/11/2016 Cbc With Differential Ord2 HCT 40.4 % 05/11/2016 Cbc With Differential Ord2 MCV 94.0 fl 05/11/2016 Cbc With Differential Ord2 Lymph% 16.2 % 05/11/2016 Cbc With Differential Ord2 [place]% 12.3 % 05/11/2016 Cbc With Differential Ord2 [...] 1.49 K/ul 05/11/2016 Cbc With Differential Ord2 [place] ABS# 1.1 K/ul 05/11/2016 Cbc With Differential Ord2 Eos ABS# 0.4 K/ul 05/11/2016 Cbc With Differential Ord2 Baso ABS# 0.0 K/ul 05/11/2016 Parathyroid Hormone Ano179 PTH 37.40 pg/ml 05/11/2016 Comp Metabolic Mug563 NA 141 mEq/L 05/11/2016 Comp Metabolic Fxv485 K 4.4 mEq/L 05/11/2016 Comp Metabolic Vve566 CL 110 mEq/L 05/11/2016 Comp Metabolic Tik734 CO2 26.0 mEq/L 05/11/2016 Comp Metabolic Kab492 ANION GAP 9 05/11/2016 Comp Metabolic Xlh507 GLUCOSE 99 mg/dL 05/11/2016 Comp Metabolic Caq529 Creat 0.9 mg/dL 05/11/2016 Comp Metabolic Wiu702 eGFR 69 ml/min/1.73m2 05/11/2016 Comp Metabolic Fni105 BUN 24 mg/dL 05/11/2016 Comp Metabolic Nkm978 B/C Ratio 28.2 Ratio 05/11/2016 Comp Metabolic Wdh039 CALCIUM 10.2 mg/dL 05/11/2016 Comp Metabolic Gze576 ALK PHOS 67 U/L 05/11/2016 Comp Metabolic Jlc467 AST(SGOT) 18 U/L 05/11/2016 Comp Metabolic Wsh074 ALT(SGPT) 19 U/L 05/11/2016 Comp Metabolic Pns311 BILI T 0.8 mg/dL 05/11/2016 Comp Metabolic Vtm876 ALBUMIN 4.0 g/dL 05/11/2016 Comp Metabolic Zpv668 TPRO 6.6 g/dL 05/11/2016 Comp Metabolic Det907 GLOB 2.6 g/dL 05/11/2016 Comp Metabolic Bej247 A/G Ratio 1.6 Ratio 05/11/2016 Comp Metabolic Hst355 Osmo 285 mOsmo 05/11/2016 Comp Metabolic Pau451 NA 136 mEq/L 01/13/2016 Comp Metabolic Wur148 K 4.7 mEq/L 01/13/2016 Comp Metabolic Fog645 CL 106 mEq/L 01/13/2016 Comp Metabolic Xfx551 CO2 26.0 mEq/L 01/13/2016 Comp Metabolic Vtz618 ANION GAP 9 01/13/2016 Comp Metabolic Uyu209 GLUCOSE 95 mg/dL 01/13/2016 Comp Metabolic Inx025 Creat 1.0 mg/dL 01/13/2016 Comp Metabolic Epk798 eGFR 60 ml/min/1.73m2 01/13/2016 Comp Metabolic Bfm002 BUN 21 mg/dL 01/13/2016 Comp Metabolic Cgt679 B/C Ratio 21.9 Ratio 01/13/2016 Comp Metabolic Rnq195 CALCIUM 9.7 mg/dL 01/13/2016 Comp Metabolic Wdg989 ALK PHOS 69 U/L 01/13/2016 Comp Metabolic Vkx182 AST(SGOT) 14 U/L 01/13/2016 Comp Metabolic Tfl607 ALT(SGPT) 17 U/L 01/13/2016 Comp Metabolic Uvb570 BILI T 0.6 mg/dL 01/13/2016 Comp Metabolic Njn887 ALBUMIN 3.6 g/dL 01/13/2016 Comp Metabolic Uuf201 TPRO 6.3 g/dL 01/13/2016 Comp Metabolic Hkr785 GLOB 2.7 g/dL 01/13/2016 Comp Metabolic Xnz315 A/G Ratio 1.4 Ratio 01/13/2016 Comp Metabolic Sqb147 Osmo 275 mOsmo 01/13/2016 Cbc With Differential Ord2 WBC 9.84 K/ul 01/13/2016 Cbc With Differential Ord2 RBC 4.14 M/ul 01/13/2016 Cbc With Differential Ord2 HGB 12.7 g/dl 01/13/2016 Cbc With Differential Ord2 HCT 39.4 % 01/13/2016 Cbc With Differential Ord2 Neut% 65.0 % 01/13/2016 Cbc With Differential Ord2 Lymph% 18.5 % 01/13/2016 Cbc With Differential Ord2 MCV 95.2 fl 01/13/2016 Cbc With Differential Ord2 MCH 30.7 pg 01/13/2016 Cbc With Differential Ord2 [place]% 12.2 % 01/13/2016 Cbc With Differential Ord2 MCHC 32.2 pg 01/13/2016 Cbc With Differential Ord2 Eos% 3.8 % 01/13/2016 Cbc With Differential Ord2 Baso% 0.5 % 01/13/2016 Cbc With Differential Ord2 PLT 315 K/ul 01/13/2016 Cbc With Differential Ord2 Neut ABS# 6.40 K/ul 01/13/2016 Cbc With Differential Ord2 RDW 14.9 % 01/13/2016 Cbc With Differential Ord2 Lymph ABS# 1.82 K/ul 01/13/2016 Cbc With Differential Ord2 [place] ABS# 1.2 K/ul 01/13/2016 Cbc With Differential Ord2 Eos ABS# 0.4 K/ul 01/13/2016 Cbc With Differential Ord2 Baso ABS# 0.1 K/ul 01/13/2016 Review of Systems System Result Effective Dates Constitutional recent illness 01/19/2017 Constitutional No chills [...] Result Effective Dates Notes Full Exam - Cardiology Respiratory auscultation Diffuse: [...] accomodation 01/12/2016 None Procedures Procedure Codes Date URINALYSIS NONAUTO W/O SCOPE CPT-4: 59771 12/08/2016 Vital Signs Date Vital 01/19/2017 Blood Pressure 1: 150/88 Code : 8480-6 BMI: 36.1 Code : 21050-5 Heart Rate 1 : 76 bpm Height: 5'3" Weight: 207 lbs 10/05/2016 Blood Pressure 1: 134/80 Code : 8480-6 Heart Rate 1: 60 bpm Height: 5'3" SpO2: 95% Weight: 09/23/2016 Blood Pressure 1: 148/76 Code : 8480-6 BMI: 36.3 Code : 17801-2 Heart Rate 1 : 62 bpm Height: 5'3" SpO2: 98% Weight: 208 lbs 07/27/2016 Blood Pressure 1: 130/66 Code : 8480-6 BMI: 37.8 Code : 85139-8 Heart Rate 1 : 64 bpm Height: 5'3" SpO2: 96% Weight: 217 lbs 07/18/2016 Blood Pressure 1: 134/64 Code : 8480-6 BMI: 37.8 Code : 97970-4 Heart Rate 1 : 66 bpm Height: 5'3" SpO2: 96% Weight: 217 lbs 05/09/2016 Blood Pressure 1: 142/72 Code : 8480-6 BMI: 37.3 Code : 25906-6 Heart Rate 1 : 59 bpm Height: 5'3" SpO2: 96% Weight: 214 lbs 01/12/2016 Blood Pressure 1: 122/64 Code : 8480-6 BMI: 37.3 Code : 51472-9 Heart Rate 1 : 68 bpm Height: 5'3" SpO2: 94% Weight: 214 lbs Functional Status No Functional Status data History of Present Illness Symptom Name Status Result Effective Date Notes abdominal pain Location in the LLQ 01/19/2017 [...] data Encounters Encounter Performer Location Codes Date ([id number]) Miscellaneous no charge Diagnosis: Cough[ICD10: R05] Diagnosis: Shortness of breath[ICD10: R06.02] Azra Lopes MD, [facility] CPT-4: 99279 06/08/2017 52532 EST. PATIENT, LEVEL IV Diagnosis: Diverticulitis of large intestine without perforation or abscess without bleeding[ICD10: K57.32] Diagnosis: Left lower quadrant pain[ICD10: R10.32] Azra Lopes MD, [facility] CPT-4: 83342 01/19/2017 92655 EST. PATIENT, LEVEL III Diagnosis: Allergic contact dermatitis due to plants, except food[ICD10: L23.7] Azra Lopes MD, [facility] CPT-4: 89075 10/05/2016 48344 EST. PATIENT, LEVEL III Diagnosis: Low back pain[ICD10: M54.5] Diagnosis: Other chronic pain[ICD10: G89.29] Azra Lopes MD, [facility] CPT -4: 68121 09/23/2016 55949 EST. PATIENT, LEVEL III Diagnosis: Cough[ICD10: R05] Diagnosis: Shortness of breath[ICD10: R06.02] Diagnosis: Cellulitis of right toe[ICD10: L03.031] Diagnosis: Other obesity due to excess calories[ICD10: E66.09] Azra Lopes MD, [facility] CPT-4: 48801 07/27/2016 18429 EST. PATIENT, LEVEL III Diagnosis: Dysuria[ICD10: R30.0] Diagnosis: Low back pain[ICD10: M54.5] Diagnosis: Other chronic pain[ICD10: G89.29] Azra Lopes MD, [facility] CPT -4: 51129 07/18/2016 91173 EST. 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] Azra Lopes MD , [facility] CPT-4: 88722 05/09/2016 ([id number]) I Fecal Occult Blood Diagnosis: Encounter for screening for malignant neoplasm of colon[ICD10: Z12.11 ] Nicolle Lopes MD, [facility] CPT-4: [id number] 2015 ([id number]) OFFICE VISIT, NEW - LEVEL 4 Diagnosis: Essential (primary) hypertension[ICD10: I10] Diagnosis: Mixed hyperlipidemia[ICD10: E78.2] Diagnosis: Melena[ICD10: K92.1] Diagnosis: Low back pain[ICD10: M54.5] Lise Lopse MD, [facility] CPT-4: 93006 01/12/2016 Plan of Care Planned Activity Notes Codes Status Date Appointment: Nurse Visit 06/08/2017 Patient Education: Patient Medication Summary Completed 06/08/2017 Appointment: [facility] (15 min) Moderate 06/05/2017 Visit Plan: Diverticulitis - rx for antibiotic sent to pt' s pharmacy - pt advised to avoid seeds, nuts, popcorn, or any other food which has been proven to upset the pt's stomach. 01/19/2017 Appointment: Azra Carter [facility]Ptel[facility] [place] (30 min) Complex 01/19/2017 Patient Education: Patient Medication Summary Completed 01/19/2017 Appointment: Lab Draw 12/08/2016 Patient Education: Patient Medication Summary Completed 12/08/2016 Care Plan: Referral Order SNOMED-CT : [id number] Pending 10/09/2016 Visit Plan: Poison [place] - pt is to use topical treatments as directed. Pt is cleanse clothing in hot water with soap, and call if symptoms do not improve or if they worsen. 10/05/2016 Appointment: Azra Carter WPtel[facility] [place] (10 min) Simple 10/05/2016 Patient [...] of over-medication. 09/23/2016 Appointment: Azra Carter WPtel: [facility] (15 min) Moderate 09/23/2016 Patient Education: Patient [...] weight check. 07/27/2016 Appointment: Azra Carter WPtel: [facility] (15 min) Moderate 07/27/2016 Patient Education: Patient Medication Summary Completed 07/27/2016 Patient Education: Obesity Completed 07/27/2016 Care Plan: BMI Above normal followup SELF-MGMT EDUC & TRAIN 1 PT Pending 2016 Care Plan: CHEST X-RAY 2VW FRONTAL&LATL LOINC : 48268-4 Pending 07/27/2016 Visit Plan: UTI - pt [...] over-medication. 07/18/2016 Appointment: Az[facility] [phone] [facility] (30 min) Complex 07/18/2016 Patient Education: [...] plan. 05/09/2016 Appointment: Az[facility] [phone] [facility] (30 min) Complex 05/09/2016 Patient Education: [...] blood Low back pain-refill hydrocodone 01/12/2016 Appointment: Bruce[facility] [phone] [phone] New Patient 01/12/2016 Patient Education: Patient Medication Summary Completed 01/12/2016 Patient Education: Obesity Completed 01/12/2016 Care Plan: Referral Order SNOMED-CT : [id number] Pending 01/12/2016 Referral: Rell Pruitt Referral Appointment [...] WE WILL REFER YOU TO [facility] GLUCOSAMINE AND CHONDROITIN FOR [...] and understands the consequences of over-medication. . Cellulitis - very mild - Finish [...]
--- OUTSIDE RECORDS SUMMARY | 2018-05-21 15:36 | XMS REPORT | CCD ---
Author Author [facility] Address [address] [place] [address] Phone Care Team Providers Care Voucher Clerk Name Role Phone PP Unavailable CCM Unavailable Summary Purpose Interface Exchange Insurance Providers Payer name Policy type / Coverage type Covered libertarian ID Effective Begin Date Effective End Date WPS Medicare Part B Medicare Part B [id number] Unknown [place] Residential Life Insurance Medicare Part B [id number] Unknown Family history Mother Diagnosis Age At Onset Hypertension Unknown Anemia Unknown Arthritis Unknown Coronary Artery Disease Unknown Sister Diagnosis Age At Onset Hypertension Unknown Cancer Unknown Brother Diagnosis Age At Onset Depression Unknown Cancer Unknown Hypertension Unknown Social History Social History Element Codes Description Effective Dates Marital status Unknown 01/12/[address]: 639558765 Never smoker 01/12/[address]: 871556112 Never drinks alcohol 01/12/2016 Allergies, Adverse Reactions, [...] Start Date Stop Date Status Fill Instructions albuterol sulfate 2.5 mg/3 mL (0.083 %) solution for nebulization RxNorm: 110699 3 Milliliter(s) INH QID as needed 06/09/2017 No Stop Date Active prednisone 10 mg tablet RxNorm: 649956 Tablet(s) PO 06/08/2017 No Stop Date Active 6, 5,4,3,2,1 Keflex 500 mg capsule RxNorm: 906553 1 Capsule(s) PO TID 201706/13/2017 Active Zithromax Z-Duran 250 mg tablet RxNorm: 447309 1 Tablet(s) PO UD 06/05/2017 No Stop Date Active Tessalon Perles 100 mg capsule RxNorm: 768268 1-2 Capsule(s) PO TID as needed cough 06/05/2017 06/09/2017 Inactive Please check mast before filling for pt, if too expensive pt does not want it Coreg 25 mg tablet RxNorm: 464034 TAKE ONE TABLET BY MOUTH TWICE DAILY 05/30/2017 No Stop Date Active gabapentin 300 mg capsule RxNorm: 496741 TAKE ONE & ONE-HALF TABLETS BY MOUTH THREE TIMES DAILY 05/30/2017 No Stop Date Active gabapentin 300 mg capsule RxNorm: 466046 TAKE ONE & ONE-HALF TABLETS BY MOUTH THREE TIMES DAILY 02/01/2017 05/29/2017 Inactive Coreg 25 mg tablet RxNorm: 031240 TAKE ONE TABLET BY MOUTH TWICE DAILY 02/01/2017 05/29/2017 Inactive Cipro 500 mg tablet RxNorm: 178262 1 Tablet(s) PO BID 201601/28/2017 Inactive Flagyl 500 mg tablet RxNorm: 569583 1 Tablet(s) PO TID 201601/28/2017 Inactive Coreg 25 mg tablet RxNorm: 154149 TAKE ONE TABLET BY MOUTH TWICE DAILY 01/02/2017 01/31/2017 Inactive hydrocodone 7.5 mg-acetaminophen 325 mg tablet RxNorm: 264410 1 Tablet(s) PO Q4- 6H as needed 12/08/2016 No Stop Date Active Keflex 500 mg capsule RxNorm: 494426 1 Capsule(s) PO TID 201612/14/2016 Inactive spironolactone 50 mg tablet RxNorm: 926614 TAKE ONE TABLET BY MOUTH ONCE DAILY 11/25/2016 03/24/2017 Inactive gabapentin 300 mg capsule RxNorm: 037078 TAKE ONE & ONE-HALF TABLETS BY MOUTH THREE TIMES DAILY 10/07/2016 01/31/2017 Inactive prednisone 10 mg tablet RxNorm: 049979 Tablet(s) PO 10/05/2016 06/07/2017 Inactive 6, 5,4,3,2,1 hydrocodone 7.5 mg-acetaminophen 325 mg tablet RxNorm: 127418 1 Tablet(s) PO Q4- 6H 09/23/2016 12/07/2016 Inactive Coreg 25 mg tablet RxNorm: 716517 TAKE ONE TABLET BY MOUTH TWICE DAILY 09/08/2016 01/01/2017 Inactive Ventolin HFA 90 mcg/actuation aerosol inhaler RxNorm: 876629 1 Puff(s) INH Q4-6H as needed dyspnea 07/29/2016 No Stop Date Active hydrocodone 10 mg-acetaminophen 325 mg tablet RxNorm: 016029 1/2 Tablet(s) PO TID 07/18/2016 08/16/2016 Inactive Pyridium 100 mg tablet RxNorm: 2325946 1-2 Tablet(s) PO TID as needed 07/18/2016 07/19/2016 Inactive Bactrim DS 800 mg-160 mg tablet RxNorm: 719714 1 Tablet(s) PO BID 07/18/2016 07/27/2016 Inactive Coreg 25 mg tablet RxNorm: 045953 TAKE ONE TABLET BY MOUTH TWICE DAILY 07/07/2016 09/04/2016 Inactive gabapentin 300 mg capsule RxNorm: 820666 TAKE ONE & ONE-HALF TABLETS BY MOUTH THREE TIMES DAILY 06/09/2016 10/06/2016 Inactive hydrocodone 7.5 mg-acetaminophen 325 mg tablet RxNorm: 569356 1 Tablet(s) PO BID 05/17/2016 10/08/2016 Inactive hydrocodone 7.5 mg-acetaminophen 325 mg tablet RxNorm: 933229 1 Tablet(s) PO BID 03/31/2016 05/16/2016 Inactive spironolactone 50 mg tablet RxNorm: 973420 1 Tablet(s) PO daily 03/09/2016 09/04/2016 Inactive Coreg 25 mg tablet RxNorm: 896143 1 Tablet(s) PO BID 201506/20/2016 Inactive gabapentin 600 mg tablet RxNorm: 273558 1.5 Tablet(s) PO TID 06/09/2016 Inactive gabapentin 300 mg capsule RxNorm: 926659 3 Capsule(s) PO TID 02/10/2016 Inactive hydrocodone 7.5 mg-acetaminophen 325 mg tablet RxNorm: 993921 1 Tablet(s) PO BID 01/12/2016 03/30/2016 Inactive prednisone 10 mg tablet RxNorm: 843627 Tablet(s) PO No Start Date Active 6,5,4,3,2 ,1 Fish Oil 360 mg-1,200 mg capsule RxNorm: 143610 3 Capsule(s) PO daily No Start Date Active niacin 500 mg capsule RxNorm: 512673 2 Capsule(s) PO daily No Start Date Active simvastatin 40 mg tablet RxNorm: 766712 1 Tablet(s) PO daily No Start Date Active Vitamin D3 5,000 unit tablet RxNorm: 472659 1 Tablet(s) PO daily No Start Date Active losartan 50 mg tablet RxNorm: 370144 1 Tablet(s) PO daily No Start Date Active ibuprofen 200 mg capsule RxNorm: 154737 1 Capsule(s) PO TID No Start Date Active oxybutynin chloride 5 mg tablet RxNorm: 565909 1 Tablet(s) PO BID No Start Date Active PreserVision Lutein oral RxNorm: 157024 oral No Start Date Active aspirin 81 mg tablet RxNorm: 393521 1 Tablet(s) PO daily No Start Date Active spironolactone 50 mg tablet RxNorm: 103744 1 Tablet(s) PO daily No Start Date 03/08/2016 Inactive Coreg 25 mg tablet RxNorm: 687148 1 Tablet(s) PO BID No Start Date 02/21/2016 Inactive Ventolin HFA 90 mcg/actuation aerosol inhaler RxNorm: 465720 1 Puff(s) INH Q4-6H as needed dyspnea No Start Date 2016 Inactive hydrocodone 7.5 mg-acetaminophen 325 mg tablet RxNorm: 200121 1 Tablet(s) PO BID No Start Date 01/11/2016 Inactive albuterol sulfate 2.5 mg/3 mL (0.083 %) solution for nebulization RxNorm: 214851 3 Milliliter(s) INH QID as needed No Start Date 06/08/2017 Inactive gabapentin 300 mg capsule RxNorm: 613141 3 Capsule(s) PO TID No Start Date [...] colon ICD- 10: Z12.11 ICD-9: V76.51 01/18/2016 [place] ICD-10: K92.1 ICD-9: 578.1 01/12/2016 Essential (primary) hypertension ICD-10: I10 ICD-9: 401.9 01/12/2016 Mixed hyperlipidemia ICD-10: E78.2 ICD-9: 272.2 01/12/2016 Reason For Visit Reason For Visit Effective Dates Notes abdominal pain 01/19/2017 rash 10/05/2016 low back and leg pain 09/23/2016 foot pain 07/27/2016 urinary urgency 07/18/2016 hypertension 05/09/2016 melena 01/12/2016 Results Observation Observation Code Item Item Code Result Date Culture Urine [id number] URINE CULTURE SEE NOTES 12/12/2016 Culture Urine [id number] Continued Results 12/12/2016 Urine Culture Ucult Complete >100,000 col/ml aerobic growth sent to ref lab 12/10/2016 Culture Urine [id number] URINE CULTURE SEE NOTES 07/22/2016 Culture Urine [id number] Continued Results 07/22/2016 Urine Culture Ucult Complete [...] 30.2 pg 05/11/2016 Cbc With Differential Ord2 [place]% 12.3 % 05/11/2016 Cbc With Differential Ord2 [...] 1.49 K/ul 05/11/2016 Cbc With Differential Ord2 [place] ABS# 1.1 K/ul 05/11/2016 Cbc With Differential Ord2 Eos ABS# 0.4 K/ul 05/11/2016 Cbc With Differential Ord2 Baso ABS# 0.0 K/ul 05/11/2016 Parathyroid Hormone Eds107 PTH 37.40 pg/ml 05/11/2016 Comp Metabolic Baj220 NA 141 mEq/L 05/11/2016 Comp Metabolic Pbk210 K 4.4 mEq/L 05/11/2016 Comp Metabolic Ewl810 CL 110 mEq/L 05/11/2016 Comp Metabolic Lew385 CO2 26.0 mEq/L 05/11/2016 Comp Metabolic Lov650 ANION GAP 9 05/11/2016 Comp Metabolic Fbn594 GLUCOSE 99 mg/dL 05/11/2016 Comp Metabolic Jto207 Creat 0.9 mg/dL 05/11/2016 Comp Metabolic Wfh088 eGFR 69 ml/min/1.73m2 05/11/2016 Comp Metabolic Rlr395 BUN 24 mg/dL 05/11/2016 Comp Metabolic Ran312 B/C Ratio 28.2 Ratio 05/11/2016 Comp Metabolic Ebk698 CALCIUM 10.2 mg/dL 05/11/2016 Comp Metabolic Uio473 ALK PHOS 67 U/L 05/11/2016 Comp Metabolic Fbj334 AST(SGOT) 18 U/L 05/11/2016 Comp Metabolic Aep432 ALT(SGPT) 19 U/L 05/11/2016 Comp Metabolic Yoq465 BILI T 0.8 mg/dL 05/11/2016 Comp Metabolic Ndn143 ALBUMIN 4.0 g/dL 05/11/2016 Comp Metabolic Vhw675 TPRO 6.6 g/dL 05/11/2016 Comp Metabolic Rxt859 GLOB 2.6 g/dL 05/11/2016 Comp Metabolic Uww543 A/G Ratio 1.6 Ratio 05/11/2016 Comp Metabolic Tix035 Osmo 285 mOsmo 05/11/2016 Comp Metabolic Usm081 NA 136 mEq/L 01/13/2016 Comp Metabolic Wra541 K 4.7 mEq/L 01/13/2016 Comp Metabolic Xkv068 CL 106 mEq/L 01/13/2016 Comp Metabolic Elw027 CO2 26.0 mEq/L 01/13/2016 Comp Metabolic Xwt205 ANION GAP 9 01/13/2016 Comp Metabolic Wkn839 GLUCOSE 95 mg/dL 01/13/2016 Comp Metabolic Jgk943 Creat 1.0 mg/dL 01/13/2016 Comp Metabolic Nmk510 eGFR 60 ml/min/1.73m2 01/13/2016 Comp Metabolic Pif250 BUN 21 mg/dL 01/13/2016 Comp Metabolic Mww716 B/C Ratio 21.9 Ratio 01/13/2016 Comp Metabolic Dgo836 CALCIUM 9.7 mg/dL 01/13/2016 Comp Metabolic Mip411 ALK PHOS 69 U/L 01/13/2016 Comp Metabolic Jaq501 AST(SGOT) 14 U/L 01/13/2016 Comp Metabolic Nph961 ALT(SGPT) 17 U/L 01/13/2016 Comp Metabolic Yyl384 BILI T 0.6 mg/dL 01/13/2016 Comp Metabolic Qqq292 ALBUMIN 3.6 g/dL 01/13/2016 Comp Metabolic Kqu118 TPRO 6.3 g/dL 01/13/2016 Comp Metabolic Tpu841 GLOB 2.7 g/dL 01/13/2016 Comp Metabolic Yro734 A/G Ratio 1.4 Ratio 01/13/2016 Comp Metabolic Wfk439 Osmo 275 mOsmo 01/13/2016 Cbc With Differential [...] 30.7 pg 01/13/2016 Cbc With Differential Ord2 [place]% 12.2 % 01/13/2016 Cbc With Differential Ord2 [...] 1.82 K/ul 01/13/2016 Cbc With Differential Ord2 [place] ABS# 1.2 K/ul 01/13/2016 Cbc With Differential [...] Codes Date URINALYSIS NONAUTO W/O SCOPE CPT-4: 27227 12/08/2016 Vital Signs Date Vital 01/19/2017 Blood Pressure 1: 150/88 Code : 8480-6 BMI: 36.1 Code : 93223-1 Heart Rate 1 : 76 bpm Height: 5'3" Weight: 207 lbs 10/05/2016 Blood Pressure 1: 134/80 Code : 8480-6 Heart Rate 1: 60 bpm Height: 5'3" SpO2: 95% Weight: 09/23/2016 Blood Pressure 1: 148/76 Code : 8480-6 BMI: 36.3 Code : 62548-6 Heart Rate 1 : 62 bpm Height: 5'3" SpO2: 98% Weight: 208 lbs 07/27/2016 Blood Pressure 1: 130/66 Code : 8480-6 BMI: 37.8 Code : 28394-4 Heart Rate 1 : 64 bpm Height: 5'3" SpO2: 96% Weight: 217 lbs 07/18/2016 Blood Pressure 1: 134/64 Code : 8480-6 BMI: 37.8 Code : 44562-6 Heart Rate 1 : 66 bpm Height: 5'3" SpO2: 96% Weight: 217 lbs 05/09/2016 Blood Pressure 1: 142/72 Code : 8480-6 BMI: 37.3 Code : 41527-1 Heart Rate 1 : 59 bpm Height: 5'3" SpO2: 96% Weight: 214 lbs 01/12/2016 Blood Pressure 1: 122/64 Code : 8480-6 BMI: 37.3 Code : 19009-4 Heart Rate 1 : 68 bpm Height: [...] data Encounters Encounter Performer Location Codes Date ([id number]) Miscellaneous no charge Diagnosis: Cough[ICD10: R05] Diagnosis: Shortness of breath[ICD10: R06.02] Azra Lopes MD, [facility] CPT-4: 66788 06/08/2017 77389 EST. PATIENT, LEVEL IV Diagnosis: Diverticulitis of large intestine without perforation or abscess without bleeding[ICD10: K57.32] Diagnosis: Left lower quadrant pain[ICD10: R10.32] Azra Lopes MD [facility] CPT-4: 83924 01/19/2017 04401 EST. PATIENT, LEVEL III Diagnosis: Allergic contact dermatitis due to plants, except food[ICD10: L23.7] Azra Lopes MD, [facility] CPT-4: 27193 10/05/2016 75058 EST. PATIENT, LEVEL III Diagnosis: Low back pain[ICD10: M54.5] Diagnosis: Other chronic pain[ICD10: G89.29] Azra Lopes MD, [facility] CPT -4: 48690 09/23/2016 74587 EST. PATIENT, LEVEL III Diagnosis: Cough[ICD10: R05] Diagnosis: Shortness of breath[ICD10: R06.02] Diagnosis: Cellulitis of right toe[ICD10: L03.031] Diagnosis: Other obesity due to excess calories[ICD10: E66.09] Azra Lopes MD, [facility] CPT-4: 64158 07/27/2016 97854 EST. PATIENT, LEVEL III Diagnosis: Dysuria[ICD10: R30.0] Diagnosis: Low back pain[ICD10: M54.5] Diagnosis: Other chronic pain[ICD10: G89.29] Azra Lopes MD, [facility] CPT -4: 09452 07/18/2016 91686 EST. 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] Azra Lopes MD , [facility] CPT-4: 97253 05/09/2016 ([id number]) I Fecal Occult Blood Diagnosis: Encounter for screening for malignant neoplasm of colon[ICD10: Z12.11 ] Nicolle Lopes MD, [facility] CPT-4: Sha5409 2015 ([id number]) OFFICE VISIT, NEW - LEVEL 4 Diagnosis: Essential (primary) hypertension[ICD10: I10] Diagnosis: Mixed hyperlipidemia[ICD10: E78.2] Diagnosis: Melena[ICD10: K92.1] Diagnosis: Low back pain[ICD10: M54.5] Lise Lopes MD, [facility] CPT-4: 51056 01/12/2016 Plan of Care Planned Activity Notes Codes Status Date Appointment: Nurse Visit 06/08/2017 Patient Education: Patient Medication Summary Completed 06/08/2017 Appointment: Azra Carter WPtel: [address] [place], [place] [phone] [place] (15 min) Moderate 06/05/2017 Visit Plan: Diverticulitis - rx for antibiotic sent to pt' s pharmacy - pt advised to avoid seeds, nuts, popcorn, or any other food which has been proven to upset the pt's stomach. 01/19/2017 App[facility]ment: [facility] [place] ([facility] min) Complex 01/19/2017 Patient Education: Patient Medication Summary Completed 01/19/2017 Appointment: Lab Draw 12/08/2016 Patient Education: Patient Medication Summary Completed 12/08/2016 Care Plan: Referral Order SNOMED-CT : [id number] Pending 10/09/2016 Visit Plan: Poison [place] - pt is to use topical treatments as directed. Pt is cleanse clothing in hot water with soap, and call if symptoms do not improve or if they worsen. 10/05/2016 Appointment: Az[facility] Carter [facility]Ptel[facility] [place] (10 min) Simple 10/05/2016 Patient Education: [...] of over-medication. 09/23/2016 Appointment: Azra Carter WPtel: [facility] (15 min) Moderate 09/23/2016 Patient Education: Patient [...] weight check. 07/27/2016 Appointment: Azra Carter WPtel: [address] [place], [place] [phone] (15 min) Moderate 07/27/2016 Patient Education: Patient Medication Summary Completed 07/27/2016 Patient Education: Obesity Completed 07/27/2016 Care Plan: BMI Above normal followup SELF-MGMT EDUC & TRAIN 1 PT Pending 2016 Care Plan: CHEST X-RAY 2VW FRONTAL&LATL LOINC : 11522-2 Pending 07/27/2016 Visit Plan: UTI - pt [...] over-medication. 07/18/2016 [facility]ment: [facility] [phone] [facility] (30 min) Complex 07/18/2016 Patient Education: Patient [...] plan. 05/09/2016 [facility]ment: [facility] [phone] [facility] (30 min) Complex 05/09/2016 Patient Education: Patient [...] blood Low back pain-refill hydrocodone 01/12/2016 [facility]ment: [facility] [phone] [phone] [place] New Patient 01/12/2016 Patient Education: Patient Medication Summary Completed 01/12/2016 Patient Education: Obesity Completed 01/12/2016 Care Plan: Referral Order SNOMED-CT : [id number] Pending 01/12/2016 Referral: Rell Pruitt Referral Appointment [...] of breath - Follow up with Dr. eZng as previously planned - will order CXR [...]
--- OUTSIDE RECORDS SUMMARY | 2018-05-21 15:37 | XMS REPORT | Continuity of Care Document ---
Author Author [facility] Address Unknown Phone Unavailable Allergies Active Description Code Type Severity Reaction Onset Reported/Identified Relationship to Patient Clinical Status Yes Feldene Drug Allergy N/A N/A 09/04/2014 Yes aspirin [id number] Drug Allergy Unknown N/A 01/22/2016 Yes loratadine [id number] Drug Allergy Unknown N/A 05/17/2018 Yes piroxicam [id number] Drug Allergy Unknown N/A 05/17/2018 Yes pregabalin [id number] Drug Allergy Unknown N/A 05/17/2018 Yes rosuvastatin calcium [id number] Drug Allergy Unknown N/A 05/17/2018 Medications There is no data. Problems Date Dx Coded Attending Type Code Diagnosis Diagnosed By 05/18/2012 Ot 562.10 DIVERTICULOSIS COLON (W/O MENT OF HEMORR 05/18/2012 Ot 564.00 UNSPEC CONSTIPATION 05/18/2012 Ot 569.42 ANAL OR RECTAL PAIN 05/18/2012 Ot 789.03 ABDOMINAL PAIN, RIGHT LOWER QUADRANT 08/18/2012 Ot 383.1 CHRONIC MASTOIDITIS 08/18/2012 Ot 401.9 HYPERTENSION NOS 08/18/2012 Ot 473.9 CHRONIC SINUSITIS NOS 08/18/2012 Ot 784.0 HEADACHE 08/18/2012 Ot V58.69 OTH MED,LT, CURRENT USE 10/31/2012 KOREY MACARIO MD Ot 824.8 FX ANKLE NOS-CLOSED 10/31/2012 KOREY MACARIO MD Ot 959.7 LOWER LEG INJURY NOS 10/31/2012 KOREY MACARIO MD Ot E001.0 ACTIVITIES INVOLVING WALKING, MARCHING A 10/31/2012 KOREY MACARIO MD Ot E849.0 ACCIDENT IN HOME 10/31/2012 KOREY MACARIO MD Ot E885.9 FALL FROM SLIPPING, TRIPPING, OR STUMBLI 11/07/2012 VIOLETTE PARIS MD Ot 401.9 HYPERTENSION NOS 11/07/2012 VIOLETTE PARIS MD Ot 824.2 FX LATERAL MALLEOLUS-CL 11/07/2012 VIOLETTE PARIS MD Ot E001.0 ACTIVITIES INVOLVING WALKING, MARCHING A 11/07/2012 VIOLETTE PARIS MD Ot E849.0 ACCIDENT IN HOME 11/07/2012 VIOLETTE PARIS MD Ot E927.0 OVEREXERTION FROM SUDDEN STRENUOUS MOVEM 11/07/2012 VIOLETTE PARIS MD Ot V58.69 OT MED,LT,CURRENT USE 04/10/2014 ALYSHA MCRAE, JEFERSON L Ot 611.71 04/10/2014 JEFERSON ENCARNACION MD L Ot 786.2 05/12/2014 CHRISTINA CORDON Ot 465.9 ACUTE URI NOS 05/12/2014 CHRISTINA CORDON Ot 787.03 VOMITING ALONE 05/12/2014 DEDE CORDONEN L Ot 787.91 DIARRHEA 07/04/2014 GARCIA BRAR MD Ot 272.4 07/04/2014 ZONIA MCRAE, GARCIA Hart Ot 401.9 07/04/2014 ZONIA MCRAE, GARCIA Hart Ot 745.5 07/04/2014 ZONIA MCRAE, GARCIA Hart Ot 786.50 10/25/2014 ZONIA MCRAE, GARCIA Hart Ot 272.4 10/25/2014 ZONIA MCRAE, GARCIA J Ot 401.9 10/25/2014 ZONIA MCRAE, GARCIA J Ot 745.5 10/25/2014 GARCIA BRAR MD Ot 786.50 02/04/2015 PADMINI RAMOS DO Ot 401.9 02/04/2015 PADMINI RAMOS DO Ot 786.2 02/23/2015 PADMINI RAMOS DO Ot 401.9 02/23/2015 PADMINI RAMOS DO Ot 786.2 03/19/2015 ANNE GRANADOS APRN Ot 786.2 05/06/2015 ANNE GRANADOS APRN Ot G47.30 SLEEP APNEA, UNSPECIFIED 05/06/2015 ANNE GRANADOS APRN Ot I10 ESSENTIAL (PRIMARY) HYPERTENSION 05/06/2015 ANNE GRANADOS APRN Ot R06.83 SNORING 07/31/2015 FARA ARAUJO MD Ot G89.4 CHRONIC PAIN SYNDROME 07/31/2015 FARA ARAUJO MD Ot M51.16 INTERVERTEBRAL DISC DISORDERS W RADICULO 07/31/2015 FARA ARAUJO MD Ot M96.1 POSTLAMINECTOMY SYNDROME, NOT ELSEWHERE 07/31/2015 FARA ARAUJO MD Ot Z79.899 OTHER INTERMEDIATE (CURRENT) DRUG THERAPY 08/06/2015 JEFERSON ENCARNACION MD Ot M54.5 08/14/2015 FARA ARAUJO MD Ot G89.4 08/14/2015 FARA ARAUJO MD, Ot M51.16 08/14/2015 FARA ARAUJO MD, Ot M96.1 08/14/2015 FARA ARAUJO MD Ot Z79.899 01/05/2016 JEFERSON ENCARNACION MD Ot Z12.31 ENCNTR SCREEN MAMMOGRAM FOR MALIGNANT NE 01/05/2016 JEFERSON ENCARNACION MD Ot Z12.31 ENCNTR SCREEN MAMMOGRAM FOR MALIGNANT NE 01/06/2016 JEFERSON ENCARNACION MD Ot Z12.31 ENCNTR SCREEN MAMMOGRAM FOR MALIGNANT NE 01/12/2016 Ot 721.3 LUMBOSACRAL SPONDYLOSIS 01/12/2016 Ot 722.10 LUMBAR DISC DISPLACEMENT 01/12/2016 Ot 722.52 LUMB/ LUMBOSAC DISC DEGEN 01/12/2016 Ot 397.0 TRICUSPID VALVE DISEASE 01/12/2016 Ot 401.9 HYPERTENSION NOS 01/12/2016 Ot 424.0 MITRAL VALVE DISORDER 01/12/2016 Ot 782.3 EDEMA 01/12/2016 Ot 729.5 PAIN IN LIMB 01/12/2016 Ot 782.3 EDEMA 01/12/2016 Ot 782.3 EDEMA 01/12/2016 Ot V72.84 EXAM PRE- OPERATIVE NOS 01/12/2016 Ot 562.10 DIVERTICULOSIS COLON (W/O MENT OF HEMORR 01/12/2016 Ot 577.9 PANCREATIC DISEASE NOS 01/12/2016 Ot 724.2 LUMBAGO 01/12/2016 Ot 789.09 ABDOMINAL PAIN, OTHER SPECIFIED SITE 01/12/2016 Ot V45.4 ARTHRODESIS STATUS 01/12/2016 RAINA MCRAE, VIOLETTE Perales Ot 782.2 LOCAL SUPRFICIAL SWELLNG 01/12/2016 VIOLETTE PARIS MD Ot V72.63 PRE-PROCEDURAL LABORATORY EXAMINATION 01/12/2016 VIOLETTE PARIS MD Ot V72.83 EXAM PRE-OPERATIVE NEC 01/12/2016 VIOLETTE PARIS MD Ot V74.8 SCREEN-BACTERIAL DIS NEC 01/12/2016 ALYSHA MCRAE, JEFERSON Singh Ot 252.00 HYPERPARATHYROIDISM, UNSPECIFIED 01/12/2016 ALYSHA MCRAE, JEFERSON L Ot 733.00 OSTEOPOROSIS NOS 01/12/2016 ALYSHA MCRAE, JEFERSON L Ot 252.00 HYPERPARATHYROIDISM, UNSPECIFIED 01/12/2016 ALYSHA MCRAE, JEFERSON L Ot 733.90 BONE CARTILAGE DIS NOS 01/12/2016 ALYSHA MCRAE, JEFERSON Singh Ot 611.71 MASTODYNIA 01/12/2016 ALYSHA MCRAE, JEFERSON Singh Ot 786.2 COUGH 01/12/2016 ZONIA MCRAE, GARCIA Hart Ot 272.4 HYPERLIPIDEMIA NEC/NOS 01/12/2016 ZONIA MCRAE, GARCIA Hart Ot 401.9 HYPERTENSION NOS 01/12/2016 ZONIA MCRAE, GARCIA J Ot 745.5 SECUNDUM ATRIAL SEPT DEF 01/12/2016 ZONIA MCRAE, GARCIA J Ot 786.50 CHEST PAIN NOS 01/12/2016 PADMINI RAMOS DO Ot 401.9 HYPERTENSION NOS 01/12/2016 PADMINI RAMOS DO Ot 786.2 COUGH 01/12/2016 ANNE GRANADOS APRN Ot 786.2 COUGH 01/12/2016 ALYSHA MCRAE, JEFERSON Singh Ot M54.5 LOW BACK PAIN 01/12/2016 IRMA SALAS Ot E78.2 MIXED HYPERLIPIDEMIA 01/12/2016 IRMA SALAS Ot I10 ESSENTIAL (PRIMARY) HYPERTENSION 01/12/2016 IRMA SALAS Ot I65.23 OCCLUSION AND STENOSIS OF BILATERAL COREA 01/12/2016 IRMA SALAS Ot Q21.1 ATRIAL SEPTAL DEFECT 01/12/2016 ALYSHA MCRAE, JEFERSON Singh Ot Z12.31 ENCNTR SCREEN MAMMOGRAM FOR MALIGNANT NE 01/12/2016 IRMA SALAS Ot E78.2 MIXED HYPERLIPIDEMIA 01/12/2016 IRMA SALAS Ot I10 ESSENTIAL (PRIMARY) HYPERTENSION 01/12/2016 IRMA SALAS Ot I65.23 OCCLUSION AND STENOSIS OF BILATERAL [place]ORE[place] 01/12/2016 IRMA SALAS Ot Q21.1 ATRIAL SEPTAL DEFECT 01/22/2016 IRMA SALAS Ot E78.2 MIXED HYPERLIPIDEMIA 01/22/2016 IRMA SALAS Ot I10 ESSENTIAL (PRIMARY) HYPERTENSION 01/22/2016 IRMA SALAS Ot I65.23 OCCLUSION AND STENOSIS OF BILATERAL [place]ORE[place] 01/22/2016 IRMA SALAS Ot Q21.1 ATRIAL SEPTAL DEFECT 01/28/2016 ALYSHA MCRAE, JEFERSON Singh Ot Z12.31 ENCNTR SCREEN MAMMOGRAM FOR MALIGNANT NE 02/15/2016 IRMA SALAS Ot E78.2 MIXED HYPERLIPIDEMIA 02/15/2016 IRMA SALAS Ot I10 ESSENTIAL (PRIMARY) HYPERTENSION 02/15/2016 IRMA SALAS Ot I65.23 OCCLUSION AND STENOSIS OF BILATERAL COREA 02/15/2016 ASHLIE QUILES, IRMA Ignacio Ot Q21.1 ATRIAL SEPTAL DEFECT 07/28/2016 Ot 729.5 PAIN IN LIMB 07/28/2016 Ot 782.3 EDEMA 07/28/2016 Ot 782.3 EDEMA 07/28/2016 Ot V72.84 EXAM PRE- OPERATIVE NOS 07/28/2016 Ot 562.10 DIVERTICULOSIS COLON (W/O MENT OF HEMORR 07/28/2016 Ot 577.9 PANCREATIC DISEASE NOS 07/28/2016 Ot 724.2 LUMBAGO 07/28/2016 Ot 789.09 ABDOMINAL PAIN, OTHER SPECIFIED SITE 07/28/2016 Ot V45.4 ARTHRODESIS STATUS 07/28/2016 RAINA MCRAE, VIOLETTE Perales Ot 782.2 LOCAL SUPRFICIAL SWELLNG 07/28/2016 RAINA MCRAE, VIOLETTE Perales Ot V72.63 PRE-PROCEDURAL LABORATORY EXAMINATION 07/28/2016 RAINA MCRAE, VIOLETTE Perales Ot V72.83 EXAM PRE-OPERATIVE NEC 07/28/2016 RAINA MCRAE, VIOLETTE Perales Ot V74.8 SCREEN-BACTERIAL DIS NEC 07/28/2016 ALYSHA MCRAE, JEFERSON Singh Ot 252.00 HYPERPARATHYROIDISM, UNSPECIFIED 07/28/2016 ALYSHA MCRAE, JEFERSON L Ot 733.00 OSTEOPOROSIS NOS 07/28/2016 ALYSHA MCRAE, JEFERSON Singh Ot 252.00 HYPERPARATHYROIDISM, UNSPECIFIED 07/28/2016 ALYSHA MCRAE, JEFERSON Singh Ot 733.90 BONE CARTILAGE DIS NOS 07/28/2016 ALYSHA MCRAE, JEFERSON Singh Ot 611.71 MASTODYNIA 07/28/2016 ALYSHA MCRAE, JEFERSON Singh Ot 786.2 COUGH 07/28/2016 ZONIA MCRAE, GARCIA Hart Ot 272.4 HYPERLIPIDEMIA NEC/NOS 07/28/2016 ZONIA MCRAE, GARCIA Hart Ot 401.9 HYPERTENSION NOS 07/28/2016 ZONIA MCRAE, GARCIA Hart Ot 745.5 SECUNDUM ATRIAL SEPT DEF 07/28/2016 GARCIA BRAR MD Ot 786.50 CHEST PAIN NOS 07/28/2016 PADMINI RAMOS DO Ot 401.9 HYPERTENSION NOS 07/28/2016 PADMINI RAMOS DO Ot 786.2 COUGH 07/28/2016 ANNE GRANADOS APRN Ot 786.2 COUGH 07/28/2016 ALYSHA MCRAE, JEFERSON Singh Ot M54.5 LOW BACK PAIN 07/28/2016 IRMA SALAS Ot E78.2 MIXED HYPERLIPIDEMIA 07/28/2016 IRMA SALAS Ot I10 ESSENTIAL (PRIMARY) HYPERTENSION 07/28/2016 IRMA SALAS Ot I65.23 OCCLUSION AND STENOSIS OF BILATERAL COREA 07/28/2016 IRMA SALAS Ot Q21.1 ATRIAL SEPTAL DEFECT 07/28/2016 ALYSHA MCRAE, JEFERSON Singh Ot Z12.31 ENCNTR SCREEN MAMMOGRAM FOR MALIGNANT NE 07/28/2016 DENNY WEISS REDYE HAND Ot R05 COUGH 07/28/2016 DENNY WEISS APRN Ot R06.02 SHORTNESS OF BREATH 07/29/2016 DENNY WEISS APRN Ot R05 COUGH 07/29/2016 DENNY WEISS APRN Ot R06.02 SHORTNESS OF BREATH 08/18/2016 DENNY WEISS APRN Ot R05 COUGH 08/18/2016 DENNY WEISS APRN Ot R06.02 SHORTNESS OF BREATH 06/09/2017 Ot 782.3 EDEMA 06/09/2017 Ot V72.84 EXAM PRE- OPERATIVE NOS 06/09/2017 Ot 562.10 DIVERTICULOSIS COLON (W/O MENT OF HEMORR 06/09/2017 Ot 577.9 PANCREATIC DISEASE NOS 06/09/2017 Ot 724.2 LUMBAGO 06/09/2017 Ot 789.09 ABDOMINAL PAIN, OTHER SPECIFIED SITE 06/09/2017 Ot V45.4 ARTHRODESIS STATUS 06/09/2017 VIOLETTE PARIS MD Ot 782.2 LOCAL SUPRFICIAL SWELLNG 06/09/2017 VIOLETTE PARIS MD Ot V72.63 PRE-PROCEDURAL LABORATORY EXAMINATION 06/09/2017 VIOLETTE PARIS MD Ot V72.83 EXAM PRE-OPERATIVE NEC 06/09/2017 VIOLETTE PARIS MD Ot V74.8 SCREEN-BACTERIAL DIS NEC 06/09/2017 ALYSHA MCRAE, JEFERSON L Ot 252.00 HYPERPARATHYROIDISM, UNSPECIFIED 06/09/2017 ALYSHA MCRAE, JEFERSON L Ot 733.00 OSTEOPOROSIS NOS 06/09/2017 ALYSHA MCRAE, JEFERSON L Ot 252.00 HYPERPARATHYROIDISM, UNSPECIFIED 06/09/2017 ALYSHA MCRAE, JEFERSON L Ot 733.90 BONE CARTILAGE DIS NOS 06/09/2017 ALYSHA MCRAE, JEFERSON L Ot 611.71 MASTODYNIA 06/09/2017 ALYSHA MCRAE, JEFERSON L Ot 786.2 COUGH 06/09/2017 ZONIA MCRAE, GARCIA Hart Ot 272.4 HYPERLIPIDEMIA NEC/NOS 06/09/2017 GARCIA BRAR MD Ot 401.9 HYPERTENSION NOS 06/09/2017 ZONIA MCRAE, GARCIA Hart Ot 745.5 SECUNDUM ATRIAL SEPT DEF 06/09/2017 GARCIA BRAR MD Ot 786.50 CHEST PAIN NOS 06/09/2017 PADMINI RAMOS DO Ot 401.9 HYPERTENSION NOS 06/09/2017 PADMINI RAMOS DO Ot 786.2 COUGH 06/09/2017 ANNE GRANADOS APRN Ot 786.2 COUGH 06/09/2017 ALYSHA MCRAE, JEFERSON Singh Ot M54.5 LOW BACK PAIN 06/09/2017 IRMA SALAS Ot E78.2 MIXED HYPERLIPIDEMIA 06/09/2017 IRMA SALAS Ot I10 ESSENTIAL (PRIMARY) HYPERTENSION 06/09/2017 IRMA SALAS Ot I65.23 OCCLUSION AND STENOSIS OF BILATERAL COREA 06/09/2017 PHAN-TARI PA, IRMA K Ot Q21.1 ATRIAL SEPTAL DEFECT 06/09/2017 ALYSHA MCRAE, JEFERSON Singh Ot Z12.31 ENCNTR SCREEN MAMMOGRAM FOR MALIGNANT NE 06/09/2017 DENNY WEISS REDYE HAND Ot R05 COUGH 06/09/2017 DENNY WEISS REDYE HAND Ot R06.02 SHORTNESS OF BREATH 06/27/2017 DENNY WEISS REDYE HAND Ot R05 COUGH 07/27/2017 PHAN-TARI PA, IRMA K Ot I51.89 OTHER ILL-DEFINED HEART DISEASES 07/27/2017 PHAN-TARI PA, IRMA K Ot Q21.1 ATRIAL SEPTAL DEFECT 07/27/2017 PHAN-TARI PA, IRMA K Ot R07.9 CHEST PAIN, UNSPECIFIED 08/15/2017 HPAN-TARI PA, IRMA K Ot I51.89 OTHER ILL-DEFINED HEART DISEASES 08/15/2017 PHAN-TARI PA, IRMA K Ot Q21.1 ATRIAL SEPTAL DEFECT 08/15/2017 PHAN-TARI PA, IRMA K Ot R07.9 CHEST PAIN, UNSPECIFIED 09/30/2017 DENNY WEISS REDYE HAND Ot R05 COUGH 09/30/2017 DENNY WEISS REDYE HAND Ot R06.02 SHORTNESS OF BREATH 09/30/2017 DENNY WEISS REDYE HAND Ot R05 COUGH 09/30/2017 PHAN-TARI PA, IRMA K Ot I51.89 OTHER ILL-DEFINED HEART DISEASES 09/30/2017 PHAN-TARI PA, IRMA K Ot Q21.1 ATRIAL SEPTAL DEFECT 09/30/2017 PHAN-TARI PA, IRMA K Ot R07.9 CHEST PAIN, UNSPECIFIED 09/30/2017 DENNY WEISS REDYE HAND Ot R05 COUGH 09/30/2017 DENNY WEISS REDYE HAND Ot R06.02 SHORTNESS OF BREATH 09/30/2017 DENNY WEISS REDYE HAND Ot R05 COUGH 09/30/2017 PHAN-TARI PA, IRMA K Ot I51.89 OTHER ILL-DEFINED HEART DISEASES 09/30/2017 PHAN-TARI PA, IRMA K Ot Q21.1 ATRIAL SEPTAL DEFECT 09/30/2017 PHAN-TARI PA, IRMA K Ot R07.9 CHEST PAIN, UNSPECIFIED 09/30/2017 LUZ JOY DO Ot E78.00 PURE HYPERCHOLESTEROLEMIA, UNSPECIFIED 09/30/2017 LUZ JOY DO Ot F41.9 ANXIETY DISORDER, UNSPECIFIED 09/30/2017 LUZ JOY DO Ot G43.909 MIGRAINE, UNSP, NOT INTRACTABLE, WITHOUT 09/30/2017 LUZ JOY DO Ot I10 ESSENTIAL (PRIMARY) HYPERTENSION 09/30/2017 RUFINO POOL LUZ Ignacio Ot M79.602 PAIN IN LEFT ARM 09/30/2017 RUFINO POOL LUZ Ignacio Ot S46.912A STRAIN UNSP MUSC/FASC/TEND AT SHLDR/UP A 09/30/2017 RUFINO POOL LUZ Ignacio Ot Z77.22 CNTCT W AND EXPSR TO ENVIRON TOBACCO SMO 09/30/2017 RUFINO POOL LUZ Ignacio Ot Z79.52 INTERMEDIATE (CURRENT) USE OF SYSTEMIC STER 09/30/2017 RUFINO POOL LUZ Ignacio Ot 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 09/30/2017 RUFINO POOL LUZ Ignacio Ot Z87.81 PERSONAL HISTORY OF (HEALED) TRAUMATIC F 09/30/2017 RUFINO POOL LUZ Ignacio Ot Z88.6 ALLERGY STATUS TO ANALGESIC AGENT STATUS 09/30/2017 RUFINO POOL LUZ Ignacio Ot Z88.8 ALLERGY STATUS TO OTH DRUG/MEDS/BIOL SUB 09/30/2017 RUFINO POOL LUZ Ignacio Ot Z90.49 ACQUIRED ABSENCE OF OTHER SPECIFIED PART 09/30/2017 RUFINO POOL LUZ Ignacio Ot Z98.890 OTHER SPECIFIED POSTPROCEDURAL STATES 09/30/2017 Ot V72.84 EXAM PRE- OPERATIVE NOS 09/30/2017 Ot 562.10 DIVERTICULOSIS COLON (W/O MENT OF HEMORR 09/30/2017 Ot 577.9 PANCREATIC DISEASE NOS 09/30/2017 Ot 724.2 LUMBAGO 09/30/2017 Ot 789.09 ABDOMINAL PAIN, OTHER SPECIFIED SITE 09/30/2017 Ot V45.4 ARTHRODESIS STATUS 09/30/2017 RAINA MCRAE, VIOLETTE Perales Ot 782.2 LOCAL SUPRFICIAL SWELLNG 09/30/2017 RAINA MCRAE, VIOLETTE Perales Ot V72.63 PRE-PROCEDURAL LABORATORY EXAMINATION 09/30/2017 RAINA MCRAE, VIOLETTE Perales Ot V72.83 EXAM PRE-OPERATIVE NEC 09/30/2017 VIOLETTE PARIS MD Ot V74.8 SCREEN-BACTERIAL DIS NEC 09/30/2017 ALYSHA MCRAE, JEFERSON Singh Ot 252.00 HYPERPARATHYROIDISM, UNSPECIFIED 09/30/2017 ALYSHA MCRAE, JEFERSON Singh Ot 733.00 OSTEOPOROSIS NOS 09/30/2017 ALYSHA MCRAE, JEFERSON Singh Ot 252.00 HYPERPARATHYROIDISM, UNSPECIFIED 09/30/2017 ALYSHA MCRAE, JEFERSON L Ot 733.90 BONE CARTILAGE DIS NOS 09/30/2017 ALYSHA MCRAE, JEFERSON Singh Ot 611.71 MASTODYNIA 09/30/2017 ALYSHA MCRAE, JEFERSON Singh Ot 786.2 COUGH 09/30/2017 ZONIA MCRAE, GARCIA Hart Ot 272.4 HYPERLIPIDEMIA NEC/NOS 09/30/2017 ZONIA MCRAE, GARCIA J Ot 401.9 HYPERTENSION NOS 09/30/2017 ZONIA MCRAE, GARCIA J Ot 745.5 SECUNDUM ATRIAL SEPT DEF 09/30/2017 ZONIA MCRAE, GARCIA J Ot 786.50 CHEST PAIN NOS 09/30/2017 PADMINI RAMOS DO Ot 401.9 HYPERTENSION NOS 09/30/2017 PADMINI RAMOS DO Ot 786.2 COUGH 09/30/2017 ANNE GRANADOS REDYE HAND Ot 786.2 COUGH 09/30/2017 ALYSHA MCRAE, JEFERSON Singh Ot M54.5 LOW BACK PAIN 09/30/2017 IRMA SALAS Ot E78.2 MIXED HYPERLIPIDEMIA 09/30/2017 IRMA SALAS Ot I10 ESSENTIAL (PRIMARY) HYPERTENSION 09/30/2017 IRMA SALAS Ot I65.23 OCCLUSION AND STENOSIS OF BILATERAL COREA 09/30/2017 IRMA SALAS Ot Q21.1 ATRIAL SEPTAL DEFECT 09/30/2017 ALYSHA MCRAE, JEFERSON Singh Ot Z12.31 ENCNTR SCREEN MAMMOGRAM FOR MALIGNANT NE 09/30/2017 DENNY WEISS REDYE HAND Ot R05 COUGH 09/30/2017 DENNY WEISS REDYE HAND Ot R06.02 SHORTNESS OF BREATH 09/30/2017 DENNY WEISS REDYE HAND Ot R05 COUGH 09/30/2017 IRMA SALAS Ot I51.89 OTHER ILL-DEFINED HEART DISEASES 09/30/2017 IRMA SALAS Ot Q21.1 ATRIAL SEPTAL DEFECT 09/30/2017 IRMA SALAS Ot R07.9 CHEST PAIN, UNSPECIFIED 10/02/2017 RUFINO POOL LUZ Mateus Ot E78.00 PURE HYPERCHOLESTEROLEMIA, UNSPECIFIED 10/02/2017 RUFINO LUZFabiola Ignacio Ot F41.9 ANXIETY DISORDER, UNSPECIFIED 10/02/2017 RUFINO LUZ Mateus Barrios G43.909 MIGRAINE, UNSP, NOT INTRACTABLE, WITHOUT 10/02/2017 RUFINO LUZ Ot I10 ESSENTIAL (PRIMARY) HYPERTENSION 10/02/2017 LUZ JOY DO, Ot M79.602 PAIN IN LEFT ARM 10/02/2017 LUZ JOY DO, Ot S46.912A STRAIN UNSP MUSC/FASC/TEND AT SHLDR/UP A 10/02/2017 LUZ JOY DO, Ot Z77.22 CNTCT W AND EXPSR TO ENVIRON TOBACCO SMO 10/02/2017 LUZ JOY DO Ot Z79.52 KEYING MACHINE OPERATOR (CURRENT) USE OF SYSTEMIC STER 10/02/2017 LUZ JOY DO Ot 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 10/02/2017 LUZ JOY DO Ot Z87.81 PERSONAL HISTORY OF (HEALED) TRAUMATIC F 10/02/2017 LUZ JOY DO Ot Z88.6 ALLERGY STATUS TO ANALGESIC AGENT STATUS 10/02/2017 LUZ JOY DO Ot Z88.8 ALLERGY STATUS TO OTH DRUG/MEDS/BIOL SUB 10/02/2017 RUFINO POOL LUZ K Ot Z90.49 ACQUIRED ABSENCE OF OTHER SPECIFIED PART 10/02/2017 RUFINO POOL LUZ K Ot Z98.890 OTHER SPECIFIED POSTPROCEDURAL STATES 10/04/2017 Ot V72.84 EXAM PRE- OPERATIVE NOS 10/04/2017 Ot 562.10 DIVERTICULOSIS COLON (W/O MENT OF HEMORR 10/04/2017 Ot 577.9 PANCREATIC DISEASE NOS 10/04/2017 Ot 724.2 LUMBAGO 10/04/2017 Ot 789.09 ABDOMINAL PAIN, OTHER SPECIFIED SITE 10/04/2017 Ot V45.4 ARTHRODESIS STATUS 10/04/2017 VIOLETTE PARIS MD Ot 782.2 LOCAL SUPRFICIAL SWELLNG 10/04/2017 VIOLETTE PARIS MD Ot V72.63 PRE-PROCEDURAL LABORATORY EXAMINATION 10/04/2017 VIOLETTE PARIS MD Ot V72.83 EXAM PRE-OPERATIVE NEC 10/04/2017 VIOLETTE PARIS MD Ot V74.8 SCREEN-BACTERIAL DIS NEC 10/04/2017 ALYSHA MCRAE, JEFERSON L Ot 252.00 HYPERPARATHYROIDISM, UNSPECIFIED 10/04/2017 ALYSHA MCRAE, JEFERSON L Ot 733.00 OSTEOPOROSIS NOS 10/04/2017 ALYSHA MCRAE, JEFERSON L Ot 252.00 HYPERPARATHYROIDISM, UNSPECIFIED 10/04/2017 ALYSHA MCRAE, JEFERSON L Ot 733.90 BONE CARTILAGE DIS NOS 10/04/2017 ALYSHA MCRAE, JEFERSON L Ot 611.71 MASTODYNIA 10/04/2017 ALYSHA MCRAE, JEFERSON Singh Ot 786.2 COUGH 10/04/2017 ZONIA MCRAE, GARCIA Hart Ot 272.4 HYPERLIPIDEMIA NEC/NOS 10/04/2017 ZONIA MCRAE, GARCIA J Ot 401.9 HYPERTENSION NOS 10/04/2017 ZONIA MCRAE, GARCIA J Ot 745.5 SECUNDUM ATRIAL SEPT DEF 10/04/2017 ZONIA MCRAE, GARCIA Hart Ot 786.50 CHEST PAIN NOS 10/04/2017 PADMINI RAMOS DO Ot 401.9 HYPERTENSION NOS 10/04/2017 PADMINI RAMOS DO Ot 786.2 COUGH 10/04/2017 ANNE GRANADOS REDYE HAND Ot 786.2 COUGH 10/04/2017 ALYSHA MCRAE, JEFERSON Singh Ot M54.5 LOW BACK PAIN 10/04/2017 IRMA SALAS Ot E78.2 MIXED HYPERLIPIDEMIA 10/04/2017 IRMA SALAS Ot I10 ESSENTIAL (PRIMARY) HYPERTENSION 10/04/2017 IRMA SALAS Ot I65.23 OCCLUSION AND STENOSIS OF BILATERAL COREA 10/04/2017 IRMA SALAS Ot Q21.1 ATRIAL SEPTAL DEFECT 10/04/2017 ALYSHA MCRAE, JEFERSON Singh Ot Z12.31 ENCNTR SCREEN MAMMOGRAM FOR MALIGNANT NE 10/04/2017 DENNY WEISS REDYE HAND Ot R05 COUGH 10/04/2017 DENNY WEISS APRN Ot R06.02 SHORTNESS OF BREATH 10/04/2017 DENNY WEISS APRN Ot R05 COUGH 10/04/2017 IRMA SALAS Ot I51.89 OTHER ILL-DEFINED HEART DISEASES 10/04/2017 IRMA SALAS Ot Q21.1 ATRIAL SEPTAL DEFECT 10/04/2017 IRMA SALAS Ot R07.9 CHEST PAIN, UNSPECIFIED 10/06/2017 DENNY WEISS APRN Ot M75.102 UNSP ROTATR-CUFF TEAR/RUPTR OF LEFT SHOU 10/06/2017 DENNY WEISS APRN Ot M75.112 INCOMPLETE ROTATR-CUFF TEAR/RUPTR OF L S 10/06/2017 DENNY WEISS APRN Ot 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, LEFT SHOULDER 10/06/2017 DENNY WEISS APRN Ot M75.102 UNSP ROTATR-CUFF TEAR/RUPTR OF LEFT SHOU 10/06/2017 DENNY WEISS APRN Ot M75.112 INCOMPLETE ROTATR-CUFF TEAR/RUPTR OF L S 10/06/2017 DENNY WEISS APRN Ot 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, LEFT SHOULDER 10/25/2017 DENNY WEISS APRN Ot M75.102 UNSP ROTATR-CUFF TEAR/RUPTR OF LEFT SHOU 10/25/2017 DENNY WEISS APRN Ot M75.112 INCOMPLETE ROTATR-CUFF TEAR/RUPTR OF L S 10/25/2017 DENNY WEISS APRN Ot 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, LEFT SHOULDER 02/15/2018 Ot M19.072 PRIMARY OSTEOARTHRITIS, LEFT ANKLE AND F 02/15/2018 Ot R22.42 LOCALIZED SWELLING, MASS AND LUMP, LEFT 05/11/2018 ALYSHA MCRAE, JEFERSON L Ot 252.00 HYPERPARATHYROIDISM, UNSPECIFIED 05/11/2018 ALYSHA MCRAE, JEFERSON L Ot 733.00 OSTEOPOROSIS NOS 05/11/2018 ALYSHA MCRAE, JEFERSON L Ot 252.00 HYPERPARATHYROIDISM, UNSPECIFIED 05/11/2018 ALYSHA MCRAE, JEFERSON L Ot 733.90 BONE CARTILAGE DIS NOS 05/11/2018 ALYSHA MCRAE, JEFERSON L Ot 611.71 MASTODYNIA 05/11/2018 ALYSHA MCRAE, JEFERSON Singh Ot 786.2 COUGH 05/11/2018 ZONIA MCRAE, GARCIA Hart Ot 272.4 HYPERLIPIDEMIA NEC/NOS 05/11/2018 ZONIA MCRAE, GARCIA Hart Ot 401.9 HYPERTENSION NOS 05/11/2018 ZONIA MCRAE, GARCIA Hart Ot 745.5 SECUNDUM ATRIAL SEPT DEF 05/11/2018 ZONIA MCRAE, GARCIA Hart Ot 786.50 CHEST PAIN NOS 05/11/2018 PADMINI RAMOS DO Ot 401.9 HYPERTENSION NOS 05/11/2018 PADMINI RAMOS DO Ot 786.2 COUGH 05/11/2018 ANNE GRANADOS APRN Ot 786.2 COUGH 05/11/2018 ALYSHA MCRAE, JEFERSON Singh Ot M54.5 LOW BACK PAIN 05/11/2018 IRMA SALAS Ot E78.2 MIXED HYPERLIPIDEMIA 05/11/2018 IRMA SALAS Ot I10 ESSENTIAL (PRIMARY) HYPERTENSION 05/11/2018 IRMA SALAS Ot I65.23 OCCLUSION AND STENOSIS OF BILATERAL COREA 05/11/2018 IRMA SALAS Ot Q21.1 ATRIAL SEPTAL DEFECT 05/11/2018 ALYSHA MCRAE, JEFERSON Singh Ot Z12.31 ENCNTR SCREEN MAMMOGRAM FOR MALIGNANT NE 05/11/2018 DENNY WEISS APRN Ot R05 COUGH 05/11/2018 DENNY WEISS APRN Ot R06.02 SHORTNESS OF BREATH 05/11/2018 DENNY WEISS APRN Ot R05 COUGH 05/11/2018 IRMA SALAS Ot I51.89 OTHER ILL-DEFINED HEART DISEASES 05/11/2018 IRMA SALAS Ot Q21.1 ATRIAL SEPTAL DEFECT 05/11/2018 IRMA SALAS Ot R07.9 CHEST PAIN, UNSPECIFIED 05/11/2018 DENNY WEISS APRN Ot M75.102 UNSP ROTATR-CUFF TEAR/RUPTR OF LEFT SHOU 05/11/2018 DENNY WEISS APRN Ot M75.112 INCOMPLETE ROTATR-CUFF TEAR/RUPTR OF L S 05/11/2018 DENNY WEISS APRN Ot 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, LEFT SHOULDER 05/11/2018 Ot M19.072 PRIMARY OSTEOARTHRITIS, LEFT ANKLE AND F 05/11/2018 Ot R22.42 LOCALIZED SWELLING, MASS AND LUMP, LEFT 05/11/2018 DENNY WEISS APRN Ot Z12.31 ENCNTR SCREEN MAMMOGRAM FOR MALIGNANT NE 05/17/2018 VIOLETTE PARIS MD Ot Z01.818 ENCOUNTER FOR OTHER PREPROCEDURAL EXAMIN Procedures Code Description Performed By Performed On JOINT INJECTION- LARGE JOINT (SPECIFY MEDCIN DESCRIPTION) 09/04/2014 J1040 DEPO MEDROL 80 MG INJ 09/04/2014 Results There is no data. Encounters ACCT No. Visit Date/Time Discharge Status Pt. Type Provider Facility Loc./Unit Complaint [id number] 09/04/2014 14:42:00 09/04/2014 23:59:59 CLS Outpatient MARCOS POTTER APRN [id number] 01/19/2017 09:54:27 01/19/2017 23:59:59 CLS Outpatient [facility] 02/23/2015 15:19:33 ACT Document Registration [id number] 03/10/2017 16:00:00 03/10/2017 23:59:59 CLS Outpatient [facility] [id number] 05/17/2018 05:42:00 05/17/2018 15:23:00 DIS Outpatient VIOLETTE PARIS MD [facility] PREOP SYMPTOMATIC HARDWARE LT ANKLE [id number] 05/11/2018 08:18:00 05/11/2018 23:59:59 CLS Outpatient DENNY WEISS APRN [facility] RAD SCREENING [id number] 12/07/2017 13:30:00 12/07/2017 23:59:59 CLS Preadmit VIOLETTE STACK DO [facility] CARD LUMBAR RADICULOPATHY M54.16 [id number] 10/05/2017 06:54:00 10/05/2017 23:59:59 CLS Outpatient DENNY WEISS APRN [facility] RAD LEFT ELBOW PAIN [id number] 09/30/2017 21:20:00 09/30/2017 23:06:00 DIS Emergency LUZ JOY DO [facility] ER L ARM PAIN [id number] 07/26/2017 11:59:00 07/26/2017 23:59:59 CLS Outpatient IRMA SALAS [facility] CARD ASD [id number] 06/09/2017 09:05:00 06/09/2017 23:59:59 CLS Outpatient DENNY WEISS Micheal REDYE HAND [facility] RAD R05 [id number] 07/28/2016 15:58:00 07/28/2016 23:59:59 CLS Outpatient ABHISHEKDENNY REDYE HAND [facility] RAD COUGH,SOB [id number] 01/05/2016 14:09:00 01/05/2016 23:59:59 CLS Outpatient JEFERSON ENCARNACION MD [facility] RAD SCREENING [id number] 01/01/2016 13:00:00 01/01/2016 23:59:59 CLS Outpatient IRMA SALAS [facility] CARD ASD,CAROTID ARTERY STENOSIS,HTN,HLP [id number] 07/31/2015 14:47:00 07/31/2015 15:57:00 DIS Outpatient FARA ARAUJO MD [facility] CARD DISC DISORDER WITH RADICULOPATHY [id number] 07/16/2015 14:06:00 07/16/2015 23:59:59 CLS Outpatient JEFERSON ENCARNACION MD [facility] RAD LBP [id number] 05/05/2015 19:53:00 05/06/2015 06:41:00 DIS Outpatient ANNE GRANADOS REDYE HAND [facility] SLEEP CHOKING/GASPING DURING SLEEP [id number] 02/23/2015 15:11:00 02/23/2015 23:59:59 CLS Outpatient ANNE GRANADOS REDYE HAND [facility] RAD COUGH [id number] 01/14/2015 13:03:00 01/14/2015 23:59:59 CLS Outpatient PADMINI RAMOS DO [facility] RT COUGH HTN [id number] 07/03/2014 12:49:00 07/03/2014 23:59:59 CLS Outpatient GARCIA BRAR MD [facility] CARD CP,HTN,ASD [id number] 05/12/2014 11:55:00 05/12/2014 17:44:00 DIS Emergency CHRISTINA CORODN [facility] ER V/D [id number] 05/11/2014 11:23:00 05/11/2014 23:59:59 CLS Outpatient COLTHARP ISIDORO POOL A [facility] QUICK [id number] 03/19/2014 11:45:00 03/19/2014 23:59:59 CLS Outpatient JEFERSON ENCARNACION MD [facility] RT CURRENT COUGH [id number] 02/06/2014 09:26:00 02/06/2014 23:59:59 CLS Outpatient JEFERSON ENCARNACION MD [facility] RAD HYPER PARATHYROIDISM [id number] 01/04/2013 10:56:00 01/04/2013 23:59:59 CLS Outpatient JEFERSON ENCARNACION MD [facility] RAD HYPERPARATHYROIDISM, OSTEO [id number] 11/07/2012 11:25:00 11/07/2012 16:10:00 DIS Outpatient VIOLETTE PARIS MD [facility] LEFT DISTAL FIBULA FX ; RIGHT WRIST MASS [id number] 11/06/2012 10:30:00 11/06/2012 23:59:59 CLS Outpatient VIOLETTE PARIS MD [facility] PREOP RADIAL ARTERY ANYUERISM [id number] 10/31/2012 14:06:00 10/31/2012 16:05:00 DIS Emergency KOREY MACARIO MD [facility] ER FALL/LEFT ANKLE INJURY [id number] 05/23/2018 13:30:00 PEN Preadmit VIOLETTE PARIS MD [facility] SYMPTOMATIC HARDWARE LEFT ANKLE [id number] 01/10/2018 15:25:00 Document Registration [id number] 01/12/2016 09:53:00 Document Registration [id number] 09/06/2012 09:32:00 Document Registration [id number] 08/18/2012 12:33:00 Document Registration [id number] 05/18/2012 06:54:00 Document Registration [id number] 05/17/2012 07:03:00 Document Registration [id number] 01/12/2012 13:56:00 Document Registration [id number] 12/01/2011 16:21:00 Document Registration [id number] 11/05/2010 13:36:00 Document Registration [id number] 09/16/2010 16:25:00 Document Registration
[2018-05-21 15:46] VITALS: BP 188/85
--- NOTE | 2018-05-21 15:54 | Diagnostic Imaging Report ---
EXAMINATION: CHEST (PA AND LATERAL) CLINICAL INDICATION: 77-year-old female, cough and congestion for 5 days. COMPARISON: June 09, 2017. FINDINGS: Stable overall appearance of the cardiomediastinal silhouette. There is no identified pneumothorax. There is no pleural effusion. There is no identified focal airspace consolidation. There are advanced bilateral glenohumeral arthritic changes with probable intra-articular bodies on the left. IMPRESSION: 1. No identified acute cardiopulmonary abnormality. Dictated by: Dictated on workstation # [id number]
== END 2018-05-21 15:46 | disposition home or self-care (01) ==
LOC: EDUNIT# 15:14 → ER 15:15
DX: J40 Bronchitis, not specified as acute or chronic (principal); E78.00 Pure hypercholesterolemia, unspecified; I10 Essential (primary) hypertension; G43.909 Migraine, unspecified, not intractable, without status migrainosus; F41.9 Anxiety disorder, unspecified; M81.0 Age-related osteoporosis without current pathological fracture; Z87.440 Personal history of urinary (tract) infections; Z88.8 Allergy status to other drugs, medicaments and biological substances; Z86.19 Personal history of other infectious and parasitic diseases; Z79.82 Long term (current) use of aspirin; Z77.22 Contact with and (suspected) exposure to environmental tobacco smoke (acute) (chronic); Z90.49 Acquired absence of other specified parts of digestive tract; Z90.81 Acquired absence of spleen
CPT/HCPCS: 71046

== ENCOUNTER 2018-05-23 10:57 | Day surgery (SDC) | payer MEDICARE, OTHER ==
[~2018-05-23] VITALS: Ht 160 cm; Wt 95.3 kg
[~2018-05-23 10:57] MED LIST changes: +PROM5SYR PO
[2018-05-23] MEDS ORDERED: BUPIVACAINE 0.5% 30 ML (SENSORCAINE) VIAL ONE (11:14)
--- NOTE | 2018-05-23 11:14 | Progress Note-Pre Operative ---
Pre-Operative Progress Note H&P Reviewed The H&P was reviewed, patient examined and no changes noted. Date Seen by Provider: May 23, 2018 Time Seen by Provider: 11:13 Date H&P Reviewed: May 23, 2018 Time H&P Reviewed: 11:13 Pre-Operative Diagnosis: symptomatic left ankle hardware VIOLETTE PARIS MD May 23, 2018 11:13
--- NOTE | 2018-05-23 11:15 | Progress Note-Post Operative ---
Post-Operative Progess Note Surgeon (s)/Mult Au Matic Operator (s) Surgeon VIOLETTE PARIS MD Mult Au Matic Operator: Declan Romano Pre-Operative Diagnosis symptomatic left ankle hardware Post-Operative Diagnosis symptomatic left ankle hardware Procedure & Operative Findings Date of Procedure 05/23/18 Procedure Performed/Findings hardware removal left ankle Anesthesia Type GETA Estimated Blood Loss Estimated blood loss (mL): minimal Specimens/Packing Specimens Removed hardware Packing: none VIOLETTE PARIS MD May 23, 2018 11:15
[2018-05-23] MEDS ORDERED: SEVOFLURANE (ULTANE) 15 ML INHAL SOLN ONE ×3 (11:19→12:49)
[2018-05-23] MEDS ORDERED: DEXAMETHASONE 10 MG/ML (DECADRON) 1 ML VIAL ONE (11:19)
[2018-05-23] MEDS ORDERED: fentaNYL INJECTION 100 MCG/2 ML AMP ONE (11:19)
[2018-05-23] MEDS ORDERED: ONDANSETRON 4 MG/2 ML (SDV) Z0FRAN ONE (11:19)
[2018-05-23] MEDS ORDERED: LIDOCAINE PF 2% 5 ML (XYLOCAINE) VIAL ONE (11:19)
[2018-05-23] MEDS ORDERED: proPOfol 200 MG/20 ML (DIPRIVAN) VIAL IV ONE (11:19)
[2018-05-23] MEDS ORDERED: MIDAZOLAM 2 MG/2 ML (VERSED) VIAL ONE (11:21)
[2018-05-23] MEDS ORDERED: LACTATED RINGERS 1,000 ML IV PRN (11:23)
[2018-05-23] MEDS ORDERED: ceFAZolin INJECTION 1,000 MG in NS (IVPB) 50 ML IV ONE (11:30)
[2018-05-23] MEDS ORDERED: oxyCODONE/APAP 5/325MG (PERCOCET 5) TABLET PO PRN (11:30)
[2018-05-23] MEDS ORDERED: NS (IVPB) 50 ML ONE ×2 (11:43→11:46)
[2018-05-23] MEDS ORDERED: ceFAZolin 1,000 MG/10 ML (ANCEF) VIAL ONE ×2 (11:43→11:46)
[2018-05-23 12:00] VITALS: BP 173/79
[2018-05-23] MEDS ORDERED: morphine INJ 4 MG/ML 1 ML (VIAL/SYRINGE) ONE (13:26)
[2018-05-23] MEDS ORDERED: morphine INJ 10 MG/ML 1ML (SYR OR VIAL) IVP ONE (13:30)
[2018-05-23] MEDS ORDERED: ONDANSETRON 4 MG/2 ML (SDV) Z0FRAN IVP PRN (13:30)
[2018-05-23 13:57] VITALS: BP 180/81
[2018-05-23 14:27] VITALS: BP 175/81
[2018-05-23] MEDS ORDERED: HYDR-34 PO (14:45)
[2018-05-23 14:57] VITALS: BP 170/80
[2018-05-23 15:20] VITALS: BP 170/80
--- NOTE | 2018-05-23 16:01 | Anesthesia-General Post-Op ---
General Patient Condition Mental Status/LOC: Same as Preop Cardiovascular: Satisfactory Nausea/Vomiting: Absent Respiratory: Satisfactory Pain: Controlled Complications: Absent Post Op Complications Complications None Follow Up Care/Instructions Patient Instructions None needed. Anesthesia/Patient Condition Patient Condition Patient was seen after the procedure and she was doing well, no complaints, stable vital signs, no apparent adverse anesthesia problems. ANDRADE PERKINS DO May 23, 2018 16:01
--- NOTE | 2018-05-23 21:40 | OPERATIVE REPORT ---
DATE OF SERVICE: 05/23/2018 PREOPERATIVE DIAGNOSIS: Left ankle symptomatic hardware. POSTOPERATIVE DIAGNOSIS: Left ankle symptomatic hardware. PROCEDURE: Hardware removal, left ankle. SURGEON: Umair Paris MD. DOCTOR OF MEDICINE: SARWAT Rousseau, who assisted throughout the procedure and closed the incision. ANESTHESIA: General endotracheal by Jennifer Collazo CRNA. TOURNIQUET TIME: Not applicable. ESTIMATED BLOOD LOSS: Minimal. DRAINS: None. COMPLICATIONS: None. POSTOPERATIVE PLAN: Protected activities for four weeks. The patient was transferred to the recovery room awake and in stable condition. STATEMENT OF MEDICAL NECESSITY: The patient is a 77-year-old female who previously underwent open reduction and internal fixation for a left lateral malleolus fracture. The fracture had gone on to union without problems, but she complained of prominence of her distal hardware, which was tender and she had developed a callus over the prominent hardware. Because of this, it was recommended that the patient undergo operative removal. DESCRIPTION OF PROCEDURE: After risks and benefits of procedure were discussed and questions were answered, an informed consent was signed and placed on the chart. The operative site was confirmed in the preoperative holding area initialed by the surgeon. The patient was then transported to the operating room and after adequate levels of general endotracheal anesthetic were obtained, a timeout was called confirming the operative site. Left lower extremity was prepped and draped in the usual sterile fashion. The previous incision was utilized. Underlying soft tissues were carefully dissected. The hardware was easily identified and removed without difficulty. No fracture lines were evident. A rongeur was used to resect a bony overgrowth laterally. The wound was then copiously irrigated. A 2-0 Vicryl was used to reapproximate subcutaneous tissue and skin was closed with 4-0 nylon in vertical mattress interrupted fashion. A soft dressing and postoperative boot were applied after infiltrating the incision site with plain Marcaine and the patient was transported to the recovery room awake and in stable condition. Job ID: [id number] DocumentID: [id number] Dictated Date: 05/23/2018 12:43:55 Mortar Carrier Date: 05/23/2018 21:39:23 Dictated By: UMAIR PARIS MD
== END 2018-05-23 15:20 | disposition home or self-care (01) ==
LOC: SDC 10:57
PROVIDERS: ATTEND Orthopaedic Surgery
DX: Z47.2 Encounter for removal of internal fixation device (principal); Z11.2 Encounter for screening for other bacterial diseases; I10 Essential (primary) hypertension; E78.5 Hyperlipidemia, unspecified; G62.9 Polyneuropathy, unspecified; Z79.82 Long term (current) use of aspirin; Z79.899 Other long term (current) drug therapy
CPT/HCPCS: 87081

== ENCOUNTER → 2018-10-19 | Outpatient (CLI) | payer MEDICARE, OTHER ==
[~2018-10-19] MED LIST changes: -GABA600T2 PO; +HYDR-34 PO; +LOSA50TA63 PO; -LOSA50TA7 PO
--- NOTE | 2018-10-19 10:59 | Diagnostic Imaging Report ---
INDICATION: Right hip pain. COMPARISON: None. FINDINGS: 2 views of the right hip show no fractures, dislocations, or other acute bony abnormalities identified. Mild degenerative changes are noted. Joint spaces otherwise maintained. The soft tissues appear unremarkable. No radiopaque foreign bodies are identified. IMPRESSION: Mild osteoarthritic changes of the right hip, but no evidence of acute fracture or dislocation. Dictated by: Dictated on workstation # [id number]
== END ==
LOC: RAD 10:33
PROVIDERS: ATTEND Nurse Practitioner Family
DX: M16.11 Unilateral primary osteoarthritis, right hip (principal)
CPT/HCPCS: 73502

== ENCOUNTER 2018-10-29 05:30 | Outpatient (CLI) | payer MEDICARE, OTHER ==
[~2018-10-29] VITALS: Ht 160 cm; Wt 95.3 kg
[2018-10-29] MEDS ORDERED: SPIR50TA4 PO (08:42)
[2018-10-29] MEDS ORDERED: VIT1CAPS44 PO (08:42)
[2018-10-29] MEDS ORDERED: MV-M1TAB57 PO (08:42)
[2018-10-29] MEDS ORDERED: SIMV40TA4 PO (08:42)
[2018-10-29] MEDS ORDERED: HYDR-3816 PO (08:42)
== END 2018-10-29 08:47 | disposition home or self-care (01) ==
LOC: PREOP 05:30
PROVIDERS: ATTEND Orthopaedic Surgery
DX: Z01.818 Encounter for other preprocedural examination (principal)

== ENCOUNTER 2018-10-31 07:20 | Day surgery (SDC) | payer MEDICARE, OTHER ==
--- NOTE | 2018-10-25 11:46 | HISTORY AND PHYSICAL ---
DATE OF SERVICE: 10/31/2018 DATE OF ADMISSION: 10/31/2018. This will be for outpatient surgery for right hip intraarticular injection on 10/31/2018. Date of service, date of admission, date of surgery will be 10/31/2018. HISTORY OF PRESENT ILLNESS: The patient is a 77-year-old female who has known osteoarthritis of her right hip. She does not desire surgical intervention. She is requesting a right hip intraarticular injection to try to provide symptomatic relief. She denies any trauma. Radiographs revealed moderate to severe right hip osteoarthritis. REVIEW OF SYSTEMS: No chest pain, no shortness of breath, no dysuria. PRIMARY CARE PROVIDER: Dr. Lopes. MEDICATIONS: Anacin, carvedilol, gabapentin, hydrocodone, niacin, Cozaar, simvastatin, Restasis and meloxicam. ALLERGIES: FELDENE, LYRICA, CRESTOR, FOSAMAX and LIPITOR. SOCIAL HISTORY: The patient denies alcohol and tobacco use. PAST MEDICAL HISTORY: Significant for hypertension, hypercholesterolemia and arthritis. PHYSICAL EXAMINATION: GENERAL: The patient is well-developed, well-nourished, in no acute distress. HEENT: Normocephalic, atraumatic. Pupils are equal, round and reactive to light. Oropharynx is clear. NECK: Supple, no lymphadenopathy. LUNGS: Clear to auscultation bilaterally. HEART: Regular rate and rhythm. ABDOMEN: Soft, nontender, nondistended. EXTREMITIES: The patient ambulates with a slightly Trendelenburg gait on the right. She has pain with internal rotation greater than internal rotation of the hip, which is somewhat limited in internal rotation compared to the contralateral side. She has negative straight leg raise, negative Alex maneuver. IMPRESSION: Right hip osteoarthritis. PLAN: Right hip intraarticular injection. The risks, benefits, options, ramifications and recovery were discussed at length with the patient. She understands and wishes to proceed. Job ID: [id number] DocumentID: [id number] Dictated Date: 10/25/2018 11:24:11 Sql Etl Developer Date: 10/25/2018 11:45:46 Dictated By: VIOLETTE PARIS MD
[~2018-10-31] VITALS: Ht 160 cm; Wt 95.3 kg
[~2018-10-31 07:20] MED LIST changes: +HYDR-3816 PO; +MV-M1TAB57 PO; +SIMV40TA4 PO; +SPIR50TA4 PO
[2018-10-31] MEDS ORDERED: LACTATED RINGERS 1,000 ML IV PRN (07:26)
[2018-10-31] MEDS ORDERED: HYDROcodone/APAP 7.5 MG/325 MG (LORTAB, LORCET PLUS) TABLET PO PRN (08:00)
[2018-10-31 08:33] VITALS: BP 146/63
[2018-10-31] MEDS ORDERED: BUPIVACAINE 0.25% 30 ML (SENSORCAINE) VIAL ONE (09:10)
[2018-10-31] MEDS ORDERED: LIDOCAINE 1% INJ 20 ML 20 ML VIAL ONE (09:11)
[2018-10-31] MEDS ORDERED: methylPREDNISolone 40 MG/ML (DEPO MEDROL) VIAL ONE (09:12)
[2018-10-31] MEDS ORDERED: IOPAMIDOL 61% 30 ML (ISOVUE 300) VIAL IV ONE (09:13)
[2018-10-31] MEDS ORDERED: 0.9% SODIUM CHLORIDE PF INJ 20 ML VIAL ONE (09:18)
[2018-10-31] MEDS ORDERED: proPOfol 200 MG/20 ML (DIPRIVAN) VIAL IV ONE (09:29)
[2018-10-31] MEDS ORDERED: LIDOCAINE PF 2% 5 ML (XYLOCAINE) VIAL ONE (09:30)
--- NOTE | 2018-10-31 09:35 | Progress Note-Pre Operative ---
Pre-Operative Progress Note H&P Reviewed The H&P was reviewed, patient examined and no changes noted. Date Seen by Provider: Oct 31, 2018 Time Seen by Provider: 09:35 Date H&P Reviewed: Oct 31, 2018 Time H&P Reviewed: 09:35 Pre-Operative Diagnosis: right hip primary osteoarthritis VIOLETTE PARIS MD Oct 31, 2018 09:35
--- NOTE | 2018-10-31 09:36 | Progress Note-Post Operative ---
Post-Operative Progess Note Surgeon (s)/Cardiovascular Operating Room Nurse (s) Surgeon VIOLETTE PARIS MD Cardiovascular Operating Room Nurse: Declan Espinosa Pre-Operative Diagnosis right hip primary osteoarthritis Post-Operative Diagnosis right hip primary osteoarthritis Procedure & Operative Findings Date of Procedure 10/31/18 Procedure Performed/Findings right hip intra articular injection Anesthesia Type MAC plus local Estimated Blood Loss Estimated blood loss (mL): minimal Specimens/Packing Specimens Removed none Packing: none VIOLETTE PARIS MD Oct 31, 2018 09:36
[2018-10-31] MEDS ORDERED: LABETALOL HCL 20 MG/4 ML VIAL ONE (10:00)
[2018-10-31 10:10] VITALS: BP 155/74
[2018-10-31 10:20] VITALS: BP 153/76
[2018-10-31 10:30] VITALS: BP_SYST 166; BP_SYST 177; BP_DIAS 79; BP_DIAS 83
[2018-10-31] MEDS ORDERED: HYDROmorphone 2 MG/ML VIAL (DILAUDID) IV ONE (10:30)
[2018-10-31] MEDS ORDERED: ONDANSETRON 4 MG/2 ML (SDV) Z0FRAN IVP PRN (10:30)
[2018-10-31 11:00] VITALS: BP 160/83
[2018-10-31 11:20] VITALS: BP 160/83
--- NOTE | 2018-10-31 11:31 | Anesthesia-General Post-Op ---
MAC Patient Condition Mental Status/LOC: Same as Preop Cardiovascular: Satisfactory Nausea/Vomiting: Absent Respiratory: Satisfactory Pain: Controlled Complications: Absent Post Op Complications Complications None Follow Up Care/Instructions Patient Instructions None needed. Anesthesiology Discharge Order Discharge Order Patient is doing well, no complaints, stable vital signs, no apparent adverse anesthesia problems. No complications reported per nursing. LENIN ULLOA CRNA Oct 31, 2018 11:31
--- NOTE | 2018-10-31 13:51 | OPERATIVE REPORT ---
DATE OF SERVICE: 10/31/2018 PREOPERATIVE DIAGNOSIS: Right hip primary osteoarthritis. POSTOPERATIVE DIAGNOSIS: Right hip primary osteoarthritis. PROCEDURE: Right hip intraarticular injection. SURGEON: Umair Paris MD SKIN TANNER: Declan Romano, who assisted throughout the procedure. ANESTHESIA: Monitored anesthesia care. ESTIMATED BLOOD LOSS: Minimal. DRAINS: None. COMPLICATIONS: None. POSTOPERATIVE PLAN: Protected activities for 24 hours. The patient was transferred to the recovery room awake and in stable condition. STATEMENT OF MEDICAL NECESSITY: The patient is an 78-year-old female with right hip osteoarthritis. She did not desire total hip arthroplasty and in order to try to obtain symptomatic relief, the patient elected to proceed with intra-articular injection. DESCRIPTION OF PROCEDURE: After risks and benefits of the procedure were discussed and questions were answered, informed consent was signed and placed in the chart. The operative site was confirmed in the preoperative holding area initialed by the surgeon. The patient was transferred to the operating room. After adequate levels of monitored anesthesia care were obtained, a timeout was called, confirming the operative site and under sterile conditions, the lateral aspect of the right hip was infiltrated with a combination of plain lidocaine and plain Marcaine. Under fluoroscopic guidance, a spinal needle was passed intraarticularly into the right hip joint. Arthrogram was placed confirming intraarticular placement. The hip was then injected with 2 mL of Marcaine and 80 mg of Depo-Medrol. The needle was withdrawn. The patient was transferred to the recovery room awake and in stable condition. Job ID: [id number] DocumentID: [id number] Dictated Date: 10/31/2018 09:32:51 Federal Air Marshal Date: 10/31/2018 13:50:53 Dictated By: UMAIR PARIS MD
--- NOTE | 2018-10-31 16:46 | Diagnostic Imaging Report ---
INDICATION: Right hip pain. TECHNIQUE: Intraoperative fluoroscopy was used by Dr. Kwok for hip injection. FINDINGS: A single fluoroscopic view demonstrates advanced joint space narrowing of the right hip. 11 seconds of fluoroscopy time was used in Surgery. IMPRESSION: An intraoperative view demonstrates advanced osteoarthritic change of the right hip. 11 seconds of fluoroscopy time was used in Surgery. Dictated by: Dictated on workstation # [id number]
== END 2018-10-31 11:10 | disposition home or self-care (01) ==
LOC: SDC 07:20
PROVIDERS: ATTEND Orthopaedic Surgery
DX: M16.11 Unilateral primary osteoarthritis, right hip (principal); Z11.2 Encounter for screening for other bacterial diseases; I10 Essential (primary) hypertension; E78.00 Pure hypercholesterolemia, unspecified; E78.5 Hyperlipidemia, unspecified; Z79.899 Other long term (current) drug therapy; G43.909 Migraine, unspecified, not intractable, without status migrainosus; G62.9 Polyneuropathy, unspecified; F32.9 Major depressive disorder, single episode, unspecified; F41.9 Anxiety disorder, unspecified; E66.9 Obesity, unspecified; M51.36 Other intervertebral disc degeneration, lumbar region; Z79.82 Long term (current) use of aspirin; Z90.81 Acquired absence of spleen; Z68.37 Body mass index [BMI] 37.0-37.9, adult
CPT/HCPCS: 87081

== ENCOUNTER → 2019-02-08 | Outpatient (CLI) | payer MEDICARE, OTHER ==
[~2019-02-08] MED LIST changes: +CATHETER FLUSH 10 ML SYR IV PRN; +HOLD METFORMIN - RECEIVED CONTRAST 20 ML VIAL IV SCH; +IOHEXOL 350 MG/ML 100 ML (OMNIPAQUE 350) VIAL IV ONE; +NS 100 ML (IVPB) BAG IV ONE
[2019-02-08 08:53] LABS: CREATININE SERUM 0.97 MG/DL (0.60-1.30)
--- NOTE | 2019-02-08 09:47 | Diagnostic Imaging Report ---
PROCEDURE: CT chest with contrast only. TECHNIQUE: Multiple contiguous axial images were obtained through the chest after administration of intravenous contrast. Auto Exposure Controls were utilized during the CT exam to meet ALARA standards for radiation dose reduction. INDICATION: Pneumonia and pulmonary nodules, followup. COMPARISON: Correlation is made with prior CT chest from 02/23/2015. FINDINGS: No axillary lymphadenopathy is identified. Normal size lymph nodes within the mediastinum are noted. No mediastinal or hilar lymphadenopathy is detected. No pericardial or pleural fluid is identified. Tiny subpleural nodule in the right upper lobe, image #81 measures 5 mm and appears stable. There is dependent atelectasis in both posterior lower lobes. Upper abdomen does show multiple nodular densities in the left upper quadrant, likely owing to splenic nodules. 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 No other significant abnormality is seen. Chronic compression fracture deformity of the lower thoracic spine is noted. IMPRESSION: Overall stable CT chest when compared with examination from 02/23/2015. Dictated by: Dictated on workstation # [id number]
== END ==
LOC: RAD 08:23
PROVIDERS: ATTEND Nurse Practitioner Family
DX: J16.8 Pneumonia due to other specified infectious organisms (principal); I10 Essential (primary) hypertension; R91.1 Solitary pulmonary nodule; G89.29 Other chronic pain
CPT/HCPCS: 36415; 71260; 82565; 84520

== ENCOUNTER 2019-04-08 19:49 | Inpatient (IN) | payer MEDICARE, OTHER ==
[~2019-04-08] VITALS: Ht 160 cm; Wt 102.3 kg
[~2019-04-08 19:49] MED LIST changes: -CATHETER FLUSH 10 ML SYR IV PRN; -CYCL1DRO OP; +CYCL1DRO OU; -HOLD METFORMIN - RECEIVED CONTRAST 20 ML VIAL IV SCH; -IOHEXOL 350 MG/ML 100 ML (OMNIPAQUE 350) VIAL IV ONE; -NS 100 ML (IVPB) BAG IV ONE
[2019-04-08] MEDS ORDERED: fentaNYL INJECTION 100 MCG/2 ML AMP IVP ONE (20:00)
[2019-04-08] MEDS ORDERED: KETAMINE/NaCl 50 MG/5 ML SYRINGE (ED ONLY) IV ONE ×2 (20:00→20:45)
--- NOTE | 2019-04-08 20:05 | ED Fall/Injury ---
General Chief Complaint: Trauma-Non Activation Stated Complaint: FALL SHOULDER PAIN Nursing Triage Note: PT TRIPPED ON A PILLOW WHILE CROSSING THE ROOM AND LANDED ON HER R SHOULDER. VERBALIZING EXTREME SHOULDER PAIN, GUARDING NOTED. Source: patient, EMS Exam Limitations: no limitations History of Present Illness Date Seen by Provider: Apr 08, 2019 Time Seen by Provider: 19:46 Initial Comments Patient presents to ER by EMS from home with chief complaint that she had a fall onto her right shoulder and now has deformity and pain and inability to move it. She denies striking her head. She takes a baby aspirin daily but no blood thinners. She says that she was crossing the room quickly to take a razor blade away from her granddaughter that was left behind by the carpet layers were laying carpet today when she lost her footing. She denies any recent illness fevers chills nausea vomiting dysuria cough shortness of breath or pain anywhere else. She does have chronic pain and uses hydrocodone 7.5 mg twice a day On average. EMS said they had to give her 100 grams of fentanyl before they couldn't manipulate her arm and put it into a swathe. Patient rates her pain is about a 9 out of 10 presently. She says it was 10 out of 10 prior to the fentanyl. She denies history of dislocation of the shoulder. No previous injury or shoulder. 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 Allergies and Home Medications Allergies Coded Allergies: loratadine (Unverified Allergy, Unknown, 05/17/18) piroxicam (Unverified Adverse Reaction, Unknown, 05/17/18) pregabalin (Unverified Adverse Reaction, Unknown, 05/17/18) MAKES LEGS "BLOOD RED" rosuvastatin calcium (Unverified Adverse Reaction, Unknown, 05/17/18) Home Medications Aspirin 81 Mg Tab.chew, 81 MG PO DAILY, (Reported) Carvedilol 25 Mg Tablet, 25 MG PO BID, (Reported) Cholecalciferol (Vitamin D3) 5,000 Unit Capsule, 5,000 UNIT PO DAILY, (Reported) Cyclosporine 1 Each Droperette, 1 EACH OP BID, (Reported) Gabapentin 600 Mg Tablet, 900 MG PO TID, (Reported) take 1 1/2 of 600mg tab Losartan Potassium 50 Mg Tablet, 50 MG PO HS, (Reported) Meloxicam 7.5 Mg Tablet, 7.5 MG PO DAILY, (Reported) Mv-Mn/Folic Acid/Calcium/Vit K 1 Each Tablet, 1 EACH PO DAILY, (Reported) Niacinamide 500 Mg Tablet, 500 MG PO BID, (Reported) Kidder 3 Polyunsat Fatty Acids 1,000 Mg Cap, 1,000 MG PO TID, (Reported) Simvastatin 40 Mg Tablet, 40 MG PO HS, (Reported) Spironolactone 50 Mg Tablet, 50 MG PO DAILY PRN for leg swelling, (Reported) Vit C/E/Zn/Coppr/Lutein/Zeaxan 1 Each Capsule, 1 EACH PO BID, (Reported) Patient Home Medication List Home Medication List Reviewed: Yes Review of Systems Review of Systems Constitutional: No chills, No diaphoresis Eyes: Denies Blindness, Denies Blurred Vision Ears, Nose, Mouth, Throat: denies ear pain, denies ear discharge Respiratory: No cough, No short of breath Cardiovascular: No chest pain, No edema Gastrointestinal: No abdominal pain, No constipation Genitourinary: No discharge, No dysuria Musculoskeletal: see HPI; No back pain; joint pain All Other Systems Reviewed Negative Unless Noted: Yes Past Eqeylta-Jwoxsj-Qjhbdt Hx Patient Social History Alcohol Use: Denies Use Recreational Drug Use: No Smoking Status: Never a Smoker 2nd Hand Smoke Exposure: No Recent Foreign Travel: No Contact w/Someone Who Travel: No Recent Hopitalizations: No Immunizations Up To Date Date of Pneumonia Vaccine: Feb 27, 2008 Seasonal Allergies Seasonal Allergies: No Past Medical History Surgeries: Yes (SPLEENECTOMY, BACK SURGERY, ANKLE FX then hardware removed) Appendectomy, Orthopedic, Parathyroidectomy Respiratory: No Cardiac: Yes High Cholesterol, Hypertension Neurological: Yes Headaches /Migraines, Neuropathy 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 Sexually Transmitted Disease: No HIV/AIDS: No Genitourinary: Yes UTI-Chronic Gastrointestinal: No Musculoskeletal: Yes Degenerate Disk Disease, Osteoporosis, Arthritis, Chronic Back Pain Endocrine: Yes (parathyroid removed) HEENT: Yes Macular Degeneration Loss of Vision: Denies Hearing Impairment: Denies Cancer: No Psychosocial: Yes Anxiety Integumentary: No (SHINGLES YRS AGO) Blood Disorders: No Adverse Reaction/Blood Tranf: No (N/A) Physical Exam Vital Signs Vital Signs - First Documented 04/08/19 19:49 Temp 36.3 Pulse 52 Resp 18 B/P (MAP) 133/106 (115) Pulse Ox 98 O2 Delivery Room Air Capillary Refill : Height, Weight, BMI Height: 5'3.00" Weight: 210lbs. 0.0oz. 95.028545ut; 37.2 BMI Method:Stated General Appearance: WD/WN, mild distress HEENT: PERRL/EOMI, normal ENT inspection, TMs normal, pharynx normal, other (atraumatic head without Bran sign or raccoon eyes) Neck: non-tender, supple, normal inspection, other (C-collar in place) Cardiovascular: normal peripheral pulses, regular rate, rhythm Respiratory: lungs clear, normal breath sounds, no respiratory distress, no accessory muscle use Peripheral Pulses: 2+ Radial Pulses (R), 2+ Radial Pulses (L) Gastrointestinal: normal bowel sounds, non tender, soft Extremities: normal capillary refill, swelling, other (deformity and tenderness over the proximal humerus. Some tenderness over her elbow laterally. 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, no motor/sensory deficits, alert, normal mood/affect, oriented x 3 Skin: normal color, warm/dry Sary Coma Score Best Eye Response: (4) Open Spontaneously Best Verbal Response: (5) Oriented Best Motor Response: (6) Obeys Commands Sary Total: 15 Progress/Results/Core Measures Results/Orders Lab Results Laboratory Tests Test 04/08/19 20:00 Range/Units White Blood Count 10.1 4.3-11.0 10^3/uL Red Blood Count 4.03 L 4.35-5.85 10^6/uL Hemoglobin 11.8 11.5-16.0 G/DL Hematocrit 37 35-52 % Mean Corpuscular Volume 93 80-99 FL Mean Corpuscular Hemoglobin 29 25-34 PG Mean Corpuscular Hemoglobin Concent 32 32-36 G/DL Red Cell Distribution Width 14.7 H 10.0-14.5 % Platelet Count 323 130-400 10^3/uL Mean Platelet Volume 11.6 H 7.4-10.4 FL Neutrophils (%) (Auto) 64 42-75 % Lymphocytes (%) (Auto) 20 12-44 % Monocytes (%) (Auto) 12 0-12 % Eosinophils (%) (Auto) 4 0-10 % Basophils (%) (Auto) 1 0-10 % Neutrophils # (Auto) 6.5 1.8-7.8 X 10^3 Lymphocytes # (Auto) 2.0 1.0-4.0 X 10^3 Monocytes # (Auto) 1.2 H 0.0-1.0 X 10^3 Eosinophils # (Auto) 0.4 H 0.0-0.3 10^3/uL Basophils # (Auto) 0.1 0.0-0.1 10^3/uL Sodium Level 139 135-145 MMOL/L Potassium Level 4.5 3.6-5.0 MMOL/L Chloride Level 107 98-107 MMOL/L Carbon Dioxide Level 22 21-32 MMOL/L Anion Gap 10 5-14 MMOL/L Blood Urea Nitrogen 21 H 7-18 MG/DL Creatinine 0.89 0.60-1.30 MG/DL Estimat Glomerular Filtration Rate > 60 BUN/Creatinine Ratio 24 Glucose Level 111 H 70-105 MG/DL Calcium Level 9.9 8.5-10.1 MG/DL Corrected Calcium 10.0 8.5-10.1 MG/DL Total Bilirubin 0.9 0.1-1.0 MG/DL Aspartate Amino Transf (AST/SGOT) 21 5-34 U/L Alanine Aminotransferase (ALT/SGPT) 21 0-55 U/L Alkaline Phosphatase 79 40-136 U/L Total Protein 6.7 6.4-8.2 GM/DL Albumin 3.9 3.2-4.5 GM/DL My Orders Orders - STANLEY ABRAHAM Ketamine Syringe (Ed Only) (Ketamine Syr (04/08/19 20:00) Fentanyl Injection (Sublimaze Injection (04/08/19 20:00) Cbc With Automated Diff (04/08/19 19:56) Comprehensive Metabolic Panel (04/08/19 19:56) Shoulder, Right, 3 Views (04/08/19 19:56) Elbow, Right, 3 Views (04/08/19 19:56) Ct Head/Cervical Spine Wo (04/08/19 20:07) Ketamine Syringe (Ed Only) (Ketamine Syr (04/08/19 20:45) Ondansetron Injection (Zofran Injectio (04/08/19 21:00) Ed Iv/Invasive Line Start (04/08/19 21:01) Ns Iv 500 Ml (Sodium Chloride 0.9%) (04/08/19 21:01) Hydrocodone/Apap 10/325 Tablet (Lortab 1 (04/08/19 21:15) Hydromorphone Injection (Dilaudid Inject (04/08/19 22:15) Medications Given in ED Current Medications Medications Dose Ordered Sig/Micah Route Start Time Stop Time Status Last Admin Dose Admin Acetaminophen/ Hydrocodone Bitart 1 ea ONCE ONCE PO 04/08/19 21:15 04/08/19 21:16 DC 04/08/19 21:20 1 EA Fentanyl Citrate 50 mcg ONCE ONCE IVP 04/08/19 20:00 04/08/19 20:01 DC 04/08/19 20:02 50 MCG Hydromorphone HCl 0.5 mg ONCE ONCE IV 04/08/19 22:15 04/08/19 22:16 DC 04/08/19 22:35 0.5 MG Ketamine HCl 25 mg ONCE ONCE IV 04/08/19 20:00 04/08/19 20:01 DC 04/08/19 20:02 25 MG Ketamine HCl 25 mg ONCE ONCE IV 04/08/19 20:45 04/08/19 20:46 DC 04/08/19 20:51 25 MG Ondansetron HCl 8 mg ONCE ONCE IVP 04/08/19 21:00 04/08/19 21:01 DC 04/08/19 21:06 8 MG Sodium Chloride 500 ml @ 0 mls/hr Q0M ONCE IV 04/08/19 21:01 04/08/19 21:02 DC 04/08/19 21:06 500 MLS/HR Vital Signs/I&O 04/08/19 19:49 Temp 36.3 Pulse 52 Resp 18 B/P (MAP) 133/106 (115) Pulse Ox 98 O2 Delivery Room Air Progress Progress Note #1: Time: 20:05 Progress Note 40 g of fentanyl and 25 mg of ketamine IV. Planned obtain x-rays of the right shoulder. Right elbow. Suspect fracture versus dislocation versus both. CT of the head and C-spine without IV contrast. There is a distinct possibility we may need to observe her overnight for pain control so we'll obtain some basic labs. Progress Note #2: Time: 23:12 Progress Note Patient said her pain was still not under control after the shoulder immobilizer was placed but it was a little better. We gave her 10 mg of hydrocodone and after 30-40 minutes her pain was not improved. We gave her half a milligram of Dilaudid and she says her pain is still 7 out of 10. Plan to give her another half milligram Dilaudid and discuss with primary care doing an observation stay for pain management. Diagnostic Imaging Diagonstic Imaging: Xray Plain Films/CT/US/NM/MRI: other (right shoulder) Comments NAME: ANGELITA PETTY MED REC#: [id number] PT STATUS: REG ER : 1940 PHYSICIAN: STANLEY ABRAHAM MD ADMIT DATE: 04/08/19/ER Signed POSDate of Exam:04/08/19 SHOULDER, RIGHT, 3 VIEWS CLINICAL HISTORY: Fall. Right shoulder pain. COMPARISON: None TECHNIQUE: 3 views of the right shoulder and 3 views of the right elbow. FINDINGS: Acute impacted fracture is visualized involving the neck of the right humerus. Soft tissue edema is present in the right shoulder. IMPRESSION: 1. Acute impacted fracture involving the neck of the right humerus with associated soft tissue edema. Dictated by: Dictated on workstation # [id number] Dict: 04/08/192042 Trans: 04/08/192055 [facility] [id number] Interpreted by: OVIDIO EVANS DO Electronically signed by: OVIDIO EVANS DO 04/08/192055 Reviewed: Reviewed by Me Diagonstic Imaging: Xray Plain Films/CT/US/NM/MRI: elbow (and right) Comments NAME: ANGELITA PETTY MED REC#: [id number] PT STATUS: REG ER : 1940 PHYSICIAN: STANLEY ABRAHAM MD ADMIT DATE: 04/08/19/ER Draft POSDate of Exam:04/08/19 ELBOW, RIGHT, 3 VIEWS CLINICAL HISTORY: Fall. Right shoulder pain. COMPARISON: None TECHNIQUE: 3 views of the right elbow. FINDINGS: There is no acute fracture or dislocation of the right elbow. Alignment is anatomic. The imaged joint spaces are preserved. No joint effusion is seen in the right elbow. The surrounding soft tissues are unremarkable. IMPRESSION: 1. No acute fracture or dislocation in the right elbow. Dictated on workstation # [id number] Dict: 04/08/192046 Trans: 04/08/192048 [facility] [id number] Interpreted by: OVIDIO EVANS DO Electronically signed by: Reviewed: Reviewed by Me Diagonstic Imaging: CT (without IV contrast) Plain Films/CT/US/NM/MRI: c-spine, head Comments NAME: ANGELITA PETTY [facility] REC#: [id number] PT STATUS: REG ER : 1940 PHYSICIAN: STANLEY ABRAHAM MD ADMIT DATE: 04/08/19/ER Signed POSDate of Exam:04/08/19 CT HEAD/CERVICAL SPINE WO PROCEDURE: CT head and CT cervical spine without contrast. TECHNIQUE: Multiple contiguous axial images were obtained through the brain and cervical spine without the use of intravenous contrast. Sagittal and coronal reformations through the cervical spine were then performed. Auto Exposure Controls were utilized during the CT exam to meet ALARA standards for radiation dose reduction. INDICATION: Fall. Shoulder pain. Scalp contusion. COMPARISON: 08/18/2012 FINDINGS: CT head: The ventricles and cortical sulci are age-appropriate. There is no midline shift or mass-effect. No acute intracranial hemorrhage is seen. There is no CT evidence of acute territorial ischemia. No focal masses or collections are present. The calvarium is intact. A small amount of mucosal thickening is seen in the maxillary sinuses. CT cervical spine: No acute fracture or dislocation is seen in the cervical spine. No focal osseous lesions. Vertebral body heights are well-maintained. The craniocervical junction is well-maintained. Mild degenerative changes are seen in the cervical spine with disc osteophyte complexes and uncovertebral arthropathy. Soft tissues of the neck are unremarkable. IMPRESSION: 1. No hemorrhage or focal intra-axial mass. No CT evidence of large acute territorial ischemia. 2. No acute fracture or dislocation in the cervical spine. Dictated by: Dictated on workstation # [id number] Dict: 04/08/192028 Trans: 04/08/192030 [facility]1 [id number] Interpreted by: OVIDIO EVANS DO Electronically signed by: OVIDIO EVANS 04/08/192030 Reviewed: Reviewed by Me Consults : Consulting Physician: GARCIA MILLER MD Consults Notes Discussed the case with orthopedic surgery and he would recommend putting her in either a sling or shoulder immobilizer which ever is more comfortable with. Adequate pain management and follow up Monday or with him in the clinic. Departure Communication (Admissions) Time/Spoke to Admitting Phy: 23:20 Discussed case lab imaging with Dr. Begum and she agrees to observe the patient overnight for pain management. Impression Primary Impression: Fall Qualified Codes: W19.XXXA - Unspecified fall, initial encounter Additional Impressions: Fracture of neck of right humerus Qualified Codes: S42.211A - Unspecified displaced fracture of surgical neck of right humerus, initial encounter for closed fracture Intractable pain Disposition: HOME, SELF-CARE Condition: Stable Admissions Decision to Admit Reason: Admit from ER (General) Decision to Admit/Date: Apr 08, 2019 Time/Decision to Admit Time: 23:15 Departure-Patient Inst. Referrals: ARJUN BEGUM MD (PCP/Family) Primary Care Physician GARCIA MILLER MD Patient Instructions: Shoulder Fracture (DC) Add. Discharge Instructions: Tylenol 650 mg every 8 hours as needed for pain. Ibuprofen 800 mg every 8 hours as needed for pain. Ice 20 minutes on every 4 hours for the next 2-3 days for pain. Keep the shoulder immobilizer on except for bathing. Hydrocodone one to 2 tablets every 6 hours as needed for break through pain. This will increase drowsiness your risk of falls. This can also cause constipation so MiraLAX once a day may also be helpful. Tomorrow morning please call Dr. Miller at [facility] and request follow- up appointment Monday or in the next 2-3 days. Follow-up with primary care if you're having difficulty with pain management or other concerns. All discharge instructions reviewed with patient and/or family. Voiced understanding. STANLEY ABRAHAM Apr 08, 2019 20:05 POS
[2019-04-08 20:08] LABS: BASOPHILS # (AUTO) 0.1 10^3/uL (0.0-0.1); BASOPHILS % (AUTO) 1 % (0-10); EOSINOPHILS # (AUTO) 0.4 10^3/uL (0.0-0.3); EOSINOPHILS % (AUTO) 4 % (0-10); HEMATOCRIT 37 % (35-52); HEMOGLOBIN 11.8 G/DL (11.5-16.0); LYMPHOCYTES % (AUTO) 20 % (12-44); MEAN CORPUSCULAR HEMOGLOBIN 29 PG (25-34); MEAN CORPUSCULAR HGB CONC 32 G/DL (32-36); MEAN CORPUSCULAR VOLUME 93 FL (80-99); MEAN PLATELET VOLUME 11.6 FL (7.4-10.4); MONOCYTES # (AUTO) 1.2 X 10^3 (0.0-1.0); MONOCYTES % (AUTO) 12 % (0-12); NEUTROPHILS # (AUTO) 6.5 X 10^3 (1.8-7.8); NEUTROPHILS % (AUTO) 64 % (42-75); PLATELET COUNT 323 10^3/uL (130-400); RED CELL DISTRIBUTION WIDTH 14.7 % (10.0-14.5); WHITE BLOOD COUNT 10.1 10^3/uL (4.3-11.0)
--- NOTE | 2019-04-08 20:09 | NUR ---
PT TO CT DEPT VIA COT IN STABLE CONDITION.
[2019-04-08 20:29] LABS: ALANINE AMINOTRANSFERASE 21 U/L (0-55); ALBUMIN 3.9 GM/DL (3.2-4.5); ALKALINE PHOSPHATASE 79 U/L (40-136); BILIRUBIN,TOTAL 0.9 MG/DL (0.1-1.0); BUN/CREATININE RATIO 24; CALCIUM 9.9 MG/DL (8.5-10.1); CARBON DIOXIDE 22 MMOL/L (21-32); CHLORIDE 107 MMOL/L (98-107); CREATININE SERUM 0.89 MG/DL (0.60-1.30); GFR ESTIMATED > 60; GLUCOSE 111 MG/DL (70-105); POTASSIUM 4.5 MMOL/L (3.6-5.0); SODIUM 139 MMOL/L (135-145); TOTAL PROTEIN 6.7 GM/DL (6.4-8.2)
--- NOTE | 2019-04-08 20:32 | Diagnostic Imaging Report ---
PROCEDURE: CT head and CT cervical spine without contrast. TECHNIQUE: Multiple contiguous axial images were obtained through the brain and cervical spine without the use of intravenous contrast. Sagittal and coronal reformations through the cervical spine were then performed. Auto Exposure Controls were utilized during the CT exam to meet ALARA standards for radiation dose reduction. INDICATION: Fall. Shoulder pain. Scalp contusion. COMPARISON: 08/18/2012 FINDINGS: CT head: The ventricles and cortical sulci are age-appropriate. There is no midline shift or mass-effect. No acute intracranial hemorrhage is seen. There is no CT evidence of acute territorial ischemia. No focal masses or collections are present. The calvarium is intact. A small amount of mucosal thickening is seen in the maxillary sinuses. CT cervical spine: No acute fracture or dislocation is seen in the cervical spine. No focal osseous lesions. Vertebral body heights are well-maintained. The craniocervical junction is well-maintained. Mild degenerative changes are seen in the cervical spine with disc osteophyte complexes and uncovertebral arthropathy. Soft tissues of the neck are unremarkable. IMPRESSION: 1. No hemorrhage or focal intra-axial mass. No CT evidence of large acute territorial ischemia. 2. No acute fracture or dislocation in the cervical spine. Dictated by: Dictated on workstation # [id number]
--- NOTE | 2019-04-08 20:49 | Diagnostic Imaging Report ---
CLINICAL HISTORY: Fall. Right shoulder pain. COMPARISON: None TECHNIQUE: 3 views of the right shoulder and 3 views of the right elbow. FINDINGS: Acute impacted fracture is visualized involving the neck of the right humerus. Soft tissue edema is present in the right shoulder. IMPRESSION: 1. Acute impacted fracture involving the neck of the right humerus with associated soft tissue edema. Dictated by: Dictated on workstation # [id number]
--- NOTE | 2019-04-08 20:50 | Diagnostic Imaging Report ---
CLINICAL HISTORY: Fall. Right shoulder pain. COMPARISON: None TECHNIQUE: 3 views of the right elbow. FINDINGS: There is no acute fracture or dislocation of the right elbow. Alignment is anatomic. The imaged joint spaces are preserved. No joint effusion is seen in the right elbow. The surrounding soft tissues are unremarkable. IMPRESSION: 1. No acute fracture or dislocation in the right elbow. Dictated by: Dictated on workstation # [id number]
[2019-04-08] MEDS ORDERED: ONDANSETRON 4 MG/2 ML (SDV) Z0FRAN IVP ONE (21:00)
[2019-04-08] MEDS ORDERED: NS IV 500 ML 500 ML IV ONE (21:01)
[2019-04-08] MEDS ORDERED: HYDROcodone/APAP 10 MG/325 MG (LORTAB) TAB PO ONE (21:15)
[2019-04-08] MEDS ORDERED: HYDROmorphone 2 MG/ML VIAL (DILAUDID) IV ONE ×2 (22:15→23:45)
--- NOTE | 2019-04-09 00:20 | NUR ---
ANGELITA PETTY admitted to room 428-1, with an admitting diagnosis of Intractable Pain, Impacted Humeral Neck Fracture, and Fall on 04/08/19 from ED via hospital bed, accompanied by staff.ANGELITA PETTY introduced to surroundings, call light, bed controls, phone, TV, temperature control, lights, meal times, smoking policy, visitor policy, side rail policy, bathrooms and showers. Patient Rights given to patient in the handbook. ANGELITA PETTY verbalizes understanding that [facility] is not responsible for the loss or damage to any personal effects or valuables that are kept in the patients posession during their hospitalization.
[2019-04-09 01:59] VITALS: BP 150/70
[2019-04-09] MEDS ORDERED: KETAMINE 50 MG/ML 10 ML VIAL IV PRN (02:00)
[2019-04-09] MEDS ORDERED: ONDANSETRON 4 MG/2 ML (SDV) Z0FRAN IV PRN (02:00)
[2019-04-09] MEDS ORDERED: HYDROcodone/APAP 10 MG/325 MG (LORTAB) TAB PO PRN (02:00)
[2019-04-09] MEDS ORDERED: HYDROmorphone 2 MG/ML VIAL (DILAUDID) IV PRN (02:00)
[2019-04-09] MEDS: HYDROcodone/APAP 10 MG/325 MG (LORTAB) TAB PO PRN ×2 (02:07→12:00)
[2019-04-09] MEDS: NS IV 1000 ML 1,000 ML IV SCH ×2 (02:12→15:51)
[2019-04-09 04:00] VITALS: BP 147/67
--- NOTE | 2019-04-09 05:27 | NUR ---
Notified Dr. Lopes that patient is still rating pain at 10/10 after giving 2 Lortab 10mg/325 at 2:07 AM and Dilaudid 0.5mg at 4:39 AM. There is an order for Ketamine but nurse is not comfortable giving the medication and informed the doctor. Received order to DC Ketamine and give one time Dilaudid 1 mg. Also received order to increase PRN Dilaudid from 0.5 mg to 1 mg q4.
[2019-04-09] MEDS ORDERED: HYDROmorphone 2 MG/ML VIAL (DILAUDID) IV ONE (05:45)
[2019-04-09] MEDS: inSUlin ASPART (NovoLOG) 1 UNIT/0.01 ML (CHARGE PER UNIT) SC SCH ×4 (06:22→21:34)
[2019-04-09 06:30] LABS: BUN/CREATININE RATIO 28; CALCIUM 9.9 MG/DL (8.5-10.1); CARBON DIOXIDE 20 MMOL/L (21-32); CHLORIDE 108 MMOL/L (98-107); CREATININE SERUM 0.78 MG/DL (0.60-1.30); GFR ESTIMATED > 60; GLUCOSE 117 MG/DL (70-105); POTASSIUM 4.5 MMOL/L (3.6-5.0); SODIUM 138 MMOL/L (135-145)
--- NOTE | 2019-04-09 06:51 | NUR ---
Pt was vomiting coffee ground emesis. Notified Dr. Lopes and received order for the following: changed diet to NPO; administer PRN Zofran; Protonix 40mg IV BID; and put in Surgery consult. Executed orders.
[2019-04-09 06:56] LABS: BASOPHILS % (AUTO) 0 % (0-10); EOSINOPHILS % (AUTO) 0 % (0-10); HEMATOCRIT 39 % (35-52); HEMOGLOBIN 12.2 G/DL (11.5-16.0); LYMPHOCYTES # (AUTO) 1.2 X 10^3 (1.0-4.0); LYMPHOCYTES % (AUTO) 8 % (12-44); MEAN CORPUSCULAR HEMOGLOBIN 29 PG (25-34); MEAN CORPUSCULAR HGB CONC 32 G/DL (32-36); MEAN CORPUSCULAR VOLUME 93 FL (80-99); MEAN PLATELET VOLUME 12.6 FL (7.4-10.4); MONOCYTES # (AUTO) 1.1 X 10^3 (0.0-1.0); MONOCYTES % (AUTO) 8 % (0-12); NEUTROPHILS # (AUTO) 12.7 X 10^3 (1.8-7.8); NEUTROPHILS % (AUTO) 84 % (42-75); PLATELET COUNT 275 10^3/uL (130-400); RED CELL DISTRIBUTION WIDTH 14.6 % (10.0-14.5); WHITE BLOOD COUNT 15.1 10^3/uL (4.3-11.0)
--- NOTE | 2019-04-09 07:03 | NUR ---
Notified Dr. Ochoa of surgery consult.
[2019-04-09 07:43] LABS: BAND NEUTROPHILS 1 %; BASOPHILS % (MANUAL) 0 %; EOSINOPHILS % (MANUAL) 0 %; LYMPHOCYTES % (MANUAL) 7 %; MONOCYTES % (MANUAL) 8 %; NEUTROPHILS % (MANUAL) 84 %; TARGET CELLS SLIGHT
[2019-04-09] MEDS: PANTOPRAZOLE 40 MG (PROTONIX) VIAL IV SCH ×2 (07:55→21:08)
[2019-04-09 08:00] VITALS: BP 148/77
[2019-04-09] MEDS: HYDROmorphone 2 MG/ML VIAL (DILAUDID) IV PRN ×2 (08:14→17:04)
--- NOTE | 2019-04-09 08:56 | History & Physical ---
History of Present Illness History of Present Illness Reason for visit/HPI PT IS AN 78 Y/O FEMALE WHO PRESENTED TO THE HOSPITAL AFTER SUSTAINING A FALL WITH RIGHT UPPER EXTREMITY FRACTURE WHILE AT HOME. SHE WAS RUSHING ACROSS THE ROOM TO TAKE A RAZOR BLADE FROM A BOX-CUTTER AWAY FROM HER GREAT GRAND-DAUGHTER AND AFTER SHE TURNED AROUND FROM GETTING THE BLADE, SHE SLIPPED ON A BAG AND FELL TO THE FLOOR AND INTO THE WALL HITTING HER RIGHT ARM. SHE HAD IMMEDIATE PA IN AND SHE WAS BROUGHT TO THE HOSPITAL WHERE THE RIGHT HUMERAL NECK FRACTURE WAS DISCOVERED. SHE WAS ADMITTED FOR POSSIBLE SURGICAL FIXATION OF THE ARM.. Date of Admission Apr 09, 2019 at 08:36 Date Seen by a Provider: Apr 09, 2019 Time Seen by a Provider: 08:55 I consulted on this patient on 04/09/19 08:55 Attending Physician Nicolle Lopes MD Admitting Physician Nicolle Lopes MD Consult GARCIA MEAD MD Allergies and Home Medications Allergies Coded Allergies: loratadine (Unverified Allergy, Unknown, 05/17/18) piroxicam (Unverified Adverse Reaction, Unknown, 05/17/18) pregabalin (Unverified Adverse Reaction, Unknown, 05/17/18) MAKES LEGS "BLOOD RED" rosuvastatin calcium (Unverified Adverse Reaction, Unknown, 05/17/18) Home Medications Aspirin 81 Mg Tab.chew, 81 MG PO DAILY, (Reported) Carvedilol 25 Mg Tablet, 25 MG PO BID, (Reported) Cephalexin 500 Mg Capsule, 500 MG PO TID Prescribed by: NICOLLE LOPES on 04/10/19 0926 Cholecalciferol (Vitamin D3) 5,000 Unit Capsule, 5,000 UNIT PO DAILY, (Reported) Cyclosporine 1 Each Droperette, 1 DROP OU BID, (Reported) LAST FILLED 12-14-18 Gabapentin 600 Mg Tablet, 900 MG PO TID, (Reported) TAKES 1 & 1/2 (600MG) TABLETS Hydrocodone/Acetaminophen 1 Each Tablet, 1 TAB PO Q4H PRN for PAIN-MODERATE (4- 6), (Reported) Hydrocodone/Acetaminophen 1 Each Tablet, 1 EA PO QID Prescribed by: NICOLLE LOPES on 04/10/19 0925 Losartan Potassium 50 Mg Tablet, 50 MG PO HS, (Reported) Meloxicam 15 Mg Tablet, 15 MG PO DAILY, (Reported) Mv-Mn/Folic Acid/Calcium/Vit K 1 Each Tablet, 1 TAB PO DAILY, (Reported) Niacin (Inositol Niacinate) 500 Mg Capsule, 500 MG PO BID, (Reported) [place] 3 Polyunsat Fatty Acids 1,000 Mg Cap, 1,000 MG PO TID, (Reported) Pantoprazole Sodium 40 Mg Tablet.dr, 40 MG PO BID Prescribed by: NICOLLE LOPES on 04/10/19924 Sennosides/Docusate Sodium 1 Each Tablet, 1 EACH PO BID Prescribed by: NICOLLE LOPES on 04/10/19924 Simvastatin 40 Mg Tablet, 40 MG PO HS, (Reported) Spironolactone 50 Mg Tablet, 50 MG PO DAILY PRN for SWELLING, (Reported) Vit C/E/Zn/Coppr/Lutein/Zeaxan 1 Each Capsule, 1 CAP PO BID, (Reported) Patient Home Medication List Home Medication List Reviewed: Yes Past [id number]-[id number] Hx Past Med/Social Hx: Reviewed Nursing Past Med/Soc Hx, Reviewed and Corrections made Patient Social History Marrital Status: Employed/Student: retired Alcohol Use: Denies Use Recreational Drug Use: No Smoking Status: Never a Smoker 2nd Hand Smoke Exposure: No Physical Abuse Screen: No Sexual Abuse: No Recent Foreign Travel: No Contact w/other who traveled: No Recent Hopitalizations: No Recent Infectious Disease Expo: No Immunizations Up To Date Tetanus Booster (TDap): Unknown Date of Pneumonia Vaccine: Feb 27, 2008 Date of Influenza Vaccine: Apr 01, 2019 Seasonal Allergies Seasonal Allergies: No Past Medical History Surgeries: Appendectomy, Orthopedic, Parathyroidectomy Cardiac: High Cholesterol, Hypertension Neurological: Headaches /Migraines, Neuropathy : No Reproductive: No Sexually Transmitted Disease: No HIV/AIDS: No Menopausal Genitourinary: UTI-Chronic Musculoskeletal: Degenerate Disk Disease, Osteoporosis, Arthritis, Chronic Back Pain HEENT: Macular Degeneration Loss of Vision: Denies Hearing Impairment: Denies Psychosocial: Anxiety History of Blood Disorders: No Adverse Reaction to Blood Nathan: No (N/A) Family History Reviewed Nursing Family Hx Heart Disease, Hypertension Review of Systems Constitutional: No chills, No fever, No malaise; weakness EENTM: No hoarseness Respiratory: No cough, No dyspnea on exertion, No short of breath Cardiovascular: No chest pain, No palpitations Gastrointestinal: No abdominal pain; nausea, vomiting Genitourinary: no symptoms reported Musculoskeletal: other (RIGHT UPPER ARM PAIN) Skin: no symptoms reported Psychiatric/Neurological: No Symptoms Reported All Other Systems Reviewed Negative Unless Noted: Yes Physical Exam Vital Signs Vital Signs - First Documented 04/08/19 04/09/19 19:49 10:10 Temp 36.3 Pulse 52 Resp 18 B/P (MAP) 133/106 (115) Pulse Ox 98 O2 Delivery Room Air O2 Flow Rate 4.00 Capillary Refill : Less Than 3 SecondsLess Than 3 Seconds Height, Weight, BMI Height: 5'3.00" Weight: 210lbs. 0.0oz. [id number]; 39.96 BMI Method:Stated General Appearance: WD/WN, Mild Distress (DUE TO PAIN) Eyes: Bilateral Eye Normal Inspection, Bilateral Eye PERRL, Bilateral Eye EOMI HEENT: PERRL/EOMI, Pharynx Normal Neck: Full Range of Motion, Non Tender, Supple Respiratory: Chest Non Tender, Lungs Clear, Normal Breath Sounds, No Accessory Muscle Use Cardiovascular: Regular Rate, Rhythm, No Edema Gastrointestinal: Normal Bowel Sounds, No Pulsatile Mass, Non Tender, Soft Rectal: Deferred Back: Normal Inspection Extremity: Normal Capillary Refill, No Calf Tenderness, No Pedal Edema, Other (TTP OVER RIGHT UPPER ARM) Skin: Normal Color, Warm/Dry Lymphatic: No Adenopathy Assessment/Plan Assessment and Plan RIGHT HUMERAL NECK FRACTURE HYPERTENSION PERIPHERAL NEUROPATHY URINARY TRACT INFECTION HYPERLIPIDEMIA COFFEE GROUND EMESIS RIGHT HUMERAL NECK FRACTURE - DEFER TO DR. BOSTON Chavira I SPENT 2 HOURS ON THE PHONE WITH THE NURSING STAFF, PATIENT'S DTR, AND MULTIPLE DIFFERENT PROVIDERS THE PATIENT TRIED TO BE TRANSFERRED TO A DIFFERENT HOSPITAL FOR SURGICAL FIXATION OF HER FRACTURE. [facility] REFUSED TO ACCEPT THE PT DUE TO THEIR PLANNED VACATION WHICH WOULD TAKE THEM OUT OF TOWN DURING THE TIME SHE WOULD NEED TO HAVE HER ARM FIXED. THE PATIENT AND HER DTR THEN DECIDED TO HAVE HER STAY IN THE HOSPITAL AT [facility] FOR EVAL AND POSSIBLE SURGICAL FIXATION. - IV FENTANYL, HYDROCODONE ORALLY ALL BEING GIVEN FOR PAIN CONTROL HYPERTENSION - RESTART HOME REGIMEN, MONITOR BLOOD PRESSURES. PERIPHERAL NEUROPATHY - RESTART GABAPENTIN URINARY TRACT INFECTION - UA CHECKED AND IT WAS POSITIVE, WITH HER ELEVATED WHITE COUNT, PT WAS STARTED ON ROCEPHIN. HYPERLIPIDEMIA - RESTART HOME REGIMEN COFFEE GROUND EMESIS - HEMOCCULT POSITIVE - CONSULT TO DR. ZAVALA - PT STARTED ON PROTONIX IV AND ALL ANTICOAGULATION HELD DUE TO THE GI BLEED. Admission Diagnosis RIGHT HUMERAL NECK FRACTURE HYPERTENSION PERIPHERAL NEUROPATHY URINARY TRACT INFECTION HYPERLIPIDEMIA COFFEE GROUND EMESIS Admission Status: Inpatient Order (span 2 midnights) Reason for Inpatient Admission: PT ADMITTED INPATIENT DUE TO HER ELEVATED WHITE COUNT, HUMERAL FRACTURE, HEMATEMESIS AND URINARY TRACT INFECTION - ANTICIPATE 48 HOURS IN THE HOSPITAL, MAY NEED 72 HOURS FOR ADEQUATE PAIN CONTROL. Clinical Quality Measures DVT/VTE Risk/Contraindication: Risk Factor Score Per Nursin RFS Level Per Nursing on Admit: 3=High NICOLLE LOPES MD Apr 09, 2019 08:56 POS
[2019-04-09 09:10] LABS: OCCULT BLOOD,GASTRIC FLUID POSITIVE (NEGATIVE)
[2019-04-09] MEDS ORDERED: MELO15TA39 PO (09:23)
[2019-04-09] MEDS ORDERED: NIAC1CAP PO (09:23)
[2019-04-09] MEDS ORDERED: HYDR-3816 PO (09:23)
--- NOTE | 2019-04-09 09:24 | NUR ---
SPOKE WITH THE PATIENT ABOUT HER MEDICATIONS. WE WENT OVER THE EXT MED HX AND SHE VERIFIED HOW SHE TAKES THEM. HER LOSARTAN WAS FILLED 50MG #180 FOR 90 DAYS 03-13-19 HOWEVER SHE STATES SHE ONLY TAKES 1 TAB DAILY. OTC MEDS: ASPIRIN 81MG DAILY VITAMIN D DAILY MTV DAILY NIACIN BID FISH OIL TID PRESERVISION BID
--- NOTE | 2019-04-09 09:30 | NUR ---
FOUND PT. WITH MODERATE AMT. OF BROWNISH BLACKISH SUBSTANCE IN AND AROUND MOUTH. AWAKENED PT. AND CLEANED HER UP. ENCOURAGED DEEP BREATHING. PULSE OX 96 % WITH O2 AT 3 L /MIN.
--- NOTE | 2019-04-09 09:50 | NUR ---
DR. BEGUM NOTIFIED OF PT. CONDITION AND SL RHONCHI IN ANTERIOR UPPER LOBES OF LUNG WHEN ASCULATED. NEW ORDER'S NOTED.
[2019-04-09 10:42] LABS: BILIRUBIN,URINE NEGATIVE (NEGATIVE); CLARITY,URINE CLEAR; COLOR,URINE YELLOW; GLUCOSE, URINE (UA) NEGATIVE (NEGATIVE); KETONES,URINE NEGATIVE (NEGATIVE); LEUKOCYTE ESTERASE ,URINE NEGATIVE (NEGATIVE); NITRITE,URINE POSITIVE (NEGATIVE); PROTEIN,URINE NEGATIVE (NEGATIVE)
[2019-04-09 10:52] LABS: BACTERIA,URINE LARGE /HPF
[2019-04-09 12:00] VITALS: BP 160/89
[2019-04-09] MEDS: cefTRIAXone FOR IV USE 1,000 MG in WATER (STERILE) FOR INJECTION 10 ML IV SCH (12:00)
--- NOTE | 2019-04-09 12:21 | Diagnostic Imaging Report ---
INDICATION: Possible aspiration, shortness of breath. COMPARISON: May 21, 2018. TECHNIQUE: Single frontal radiograph of the chest dated April 09, 2019. FINDINGS: The cardiac silhouette is at the upper limits of normal in size, though stable. No significant pulmonary vascular congestion. The lungs are clear of focal pulmonary opacity. No pleural effusion. No pneumothorax. No acute osseous abnormality. IMPRESSION: Similar-appearing examination without acute cardiopulmonary abnormality. Dictated by: Dictated on workstation # [id number]
--- NOTE | 2019-04-09 14:46 | NUR ---
Initial visit by Communication Specshala Hale: engaged in rapport building and introduced Spiritual Care Services. Pt anticipating shoulder surgery.
[2019-04-09] MEDS: fentaNYL INJECTION 100 MCG/2 ML AMP IVP PRN (15:50)
[2019-04-09 16:00] VITALS: BP 167/70
--- NOTE | 2019-04-09 17:26 | CONSULTATION REPORT ---
DATE OF SERVICE: 04/09/2019 ATTENDING PRIMARY CARE PHYSICIAN: Nicolle Lopes MD HISTORY OF PRESENT ILLNESS: The patient is an 78-year-old female, who was with her great granddaughter and had to move quickly to avoid the toddler from grabbing a potentially dangerous item. She lost her footing and fell on her right side of her body. She immediately felt pain along the right shoulder. She was brought in by EMS, found to have a fractured right shoulder. She has had significant amount of pain and has been receiving different pain medications. Initially, hydrocodone did not work and she was started on Dilaudid, which did work; however, did cause nausea and vomiting. She was found to have coffee ground emesis as well. Upon further questioning, she does not report any major issues with history of peptic ulcer disease nor reflux esophagitis. However, she does have some risk factors including taking meloxicam 15 mg for the past year and half. She has not had an upper endoscopy before in the past. She is otherwise stable. She has only had the one episode of coffee ground emesis and her hemoglobin is stable. PAST MEDICAL HISTORY: Hypertension, hypercholesterolemia, peripheral neuropathy, degenerative joint disease, osteoporosis, macular degeneration. PAST SURGICAL HISTORY: Splenectomy, lumbar back surgery, left ankle open reduction and internal fixation, parathyroidectomy. ALLERGIES: LORATADINE, PIROXICAM, PREGABALIN, ROSUVASTATIN. MEDICATIONS: 1. Aspirin 81 mg daily. 2. Carvedilol 25 mg daily. 3. Cholecalciferol daily. 4. Cyclosporine eyedrops b.i.d. 5. Gabapentin 900 mg t.i.d. 6. Losartan 50 mg daily. 7. Meloxicam 15 mg daily. 8. Niacin 500 mg b.i.d. 9. Simvastatin 40 mg daily. 10. Spironolactone 50 mg p.r.n. SOCIAL HISTORY: Negative smoke, negative alcohol. FAMILY HISTORY: Noncontributory. REVIEW OF SYSTEMS: A well-nourished female currently in no acute distress. She is not experiencing any shortness of breath or difficulty breathing. No chest pain, palpitations, or diaphoresis. She does have significant shoulder pain and was given IV Dilaudid and developed nausea and vomiting and the nurse did note that, that there was coffee ground emesis. She has not had any episodes since that time. No hematemesis. No known red blood per rectum, no dark tarry stools. She did have a colonoscopy within the past 10 years and remembers only diverticulosis. No fever or chills. No recent inadvertent weight loss. All other review of systems are negative. PHYSICAL EXAMINATION: VITAL SIGNS: Temperature 36.7, blood pressure 160/89, pulse 57, respirations 20, pulse ox 96% on room air. CHEST: A few scattered rales bilaterally. HEART: Regular. No murmurs. EXTREMITIES: No lower extremity edema. Negative Homans sign. HEENT: No scleral icterus. NECK: No cervical lymphadenopathy. ABDOMEN: Soft, nontender and nondistended. ORTHO: Her right shoulder is in a sling and there does appear to be displacement medially with a shortened shoulder. LABORATORY DATA: WBC 15.1, hemoglobin 12.2, hematocrit 39, platelets 275. BUN 22, creatinine 0.78. Liver function enzymes are normal. Urinalysis was negative for leukocyte esterase, positive for nitrite as well as large amounts of bacteria. ASSESSMENT AND PLAN: An 78-year-old female involved in a trauma with a same level fall with a displaced right shoulder fracture. She also developed coffee ground emesis on this admission, most likely secondary to nonsteroidal anti-inflammatory induced gastritis as well as stress-induced gastritis. At this time, she is stable and the nausea and vomiting is most likely secondary to the narcotic IV pain medication. We will recommend conservative management for now with Protonix 40 mg b.i.d. and await recommendations by orthopedic surgery for open reduction and internal fixation. At some point, she will need an upper endoscopy to rule out ulcerations, malignancy as well as H. pylori. We will start fentanyl at a lower dose to see if this is able to control her pain and cause less nausea and vomiting as well. Job ID: [id number] DocumentID: [id number] Dictated Date: 04/09/2019 15:18:31 Summer Associate Date: 04/09/2019 17:25:11 Dictated By: MERLINE ZAVALA MD
--- NOTE | 2019-04-09 17:32 | Consultation ---
History of Present Illness History of Present Illness Patient Consulted On(florentino/time) 04/09/19 17:19 Date Seen by Provider: Apr 09, 2019 Time Seen by Provider: 17:19 Reason for Visit: Proximal humerus fracture History of Present Illness 78 y/o right handed white female fell at home yesterday injuring her right shoulder. Admitted thru the ED for pain control. Denies any other injuries. Allergies and Home Medications Allergies Coded Allergies: loratadine (Unverified Allergy, Unknown, 05/17/18) piroxicam (Unverified Adverse Reaction, Unknown, 05/17/18) pregabalin (Unverified Adverse Reaction, Unknown, 05/17/18) MAKES LEGS "BLOOD RED" rosuvastatin calcium (Unverified Adverse Reaction, Unknown, 05/17/18) Home Medications Aspirin 81 Mg Tab.chew, 81 MG PO DAILY, (Reported) Carvedilol 25 Mg Tablet, 25 MG PO BID, (Reported) Cholecalciferol (Vitamin D3) 5,000 Unit Capsule, 5,000 UNIT PO DAILY, (Reported) Cyclosporine 1 Each Droperette, 1 DROP OU BID, (Reported) LAST FILLED 12-14-18 Gabapentin 600 Mg Tablet, 900 MG PO TID, (Reported) TAKES 1 & 1/2 (600MG) TABLETS Hydrocodone/Acetaminophen 1 Each Tablet, 1 TAB PO Q4H PRN for PAIN-MODERATE (4- 6), (Reported) Losartan Potassium 50 Mg Tablet, 50 MG PO HS, (Reported) Meloxicam 15 Mg Tablet, 15 MG PO DAILY, (Reported) Mv-Mn/Folic Acid/Calcium/Vit K 1 Each Tablet, 1 TAB PO DAILY, (Reported) Niacin (Inositol Niacinate) 500 Mg Capsule, 500 MG PO BID, (Reported) [place] 3 Polyunsat Fatty Acids 1,000 Mg Cap, 1,000 MG PO TID, (Reported) Simvastatin 40 Mg Tablet, 40 MG PO HS, (Reported) Spironolactone 50 Mg Tablet, 50 MG PO DAILY PRN for SWELLING, (Reported) Vit C/E/Zn/Coppr/Lutein/Zeaxan 1 Each Capsule, 1 CAP PO BID, (Reported) Patient Home Medication List Home Medication List Reviewed: Yes Past Tvbzdty-Kordwf-Irexqr Hx Patient Social History Alcohol Use: Denies Use Recreational Drug Use: No Smoking Status: Never a Smoker 2nd Hand Smoke Exposure: No Recent Foreign Travel: No Contact w/Someone Who Travel: No Recent Infectious Disease Expo: No Recent Hopitalizations: No Immunizations Up To Date Tetanus Booster (TDap): Unknown Date of Pneumonia Vaccine: Feb 27, 2008 Date of Influenza Vaccine: Apr 01, 2019 Seasonal Allergies Seasonal Allergies: No Past Medical History Surgeries: Yes (SPLEENECTOMY, BACK SURGERY, ANKLE FX then hardware removed) Appendectomy, Orthopedic, Parathyroidectomy Respiratory: No Cardiac: Yes High Cholesterol, Hypertension Neurological: Yes Headaches /Migraines, Neuropathy : No 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 Sexually Transmitted Disease: No HIV/AIDS: No Genitourinary: Yes UTI-Chronic Gastrointestinal: No Musculoskeletal: Yes Degenerate Disk Disease, Osteoporosis, Arthritis, Chronic Back Pain Endocrine: Yes (parathyroid removed) HEENT: Yes Macular Degeneration Loss of Vision: Denies Hearing Impairment: Denies Cancer: No Psychosocial: Yes Anxiety Integumentary: No (SHINGLES YRS AGO) Blood Disorders: No Adverse Reaction/Blood Tranf: No (N/A) Review of Systems-General Constitutional: no symptoms reported EENTM: no symptoms reported Respiratory: no symptoms reported Cardiovascular: no symptoms reported Gastrointestinal: no symptoms reported Genitourinary: no symptoms reported Musculoskeletal: joint pain Skin: no symptoms reported Psychiatric/Neurological: No Symptoms Reported Physical Exam-General Problems Physical Exam Vital Signs Vital Signs - First Documented 04/08/19 04/09/19 19:49 10:10 Temp 36.3 Pulse 52 Resp 18 B/P (MAP) 133/106 (115) Pulse Ox 98 O2 Delivery Room Air O2 Flow Rate 4.00 Capillary Refill : Less Than 3 SecondsLess Than 3 Seconds General Appearance: WD/WN, mild distress Eyes: Bilateral Eye Normal Inspection HEENT: PERRL/EOMI, normal ENT inspection Neck: non-tender, supple, normal inspection Respiratory: no respiratory distress, no accessory muscle use Cardiovascular: normal peripheral pulses, regular rate, rhythm Gastrointestinal: soft Rectal: deferred Back: normal inspection, no CVA tenderness, no vertebral tenderness Extremities: other (sling right shoulder, pain with any ROM, distally N/V intact, brisk cap refill. only modest swelling of upper arm, some brusing, but no significant swelling. ) Neurologic/Psychiatric: no motor/sensory deficits, alert, normal mood/affect Skin: normal color, warm/dry, other (some ecchymoesis over right shouler) Lymphatic: no adenopathy Comments xrays shows impacted right proximal humerus fracture. Assessment/Plan Assessment/Plan Admission Diagnosis/Plan Right closed proximal humerus fracture Plan: Needs sling or shoulder immobilizer, based on comfort, d/c home when comfortable Will see if Dr Barboza can give an opinion, but don't at this point feel it is operative. Clinical Quality Measures DVT/VTE Risk/Contraindication: Risk Factor Score Per Nursin RFS Level Per Nursing on Admit: 3=High GARCIA MEAD MD Apr 09, 2019 17:32 POS
[2019-04-09] MEDS ORDERED: SPIRONOLACTONE 50 MG PO PRN (17:45)
[2019-04-09] MEDS ORDERED: PATIENT MAY USE OWN MEDS, ALL MC SCH (18:45)
[2019-04-09] MEDS: PRESERVISION AREDS SOFTGEL (BAUSH & LOMB) PO SCH (19:55)
[2019-04-09 20:00] VITALS: BP 163/71
--- NOTE | 2019-04-09 21:00 | NUR ---
THIS RN IN ROOM TO GIVE MEDICATIONS ORDERED PER EMAR. PT IS TAKING OWN HOME MEDICATIONS VERIFIED BY PHARMACY. PT STATES IT IS NOT THE MEDICATIONS SHE TAKES. THIS RN WENT OVER LIST OF MEDICATIONS AND WHY THEY ARE GIVEN. THIS RN INFORMED PT THIS IS THE MEDICATIONS SHE BROUGHT FROM HOME THAT HAS BEEN VERIFIED BY PHARMACY AND ORDERED BY DR. BEGUM. AFTER EDUCATING PT MULTIPLE TIMES PT AGREES THIS IS THE MEDICATION SHE TAKES AT HOME.
[2019-04-09] MEDS: ARTIFICAL TEARS 0.4 ML UNIT DOSE (REFRESH PLUS) OU SCH (21:08)
[2019-04-09] MEDS: Carvedilol 25 MG TABLET PO SCH (21:08)
[2019-04-09] MEDS: LOSARTAN 50 MG TABLET PO SCH (21:09)
[2019-04-09] MEDS: GABAPENTIN 600 MG (NEURONTIN) TAB PO SCH (21:09)
--- NOTE | 2019-04-09 23:00 | NUR ---
PT RESTING WITH EYES CLOSED. NO DISTRESS NOTED.
[2019-04-10] VITALS: BP 171/74
--- NOTE | 2019-04-10 01:00 | NUR ---
PT RESTING WITH EYES CLOSED. NO DISTRESS NOTED.
--- NOTE | 2019-04-10 02:00 | NUR ---
PT END TIDAL CO2 MONITOR ALARMING. PT IS SLEEPING AND CANULA IS ON PT CHIN. THIS RN WOKE PT UP TO PLACE NC BACK IN NOSE. PT CONTINUES TO SLEEP. NO DISTRESS NOTED. WILL CONTINUE TO MONITOR.
--- NOTE | 2019-04-10 03:00 | NUR ---
PT RESTING WITH EYES CLOSED. NO DISTRESS NOTED.
--- NOTE | 2019-04-10 03:40 | NUR ---
PT IN ROOM CRYING HER PAIN IS 20/10 AND SHE HAS BEEN WAITING ON PAIN MEDICATION. PT INFORMED SHE WAS CHECKED ON SEVERAL TIMES BY THIS RN AND WAS SLEEPING. PT STATES YES I WAS SLEEPING BUT NOW MY PAIN IS 20/10. PAIN MEDICATION GIVEN PER EMAR. PT HAS NO OTHER REQUESTS AT THIS TIME.
[2019-04-10] MEDS: HYDROcodone/APAP 10 MG/325 MG (LORTAB) TAB PO PRN (03:42)
[2019-04-10 04:00] VITALS: BP 188/79
--- NOTE | 2019-04-10 04:13 | NUR ---
RN IN ROOM TO ASSESS PAIN LEVEL AFTER PO PAIN MEDICATION. PT IS SNORING WITH HEAD TILTED BACK. NO DISTRESS NOTED. WILL CONTINUE TO MONITOR.
[2019-04-10] MEDS: NS IV 1000 ML 1,000 ML IV SCH ×3 (04:14→20:21)
[2019-04-10 05:20] LABS: HEMOGLOBIN 10.6 G/DL (11.5-16.0); MEAN PLATELET VOLUME 12.1 FL (7.4-10.4); RED CELL DISTRIBUTION WIDTH 14.6 % (10.0-14.5)
[2019-04-10] MEDS: inSUlin ASPART (NovoLOG) 1 UNIT/0.01 ML (CHARGE PER UNIT) SC SCH ×4 (05:27→21:39)
[2019-04-10 05:42] LABS: BUN/CREATININE RATIO 24; CARBON DIOXIDE 22 MMOL/L (21-32); CHLORIDE 109 MMOL/L (98-107); CREATININE SERUM 0.75 MG/DL (0.60-1.30); GFR ESTIMATED > 60; GLUCOSE 102 MG/DL (70-105); SODIUM 139 MMOL/L (135-145)
[2019-04-10] MEDS: MULTIVIT W/MINERALS TAB (THERAGRAN M) PO SCH (06:52)
[2019-04-10] MEDS: PRESERVISION AREDS SOFTGEL (BAUSH & LOMB) PO SCH ×2 (06:52→17:12)
[2019-04-10] MEDS: VITAMIN D3 5,000 UNITS (CHOLECALCIFEROL ) CAPSULE PO SCH (06:52)
[2019-04-10] MEDS: OMEGA 3 (FISH OIL) 1000 MG CAP PO SCH ×3 (06:52→17:03)
--- NOTE | 2019-04-10 07:57 | Consultation ---
History of Present Illness History of Present Illness Patient Consulted On(florentino/time) 04/10/19 07:51 Date Seen by Provider: Apr 10, 2019 Time Seen by Provider: 07:51 Reason for Visit: Proximal humerus fracture History of Present Illness right hand dominant female that fell at home. Admitted on 04/09/19 for pain control and right proximal humerus fracture. Dr. Barobza consulted for opinion regarding right shoulder fracture. Allergies and Home Medications Allergies Coded Allergies: loratadine (Unverified Allergy, Unknown, 05/17/18) piroxicam (Unverified Adverse Reaction, Unknown, 05/17/18) pregabalin (Unverified Adverse Reaction, Unknown, 05/17/18) MAKES LEGS "BLOOD RED" rosuvastatin calcium (Unverified Adverse Reaction, Unknown, 05/17/18) Home Medications Aspirin 81 Mg Tab.chew, 81 MG PO DAILY, (Reported) Carvedilol 25 Mg Tablet, 25 MG PO BID, (Reported) Cholecalciferol (Vitamin D3) 5,000 Unit Capsule, 5,000 UNIT PO DAILY, (Reported) Cyclosporine 1 Each Droperette, 1 DROP OU BID, (Reported) LAST FILLED 12-14-18 Gabapentin 600 Mg Tablet, 900 MG PO TID, (Reported) TAKES 1 & 1/2 (600MG) TABLETS Hydrocodone/Acetaminophen 1 Each Tablet, 1 TAB PO Q4H PRN for PAIN-MODERATE (4- 6), (Reported) Losartan Potassium 50 Mg Tablet, 50 MG PO HS, (Reported) Meloxicam 15 Mg Tablet, 15 MG PO DAILY, (Reported) Mv-Mn/Folic Acid/Calcium/Vit K 1 Each Tablet, 1 TAB PO DAILY, (Reported) Niacin (Inositol Niacinate) 500 Mg Capsule, 500 MG PO BID, (Reported) [place]ero 3 Polyunsat Fatty Acids 1,000 Mg Cap, 1,000 MG PO TID, (Reported) Simvastatin 40 Mg Tablet, 40 MG PO HS, (Reported) Spironolactone 50 Mg Tablet, 50 MG PO DAILY PRN for SWELLING, (Reported) Vit C/E/Zn/Coppr/Lutein/Zeaxan 1 Each Capsule, 1 CAP PO BID, (Reported) Patient Home Medication List Home Medication List Reviewed: Yes Past Rwumyuf-Csntnn-Ltzzqo Hx Patient Social History Alcohol Use: Denies Use Recreational Drug Use: No Smoking Status: Never a Smoker 2nd Hand Smoke Exposure: No Recent Foreign Travel: No Contact w/Someone Who Travel: No Recent Infectious Disease Expo: No Recent Hopitalizations: No Immunizations Up To Date Tetanus Booster (TDap): Unknown Date of Pneumonia Vaccine: Feb 27, 2008 Date of Influenza Vaccine: Apr 01, 2019 Seasonal Allergies Seasonal Allergies: No Past Medical History Surgeries: Yes (SPLEENECTOMY, BACK SURGERY, ANKLE FX then hardware removed) Appendectomy, Orthopedic, Parathyroidectomy Respiratory: No Cardiac: Yes High Cholesterol, Hypertension Neurological: Yes Headaches /Migraines, Neuropathy : No Reproductive Disorders: No 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 CAN FEEDER History: Menopausal Sexually Transmitted Disease: No HIV/AIDS: No Genitourinary: Yes UTI-Chronic Gastrointestinal: No Musculoskeletal: Yes Degenerate Disk Disease, Osteoporosis, Arthritis, Chronic Back Pain Endocrine: Yes (parathyroid removed) HEENT: Yes Macular Degeneration Loss of Vision: Denies Hearing Impairment: Denies Cancer: No Psychosocial: Yes Anxiety Integumentary: No (SHINGLES YRS AGO) Blood Disorders: No Adverse Reaction/Blood Tranf: No (N/A) Review of Systems-General Constitutional: no symptoms reported EENTM: no symptoms reported Respiratory: no symptoms reported Cardiovascular: no symptoms reported Musculoskeletal: back pain, joint pain, joint swelling, muscle pain Skin: no symptoms reported Psychiatric/Neurological: No Symptoms Reported Physical Exam-General Problems Physical Exam Vital Signs Vital Signs - First Documented 04/08/19 04/09/19 19:49 10:10 Temp 36.3 Pulse 52 Resp 18 B/P (MAP) 133/106 (115) Pulse Ox 98 O2 Delivery Room Air O2 Flow Rate 4.00 Capillary Refill : Less Than 3 SecondsLess Than 3 Seconds General Appearance: no apparent distress Extremities: no pedal edema, no calf tenderness, normal capillary refill, other (swelling and ecchymosis right proximal arm and shoulder, tenderness over fracture site with soft tissue edema, 2+ radial pulse, N/V intact) 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 Discussed poor healing potential and high rates of nonunion as well as potentially loosening of hardware due to poor bone quality at 78 years of age with ORIF. Discussed high rates of revision and increased risk for infection and nerve injury. We will let the fracture heal as is at this point. If she continues to have pain or issues in the future, we can convert to reverse total shoulder arthroplasty. Belly band immobilizer if they have one here. f/u in 2-3 weeks in our [place] office with Dr. Barboza. Clinical Quality Measures DVT/VTE Risk/Contraindication: Risk Factor Score Per Nursin RFS Level Per Nursing on Admit: 3=High KENDRA AMAYA RELAY WORKER Apr 10, 2019 07:57 POS
[2019-04-10 08:00] VITALS: BP 178/80
[2019-04-10] MEDS: PANTOPRAZOLE 40 MG (PROTONIX) VIAL IV SCH ×2 (08:57→20:22)
[2019-04-10] MEDS: NIACIN 500 MG TABLET PO SCH ×2 (08:57→20:22)
[2019-04-10] MEDS: GABAPENTIN 600 MG (NEURONTIN) TAB PO SCH ×3 (08:58→20:24)
[2019-04-10] MEDS: Carvedilol 25 MG TABLET PO SCH ×2 (08:59→21:44)
[2019-04-10] MEDS: ARTIFICAL TEARS 0.4 ML UNIT DOSE (REFRESH PLUS) OU SCH ×2 (08:59→17:03)
--- NOTE | 2019-04-10 09:19 | Discharge Summary ---
Diagnosis/Chief Complaint Date of Admission Apr 09, 2019 at 08:36 Date of Discharge Discharge Date: Apr 11, 2019 Discharge Time: 09:30 Admission Diagnosis Admission Diagnosis RIGHT HUMERAL NECK FRACTURE HYPERTENSION PERIPHERAL NEUROPATHY URINARY TRACT INFECTION HYPERLIPIDEMIA COFFEE GROUND EMESIS Discharge Diagnosis RIGHT HUMERAL NECK FRACTURE HYPERTENSION PERIPHERAL NEUROPATHY URINARY TRACT INFECTION HYPERLIPIDEMIA COFFEE GROUND EMESIS Reason Hospital Visit PT IS AN 78 Y/O FEMALE WHO PRESENTED TO THE HOSPITAL AFTER SUSTAINING A FALL WITH RIGHT UPPER EXTREMITY FRACTURE WHILE AT HOME. SHE WAS RUSHING ACROSS THE ROOM TO TAKE A RAZOR BLADE FROM A BOX-CUTTER AWAY FROM HER GREAT GRAND-DAUGHTER AND AFTER SHE TURNED AROUND FROM GETTING THE BLADE, SHE SLIPPED ON A BAG AND FELL TO THE FLOOR AND INTO THE WALL HITTING HER RIGHT ARM. SHE HAD IMMEDIATE PAIN AND SHE WAS BROUGHT TO THE HOSPITAL WHERE THE RIGHT HUMERAL NECK FRACTURE WAS DISCOVERED. SHE WAS ADMITTED FOR POSSIBLE SURGICAL FIXATION OF THE ARM.. Discharge Summary Discharge Physical Examination Allergies: Coded Allergies: loratadine (Unverified Allergy, Unknown, 05/17/18) piroxicam (Unverified Adverse Reaction, Unknown, 05/17/18) pregabalin (Unverified Adverse Reaction, Unknown, 05/17/18) MAKES LEGS "BLOOD RED" rosuvastatin calcium (Unverified Adverse Reaction, Unknown, 05/17/18) Vitals & I&Os Vital Signs Date Time Temp Pulse Resp B/P (MAP) Pulse Ox O2 Delivery O2 Flow Rate FiO2 04/11/19 08:00 37.2 65 20 148/65 (92) 96 Nasal Cannula 1.00 General Appearance: Alert, Oriented X3, Cooperative, Mild Distress (DUE TO PAIN) HEENT: Atraumatic, PERRLA, Mucous Memb Moist/Excel Respiratory: Clear to Auscultation, Normal Air Movement Cardiovascular: Regular Rate Abdominal: Normal Bowel Sounds, Soft, No Tenderness Extremities: Other (SWELLING AND TENDERNESS RIGHT LATERAL UPPER ARM) Skin: No Breakdown Neuro: Normal Speech Psych/Mental Status: Mental Status NL, Mood NL Hospital Course Was the Problem List Reviewed?: Yes RIGHT HUMERAL NECK FRACTURE HYPERTENSION PERIPHERAL NEUROPATHY URINARY TRACT INFECTION HYPERLIPIDEMIA COFFEE GROUND EMESIS RIGHT HUMERAL NECK FRACTURE - DEFER TO DR. MEAD/UNRULY - I SPENT 2 HOURS ON THE PHONE WITH THE NURSING STAFF, PATIENT'S DTR, AND MULTIPLE DIFFERENT PROVIDERS THE PATIENT TRIED TO BE TRANSFERRED TO A DIFFERENT HOSPITAL FOR SURGICAL FIXATION OF HER FRACTURE. THE [facility] REFUSED TO ACCEPT THE PT DUE TO THEIR PLANNED VACATION WHICH WOULD TAKE THEM OUT OF TOWN DURING THE TIME SHE WOULD NEED TO HAVE HER ARM FIXED. THE PATIENT AND HER DTR THEN DECIDED TO HAVE HER STAY IN THE HOSPITAL AT [facility] FOR EVAL AND POSSIBLE SURGICAL FIXATION. - IV FENTANYL, HYDROCODONE ORALLY ALL BEING GIVEN FOR PAIN CONTROL - PT REPORTS PAIN IS NOT "GONE" AND I HAVE INFORMED HER THAT SHE WILL NEED TO ANTICIPATE THAT SHE WILL HAVE PAIN DESPITE THE FACT THAT SHE IS ON PAIN MEDICATION - THIS WILL BE AN ON-GOING ISSUE FOR AT LEAST THE NEXT 6 WEEKS SHE GOES THROUGH THE HEALING PROCESS. I HAVE OFFERED TO HAVE ANESTHESIA COME UP TO TALK TO HER ABOUT PAIN CONTROL THROUGH A NERVE BLOCK - WHICH WILL OFFER 12 - 24 HOURS OF IMPROVED PAIN CONTROL WE GET HER OUT OF THE HOSPITAL. I HAVE INCREASED HER HYDROCODONE TO 1.5 TABS OF THE 10/325MG DOSE TO SEE IF THIS WILL HELP TO CONTROL HER PAIN. SHE IS UPSET THAT SHE CANNOT JUST STAY IN THE HOSPITAL, BUT AT THIS POINT, WITH HER PAIN GOING DOWN TO A 2 OR LOWER ONCE SHE TAKES HER HYDROCODONE AND GOING UP TO A 7 WHEN HER ARM IS MOVED, WE HAVE HER PAIN WELL CONTROLLED IT IS LIKELY TO BE FOR QUITE SOME TIME UNTIL THE ARM BEGINS TO HEAL. - I HAVE INFORMED THE PT THAT SHE HAS THE RIGHT TO APPEAL THE PLAN FOR DISCHARGE AND I HAVE SENT IN HOSPITAL STAFF TO DISCUSS THIS OPTION WITH THE PATIENT. HYPERTENSION - RESTARTED HOME REGIMEN, MONITOR BLOOD PRESSURES. PERIPHERAL NEUROPATHY - RESTARTED GABAPENTIN URINARY TRACT INFECTION - GRAM NEGATIVE PITO - UA CHECKED AND IT WAS POSITIVE, WITH HER ELEVATED WHITE COUNT, PT WAS STARTED ON ROCEPHIN. - WILL BE DISCHARGED ON ORAL ANTIBIOTICS - KEFLEX HYPERLIPIDEMIA - RESTARTED HOME REGIMEN COFFEE GROUND EMESIS - HEMOCCULT POSITIVE - CONSULT TO DR. ZAVALA - PT STARTED ON PROTONIX IV AND ALL ANTICOAGULATION HELD DUE TO THE GI BLEED. - ON DISCHARGE PT TO BE ON PROTONIX 40MG PO BID X 2 WEEKS THEN DAILY [facility]AFT ER - SHE WILL FOLLOW UP WITH DR. ZAVALA AN OUTPATIENT. Pending Labs Laboratory Tests 04/11/19 05:15: Glucometer 122 Discharge Condition at discharge STABLE Instructions to patient/family Please see electronic discharge instructions given to patient. Discharge Medications Reviewed and agree with Discharge Medication list on patient's Discharge Instruction sheet Clinical Quality Measures DVT/VTE Risk/Contraindication: Risk Factor Score Per Nursin RFS Level Per Nursing on Admit: 3=High ARJUN BEGUM MD Apr 10, 2019 09:19 POS
[2019-04-10] MEDS ORDERED: HYDR-3820 PO (09:25)
[2019-04-10] MEDS ORDERED: PANT40TA3 PO (09:25)
[2019-04-10] MEDS ORDERED: SENN-145 PO (09:25)
[2019-04-10] MEDS ORDERED: CEPH-507 PO (09:26)
--- NOTE | 2019-04-10 09:29 | D/C HH Face to Face Order ---
D/C Face to Face Orders Reconcile Patient Problems Problems Reviewed?: Yes Instructions for Patient Via [email or web address], Patient Instructions/FollowUp: [facility] [address] ZAVALA [address] TOLLIVER IN [place] OFFICE Physician to follow Patient: SHY Discharge Diet for Home: Regular Diet Patient Problems: RIGHT HUMERAL NECK FX UTI UNCONTROLLED PAIN GASTRITIS Patient Data-Allergies,Ht & Wt Patient Allergies: Coded Allergies: loratadine (Unverified Allergy, Unknown, 05/17/18) piroxicam (Unverified Adverse Reaction, Unknown, 05/17/18) pregabalin (Unverified Adverse Reaction, Unknown, 05/17/18) MAKES LEGS "BLOOD RED" rosuvastatin calcium (Unverified Adverse Reaction, Unknown, 05/17/18) Height (Feet): 5 Height (Inches): 3.00 Weight (Pounds): 210 Weight (Ounces): 0.0 Home Health Need/Face to Face Date of Face to Face: Apr 10, 2019 Clinical Findings: Muscle weakness, Pain with ambulation I have seen Pt [id number]: Yes Discharged To: Home Diagnosis/Conditions: RIGHT HUMERAL NECK FX UTI UNCONTROLLED PAIN GASTRITIS Patient is Homebound due to: Muscle weakness, Pain w/ambulation Homebound Status Due to the above stated illness, injury or surgical procedure (medical condition or diagnosis) and associated clinical findings, the patient is homebound because of his/her inability to leave home except with aid of a supportive device and/or person AND leaving the home requires a considerable and taxing effort or is medically contraindicated. Pt req the following assistanc: Aid of another person Home Health Nursing Orders Home Health Services Order: Nursing Services PLEASE CHECK REPEAT UA IN 1 WK FROM DISCHARGE, AND MAKE SURE PT'S HOME IS SAFELY SET UP FOR HER TO MOVE FROM ROOM TO ROOM WITHOUT FALLING - WELL MAKING SURE THAT SHE HAS HER ARM IMMOBILIZER ON CORRECTLY - WILL PROBABLY ONLY NEED 1-2 WKS OF HOME HEALTH Home Health Infusion Therapy Line Start Date: Apr 08, 2019 Therapy Orders Therapy Orders: Physical Therapy Therapy Specific Orders: Eval assistive deivces Certify Stmt I certify that this patient is under my care and that I, a nurse practitioner or a physician; a orthopedic physician assistant working with me, had a face to face encounter that - meets the physician face to face encounter requirements with this patient as dated. ARJUN BEGUM MD Apr 10, 2019 09:29 POS
[2019-04-10] MEDS ORDERED: MISC (09:36)
--- NOTE | 2019-04-10 10:06 | NUR ---
Dr. Lopes notified of pt reporting feeling warm and flushed this AM after morning meds
--- NOTE | 2019-04-10 10:08 | NUR ---
DISCHARGE PLANNING: This RN working on POC for discharge for today. Family and patient resistant to discharge at this time related to patient current state of ill health. They report that Dr. Lopes said another couple days to see if PO pain medication works to cover her. They are worried that she will go home and have terrible uncontrolled pain. Patient is currently complaining of being very dizzy after ambulating to bathroom. patient ambulated with standby assist after getting all her lines untangled. SHe needed assist to pull her briefs down. She is also complaining of being flush according to her bedside RN and has been in touch with Dr. Lopes. Addendum: 04/10/19 at 1033 by ZEUS MACARIO RN Spoke with patient and family regarding Home Health at discharge...they were presented with choices and opted for [facility]. They have been informed of referral.
[2019-04-10] MEDS: HYDROcodone/APAP 10 MG/325 MG (LORTAB) TAB PO SCH ×4 (10:28→20:22)
[2019-04-10 12:00] VITALS: BP 117/55
[2019-04-10] MEDS: cefTRIAXone FOR IV USE 1,000 MG in WATER (STERILE) FOR INJECTION 10 ML IV SCH (12:28)
--- NOTE | 2019-04-10 15:48 | Progress Note ---
Subjective Date Seen by a Provider: Apr 10, 2019 Time Seen by a Provider: 15:30 Subjective/Events-last exam doing well. still has pain in shoulder. no nausea/vomiting . Objective Exam Vital Signs Date Time Temp Pulse Resp B/P (MAP) Pulse Ox O2 Delivery O2 Flow Rate FiO2 04/10/19 12:00 36.2 72 18 117/55 (75) 95 Nasal Cannula 1.00 04/10/19 09:40 91 Nasal Cannula 2.00 04/10/19 08:00 Nasal Cannula 2.00 04/10/19 08:00 36.4 69 16 178/80 (112) 97 Nasal Cannula 1.00 04/10/19 07:16 95 Nasal Cannula 2.00 04/10/19 04:00 37.3 75 18 188/79 (115) 95 Nasal Cannula 1.00 04/10/19 01:52 94 Nasal Cannula 1.00 04/10/19 00:00 37.3 71 14 171/74 (106) 96 Nasal Cannula 1.00 04/09/19 21:36 95 Nasal Cannula 1.00 04/09/19 20:00 37.5 76 22 163/71 (101) 96 Nasal Cannula 1.00 04/09/19 20:00 Nasal Cannula 2.00 04/09/19 17:49 96 Nasal Cannula 1.00 04/09/19 16:00 37.5 70 18 167/70 (102) 95 Room Air I & O 04/10/19 07:00 Intake Total 960 ml Output Total 1000 ml Balance -40 ml Capillary Refill : Less Than 3 SecondsLess Than 3 Seconds General Appearance: No Apparent Distress HEENT: PERRL/EOMI Neck: Full Range of Motion Respiratory: Rhonci Cardiovascular: Regular Rate, Rhythm Gastrointestinal: normal bowel sounds, non tender, soft Extremity: Normal Capillary Refill Neurologic/Psychiatric: Alert, Oriented x3 Skin: Normal Color Lymphatic: No Adenopathy Results Lab Laboratory Tests 04/09/19 16:05: Glucometer 131H 04/09/19 19:48: Glucometer 93 04/09/19 23:41: Glucometer 113H 04/10/19 04:55: White Blood Count 15.0H, Red Blood Count 3.61L, Hemoglobin 10.6L, Hematocrit 34L , Mean Corpuscular Volume 94, Mean Corpuscular Hemoglobin 29, Mean Corpuscular Hemoglobin Concent 31L, Red Cell Distribution Width 14.6H, Platelet Count 271, Mean Platelet Volume 12.1H, Sodium Level 139, Potassium Level 4.0, Chloride Level 109H, Carbon Dioxide Level 22, Anion Gap 8, Blood Urea Nitrogen 18, Creatinine 0.75, Estimat Glomerular Filtration Rate > 60, BUN/Creatinine Ratio 24, Glucose Level 102, Calcium Level 9.0 04/10/19 05:24: Glucometer 101 04/10/19 12:03: Glucometer 104 Microbiology 04/09/19 Urine Culture - Preliminary, Resulted Gram Negative Isaiah Assessment/Plan Assessment/Plan Assess & Plan/Chief Complaint fall with right shoulder fracture and coffee ground emesis. Hb stable. most likely stress and NSAID induced. will need continued pain control. EGD as OP. continue protonix. Clinical Quality Measures DVT/VTE Risk/Contraindication: Risk Factor Score Per Nursin RFS Level Per Nursing on Admit: 3=High MERLINE ZAVALA MD Apr 10, 2019 15:48 POS
[2019-04-10 16:30] VITALS: BP 122/73
--- NOTE | 2019-04-10 17:08 | NUR ---
1700 lortab held because schedule time is off from PRN dose she received earlier today. Pt pain controlled at this time, she is sleeping but easily aroused.
[2019-04-10 20:40] VITALS: BP 117/58
[2019-04-10] MEDS: LOSARTAN 50 MG TABLET PO SCH (21:00)
[2019-04-11] VITALS: BP 129/74
[2019-04-11] MEDS: fentaNYL INJECTION 100 MCG/2 ML AMP IVP PRN ×2 (00:46→07:56)
[2019-04-11 04:00] VITALS: BP 125/72
[2019-04-11] MEDS: inSUlin ASPART (NovoLOG) 1 UNIT/0.01 ML (CHARGE PER UNIT) SC SCH ×4 (05:16→20:41)
[2019-04-11] MEDS: OMEGA 3 (FISH OIL) 1000 MG CAP PO SCH ×3 (06:19→16:44)
[2019-04-11] MEDS: MULTIVIT W/MINERALS TAB (THERAGRAN M) PO SCH (06:19)
[2019-04-11] MEDS: PRESERVISION AREDS SOFTGEL (BAUSH & LOMB) PO SCH ×2 (06:20→16:43)
[2019-04-11] MEDS: VITAMIN D3 5,000 UNITS (CHOLECALCIFEROL ) CAPSULE PO SCH (06:21)
[2019-04-11] MEDS: NIACIN 500 MG TABLET PO SCH (07:56)
[2019-04-11 08:00] VITALS: BP 148/65
[2019-04-11] MEDS: PANTOPRAZOLE 40 MG (PROTONIX) VIAL IV SCH (08:06)
[2019-04-11] MEDS: HYDROcodone/APAP 10 MG/325 MG (LORTAB) TAB PO SCH ×4 (08:06→23:39)
[2019-04-11] MEDS: GABAPENTIN 600 MG (NEURONTIN) TAB PO SCH ×3 (08:07→20:41)
[2019-04-11] MEDS: Carvedilol 25 MG TABLET PO SCH ×2 (08:07→20:40)
[2019-04-11] MEDS: ARTIFICAL TEARS 0.4 ML UNIT DOSE (REFRESH PLUS) OU SCH ×2 (08:10→20:40)
--- NOTE | 2019-04-11 08:11 | NUR ---
PRIOR TO A.M. MEDS PULSE WAS 148/65 PULSE WAS 65 BPM.
--- NOTE | 2019-04-11 08:21 | NUR ---
Pt's dc pending at this time, will likely dc today. Dr. Lopes wanted to ensure PO pain meds would control pain before sending the pt home.
--- NOTE | 2019-04-11 09:47 | NUR ---
DISCHARGE PLANNING: Dr. Lopes spoke to this RN about patient being ready for discharge. SHe reports that there is no reason to keep her here any longer. Discharge was held yesterday due to c/o pain. Discharge orders are again placed today, with the same complaint from the patient of having uncontrolled pain. She reports the inability of being able to get up by herself and or walk by herself. Yesterday this RN did assist her to the restroom ad she was able to stand from the chair and walk to the restroom with stand by assist. Added with dropping of her briefs was needed and then pulling them up. SHe is no longer on O2. This RN explained to the patient that she is discharged today. I explained to her right her appeal the discharge. She is very angry about discharge with the above stated complaints of. Her daughter will e here at 1330 and I will explain the right to appeal to her as well. If they do not appeal she will be discharged today.
[2019-04-11] MEDS: LIDOCAINE 4% (SALONPAS) PATCH TOP SCH (11:20)
[2019-04-11] MEDS: cefTRIAXone FOR IV USE 1,000 MG in WATER (STERILE) FOR INJECTION 10 ML IV SCH (11:21)
[2019-04-11 12:00] VITALS: BP 114/57
--- NOTE | 2019-04-11 12:53 | Progress Note ---
Standard Progress Note Progress Notes/Assess & Plan Date Seen by a Provider: Apr 11, 2019 Time Seen by a Provider: 12:00 Progress/Assessment & Plan discussed risk and benefits of interscalene injection. pt refused procedure after a lengthy conversation. HARMAN GOODWIN WATER SERVER Apr 11, 2019 12:53 POS
--- NOTE | 2019-04-11 15:33 | NUR ---
DISCHARGE PLANNING: In anticipation of APPEAL OF DISCHARGE this RN has sent clinical information to our QIO, Jenni. Daughter is not yet here for me to explain this right. I told her RN lalit about it and she will let her know that she has until midnight to appeal or discharge. If she does not call the QIO for appeal and does not leave the hospital then she will be responsible for her bill starting at midnight.
[2019-04-11 16:00] VITALS: BP 142/65
[2019-04-11] MEDS: NS IV 1000 ML 1,000 ML IV SCH (16:43)
[2019-04-11] MEDS: PANTOPRAZOLE 40 MG (PROTONIX) TAB PO SCH (16:45)
[2019-04-11] MEDS: LOSARTAN 50 MG TABLET PO SCH (20:41)
[2019-04-11] MEDS ORDERED: LIDOCAINE PATCH REMOVAL TP SCH (21:00)
[2019-04-12 00:25] VITALS: BP 177/85
[2019-04-12] MEDS: OMEGA 3 (FISH OIL) 1000 MG CAP PO SCH ×2 (06:37→12:24)
[2019-04-12] MEDS: VITAMIN D3 5,000 UNITS (CHOLECALCIFEROL ) CAPSULE PO SCH (06:38)
[2019-04-12] MEDS: PANTOPRAZOLE 40 MG (PROTONIX) TAB PO SCH (06:38)
[2019-04-12] MEDS: PRESERVISION AREDS SOFTGEL (BAUSH & LOMB) PO SCH (06:38)
[2019-04-12] MEDS: HYDROcodone/APAP 10 MG/325 MG (LORTAB) TAB PO SCH ×2 (06:38→12:25)
[2019-04-12] MEDS: MULTIVIT W/MINERALS TAB (THERAGRAN M) PO SCH (06:41)
[2019-04-12] MEDS: inSUlin ASPART (NovoLOG) 1 UNIT/0.01 ML (CHARGE PER UNIT) SC SCH ×2 (06:42→11:51)
--- NOTE | 2019-04-12 07:37 | NUR ---
DISCHARGE PLANNING: EXPECTED PATIENT AND FAMILY DID APPEAL DISCHARGE. [facility]. DECISION IS EXPECTED BY MIDDAY.
[2019-04-12 08:00] VITALS: BP 146/75
[2019-04-12] MEDS ORDERED: CEFD300C3 PO (08:49)
[2019-04-12] MEDS ORDERED: METHYLNALTREXONE 12 MG/0.6 ML (RELISTOR) VIAL SQ NR (09:00)
--- NOTE | 2019-04-12 09:43 | NUR ---
DISCHARGE PLANNING: visited with patient about [employer] appeal.. She reports that she is thinking about just leaving today. Explained to her that she has until noon tomorrow if the QIO agrees with Dr. Lopes. I will let [facility] know that they are planning to discharge today. Patient was complaining about several different things when in the room. Firstly, about her limitations that she has with her injury. Secondly, she is complaining about being hoarse, and insisted that I hear it in her voice. SHe reported that she likely has bronchitis because she has that reaction to the FLU shot which she received because of a new grand baby. Told her I would let doctor know that she has concerns.
[2019-04-12] MEDS ORDERED: HYDR-3820 PO (09:55)
[2019-04-12] MEDS: Carvedilol 25 MG TABLET PO SCH (09:57)
[2019-04-12] MEDS: GABAPENTIN 600 MG (NEURONTIN) TAB PO SCH ×2 (09:58→12:25)
[2019-04-12] MEDS: LIDOCAINE 4% (SALONPAS) PATCH TOP SCH (09:58)
[2019-04-12] MEDS: ARTIFICAL TEARS 0.4 ML UNIT DOSE (REFRESH PLUS) OU SCH (10:03)
--- NOTE | 2019-04-12 10:17 | NUR ---
Patient had received her immobilizer and was told it is not covered by medicare. She has requested the medicare number to call and complain. I have given the nurse a copy of the FACESHEET and Highlighted the phone number for her to call ask ask questions.
[2019-04-12] MEDS: cefTRIAXone FOR IV USE 1,000 MG in WATER (STERILE) FOR INJECTION 10 ML IV SCH (12:24)
--- NOTE | 2019-04-12 16:04 | NUR ---
QIO decision was in favor of the patient. She had made the decision this morning when I initially visited to "just go home today today when her daughter gets here". I explained at that time that if the QIO decision was in agreement with the physician that she would have at least one more day in the hospital with with vacation of the hospital room by noon tomorrow. I explained that the decision could be in her favor and she would be able to stay a couple more days al least. She again verbalized to me that she was just going to go home today.
== END 2019-04-12 15:45 | disposition home health service (06) | DRG 562 ==
LOC: EDUNIT# 19:49 → ER 19:51 → 4TH 23:25 → INTOOBSV 04-09 08:36 → OBSVTOIN 04-09 08:36 → EDPENDDISTM 04-11 09:30 → EDPENDDISDT 04-11 09:30 → UNDODISIN 04-12 15:45
PROVIDERS: ADMIT Family Medicine; ATTEND Family Medicine
DX: S42.231A 3-part fracture of surgical neck of right humerus, initial encounter for closed fracture (principal); K29.61 Other gastritis with bleeding; N39.0 Urinary tract infection, site not specified; M19.011 Primary osteoarthritis, right shoulder; M19.012 Primary osteoarthritis, left shoulder; I10 Essential (primary) hypertension; M81.0 Age-related osteoporosis without current pathological fracture; M54.9 Dorsalgia, unspecified; H35.30 Unspecified macular degeneration; F41.9 Anxiety disorder, unspecified; E89.2 Postprocedural hypoparathyroidism; E78.5 Hyperlipidemia, unspecified; G62.9 Polyneuropathy, unspecified; G43.909 Migraine, unspecified, not intractable, without status migrainosus; R11.2 Nausea with vomiting, unspecified; B96.20 Unspecified Escherichia coli [E. coli] as the cause of diseases classified elsewhere; T39.395A Adverse effect of other nonsteroidal anti-inflammatory drugs [NSAID], initial encounter; T40.2X5A Adverse effect of other opioids, initial encounter; Y92.009 Unspecified place in unspecified non-institutional (private) residence as the place of occurrence of the external cause; Z79.82 Long term (current) use of aspirin; Z90.81 Acquired absence of spleen; W18.09XA Striking against other object with subsequent fall, initial encounter
CPT/HCPCS: 36415; 70450; 71045; 72125; 73030; 73080; 80048; 80053; 81000; 82271; 82274; 82962; 85007; 85025; 85027; 87077; 87088; 87186; 94760; 96361; 96374; 96375; 96376; G0378

== ENCOUNTER → 2019-05-14 | Outpatient (CLI) | payer MEDICARE, OTHER ==
[~2019-05-14] MED LIST changes: +CATHETER FLUSH 10 ML SYR IV PRN; +CEFD300C3 PO; +CEPH-507 PO; +HOLD METFORMIN - RECEIVED CONTRAST 20 ML VIAL IV SCH; +HYDR-3820 PO; +IOHEXOL 350 MG/ML 100 ML (OMNIPAQUE 350) VIAL IV ONE; +MISC; +NS 100 ML (IVPB) BAG IV ONE; +PANT40TA3 PO; +SENN-145 PO
[2019-05-14 14:16] LABS: BUN/CREATININE RATIO 22; CREATININE SERUM 0.88 MG/DL (0.60-1.30); GFR ESTIMATED > 60
--- NOTE | 2019-05-14 15:00 | Diagnostic Imaging Report ---
PROCEDURE: CT abdomen and pelvis with contrast. TECHNIQUE: Multiple contiguous axial images were obtained through the abdomen and pelvis after administration of intravenous contrast. Auto Exposure Controls were utilized during the CT exam to meet ALARA standards for radiation dose reduction. INDICATION: Abdominal pain. FINDINGS: The gallbladder is mildly prominent at 4.8 x 10 cm. It does have at least two small stones within its dependent lumen. Its wall did not appear notably thickened and no obvious pericholecystic edema. There is no pathological dilatation of intra- or extra-hepatic bile ducts, and the pancreas and its duct appear normal. The adrenals are negative. There are some left upper quadrant splenules. There is scattered noninflamed colonic and sigmoidal diverticulosis. The uterus, adnexa, and urinary bladder appear unremarkable. There is no appendicitis. There is no bowel obstruction. Chronic fragmented retropulsed T12 vertebral body fracture shows no progression from a chest CT of 02/08/2019. IMPRESSION: 1. Prominent stone-containing gallbladder; correlate clinically. As warranted, ultrasound may provide additional utility. No bile duct dilatation. 2. Noninflamed diverticulosis and additional chronic findings as described. Dictated by: Dictated on workstation # [id number]
== END ==
LOC: RAD 13:32
PROVIDERS: ATTEND Nurse Practitioner Family
DX: K57.30 Diverticulosis of large intestine without perforation or abscess without bleeding (principal)
CPT/HCPCS: 36415; 74177; 82565; 84520

== ENCOUNTER → 2019-05-14 | Outpatient (CLI) | payer MEDICARE, OTHER ==
[~2019-05-14] MED LIST changes: -CATHETER FLUSH 10 ML SYR IV PRN; -HOLD METFORMIN - RECEIVED CONTRAST 20 ML VIAL IV SCH; -IOHEXOL 350 MG/ML 100 ML (OMNIPAQUE 350) VIAL IV ONE; -NS 100 ML (IVPB) BAG IV ONE
--- NOTE | 2019-05-14 16:20 | Diagnostic Imaging Report ---
INDICATION: Postmenopausal screening COMPARISON: 02/06/2014 FINDINGS: AP Spine L1-L4: [BMD (g/cm2): NA] [T-Score: NA] [Z-Score: NA] [BMD Previous: NA] [BMD % Change: NA] LT Hip Neck: [BMD (g/cm2): 0.936] [T-Score: -0.7] [Z-Score: 0.7] LT Hip Total: [BMD (g/cm2):0.817] [T-Score:-1.5] [Z-Score: -0.3] [BMD Previous: 0.789] [BMD % Change: 3.5] RT Hip Neck: [BMD (g/cm2):0.803] [T-Score:-1.7] [Z-Score:-0.2] RT Hip Total: [BMD (g/cm2):0.798] [T-score:-1.7] [Z-Score:-0.4] [BMD Previous:0.777] [BMD % Change:2.7] *Indicates significant change from prior examination based on 95% confidence level. World Health Organization criteria for BMD interpretation classify patients as Normal (T-score at or above -1.0), Osteopenic (T-score between -1.0 and -2.5) or Osteoporotic (T-score at or below -2.5). LIMITATIONS AND MODIFICATION: None. FRACTURE RISK (FRAX SCORE): The ten year probability of (%): Major Osteoporotic Fracture: [18.7] Hip Fracture: [4.2] IMPRESSION: 1. Osteopenia (Low bone mass). 2. No significant change in bone mineral density since prior examination. 3. See below National Osteoporosis Foundation guidelines on when to potentially initiate pharmacologic therapy. Based on the National Osteoporosis Foundation Guidelines, pharmacologic treatment should be initiated in any of the following, unless clinical conditions suggest otherwise: * Any patient with prior fragility fracture of the hip or vertebrae. A spine fracture indicates 5X risk for subsequent spine fracture and 2X risk for subsequent hip fracture. * Osteoporosis (T-score <-2.5). * Postmenopausal women and men age 50 and older with low bone mass/osteopenia (T-score between -1.0 and -2.5) by DXA and 10-year major osteoporotic fracture greater than 20% or a 10-year probability of hip fracture greater than 3%. These fracture risks are supplied above in the FRAX score, if applicable. * Clinician judgement and/or patient preferences may indicate treatment for people with 10-year fracture probabilities above or below these levels. Dictated by: Dictated on workstation # [id number]
== END ==
LOC: RAD 13:31
PROVIDERS: ATTEND Nurse Practitioner Family
DX: Z13.820 Encounter for screening for osteoporosis (principal); M81.0 Age-related osteoporosis without current pathological fracture; M85.89 Other specified disorders of bone density and structure, multiple sites; Z78.0 Asymptomatic menopausal state
CPT/HCPCS: 77080

== ENCOUNTER → 2019-06-06 | Outpatient (CLI) | payer MEDICARE, OTHER ==
--- NOTE | 2019-06-06 17:34 | Diagnostic Imaging Report ---
PROCEDURE: MRI left joint lower extremity without contrast. TECHNIQUE: Multiplanar, multisequence non contrast-enhanced MRI of the left lower extremity was accomplished. INDICATION: Knee pain. COMPARISON: There are no prior MRI examinations available for comparison. FINDINGS: The plain film examination of both knees performed on 10/12/2011 noted narrowing of the medial compartment of each knee joint. There is no sign of an acute abnormality. On the sagittal proton-density series there is a poorly defined area of altered signal along the inferior articular surface of the posterior horn of the medial meniscus. This would be consistent with a tear. There are also prominent areas of abnormal signal in both the anterior and posterior horns of the lateral meniscus. I suspect that these too are related to a tear of the meniscus. The anterior and posterior cruciate ligaments, the quadriceps and infrapatellar tendons, the fibular collateral ligament, the biceps femoris tendon, the iliotibial band and the medial and lateral retinaculum are intact. There is no evidence for tear of the medial collateral ligament. However, there is a well-circumscribed 6.1 x 20 x 30 mm fluid collection interposed between the medial collateral ligament, the medial meniscus and the medial aspect of the proximal tibia. There is also a small fluid collection measuring 5.4 x 15.8 mm along the lateral margin of the attachment of the infrapatellar tendon to the proximal tibia. There is another irregular more loculated smaller fluid collection along the anterior aspect of the medial tibial plateau. I suspect these fluid collections are due to inflammation. It would be unlikely that they are related to ganglion cyst. There is no abnormal signal arising from the osseous structures to indicate bone edema related to an acute fracture. 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 A small joint effusion is also seen. IMPRESSION: 1. Both menisci are torn with the lateral meniscus the more severely injured. 2. The major ligaments and tendons are intact. 3. The fluid collections about the knee joint are most likely due to an inflammatory/infectious process. 4. There is no evidence for an acute bony abnormality. 5. There is moderate degenerative disease of all three compartments. Dictated by: Dictated on workstation # [id number]
--- NOTE | 2019-06-06 18:41 | Diagnostic Imaging Report ---
PROCEDURE: CT right upper extremity without contrast. TECHNIQUE: Multiple contiguous axial images were obtained through the right upper extremity without the use of intravenous contrast. Sagittal and coronal reformations were then performed. 3-D reconstructed images of the shoulder joint were also performed. Auto Exposure Controls were utilized during the CT exam to meet ALARA standards for radiation dose reduction. INDICATION: Humeral fracture, shoulder pain. FINDINGS: There are no prior CT right upper extremity examinations available for comparison. The plain film examination of the right shoulder performed on 04/08/2019 did note an acute impacted fracture involving the surgical neck of the humerus and the humeral head. On this study that injury is again identified. The fracture is severely comminuted, but the main fracture fragment seems similar in alignment to the prior exam. There does seem to be healing callus formation present. There is no evidence for a dislocation of the glenohumeral joint. There does seem to be a small avulsion fracture along the anterior margin of the glenoid, however. The soft tissues are generally unremarkable. There is no other acute or subacute bony abnormality appreciated. There is a healing/healed essentially nondisplaced fracture of the right fifth rib. The right lung where visualized is generally clear. IMPRESSION: 1. There is a comminuted impacted fracture involving the humeral head and surgical neck of the humerus. There is a small amount of healing callus formation present and the main fracture fragment seems similar in alignment to the prior exam. 2. There is no acute bony abnormality noted. 3. There is a healing/healed fracture of the right fifth rib. Dictated by: Dictated on workstation # [id number]
== END ==
LOC: RAD 15:51
PROVIDERS: ATTEND Nurse Practitioner Family
DX: S83.282A Other tear of lateral meniscus, current injury, left knee, initial encounter (principal); S83.242A Other tear of medial meniscus, current injury, left knee, initial encounter; M17.12 Unilateral primary osteoarthritis, left knee; S42.221A 2-part displaced fracture of surgical neck of right humerus, initial encounter for closed fracture
CPT/HCPCS: 73200; 73721

== ENCOUNTER → 2019-07-09 | Outpatient (CLI) | payer MEDICARE, OTHER ==
[~2019-07-09] MED LIST changes: +SIMV40TA25 PO; -SIMV40TA4 PO
--- NOTE | 2019-07-10 11:37 | Diagnostic Imaging Report ---
INDICATION: Postmenopausal screening for osteoporosis. COMPARISON: 05/14/2019. FINDINGS: Radius BMD 0.606. T score -3.2. The age-matched Z score is -0.4. AP Spine L1-L4: [BMD (g/cm2): ] [T-Score: ] [Z-Score: ] [BMD Previous: ] [BMD % Change: ] LT Hip Neck: [BMD (g/cm2): ] [T-Score: ] [Z-Score: ] LT Hip Total: [BMD (g/cm2): ] [T-Score: ] [Z-Score: ] [BMD Previous: ] [BMD % Change: ] RT Hip Neck: [BMD (g/cm2): ] [T-Score: ] [Z-Score: ] RT Hip Total: [BMD (g/cm2): ] [T-score: ] [Z-Score: ] [BMD Previous: ] [BMD % Change: ] *Indicates significant change from prior examination based on 95% confidence level. World Health Organization criteria for BMD interpretation classify patients as Normal (T-score at or above -1.0), Osteopenic (T-score between -1.0 and -2.5) or Osteoporotic (T-score at or below -2.5). LIMITATIONS AND MODIFICATION: None. FRACTURE RISK (FRAX SCORE): The ten year probability of (%): Major Osteoporotic Fracture: [ ] Hip Fracture: [ ] IMPRESSION: 1. Osteoporosis. 2. Due to differences in equipment utilized between examinations, direct quantitative comparison is not possible to assess for interval change in bone mineral density. 3. See below National Osteoporosis Foundation guidelines on when to potentially initiate pharmacologic therapy. Based on the National Osteoporosis Foundation Guidelines, pharmacologic treatment should be initiated in any of the following, unless clinical conditions suggest otherwise: * Any patient with prior fragility fracture of the hip or vertebrae. A spine fracture indicates 5X risk for subsequent spine fracture and 2X risk for subsequent hip fracture. * Osteoporosis (T-score <-2.5). * Postmenopausal women and men age 50 and older with low bone mass/osteopenia (T-score between -1.0 and -2.5) by DXA and 10-year major osteoporotic fracture greater than 20% or a 10-year probability of hip fracture greater than 3%. These fracture risks are supplied above in the FRAX score, if applicable. * Clinician judgement and/or patient preferences may indicate treatment for people with 10-year fracture probabilities above or below these levels. Dictated by: Dictated on workstation # [id number]
== END ==
LOC: RAD 10:33
PROVIDERS: ATTEND Nurse Practitioner Family
DX: M81.0 Age-related osteoporosis without current pathological fracture (principal)
CPT/HCPCS: 77080

== ENCOUNTER → 2020-05-11 | Outpatient (CLI) | payer MEDICARE, OTHER ==
[~2020-05-11] MED LIST changes: +ACHYD1T PO; -HYDR-3816 PO; -HYDR-3820 PO; -PANT40TA3 PO; +PANT40TA52 PO
--- NOTE | 2020-05-11 15:31 | Diagnostic Imaging Report ---
PROCEDURE: US Thyroid. TECHNIQUE: Multiple real-time grayscale images were obtained of the thyroid in various projections. INDICATION: Hyperthyroidism There are no prior studies available for comparison. The thyroid gland is prominent but not enlarged. The right lobe measures 4.7 x 1 x 1.4 cm, left lobe is estimated 4.2 x 2.0 cm (normal gland size 45 x 2.2 cm or less). Each lobe has a heterogeneous texture. There are also 2 small subcentimeter hypoechoic and hyperechoic nodules in the right lobe. These nodules are most likely benign. In addition, there is a 1.4 x 0.9 x 1.5 cm mixed density lesion with a smooth border in the midportion of the left lobe. This does show internal vascularity. I would rate this is a TI-RADS 3 lesion. Along the superior margin of this area there is a separate 0.6 x 0.7 x 0.9 cm avascular hypoechoic lesion. This has a generally benign appearance. IMPRESSION: 1. The thyroid gland is prominent but not enlarged. It has a heterogeneous texture and there are nodules in each lobe. The complex nodule in the left lobe is most likely a benign process. However unless there are previous studies available to demonstrate that this finding is stable, then a short-term (6 month) followup thyroid ultrasound exam would be recommended. Dictated by: Dictated on workstation # [id number]
== END ==
LOC: RAD 12:45
PROVIDERS: ATTEND Nurse Practitioner Family
DX: E04.2 Nontoxic multinodular goiter (principal); E05.30 Thyrotoxicosis from ectopic thyroid tissue without thyrotoxic crisis or storm
CPT/HCPCS: 76536

== ENCOUNTER → 2020-07-17 | Outpatient (CLI) | payer MEDICARE, OTHER ==
--- NOTE | 2020-07-17 15:52 | Diagnostic Imaging Report ---
INDICATION: Left leg pain. Left leg venous Doppler study was performed in the routine fashion with color flow Doppler and waveform analysis. FINDINGS: The left common femoral vein, superficial femoral vein, popliteal vein and visualized portion of the posterior tibial vein show normal compressibility and venous flow patterns. There is normal augmentation. IMPRESSION: No evidence of deep vein thrombosis of the major veins of the left leg. Dictated by: Dictated on workstation # [id number]
== END ==
LOC: RAD 14:00
PROVIDERS: ATTEND Nurse Practitioner Family
DX: M25.562 Pain in left knee (principal); M25.462 Effusion, left knee

== ENCOUNTER 2020-12-03 15:00 | Outpatient (RCR) | payer MEDICARE, OTHER ==
[~2020-12-03 15:00] MED LIST changes: -OXYC-464 PO; +OXYC1TAB15 PO
== END 2020-12-03 15:35 | disposition home or self-care (01) ==
PROVIDERS: ATTEND Orthopaedic Surgery
DX: M12.511 Traumatic arthropathy, right shoulder (principal); I10 Essential (primary) hypertension

== ENCOUNTER 2021-02-11 14:31 | Outpatient (RCR) | payer MEDICARE, OTHER | END 2021-03-01 15:45 | disposition home or self-care (01) | PROVIDERS: ATTEND Orthopaedic Surgery | DX: Z47.1 Aftercare following joint replacement surgery (principal); Z96.652 Presence of left artificial knee joint; I10 Essential (primary) hypertension ==

== ENCOUNTER → 2021-05-10 | Outpatient (CLI) | payer MEDICARE, OTHER ==
--- NOTE | 2021-05-10 15:55 | Diagnostic Imaging Report ---
INDICATION: Routine screening. COMPARISON: 05/11/2018 and 01/05/2016. TECHNIQUE: 2D and 3D bilateral screening mammography was performed with CAD. FINDINGS: Scattered fibroglandular densities are identified bilaterally. Benign nodules in the upper outer right breast are stable. No new mass or malignant-appearing microcalcifications are seen. There are scattered benign calcifications. The axillae are unremarkable. IMPRESSION: No mammographic features suspicious for malignancy are identified. ACR BI-RADS Category 2: Benign findings. Result letter will be mailed to the patient. Note: At least 10% of breast cancer is not imaged by mammography. Dictated by: Dictated on workstation # [id number]
== END ==
LOC: RAD 14:45
PROVIDERS: ATTEND Nurse Practitioner Family
DX: Z12.31 Encounter for screening mammogram for malignant neoplasm of breast (principal)
CPT/HCPCS: 77063; 77067

== ENCOUNTER 2021-06-25 15:12 | Outpatient (RCR) | payer MEDICARE, OTHER | END 2021-06-28 | disposition home or self-care (01) | PROVIDERS: ATTEND Family Medicine | DX: M54.42 Lumbago with sciatica, left side (principal); I10 Essential (primary) hypertension ==

== ENCOUNTER 2021-06-29 16:07 | Outpatient (RCR) | payer MEDICARE, OTHER | END 2021-07-26 | disposition home or self-care (01) | PROVIDERS: ATTEND Family Medicine | DX: M54.42 Lumbago with sciatica, left side (principal); I10 Essential (primary) hypertension ==

== ENCOUNTER 2021-08-18 05:33 | Outpatient (CLI) | payer MEDICARE, OTHER ==
[~2021-08-18] VITALS: Ht 160 cm; Wt 93.6 kg
[2021-08-19] MEDS ORDERED: TRAM50TA3 PO (11:00)
[2021-08-19] MEDS ORDERED: LOSA25TA41 PO (11:00)
[2021-08-19] MEDS ORDERED: CHOL-34 PO (11:00)
[2021-08-19] MEDS ORDERED: CELE-63 PO (11:00)
== END 2021-08-19 11:01 ==
LOC: PREOP 05:33
PROVIDERS: ATTEND Surgery
DX: Z01.818 Encounter for other preprocedural examination (principal)

== ENCOUNTER 2021-08-25 10:37 | Day surgery (SDC) | payer MEDICARE, OTHER ==
[~2021-08-25] VITALS: Ht 160 cm; Wt 93.6 kg
[~2021-08-25 10:37] MED LIST changes: +CELE-63 PO; +CHOL-34 PO; +LOSA25TA41 PO; +TRAM50TA3 PO
[2021-08-25] MEDS ORDERED: LACTATED RINGERS 1,000 ML IV STA (11:06)
--- NOTE | 2021-08-25 11:21 | Progress Note-Pre Operative ---
Pre-Operative Progress Note H&P Reviewed The H&P was reviewed, patient examined and no changes noted. Date Seen by Provider: Aug 25, 2021 Time Seen by Provider: 11:00 Date H&P Reviewed: Aug 25, 2021 Time H&P Reviewed: 11:00 Pre-Operative Diagnosis: screening colonoscopy MERLINE ZAVALA MD Aug 25, 2021 11:21
--- NOTE | 2021-08-25 11:23 | Discharge Inst-Surgical ---
D/C Lap Instructions-SALLY Follow Up Activity as tolerated High Fiber Diet 25g or more per day Avoid Alcohol, Caffeine, Spicy [place] and Acid foods. Drink 64 fluid oz or more of fluids per day. Symptoms to Report: Fever over 101 degree F, Nausea/Vomiting If any problems/questions: Contact your physician or go to Emergency Room MERLINE ZAVALA MD Aug 25, 2021 11:22
[2021-08-25] MEDS ORDERED: ONDANSETRON 4 MG/2 ML (SDV) Z0FRAN IVP PRN (11:30)
[2021-08-25] MEDS ORDERED: ONDANSETRON 4 MG (ZOFRAN) ORAL DISSOLVE TAB PO PRN (11:30)
[2021-08-25 11:42] VITALS: BP 164/74
[2021-08-25] MEDS ORDERED: PROPOFOL INJECTION 50 ML IV ONE (12:08)
[2021-08-25] MEDS ORDERED: LIDOCAINE JELLY 2% 6 ML SYRINGE ONE (12:10)
[2021-08-25] MEDS ORDERED: LIDOCAINE JELLY 2% 6 ML SYRINGE TOP ONE (12:30)
[2021-08-25 12:50] VITALS: BP 168/81
[2021-08-25 12:55] VITALS: BP 175/85
--- NOTE | 2021-08-25 12:58 | Progress Note-Post Operative ---
Post-Operative Progess Note Surgeon (s)/Lithographic Etcher (s) Surgeon MERLINE ZAVALA MD Lithographic Etcher: none Pre-Operative Diagnosis screening colonoscopy Post-Operative Diagnosis chronic stage 2 ext and int hemorrhoids, moderate sigmoid diverticulosis. Procedure & Operative Findings Date of Procedure 08/25/21 Procedure Performed/Findings colonoscopy Anesthesia Type mac Estimated Blood Loss Estimated blood loss (mL): minimal Specimens/Packing Specimens Removed none MERLINE ZAVALA MD Aug 25, 2021 12:58
[2021-08-25 13:25] VITALS: BP 160/82
[2021-08-25 14:24] VITALS: BP 160/82
--- NOTE | 2021-08-25 17:41 | OPERATIVE REPORT ---
DATE OF SERVICE: 08/25/2021 ATTENDING PRIMARY CARE PHYSICIAN: Dr. Nicolle Lopes. PREOPERATIVE DIAGNOSIS: Screening colonoscopy. POSTOPERATIVE DIAGNOSES: Chronic stage II external and internal hemorrhoids, moderate sigmoid diverticulosis. PROCEDURE PERFORMED: Colonoscopy. SURGEON: Merline Zavala MD. ANESTHESIA: Monitored anesthesia care. ESTIMATED BLOOD LOSS: Minimal. FINDINGS: Chronic stage II external and internal hemorrhoids, moderate sigmoid diverticulosis. DISPOSITION: The patient tolerated the procedure well. INDICATIONS FOR PROCEDURE: The patient is an 80-year-old female known to us. She has had issues with gastritis in the past due to nonsteroidal anti-inflammatories. She also did have some crampy abdominal pain and underwent a CT scan and was found to have gallstones; however, at this time, she is asymptomatic. She is in need of a screening colonoscopy. Her last colonoscopy was approximately 10 years ago. She does not report any family history of colon cancer. DESCRIPTION OF PROCEDURE: The patient was brought to the endoscopy suite and laid in the left lateral decubitus position. After adequate IV pain and sedative medications and monitored anesthesia care, a digital rectal examination was performed. Chronic stage II external and internal hemorrhoids were identified, which were not actively edematous nor inflamed and no bleeding. Normal sphincter tone was felt and there were no palpable masses. The endoscope was then intubated and anus and rectum gently insufflated. The endoscope was then advanced through the valves of Jensen of the rectum with no polyps or any neoplasms identified. We then proceeded through the sigmoid colon, where a moderate sigmoid diverticulosis identified. The endoscope was then advanced through the remainder of the descending, transverse and ascending colon to the cecum, which were normal. There were no polyps or any neoplasms identified. The endoscope was then slowly withdrawn while taking a second look and suctioning of residual air with no additional findings. The patient tolerated the procedure well. We will recommend medical management with a high-fiber diet with a fiber supplement, which equal or exceed 25 grams daily to promote soft stools on a daily basis. This strategy would hopefully decrease further propagation of diverticulosis as well as the complications associated with them. If she is asymptomatic, she does not need another colonoscopy for another 10 years. If she does develop pain more in the right upper abdominal quadrant, we will also have her follow up due to the development of symptomatic cholelithiasis. Job ID: [id number] DocumentID: [id number] Dictated Date: 08/25/2021 12:51:03 Structural Fitter Date: 08/25/2021 17:40:46 Dictated By: MERLINE ZAVALA MD
== END 2021-08-25 13:35 | disposition home or self-care (01) ==
LOC: ENDO 10:37
PROVIDERS: ATTEND Surgery
DX: Z12.11 Encounter for screening for malignant neoplasm of colon (principal); K57.30 Diverticulosis of large intestine without perforation or abscess without bleeding; K64.1 Second degree hemorrhoids; K64.4 Residual hemorrhoidal skin tags

== ENCOUNTER → 2022-01-11 | Outpatient (CLI) | payer MEDICARE, OTHER ==
--- NOTE | 2022-01-11 12:56 | Diagnostic Imaging Report ---
INDICATION: Postmenopausal screening COMPARISON: 07/09/2019 FINDINGS: AP Spine L1-L4: [BMD (g/cm2): N/A] [T-Score: N/A] [Z-Score: N/A] [BMD Previous: N/A] [BMD % Change: N/A] LT Hip Neck: [BMD (g/cm2): 0.914] [T-Score: -0.9] [Z-Score: 0.8] LT Hip Total: [BMD (g/cm2):0.796] [T-Score:-1.7] [Z-Score: -0.2] [BMD Previous: 0.817] [BMD % Change: -2.6] RT Hip Neck: [BMD (g/cm2):0.744] [T-Score:-2.1] [Z-Score:-0.5] RT Hip Total: [BMD (g/cm2):0.788] [T-score:-1.7] [Z-Score:-0.3] [BMD Previous:0.798] [BMD % Change:-1.3] *Indicates significant change from prior examination based on 95% confidence level. World Health Organization criteria for BMD interpretation classify patients as Normal (T-score at or above -1.0), Osteopenic (T-score between -1.0 and -2.5) or Osteoporotic (T-score at or below -2.5). LIMITATIONS AND MODIFICATION: None. FRACTURE RISK (FRAX SCORE): The ten year probability of (%): Major Osteoporotic Fracture: [21.3] Hip Fracture: [6.0] IMPRESSION: 1. Osteopenia (Low bone mass). 2. Due to differences in equipment utilized between examinations, direct quantitative comparison is not possible to assess for interval change in bone mineral density. 3. See below National Osteoporosis Foundation guidelines on when to potentially initiate pharmacologic therapy. Based on the National Osteoporosis Foundation Guidelines, pharmacologic treatment should be initiated in any of the following, unless clinical conditions suggest otherwise: * Any patient with prior fragility fracture of the hip or vertebrae. A spine fracture indicates 5X risk for subsequent spine fracture and 2X risk for subsequent hip fracture. * Osteoporosis (T-score <-2.5). * Postmenopausal women and men age 50 and older with low bone mass/osteopenia (T-score between -1.0 and -2.5) by DXA and 10-year major osteoporotic fracture greater than 20% or a 10-year probability of hip fracture greater than 3%. These fracture risks are supplied above in the FRAX score, if applicable. * Clinician judgement and/or patient preferences may indicate treatment for people with 10-year fracture probabilities above or below these levels. Dictated by: Dictated on workstation # [id number]
== END ==
LOC: RAD 08:49
PROVIDERS: ATTEND Nurse Practitioner Family
DX: M85.80 Other specified disorders of bone density and structure, unspecified site (principal); Z78.0 Asymptomatic menopausal state
CPT/HCPCS: 77080

== ENCOUNTER → 2022-05-05 | Outpatient (CLI) | payer MEDICARE, OTHER ==
--- NOTE | 2022-05-05 16:04 | Diagnostic Imaging Report ---
Indication: Bilateral breast pain. Comparison is made with prior mammograms from 05/10/2021 and 05/11/2018. 2-D and 3-D bilateral diagnostic mammography was performed with CAD. Scattered fibroglandular densities are identified bilaterally. Benign nodules in both breasts appear stable. No spiculated mass or malignant-appearing microcalcifications are seen. There are scattered benign calcifications bilaterally. Axillae are unremarkable. IMPRESSION: BI-RADS Category 2 No mammographic features suspicious for malignancy are identified. ACR BI-RADS Category 2: Benign findings. Result letter will be mailed to the patient. Note: At least 10% of breast cancer is not imaged by mammography. Dictated by: Dictated on workstation # [id number]
== END ==
LOC: RAD 13:15
PROVIDERS: ATTEND Family Medicine
DX: N64.4 Mastodynia (principal)
CPT/HCPCS: 77066; G0279; 77062

== ENCOUNTER → 2022-06-17 | Outpatient (CLI) | payer MEDICARE, OTHER ==
--- NOTE | 2022-06-17 17:21 | Diagnostic Imaging Report ---
INDICATION: Back pain AP and oblique views of the pelvis were obtained The SI joints are unremarkable. There are moderate degenerative changes of the left hip with joint space narrowing and some synovial pitting of the opposing articular surfaces. There is very slight joint space narrowing of the right hip. IMPRESSION: SI joints are unremarkable. Mild degenerative changes of the right hip. Moderate to severe degenerative changes of the left hip. No fracture or acute abnormality is seen. Dictated by: Dictated on workstation # [id number]
--- NOTE | 2022-06-17 17:22 | Diagnostic Imaging Report ---
INDICATION: Low back pain. EXAMINATION: Lumbar spine. FINDINGS: AP and lateral views of the lumbar spine show an old compression fracture of T12 that was present on a previous exam from 09/06/2012. Patient has had discectomy and dorsal fusion at L4-L5 which was also been seen at least since 09/06/2012. The L5-S1 disc space is narrowed. There is vacuum disc phenomena. The other disc spaces are unremarkable. IMPRESSION: Old compression fracture of T12. Postsurgical changes from laminectomy with dorsal fusion and discectomy at L4-L5. There are advanced degenerative disc changes at L5-S1. Overall appearance of the lumbar spine is unchanged compared to 09/06/2012. Dictated by: Dictated on workstation # [id number]
== END ==
LOC: RAD 15:04
PROVIDERS: ATTEND Family Medicine
DX: M51.37 Other intervertebral disc degeneration, lumbosacral region (principal); M16.0 Bilateral primary osteoarthritis of hip; Z98.1 Arthrodesis status
CPT/HCPCS: 72100; 72202

== ENCOUNTER → 2023-04-09 | Outpatient (CLI) | payer MEDICARE, OTHER ==
[~2023-04-09] MED LIST changes: -CELE-63 PO; +CELE-91 PO
[2023-04-10 14:18] LABS: ABSOLUTE RETIC # 56 10e9/uL (24-90); LYMPHOCYTES % (MANUAL) 2 %; MONOCYTES % (MANUAL) 4 %; NEUTROPHILS % (MANUAL) 94 %; RETICULOCYTE % 1.53 % (0.50-2.40)
== END ==
LOC: LABNPT 14:05
PROVIDERS: ATTEND Nurse Practitioner Family
DX: Z01.89 Encounter for other specified special examinations (principal)
CPT/HCPCS: 85007; 85045; 85055